=== PATIENT | female | born 1940 | race Caucasian/White ===

== ENCOUNTER 2016-09-07 22:14 | Emergency (ER) | payer MEDICARE, OTHER ==
[2016-09-07 22:33] VITALS: RESP 18
--- NOTE | 2016-09-07 22:51 | ED ---
General Adult HPI - General Chief complaint: Allergic Reaction Stated complaint: abcess Time Seen by Provider: 09/07/16 22:26 Source: patient, RN notes reviewed Mode of arrival: EMS Limitations: no limitations - History of Present Illness Initial comments: Patient is a 75-year-old female presents to the emergency room for evaluation of skin irritation. Patient states her left arm began irritating her about 5 days ago. Patient states she's been itching at the area profusely. Patient states she's noticed very dark spots over her left arm with surrounding redness. Patient states that her custodial advised that she come here to be evaluated. Patient states she's think she is having ALLERGIC reaction. Patient states that she had peanuts about a week ago. Patient states she hasn' t had peanuts in a very long time. Patient denies new medications. Patient denies new detergents, body washes, soaps, shampoos. Patient denies any significant pain. Patient states that she usually does not bruise easily. Denies any recent falls or trauma to her left arm. Patient denies fevers or chills. Patient denies shortness of breath or trouble breathing. Patient does admit she has a history of COPD. - Related Data Home Medications Medication Instructions Recorded Confirmed Aspirin EC [Ecotrin Low Dose] 81 mg PO DAILY 09/07/16 09/07/16 Calcium Carb-Vit D 500Mg-200Un 1 tab PO BID 09/07/16 09/07/16 [Oscal 500+D] Diltiazem Cd [Cardizem Cd] 180 mg PO DAILY 09/07/16 09/07/16 Furosemide [Lasix] 20 mg PO BID 09/07/16 09/07/16 Lisinopril [Zestril] 2.5 mg PO DAILY 09/07/16 09/07/16 Metoprolol Tartrate [Lopressor] 25 mg PO DAILY 09/07/16 09/07/16 Montelukast [Singulair] 10 mg PO HS 09/07/16 09/07/16 PARoxetine HCL [Paxil] 60 mg PO DAILY 09/07/16 09/07/16 Potassium Chloride ER [K-Dur 10] 10 meq PO DAILY 09/07/16 09/07/16 Valsartan 80 mg PO DAILY 09/07/16 09/07/16 cloNIDine HCL [Catapres] 0.1 mg PO BID 09/07/16 09/07/16 Previous Rx's Medication Instructions Recorded Famotidine [Pepcid] 20 mg PO DAILY 4 Days 09/08/16 predniSONE 20 mg PO DAILY #4 tab 09/08/16 Allergies Allergy/AdvReac Type Severity Reaction Status Date / Time codeine Allergy Nausea & Verified 09/07/16 23:05 Vomiting levofloxacin [From Levaquin] Allergy Swelling Verified 09/07/16 23:05 meperidine [From Demerol] Allergy PATIENT Verified 09/07/16 23:05 GETS "HYPER" Review of Systems ROS Statement: Those systems with pertinent positive or pertinent negative responses have been documented in the HPI. ROS Other: All systems not noted in ROS Statement are negative. Past Medical History Past Medical History: COPD, Hypertension Additional Past Medical History / Comment(s): IBS, hyperparathyroidism History of Any Multi-Drug Resistant Organisms: None Reported Past Surgical History: Hysterectomy Additional Past Surgical History / Comment(s): parathyroidectomy Past Psychological History: No Psychological Hx Reported Smoking Status: Former smoker Past Alcohol Use History: Occasional Past Drug Use History: None Reported General Exam - General Exam Comments Initial Comments: Sitting in exam room, no acute distress. Limitations: no limitations General appearance: alert, in no apparent distress Head exam: Present: atraumatic, normocephalic, normal inspection Eye exam: Present: normal appearance ENT exam: Present: normal exam Neck exam: Present: normal inspection Respiratory exam: Present: normal lung sounds bilaterally. Absent: respiratory distress Cardiovascular Exam: Present: regular rate, normal rhythm, normal heart sounds Extremities exam: Present: normal inspection Back exam: Present: normal inspection Neurological exam: Present: alert, oriented X3, CN II-XII intact, normal gait Psychiatric exam: Present: normal affect, normal mood Skin exam: Present: warm, dry, other (Few areas of purpura from excessive itching over left forearm.) Course Vital Signs 09/07/16 22:27 Temperature 97.4 F L Pulse Rate 79 Respiratory 18 Rate Blood Pressure 146/74 O2 Sat by Pulse 98 Oximetry Medical Decision Making - Medical Decision Making Patient is 75-year-old female since emergency room for evaluation of skin pruritus. Patient does have purpura lesions over her left forearm from profusely itching. Case discussed with Dr. Christopher. Dr. Christopher also evaluated patient. Dr. Christopher please the lesions on arm or related to itching/ALLERGIC reaction. Patient was given Solu-Medrol, Pepcid and Benadryl. Patient states the itching has subsided and she feels a lot better. Will discharge patient have her follow-up with her primary care provider in 24-48 hours. Patient states she understands everything that was discussed with her. Return parameters discussed. - Lab Data Result diagrams: 09/07/16 23:32 09/08/16 00:45 Lab Results 09/07/16 09/08/16 Range/Units 23:32 00:45 WBC 9.0 (3.8-10.6) k/uL RBC 3.73 L (3.80-5.40) m/uL Hgb 10.9 L (11.4-16.0) gm/dL Hct 33.5 L (34.0-46.0) % MCV 89.6 (80.0-100.0) fL MCH 29.1 (25.0-35.0) pg MCHC 32.4 (31.0-37.0) g/dL RDW 14.2 (11.5-15.5) % Plt Count 279 (150-450) k/uL Neutrophils % 65 % Lymphocytes % 21 % Monocytes % 6 % Eosinophils % 5 % Basophils % 1 % Neutrophils # 5.8 (1.3-7.7) k/uL Lymphocytes # 1.9 (1.0-4.8) k/uL Monocytes # 0.6 (0-1.0) k/uL Eosinophils # 0.4 (0-0.7) k/uL Basophils # 0.1 (0-0.2) k/uL Sodium 142 (137-145) mmol/L Potassium 3.3 L (3.5-5.1) mmol/L Chloride 101 (98-107) mmol/L Carbon Dioxide 31 H (22-30) mmol/L Anion Gap 10 mmol/L BUN 30 H (7-17) mg/dL Creatinine 1.00 (0.52-1.04) mg/dL Est GFR (MDRD) Af Amer >60 (>60 ml/min/1.73 sqM) Est GFR (MDRD) Non-Af 54 (>60 ml/min/1.73 sqM) Glucose 117 H (74-99) mg/dL Calcium 9.2 (8.4-10.2) mg/dL Total Bilirubin 0.3 (0.2-1.3) mg/dL AST 17 (14-36) U/L ALT 24 (9-52) U/L Alkaline Phosphatase 96 (38-126) U/L Total Protein 7.4 (6.3-8.2) g/dL Albumin 4.0 (3.5-5.0) g/dL Disposition Clinical Impression: Allergic reaction, Pruritus of skin Disposition: HOME SELF-CARE Condition: Good Instructions: General Allergic Reaction (ED) Additional Instructions: Take Benadryl 4-6 hours as needed. Take medications as directed. Please follow up with primary care provider in 24-48 hours for reevaluation. If any new symptom arises or symptoms worsen, return to ER as soon as possible. Prescriptions: Famotidine [Pepcid] 20 mg PO DAILY 4 Days predniSONE 20 mg PO DAILY #4 tab Referrals: Sweta Greenwood MD [Primary Care Provider] - 1-2 days Time of Disposition: 00:45
[2016-09-07] MEDS ORDERED: methylPREDNISolone SOD SUCCI 125 MG/2 ML VIAL IV STA (23:13)
[2016-09-07] MEDS ORDERED: FAMOTIDINE 20 MG TAB PO STA (23:13)
[2016-09-07] MEDS ORDERED: diphenhydrAMINE 50 MG CAP PO STA (23:13)
[2016-09-07 23:44] LABS: Basophils # (A) 0.1 k/uL (0-0.2); Basophils % (A) 1 %; CH 28.5; CHCM 31.9; Eosinophils # (A) 0.4 k/uL (0-0.7); Eosinophils % (A) 5 %; HCT 33.5 % (34.0-46.0); HGB 10.9 gm/dL (11.4-16.0); Luc # (Auto) 0.17; Luc % (Auto) 2; Lymphocytes # (A) 1.9 k/uL (1.0-4.8); Lymphocytes % (A) 21 %; MCH 29.1 pg (25.0-35.0); MCHC 32.4 g/dL (31.0-37.0); MCV 89.6 fL (80.0-100.0); Mean Platelet Volume 7.1; Monocytes # (A) 0.6 k/uL (0-1.0); Monocytes % (A) 6 %; Neutrophils # (A) 5.8 k/uL (1.3-7.7); Neutrophils % (A) 65 %; RBC 3.73 m/uL (3.80-5.40); RDW 14.2 % (11.5-15.5); WBC (Perox) 8.83
[2016-09-08 01:31] LABS: ALT 24 U/L (9-52); AST 17 U/L (14-36); Alkaline Phosphatase 96 U/L (38-126); Anion Gap 10 mmol/L; Blood Urea Nitrogen 30 mg/dL (7-17); Calcium 9.2 mg/dL (8.4-10.2); Carbon Dioxide 31 mmol/L (22-30); Chloride 101 mmol/L (98-107); Glucose 117 mg/dL (74-99); Non-African American GFR(MDRD) 54 (>60 ml/min/1.73 sqM); Potassium 3.3 mmol/L (3.5-5.1); Sodium 142 mmol/L (137-145); Total Bilirubin 0.3 mg/dL (0.2-1.3); Total Protein 7.4 g/dL (6.3-8.2)
[2016-09-08] MEDS ORDERED: POTASSIUM CHLORIDE ER 10 MEQ TAB.ER.PRT PO STA (01:42)
[2016-09-08 02:08] VITALS: BP 139/81; PULSE 87; TEMP 97.9
== END 2016-09-08 03:05 | disposition home or self-care (01) ==
LOC: EC 22:14
DX: T78.40XA Allergy, unspecified, initial encounter (principal); I10 Essential (primary) hypertension; Z87.891 Personal history of nicotine dependence; Z79.82 Long term (current) use of aspirin; Z79.899 Other long term (current) drug therapy; Z88.1 Allergy status to other antibiotic agents; Z88.5 Allergy status to narcotic agent
CPT/HCPCS: 99284; 96374; 36415 ×2; 80053; 85025; J2930

== ENCOUNTER 2018-01-19 23:24 | Inpatient (IN) | payer MEDICARE, OTHER ==
[2018-01-20] MEDS ORDERED: SODIUM CHLORIDE 0.9% 1,000 ML IV STA (00:07)
[2018-01-20 00:26] LABS: Basophils # (A) 0.1 k/uL (0-0.2); Basophils % (A) 1 %; Eosinophils # (A) 0.1 k/uL (0-0.7); Eosinophils % (A) 1 %; HCT 31.8 % (34.0-46.0); HGB 10.2 gm/dL (11.4-16.0); Lymphocytes # (A) 1.1 k/uL (1.0-4.8); Lymphocytes % (A) 11 %; MCH 28.5 pg (25.0-35.0); MCV 89.1 fL (80.0-100.0); Mean Platelet Volume 6.2; Monocytes # (A) 0.6 k/uL (0-1.0); Monocytes % (A) 7 %; Neutrophils # (A) 7.4 k/uL (1.3-7.7); Neutrophils % (A) 79 %; Platelet Count 296 k/uL (150-450); RBC 3.57 m/uL (3.80-5.40); WBC 9.4 k/uL (3.8-10.6)
--- NOTE | 2018-01-20 00:38 | XR ---
EXAMINATION TYPE: XR KUB DATE OF EXAM: 01/20/2018 COMPARISON: 03/02/2013 HISTORY: Abdominal pain TECHNIQUE: Single view FINDINGS: There is no sign of intestinal obstruction or pneumoperitoneum. Fecal pattern is normal. Kiki ng bases are clear. There are surgical clips in the mid abdomen. There are no pathologic calcic dictation over the kidneys. IMPRESSION: Nonacute abdomen. No change.
[2018-01-20 00:39] LABS: Calcium 9.3 mg/dL (8.4-10.2); Magnesium 1.4 mg/dL (1.6-2.3); Potassium 3.3 mmol/L (3.5-5.1); Total Bilirubin 0.5 mg/dL (0.2-1.3); Total Protein 7.3 g/dL (6.3-8.2)
[2018-01-20] MEDS ORDERED: MAGNESIUM SULFATE-D5W PMX 1 GM in DEXTROSE/WATER 1 100ML.BAG IVPB ONE (00:53)
[2018-01-20 00:58] LABS: Appearance,Urine Turbid (Clear); Bacteria,Urine Many /hpf; Bilirubin,Urine Negative (Negative); Blood,Urine Small (Negative); Color,Urine Yellow; Glucose,Urine (UA) 1+ (Negative); Ketones,Urine Negative (Negative); Leukocyte Esterase,Urine Large (Negative); Mucus,Urine Rare /hpf; Nitrite,Urine Negative (Negative); Protein,Urine 2+ (Negative); RBC,Urine 17 /hpf (0-5); Specific Gravity,Urine 1.014 (1.001-1.035); Urobilinogen,Urine <2.0 mg/dL (<2.0); WBC,Urine >182 /hpf (0-5)
[2018-01-20] MEDS: POTASSIUM CHLORIDE 10 MEQ in WATER FOR INJECTION 1 100ML.BAG IVPB SCH ×4 (01:14→05:12)
[2018-01-20] MEDS ORDERED: NALOXONE 0.4 MG/ML 1 ML VIAL IV PRN (03:20)
[2018-01-20] MEDS: POTASSIUM CHLORIDE ER 20 MEQ TAB.ER PO SCH ×2 (03:20→03:55)
--- NOTE | 2018-01-20 03:22 | ED ---
General Adult HPI - General Chief complaint: Abdominal Pain Stated complaint: dehydration Time Seen by Provider: 01/19/18 23:57 Source: patient Mode of arrival: EMS Limitations: no limitations - History of Present Illness Initial comments: 77-year-old female presenting to the emergency department for evaluation of persistent diarrhea and development of generalized weakness and abdominal cramping. Patient reports that she has had intermittent episodes of diarrhea for a long period of time, usually she can manage this at home. She reports that today she has had persistent diarrhea, she states that she cannot stand without having to walk to the bathroom to have a BM. Patient states that she feels like she is becoming dehydrated from having so much diarrhea, she reports mild abdominal cramping, no sharp or severe pain. She denies any recent antibiotic use, suspicious food intake or the national travel. She denies any outside activities which would've resulted in her drinking unfiltered water. She has no history of in the past. Patient denies any fever, chills, nausea or vomiting. She reports the diarrhea is watery, non-bloody, though she does admit that she noticed some bright red blood upon wiping. But believes this is secondary to irritation. - Related Data Home Medications Medication Instructions Recorded Confirmed Aspirin EC [Ecotrin Low Dose] 81 mg PO DAILY 09/07/16 01/20/18 Calcium Carb-Vit D 500Mg-200Un 1 tab PO BID 09/07/16 01/20/18 [Oscal 500+D] Diltiazem Cd [Cardizem Cd] 180 mg PO DAILY 09/07/16 01/20/18 Furosemide [Lasix] 20 mg PO BID 09/07/16 01/20/18 Lisinopril [Zestril] 2.5 mg PO DAILY 09/07/16 01/20/18 Metoprolol Tartrate [Lopressor] 25 mg PO DAILY 09/07/16 01/20/18 Montelukast [Singulair] 10 mg PO HS 09/07/16 01/20/18 PARoxetine HCL [Paxil] 60 mg PO DAILY 09/07/16 01/20/18 Potassium Chloride ER [K-Dur 10] 10 meq PO DAILY 09/07/16 01/20/18 Valsartan 80 mg PO DAILY 09/07/16 01/20/18 cloNIDine HCL [Catapres] 0.1 mg PO BID 09/07/16 01/20/18 Previous Rx's Medication Instructions Recorded Famotidine [Pepcid] 20 mg PO DAILY 4 Days tablet 09/08/16 predniSONE 20 mg PO DAILY #4 tab 09/08/16 Allergies Allergy/AdvReac Type Severity Reaction Status Date / Time codeine Allergy Nausea & Verified 01/19/18 23:32 Vomiting levofloxacin [From Levaquin] Allergy Swelling Verified 01/19/18 23:32 meperidine [From Demerol] Allergy PATIENT Verified 09/07/16 23:05 GETS "HYPER" Review of Systems ROS Statement: Those systems with pertinent positive or pertinent negative responses have been documented in the HPI. ROS Other: All systems not noted in ROS Statement are negative. Past Medical History Past Medical History: COPD, Hypertension Additional Past Medical History / Comment(s): IBS, hyperparathyroidism History of Any Multi-Drug Resistant Organisms: None Reported Past Surgical History: Hysterectomy Additional Past Surgical History / Comment(s): parathyroidectomy Past Psychological History: No Psychological Hx Reported Smoking Status: Former smoker Past Alcohol Use History: Occasional Past Drug Use History: None Reported General Exam - General Exam Comments Initial Comments: GENERAL: Chronically ill appearing HENT: Normocephalic, Atraumatic. Neck is soft and supple. No significant lymphadenopathy is noted. Oropharynx is clear. Moist mucous membranes. Neck has full range of motion without eliciting any pain. EYES: The sclera were anicteric and conjunctiva were pink and moist. Extraocular movements were intact and pupils were equal round and reactive to light. Eyelids were unremarkable. PULMONARY: Wheeze throughout 2L NC supplemental oxygen CARDIOVASCULAR: There is a regular rate and rhythm without any murmurs gallops or rubs. ABDOMEN: Soft and nontender with hyperactive bowel sounds. SKIN: Appears dehydrated Skin is clear with no lesions or rashes and otherwise unremarkable. NEUROLOGIC: Patient is alert and oriented x3. Cranial nerves II through XII are grossly intact. Motor and sensory are also intact. Normal speech, volume and content. Symmetrical smile. MUSCULOSKELETAL: Normal extremities with adequate strength and full range of motion. No lower extremity swelling or edema. No calf tenderness. LYMPHATICS: No significant lymphadenopathy is noted PSYCHIATRIC: Normal psychiatric evaluation. Limitations: no limitations Limitations: no limitations Course Vital Signs 01/19/18 01/20/18 01/20/18 23:26 00:32 02:00 Temperature 98.5 F Pulse Rate 117 H 101 H 94 Respiratory 18 20 16 Rate Blood Pressure 150/66 150/68 149/79 O2 Sat by Pulse 97 97 Oximetry 01/20/18 01/20/18 01/20/18 02:58 03:00 04:10 Temperature Pulse Rate 81 87 89 Respiratory 20 18 18 Rate Blood Pressure 154/71 150/70 136/75 O2 Sat by Pulse 98 97 98 Oximetry EKG Findings - EKG Comments: EKG Findings:: EKG obtained at 2340, rate is 109, rhythm is sinus tachycardia, there is left axis deviation, normal intervals, KS 148, QRS 74, QTC 382. There is some respiratory variation and some artifact noted in the lateral leads however there is no evidence of acute ST elevations or depressions no evidence of acute ischemia or infarction. Medical Decision Making - Medical Decision Making Patient was seen and evaluated, history was obtained from the patient Is is an elderly female with persistent diarrhea and generalized weakness appears dehydrated on initial evaluation Labs and imaging were ordered Patient's abdominal pain is not present but a lactic acid was ordered to evaluate for any potential mesenteric ischemia Labs reveal chronic anemia, hypomagnesemia, hypokalemia, electrolytes were replaced IV fluids were given Lactic acid was only 1.7, at this time I do not feel the patient is experiencing any mesenteric ischemia. Patient is asking for food and drinks. She has not had any bowel movements in the emergency department Considering the patient's advanced age, persistent diarrhea, evidence of dehydration and electrolyte abnormalities I do feel she warrants stay in the hospital for electrolyte repletion and rehydration therapy. Patient was admitted to Dr. Leonard per her PCP preference. - Lab Data Result diagrams: 01/20/18 00:00 01/20/18 00:00 Lab Results 01/20/18 01/20/18 01/20/18 Range/Units 00:00 00:00 00:00 WBC 9.4 (3.8-10.6) k/uL RBC 3.57 L (3.80-5.40) m/uL Hgb 10.2 L (11.4-16.0) gm/dL Hct 31.8 L (34.0-46.0) % MCV 89.1 (80.0-100.0) fL MCH 28.5 (25.0-35.0) pg MCHC 32.0 (31.0-37.0) g/dL RDW 15.0 (11.5-15.5) % Plt Count 296 (150-450) k/uL Neutrophils % 79 % Lymphocytes % 11 % Monocytes % 7 % Eosinophils % 1 % Basophils % 1 % Neutrophils # 7.4 (1.3-7.7) k/uL Lymphocytes # 1.1 (1.0-4.8) k/uL Monocytes # 0.6 (0-1.0) k/uL Eosinophils # 0.1 (0-0.7) k/uL Basophils # 0.1 (0-0.2) k/uL Sodium 143 (137-145) mmol/L Potassium 3.3 L (3.5-5.1) mmol/L Chloride 96 L (98-107) mmol/L Carbon Dioxide 39 H (22-30) mmol/L Anion Gap 8 mmol/L BUN 25 H (7-17) mg/dL Creatinine 0.89 (0.52-1.04) mg/dL Est GFR (CKD-EPI)AfAm 73 (>60 ml/min/1.73 sqM) Est GFR (CKD-EPI)NonAf 63 (>60 ml/min/1.73 sqM) Glucose 221 H (74-99) mg/dL Plasma Lactic Acid [place] (0.7-2.0) mmol/L Calcium 9.3 (8.4-10.2) mg/dL Magnesium 1.4 L (1.6-2.3) mg/dL Total Bilirubin 0.5 (0.2-1.3) mg/dL AST 26 (14-36) U/L ALT 10 (9-52) U/L Alkaline Phosphatase 73 (38-126) U/L Total Protein 7.3 (6.3-8.2) g/dL Albumin 4.0 (3.5-5.0) g/dL Lipase 102 (23-300) U/L Urine Color Urine Appearance (Clear) Urine pH (5.0-8.0) Ur Specific [place] (1.001-1.035) Urine Protein (Negative) Urine Glucose (UA) (Negative) Urine Ketones (Negative) Urine Blood (Negative) Urine Nitrite (Negative) Urine Bilirubin (Negative) Urine Urobilinogen (<2.0) mg/dL Ur Leukocyte Esterase (Negative) Urine RBC (0-5) /hpf Urine WBC (0-5) /hpf Urine Bacteria (None) /hpf Urine Mucus (None) /hpf C. difficile (EIA) Intrp Negative (Negative) 01/20/18 01/20/18 Range/Units 00:00 00:40 WBC (3.8-10.6) k/uL RBC (3.80-5.40) m/uL Hgb (11.4-16.0) gm/dL Hct (34.0-46.0) % MCV (80.0-100.0) fL MCH (25.0-35.0) pg MCHC (31.0-37.0) g/dL RDW (11.5-15.5) % Plt Count (150-450) k/uL Neutrophils % % Lymphocytes % % Monocytes % % Eosinophils % % Basophils % % Neutrophils # (1.3-7.7) k/uL Lymphocytes # (1.0-4.8) k/uL Monocytes # (0-1.0) k/uL Eosinophils # (0-0.7) k/uL Basophils # (0-0.2) k/uL Sodium (137-145) mmol/L Potassium (3.5-5.1) mmol/L Chloride (98-107) mmol/L Carbon Dioxide (22-30) mmol/L Anion Gap mmol/L BUN (7-17) mg/dL Creatinine (0.52-1.04) mg/dL Est GFR (CKD-EPI)AfAm (>60 ml/min/1.73 sqM) Est GFR (CKD-EPI)NonAf (>60 ml/min/1.73 sqM) Glucose (74-99) mg/dL Plasma Lactic Acid [place] 1.7 (0.7-2.0) mmol/L Calcium (8.4-10.2) mg/dL Magnesium (1.6-2.3) mg/dL Total Bilirubin (0.2-1.3) mg/dL AST (14-36) U/L ALT (9-52) U/L Alkaline Phosphatase (38-126) U/L Total Protein (6.3-8.2) g/dL Albumin (3.5-5.0) g/dL Lipase (23-300) U/L Urine Color Yellow Urine Appearance Turbid H (Clear) Urine pH 7.0 (5.0-8.0) Ur Specific [place] 1.014 (1.001-1.035) Urine Protein 2+ H (Negative) Urine Glucose (UA) 1+ H (Negative) Urine Ketones Negative (Negative) Urine Blood Small H (Negative) Urine Nitrite Negative (Negative) Urine Bilirubin Negative (Negative) Urine Urobilinogen <2.0 (<2.0) mg/dL Ur Leukocyte Esterase Large H (Negative) Urine RBC 17 H (0-5) /hpf Urine WBC >182 H (0-5) /hpf Urine Bacteria Many H (None) /hpf Urine Mucus Rare H (None) /hpf C. difficile (EIA) Intrp (Negative) Disposition Clinical Impression: Diarrhea, Hypomagnesemia, Hypokalemia Disposition: ADMITTED IP TO THIS HOSP
[2018-01-20] MEDS ORDERED: LOPERAMIDE 2 MG CAP PO PRN (10:02)
[2018-01-20] MEDS: cefTRIAXone IN SWFI 1,000 MG/10 ML SYRINGE IVP SCH (10:46)
[2018-01-20] MEDS: METOPROLOL TARTRATE 25 MG TAB PO SCH (10:46)
--- NOTE | 2018-01-20 10:56 | P.HPIM ---
History of Present Illness 77-year-old up as an female came in with generalized weakness and diarrhea patient does have chronic diarrhea much worse now with crampy abdominal pain. Patient's abdominal pain is better today but still has multiple episodes of diarrhea. Patient's C. diff is negative. Patient is also coming of dysuria urine is significantly abnormal with for elevated blood cell count Leukos admitted to a stress positive and nitrate positive. Patient does not have any superpubic pain does not have any fever chills, does not have any leukocytosis. Patient is a mildly hypokalemic and hypomagnesemic secondary to diarrhea patient a body mass index is very low and her creatinine is 0.89 which is consistent with acute renal failure patient is on Lasix for peripheral edema which will discuss reviewed. Patient is on TEE inhibitor and the aneurysm the center [facility] TEE inhibitor will be discontinued will continue with angiotensin receptor jose antonio unless her creatinine worsens tomorrow. Patient does have COPD advanced use 2 L of onset at home. Patient follows a Dr. Greenwood as an outpatient. Review of Systems REVIEW OF SYSTEMS: CONSTITUTIONAL: No fever, no malaise, no fatigue. HEENT: No recent visual problems or hearing problems. Denied any sore throat. CARDIOVASCULAR: No chest pain, orthopnea, PND, no palpitations, no syncope. PULMONARY: No shortness of breath, no cough, no hemoptysis. GASTROINTESTINAL: As mentioned in HPI NEUROLOGICAL: No headaches, no weakness, no numbness. HEMATOLOGICAL: Denies any bleeding or petechiae. GENITOURINARY: As mentioned in HPI MUSCULOSKELETAL/RHEUMATOLOGICAL: Denies any joint pain, swelling, or any muscle pain. ENDOCRINE: Denies any polyuria or polydipsia. The rest of the 14-point review of systems is negative. Past Medical History Past Medical History: COPD, Hypertension Additional Past Medical History / Comment(s): Severe COPD, chronic hypoxic respiratory failure, cachexia, idiopathic scoliosis/kyphoscoliosis, hypertension , chronic anemia, insomnia disorder related to known organic factor, lower extremity edema, chronic diarrhea, IBS, previous history of hyperparathyroidism History of Any Multi-Drug Resistant Organisms: None Reported Past Surgical History: Hysterectomy Additional Past Surgical History / Comment(s): parathyroidectomy Past Anesthesia/Blood Transfusion Reactions: Postoperative Nausea & Vomiting ( PONV) Past Psychological History: No Psychological Hx Reported Smoking Status: Former smoker Past Alcohol Use History: Occasional Past Drug Use History: None Reported - Past Family History Father Family Medical History: COPD Mother Family Medical History: Cancer Sister(s) Family Medical History: Cancer Medications and Allergies Home Medications Medication Instructions Recorded Confirmed Type Aspirin EC [Ecotrin Low Dose] 81 mg PO DAILY 09/07/16 01/20/18 History Calcium Carb-Vit D 500Mg-200Un 1 tab PO BID 09/07/16 01/20/18 History [Oscal 500+D] Diltiazem Cd [Cardizem Cd] 180 mg PO DAILY 09/07/16 01/20/18 History Furosemide [Lasix] 20 mg PO BID 09/07/16 01/20/18 History Lisinopril [Zestril] 2.5 mg PO DAILY 09/07/16 01/20/18 History Metoprolol Tartrate [Lopressor] 25 mg PO DAILY 09/07/16 01/20/18 History Montelukast [Singulair] 10 mg PO HS 09/07/16 01/20/18 History PARoxetine HCL [Paxil] 60 mg PO DAILY 09/07/16 01/20/18 History Potassium Chloride ER [K-Dur 10] 10 meq PO DAILY 09/07/16 01/20/18 History cloNIDine HCL [Catapres] 0.1 mg PO BID 09/07/16 01/20/18 History Allergies Allergy/AdvReac Type Severity Reaction Status Date / Time codeine Allergy Nausea & Verified 01/19/18 23:32 Vomiting levofloxacin [From Levaquin] Allergy Swelling Verified 01/19/18 23:32 meperidine [From Demerol] Allergy PATIENT Verified 09/07/16 23:05 GETS "HYPER" Physical Exam Vitals: Vital Signs Temp Pulse Pulse Pulse Resp BP BP 01/20/18 05:50 97.8 F 94 17 176/88 01/20/18 04:28 97.9 F 78 19 176/88 01/20/18 04:10 89 18 136/75 01/20/18 03:00 87 18 150/70 01/20/18 02:58 81 20 154/71 01/20/18 02:00 94 16 149/79 01/20/18 00:32 101 H 20 150/68 01/19/18 23:26 98.5 F 117 H 18 150/66 Pulse Ox 01/20/18 05:50 96 09/16/18 04:28 98 01/20/18 04:10 98 01/20/18 03:00 97 01/20/18 02:58 98 01/20/18 02:00 97 01/20/18 00:32 97 01/19/18 23:26 Intake and Output 01/19/18 01/20/18 01/20/18 22:59 06:59 14:59 Other: Weight 41.73 kg PHYSICAL EXAMINATION: GENERAL: The patient is alert and oriented x3, not in any acute distress. Thin built HEENT: Pupils are round and equally reacting to light. EOMI. No scleral icterus. No conjunctival pallor. Normocephalic, atraumatic. No pharyngeal erythema. No thyromegaly. CARDIOVASCULAR: S1 and S2 present. No murmurs, rubs, or gallops. PULMONARY: Chest is clear to auscultation, no wheezing or crackles. ABDOMEN: Soft, nontender, nondistended, normoactive bowel sounds. No palpable organomegaly. MUSCULOSKELETAL: No joint swelling or deformity. EXTREMITIES: No cyanosis, clubbing, or pedal edema. NEUROLOGICAL: Gross neurological examination did not reveal any focal deficits. SKIN: No rashes. Results CBC & Chem 7: 01/20/18 00:00 01/20/18 00:00 Labs: Abnormal Lab Results - Last 24 Hours (Table) 01/20/18 01/20/18 01/20/18 Range/Units 00:00 00:00 00:40 RBC 3.57 L (3.80-5.40) m/uL Hgb 10.2 L (11.4-16.0) gm/dL Hct 31.8 L (34.0-46.0) % Potassium 3.3 L (3.5-5.1) mmol/L Chloride 96 L (98-107) mmol/L Carbon Dioxide 39 H (22-30) mmol/L BUN 25 H (7-17) mg/dL Glucose 221 H (74-99) mg/dL Magnesium 1.4 L (1.6-2.3) mg/dL Urine Appearance Turbid H (Clear) Urine Protein 2+ H (Negative) Urine Glucose (UA) 1+ H (Negative) Urine Blood Small H (Negative) Ur Leukocyte Esterase Large H (Negative) Urine RBC 17 H (0-5) /hpf Urine WBC >182 H (0-5) /hpf Urine Bacteria Many H (None) /hpf Urine Mucus Rare H (None) /hpf Microbiology - Last 24 Hours (Table) 01/20/18 00:00 Stool Culture - Preliminary Stool Thrombosis Risk Factor Assmnt - Choose All That Apply Any of the Below Risk Factors Present?: Yes Each Factor Represents 1 point: Abnormal pulmonary function (COPD) Other Risk Factors: Yes Each Risk Factor Represents 3 Points: Age 75 years or older Other congenital or acquired thrombophilia - If yes, enter type in comment: No Thrombosis Risk Factor Assessment Total Risk Factor Score: 4 Thrombosis Risk Factor Assessment Level: Moderate Risk Assessment and Plan Plan: -Diarrhea: Secondary to either gastroenteritis up from urinary tract infection itself C. diff was negative symptomatic treatment as mentioned above along with the stool bulking agents like [place] from. -Possible urinary tract infection urine cultures were obtained patient will be continued on Rocephin -COPD without any acute examination patient will be started on inhaled steroids and inhalational treatments -Hypomagnesemia and hypokalemia secondary to diarrhea and diuretic therapy diuretic therapy will be held and patient was started on IV fluids. -Mild protein calorie malnutrition and severe cachexia secondary to COPD -Hypertension
[2018-01-20] MEDS: SODIUM CHLORIDE 0.9% 1,000 ML IV SCH ×2 (10:58→21:32)
[2018-01-20] MEDS: IPRATROPIUM-ALBUTEROL 3 ML NEB INHALATION PRN ×3 (11:11→20:28)
--- NOTE | 2018-01-20 11:40 | P.CNPUL ---
History of Present Illness Consult date: 01/20/18 Reason for consult: dyspnea, COPD History of present illness: 77-year-old female patient with advanced COPD and high hypoxic respiratory failure, was Hospital as because of chronic diarrhea, debility, dehydration and intravascular volume depletion. The patient's COPD is severe at baseline and the patient is demented on a combination of Spiriva, Perforomist and Pulmicort Respules on outpatient basis. She is oxygen dependent. She has a very poor performance and functional status. She was having difficulty with mobility. She also has chronic dizziness, chronic diarrhea and poor appetite and progressive worsening in her functional status. She suffers from chronic insomnia. No nausea. No vomiting. No abdominal pain. The blood profile is essentially within normal limits. The UA is abnormal and the patient has an indication for an underlying urine checked infection. She is afebrile. She is hemodynamically stable and she is on 2 L of oxygen by nasal cannula with a pulse ox of 96% and his EKG showing sinus tachycardia with an extra-axial deviation. The KUB showing no acute abnormalities. Review of Systems Patient reports weight loss (6 lbs) but reports no fever, no night sweats, no significant weight gain, and no exercise intolerance. She reports no frequent nosebleeds, no nose problems, and no sinus problems; nasal drainage. She reports shortness of breath when walking but reports no chest pain, no arm pain on exertion, no shortness of breath when lying down, no palpitations, and no known heart murmur. She reports shortness of breath. She reports frequent diarrhea but reports no abdominal pain, no nausea, no vomiting, no constipation , normal appetite, not vomiting blood, no dyspepsia, and no GERD. She reports increased urinary frequency but reports no incontinence, no difficulty urinating , and no hematuria. She reports back pain and swelling in the extremities but reports no muscle aches, no muscle weakness, and no arthralgias/joint pain; chronic body pain and aching, ankles and feet. She reports no dry eyes, no vision change, and no irritation. She reports no sore throat, no bleeding gums, no snoring, no dry mouth, no mouth ulcers, no oral abnormalities, and no teeth problems. She reports no abnormal mole, no jaundice, no rashes, and no laceration. She reports no loss of consciousness, no weakness, no numbness, no seizures, no dizziness, no migraines, no headaches, and no tremor. She reports no depression, no sleep disturbances, feeling safe in a relationship, no alcohol abuse, no anxiety, no hallucinations, and no suicidal thoughts. She reports no fatigue. She reports no swollen glands, no bruising, and no excessive bleeding. She reports no runny nose, no sinus pressure, no itching, no hives, and no frequent sneezing. Past Medical History Past Medical History: COPD, Hypertension Additional Past Medical History / Comment(s): Severe COPD, chronic hypoxic respiratory failure, cachexia, idiopathic scoliosis/kyphoscoliosis, hypertension , chronic anemia, insomnia disorder related to known organic factor, lower extremity edema, chronic diarrhea, IBS, previous history of hyperparathyroidism History of Any Multi-Drug Resistant Organisms: None Reported Past Surgical History: Hysterectomy Additional Past Surgical History / Comment(s): parathyroidectomy Past Anesthesia/Blood Transfusion Reactions: Postoperative Nausea & Vomiting ( PONV) Past Psychological History: No Psychological Hx Reported Smoking Status: Former smoker Past Alcohol Use History: Occasional Past Drug Use History: None Reported - Past Family History Father Family Medical History: COPD Mother Family Medical History: Cancer Sister(s) Family Medical History: Cancer Medications and Allergies Home Medications Medication Instructions Recorded Confirmed Type Aspirin EC [Ecotrin Low Dose] 81 mg PO DAILY 09/07/16 01/20/18 History Calcium Carb-Vit D 500Mg-200Un 1 tab PO BID 09/07/16 01/20/18 History [Oscal 500+D] Diltiazem Cd [Cardizem Cd] 180 mg PO DAILY 09/07/16 01/20/18 History Furosemide [Lasix] 20 mg PO BID 09/07/16 01/20/18 History Lisinopril [Zestril] 2.5 mg PO DAILY 09/07/16 01/20/18 History Metoprolol Tartrate [Lopressor] 25 mg PO DAILY 09/07/16 01/20/18 History Montelukast [Singulair] 10 mg PO HS 09/07/16 01/20/18 History PARoxetine HCL [Paxil] 60 mg PO DAILY 09/07/16 01/20/18 History Potassium Chloride ER [K-Dur 10] 10 meq PO DAILY 09/07/16 01/20/18 History cloNIDine HCL [Catapres] 0.1 mg PO BID 09/07/16 01/20/18 History Allergies Allergy/AdvReac Type Severity Reaction Status Date / Time codeine Allergy Nausea & Verified 01/19/18 23:32 Vomiting levofloxacin [From Levaquin] Allergy Swelling Verified 01/19/18 23:32 meperidine [From Demerol] Allergy PATIENT Verified 09/07/16 23:05 GETS "HYPER" Physical Exam Vitals: Vital Signs Temp Pulse Pulse Pulse Resp BP BP 01/20/18 05:50 97.8 F 94 17 176/88 01/20/18 04:28 97.9 F 78 19 176/88 01/20/18 04:10 89 18 136/75 01/20/18 03:00 87 18 150/70 01/20/18 02:58 81 20 154/71 01/20/18 02:00 94 16 149/79 01/20/18 00:32 101 H 20 150/68 01/19/18 23:26 98.5 F 117 H 18 150/66 Pulse Ox 01/20/18 05:50 96 01/20/18 04:28 98 01/20/18 04:10 98 01/20/18 03:00 97 01/20/18 02:58 98 01/20/18 02:00 97 01/20/18 00:32 97 01/19/18 23:26 Intake and Output 01/19/18 01/20/18 01/20/18 22:59 06:59 14:59 Other: Weight 41.73 kg General Appearance no diaphoresis, dyspnea, pallor, or respiratory distress; cachectic and appears ill; and speech not interrupted by breaths. HEENT no pursed lip breathing, jugular venous distention, mucous membrane cyanosis, or perioral cyanosis and mallampati classification: class 1. Chest no retractions, rhonchi, hyperinflation, barrel chest, sternocleidomastoid muscle contractions, supraclavicular retractions, intercostal retractions, or decreased air movement and prolonged expiratory wheezing and decreased air movement. Heart no right ventricular heave, distant heart sounds, or s3 gallop. GI bowel sounds: hyperactive (borborygmi) and diminished or absent. Extremities no cyanosis, clubbing, or edema. Neurologic no somnolence, confusion, or decreased mental status.Skin: General Appearance normal and (normal) normal except as noted; area of skin laceration, grade 1 in the right upper extremity just below the elbow with the skin sloughed. Results - Laboratory Findings CBC and BMP: 01/20/18 00:00 01/20/18 00:00 Abnormal lab findings: Abnormal Labs 01/20/18 01/20/18 01/20/18 00:00 00:00 00:40 RBC 3.57 L Hgb 10.2 L Hct 31.8 L Potassium 3.3 L Chloride 96 L Carbon Dioxide 39 H BUN 25 H Glucose 221 H Magnesium 1.4 L Urine Appearance Turbid H Urine Protein 2+ H Urine Glucose (UA) 1+ H Urine Blood Small H Ur Leukocyte Esterase Large H Urine RBC 17 H Urine WBC >182 H Urine Bacteria Many H Urine Mucus Rare H - Diagnostic Findings Chest x-ray: image reviewed Assessment and Plan Plan: 1. Severe chronic obstructive pulmonary disease - advanced-end stage COPD, that is stable for now. the patient is a combination of Perforomist and Pulmicort nebulized treatments twice a day and Spiriva one relation day. Continue same treatment. Continue oxygen 2 L/m nasal cannula. Long -term prognosis poor. Overall performance status is poor. J44.9: Chronic obstructive pulmonary disease, unspecified 2. Chronic hypoxemic respiratory failure - on oxygen at 2 L/m nasal cannula. J96.11: Chronic respiratory failure with hypoxia 3. Chronic diarrhea/Cachexia - 4. Idiopathic scoliosis AND/OR kyphoscoliosis - old healed fractures M41.20: Other idiopathic scoliosis, site unspecified 5. Essential hypertension I10: Essential (primary) hypertension 6. Anemia - Sarah Narvaez will repeat a CBC D64.9: Anemia, unspecified 7. Insomnia disorder related to known organic factor - chronic insomnia, on Restoril G47.00: Insomnia, unspecified 8. Allergy to peanuts - acute reaction for ALLERGY to peanut has recovered and the patient will avoid taken peanuts in the future. Z91.010: Allergy to peanuts 9. Edema of lower extremity - 10 urine tract infection Plan Hydrate this patient with IV fluids. IV Rocephin regarding the urine checked infection. Will provide Questran. Lomotil if needed. We'll continue to follow.
[2018-01-20] MEDS: PARoxetine 20 MG TAB PO SCH (13:11)
[2018-01-20] MEDS: DILTIAZEM CD 180 MG CAP.ER.24H PO SCH (13:11)
[2018-01-20] MEDS: CHOLESTYRAMINE (WITH SUGAR) 4 GM PACKET PO SCH (16:54)
[2018-01-20] MEDS ORDERED: MONTELUKAST 10 MG TAB PO SCH (21:00)
[2018-01-21 05:26] VITALS: BP 159/81; RESP 16; TEMP 98.1
[2018-01-21] MEDS: IPRATROPIUM-ALBUTEROL 3 ML NEB INHALATION PRN ×2 (07:29→11:45)
[2018-01-21] MEDS: DILTIAZEM CD 180 MG CAP.ER.24H PO SCH (08:20)
[2018-01-21] MEDS: METOPROLOL TARTRATE 25 MG TAB PO SCH (08:20)
[2018-01-21] MEDS: PARoxetine 20 MG TAB PO SCH (08:21)
[2018-01-21] MEDS: CHOLESTYRAMINE (WITH SUGAR) 4 GM PACKET PO SCH (08:21)
[2018-01-21] MEDS ORDERED: DILTIAZEM CD 180 MG CAP.ER.24H PO SCH (09:00)
[2018-01-21] MEDS ORDERED: ASPIRIN 81 MG PO SCH (09:00)
[2018-01-21] MEDS ORDERED: PARoxetine 20 MG TAB PO SCH (09:00)
[2018-01-21 09:02] LABS: Basophils # (A) 0.1 k/uL (0-0.2); Basophils % (A) 1 %; Eosinophils # (A) 0.4 k/uL (0-0.7); Eosinophils % (A) 3 %; HCT 32.7 % (34.0-46.0); HGB 10.3 gm/dL (11.4-16.0); Lymphocytes # (A) 2.3 k/uL (1.0-4.8); Lymphocytes % (A) 17 %; MCH 28.1 pg (25.0-35.0); MCHC 31.5 g/dL (31.0-37.0); MCV 89.2 fL (80.0-100.0); Mean Platelet Volume 6.3; Monocytes # (A) 0.8 k/uL (0-1.0); Monocytes % (A) 6 %; Neutrophils # (A) 9.6 k/uL (1.3-7.7); Neutrophils % (A) 72 %; Platelet Count 286 k/uL (150-450); RBC 3.66 m/uL (3.80-5.40); RDW 15.4 % (11.5-15.5); WBC 13.2 k/uL (3.8-10.6)
[2018-01-21] MEDS: cefTRIAXone IN SWFI 1,000 MG/10 ML SYRINGE IVP SCH (09:03)
[2018-01-21] MEDS ORDERED: VANCOMYCIN IV PER PHARMACY 1 EACH MISC MISCELLANE PRN (09:28)
[2018-01-21 09:36] LABS: Albumin 4.2 g/dL (3.5-5.0); Calcium 9.6 mg/dL (8.4-10.2); Magnesium 1.5 mg/dL (1.6-2.3); Potassium 4.2 mmol/L (3.5-5.1); Total Bilirubin 0.4 mg/dL (0.2-1.3); Total Protein 7.6 g/dL (6.3-8.2)
[2018-01-21] MEDS: MAGNESIUM SULFATE-D5W PMX 1 GM in DEXTROSE/WATER 1 100ML.BAG IVPB SCH ×2 (10:17→11:44)
--- NOTE | 2018-01-21 10:43 | P.DS ---
Providers Date of admission: 01/20/18 09:10 Attending physician: Anjelica Leonard Consults: 01/20/18 03:21 Consult Physician Routine Consulting Provider: Sweta Greenwood Consult Reason/Comments: established patient Do you want consulting provider notified?: Yes Primary care physician: Sweta Greenwood [facility] Course: 77-year-old up as an female came in with generalized weakness and diarrhea patient does have chronic diarrhea much worse now with crampy abdominal pain. Patient's abdominal pain is better today but still has multiple episodes of diarrhea. Patient's C. diff is negative. Patient is also coming of dysuria urine is significantly abnormal with for elevated blood cell count Leukos admitted to a stress positive and nitrate positive. Patient does not have any superpubic pain does not have any fever chills, does not have any leukocytosis. Patient is a mildly hypokalemic and hypomagnesemic secondary to diarrhea patient a body mass index is very low and her creatinine is 0.89 which is consistent with acute renal failure patient is on Lasix for peripheral edema which will discuss reviewed. Patient is on TEE inhibitor and the aneurysm the center [facility] TEE inhibitor will be discontinued will continue with angiotensin receptor jose antonio unless her creatinine worsens tomorrow. Patient does have COPD advanced use 2 L of onset at home. Patient follows a Dr. Greenwood as an outpatient. 01/21/2018 Patient's magnesium will be supplemented patient is clinically doing well no diarrhea, I do not have any urine cultures available but patient will be discharged on empiric antibiotics for the UTI. Patient wanted to be discharged will discharge the patient to follow with Dr. mckeon as an outpatient. I change her Lasix to as-needed basis along with as needed the potassium with Lasix for pedal edema. PHYSICAL EXAMINATION: GENERAL: The patient is alert and oriented x3, not in any acute distress. Thin built HEENT: Pupils are round and equally reacting to light. EOMI. No scleral icterus. No conjunctival pallor. Normocephalic, atraumatic. No pharyngeal erythema. No thyromegaly. CARDIOVASCULAR: S1 and S2 present. No murmurs, rubs, or gallops. PULMONARY: Chest is clear to auscultation, no wheezing or crackles. ABDOMEN: Soft, nontender, nondistended, normoactive bowel sounds. No palpable organomegaly. MUSCULOSKELETAL: No joint swelling or deformity. EXTREMITIES: No cyanosis, clubbing, or pedal edema. NEUROLOGICAL: Gross neurological examination did not reveal any focal deficits. SKIN: No rashes. Assessment and Plan Plan: -Diarrhea: Secondary to either gastroenteritis up from urinary tract infection itself C. diff was negative patient will be discharged on Imodium as needed -Possible urinary tract infection urine cultures were obtained patient will be continued on Rocephin -COPD without any acute exacerbation -Hypomagnesemia and hypokalemia secondary to diarrhea and diuretic therapy diuretic therapy, supplemented -Mild protein calorie malnutrition and severe cachexia secondary to COPD -Hypertension Plan - Discharge Summary Discharge Rx Participant: No New Discharge Prescriptions: New Cefuroxime Axetil [Ceftin] 500 mg PO BID 3 Days #6 tab Loperamide [Imodium] 2 mg PO QID PRN #30 cap PRN Reason: Diarrhea Magnesium Oxide [Mag-Ox] 400 mg PO DAILY #30 tablet Continue Diltiazem Cd [Cardizem CD] 180 mg PO DAILY cloNIDine HCL [Catapres] 0.1 mg PO BID PARoxetine HCL [Paxil] 60 mg PO DAILY Montelukast [Singulair] 10 mg PO HS Lisinopril [Zestril] 2.5 mg PO DAILY Calcium Carb-Vit D 500Mg-200Un [Oscal 500+D] 1 tab PO BID Aspirin EC [Ecotrin Low Dose] 81 mg PO DAILY Metoprolol Tartrate [Lopressor] 25 mg PO DAILY Changed Furosemide [Lasix] 20 mg PO DAILY PRN #1 PRN Reason: Edema Potassium Chloride ER [K-Dur 10] 10 meq PO DAILY PRN #1 PRN Reason: Use with lasix Discharge Medication List Aspirin EC [Ecotrin Low Dose] 81 mg PO DAILY 09/07/16 [History] Calcium Carb-Vit D 500Mg-200Un [Oscal 500+D] 1 tab PO BID 09/07/16 [History] Diltiazem Cd [Cardizem CD] 180 mg PO DAILY 09/07/16 [History] Lisinopril [Zestril] 2.5 mg PO DAILY 09/07/16 [History] Metoprolol Tartrate [Lopressor] 25 mg PO DAILY 09/07/16 [History] Montelukast [Singulair] 10 mg PO HS 09/07/16 [History] PARoxetine HCL [Paxil] 60 mg PO DAILY 09/07/16 [History] cloNIDine HCL [Catapres] 0.1 mg PO BID 09/07/16 [History] Cefuroxime Axetil [Ceftin] 500 mg PO BID 3 Days #6 tab 01/21/18 [Rx] Furosemide [Lasix] 20 mg PO DAILY PRN #1 01/21/18 [Rx] Loperamide [Imodium] 2 mg PO QID PRN #30 cap 01/21/18 [Rx] Magnesium Oxide [Mag-Ox] 400 mg PO DAILY #30 tablet 01/21/18 [Rx] Potassium Chloride ER [K-Dur 10] 10 meq PO DAILY PRN #1 01/21/18 [Rx] Follow up Appointment(s)/Referral(s): Sweta Greenwood MD [Primary Care Provider] - 3 Days Discharge Disposition: HOME SELF-CARE
[2018-01-21] MEDS: VANCOMYCIN 1,000 MG in SODIUM CHLORIDE 0.9% 250 ML IVPB ONE ×2 (10:58→11:50)
[2018-01-21 11:28] VITALS: BMI 15.3
[2018-01-21 11:59] VITALS: PULSE 92
--- NOTE | 2018-01-21 12:12 | P.PN ---
Subjective Progress Note Date: 01/21/18 Principal diagnosis: Dyspnea, COPD 77-year-old female patient with advanced COPD and high hypoxic respiratory failure, was Hospital as because of chronic diarrhea, debility, dehydration and intravascular volume depletion. The patient's COPD is severe at baseline and the patient is demented on a combination of Spiriva, Perforomist and Pulmicort Respules on outpatient basis. She is oxygen dependent. She has a very poor performance and functional status. She was having difficulty with mobility. She also has chronic dizziness, chronic diarrhea and poor appetite and progressive worsening in her functional status. She suffers from chronic insomnia. No nausea. No vomiting. No abdominal pain. The blood profile is essentially within normal limits. The UA is abnormal and the patient has an indication for an underlying urine checked infection. She is afebrile. She is hemodynamically stable and she is on 2 L of oxygen by nasal cannula with a pulse ox of 96% and his EKG showing sinus tachycardia with an extra-axial deviation. The KUB showing no acute abnormalities. On 01/21/2018 patient seen in follow-up on medical surgical floor. Denies any specific complaints, denies any worsening dyspnea. Her diarrhea has resolved, and patient has just been passing some mucus, lung sounds are diminished to auscultation, no rhonchi or wheezes. Yesterday we switched to patient to Questran, her C. diff test was negative. Stool culture is pending, patient is on empiric antibiotics in the form of Rocephin for evidence of acute urinary tract infection. No fever, no chills, vital signs are stable. Patient is on 2 L per nasal cannula and her pulse ox is 98%. In terms of breathing patient is at her baseline. Patient is being discharged home today. She will follow up with Dr. Greenwood on 02/01/2018 at 1:30 afternoon. Objective - Vital Signs Vital signs: Vital Signs Temp 98.1 F 01/21/18 05:00 Pulse 92 01/21/18 11:55 Resp 16 01/21/18 05:00 BP 159/81 01/21/18 05:00 Pulse Ox 98 01/21/18 05:00 Intake & Output 01/20/18 01/21/18 01/21/18 18:59 06:59 18:59 Intake Total 540 Balance 540 Weight 41.73 kg 41.73 kg Intake: Intake, IV Titration 300 Amount Sodium Chloride 0.9% 1, 300 000 ml @ 75 mls/hr IV . [id number] COUNTS INCLUDE 234 BEDS AT THE [facility] Rx#:[id number] Oral 240 Other: Voiding Method Toilet Toilet Toilet Diaper Diaper Incontinent Incontinent # Voids 4 1 1 - Exam General Appearance no diaphoresis, dyspnea, pallor, or respiratory distress; cachectic and appears ill; and speech not interrupted by breaths. HEENT no pursed lip breathing, jugular venous distention, mucous membrane cyanosis, or perioral cyanosis and mallampati classification: class 1. Chest no retractions, rhonchi, hyperinflation, barrel chest, sternocleidomastoid muscle contractions, supraclavicular retractions, intercostal retractions, or decreased air movement. Breath sounds, no wheezing, no rhonchi or rales Heart no right ventricular heave, distant heart sounds, or s3 gallop. GI bowel sounds: hyperactive (borborygmi) and diminished or absent. Extremities no cyanosis, clubbing, or edema. Neurologic no somnolence, confusion, or decreased mental status.Skin: General Appearance normal and (normal) normal except as noted; area of skin laceration, grade 1 in the right upper extremity just below the elbow with the skin sloughed. - Labs CBC & Chem 7: 01/21/18 08:12 01/21/18 08:12 Labs: Abnormal Lab Results - Last 24 Hours (Table) 01/21/18 01/21/18 Range/Units 08:12 08:12 WBC 13.2 H (3.8-10.6) k/uL RBC 3.66 L (3.80-5.40) m/uL Hgb 10.3 L (11.4-16.0) gm/dL Hct 32.7 L (34.0-46.0) % Neutrophils # 9.6 H (1.3-7.7) k/uL Carbon Dioxide 32 H (22-30) mmol/L Glucose 130 H (74-99) mg/dL Magnesium 1.5 L (1.6-2.3) mg/dL Microbiology - Last 24 Hours (Table) 01/20/18 00:00 Stool Culture - Preliminary Stool Assessment and Plan Plan: 1. Severe chronic obstructive pulmonary disease - advanced-end stage COPD, that is stable for now. the patient is a combination of Perforomist and Pulmicort nebulized treatments twice a day and Spiriva one relation day. Continue same treatment. Continue oxygen 2 L/m nasal cannula. Long -term prognosis poor. Overall performance status is poor. J44.9: Chronic obstructive pulmonary disease, unspecified 2. Chronic hypoxemic respiratory failure - on oxygen at 2 L/m nasal cannula. J96.11: Chronic respiratory failure with hypoxia 3. Chronic diarrhea/Cachexia - 4. Idiopathic scoliosis AND/OR kyphoscoliosis - old healed fractures M41.20: Other idiopathic scoliosis, site unspecified 5. Essential hypertension I10: Essential (primary) hypertension 6. Anemia - Sarah Narvaez will repeat a CBC D64.9: Anemia, unspecified 7. Insomnia disorder related to known organic factor - chronic insomnia, on Restoril G47.00: Insomnia, unspecified 8. Allergy to peanuts - acute reaction for ALLERGY to peanut has recovered and the patient will avoid taken peanuts in the future. Z91.010: Allergy to peanuts 9. Edema of lower extremity - 10 urine tract infection Plan: Diarrhea has resolved, patient is now just passing some mucus, serum magnesium has been replaced, in terms of breathing, patient is at her baseline, no worsening shortness of breath. Patient is being discharged home today on oral Ceftin, Imodium and her nebulized bronchodilators and inhalers. Follow up with Dr. Greenwood in the office in 2 weeks I performed a history & physical examination of the patient and discussed their management with my nurse practitioner, Rose Marie Davis. I reviewed the nurse practitioner's note and agree with the documented findings and plan of care. Lung sounds are diminished. The findings and the impression was discussed with the patient. I attest to the documentation by the nurse practitioner. Time with Patient: Less than 30
[2018-01-22] MEDS ORDERED: VANCOMYCIN 750 MG in SODIUM CHLORIDE 0.9% 250 ML IVPB SCH (06:00)
== END 2018-01-21 13:25 | disposition home or self-care (01) | DRG 392 ==
LOC: EC 23:24 → 5MS5E 01-20 03:22 → OBSVTOIN 01-20 09:10
PROVIDERS: ADMIT Internal Medicine; ATTEND Internal Medicine
DX: K52.9 Noninfective gastroenteritis and colitis, unspecified (principal); N17.9 Acute kidney failure, unspecified; J96.11 Chronic respiratory failure with hypoxia; R64 Cachexia; N39.0 Urinary tract infection, site not specified; E44.1 Mild protein-calorie malnutrition; Z68.1 Body mass index [BMI] 19.9 or less, adult; E86.0 Dehydration; J44.9 Chronic obstructive pulmonary disease, unspecified; M41.20 Other idiopathic scoliosis, site unspecified; D64.9 Anemia, unspecified; F51.04 Psychophysiologic insomnia; E83.42 Hypomagnesemia; E87.6 Hypokalemia; E89.2 Postprocedural hypoparathyroidism; K58.9 Irritable bowel syndrome, unspecified; R26.9 Unspecified abnormalities of gait and mobility; I10 Essential (primary) hypertension; Z99.81 Dependence on supplemental oxygen; Z79.82 Long term (current) use of aspirin; Z79.899 Other long term (current) drug therapy; Z88.1 Allergy status to other antibiotic agents; Z88.5 Allergy status to narcotic agent; Z90.710 Acquired absence of both cervix and uterus; Z87.891 Personal history of nicotine dependence; Z82.5 Family history of asthma and other chronic lower respiratory diseases; Z80.9 Family history of malignant neoplasm, unspecified
CPT/HCPCS: 36415; 74018; 80053; 81001; 83605; 83690; 83735; 85025; 87045; 87046; 87324; 93005; 94640; 96365; 96366; 96368; 99285

== ENCOUNTER 2018-08-31 08:20 | Emergency (ER) | payer MEDICARE, OTHER ==
[2018-08-31 08:27] VITALS: TEMP 97.3
--- NOTE | 2018-08-31 08:39 | ED ---
General Adult HPI - General Chief complaint: Urogenital Stated complaint: Urinary frequency Time Seen by Provider: 08/31/18 08:22 Source: patient, EMS, RN notes reviewed Mode of arrival: EMS Limitations: no limitations - History of Present Illness Initial comments: Patient is a pleasant 77-year-old female presenting to the emergency department with urinary frequency. Patient states this is "annoying". Patient denies any burning. Patient was placed on antibiotics, Bactrim recently for this and has been on it for 3 days now. Patient states prior to that she was not urinating as much is normal. Patient did have her Lasix dose changed approximately 2-3 months ago. No chest pain. No abdominal pain. No fevers. Patient has mild dyspnea consistent with chronic COPD. Patient states she did not take her inhaler yet. - Related Data Home Medications Medication Instructions Recorded Confirmed Aspirin EC [Ecotrin Low Dose] 81 mg PO DAILY 09/07/16 08/31/18 Lisinopril [Zestril] 2.5 mg PO DAILY 09/07/16 08/31/18 PARoxetine HCL [Paxil] 60 mg PO DAILY 09/07/16 08/31/18 cloNIDine HCL [Catapres] 0.1 mg PO BID 09/07/16 08/31/18 Cholecalciferol (Vitamin D3) 2,000 unit PO DAILY 08/31/18 08/31/18 [Vitamin D3] Diltiazem HCl [Cartia Xt] 180 mg PO DAILY 08/31/18 08/31/18 Diphenox-Atrop 2.5-0.025 mg 1 tab PO Q68H PRN 08/31/18 08/31/18 [Lomotil] Furosemide [Lasix] 40 mg PO DAILY 08/31/18 08/31/18 clonazePAM [KlonoPIN] 0.5 mg PO TID PRN 08/31/18 08/31/18 Previous Rx's Medication Instructions Recorded Loperamide [Imodium] 2 mg PO QID PRN #30 cap 01/21/18 Allergies Allergy/AdvReac Type Severity Reaction Status Date / Time codeine Allergy Nausea & Verified 08/31/18 08:49 Vomiting levofloxacin [From Levaquin] Allergy Swelling Verified 08/31/18 08:49 meperidine [From Demerol] Allergy PATIENT Verified 04/27/19 08:49 GETS "HYPER" Review of Systems ROS Statement: Those systems with pertinent positive or pertinent negative responses have been documented in the HPI. ROS Other: All systems not noted in ROS Statement are negative. Constitutional: Denies: fever, chills Eyes: Denies: eye pain ENT: Denies: ear pain Respiratory: Reports: as per HPI, dyspnea (Mild dyspnea consistent with COPD.). Denies: cough Cardiovascular: Denies: chest pain Endocrine: Denies: fatigue Gastrointestinal: Denies: abdominal pain Genitourinary: Reports: urgency, frequency Musculoskeletal: Denies: back pain Skin: Denies: rash Neurological: Denies: weakness Past Medical History Past Medical History: COPD, Hypertension Additional Past Medical History / Comment(s): Severe COPD, chronic hypoxic respiratory failure, cachexia, idiopathic scoliosis/kyphoscoliosis, hypertension, chronic anemia, insomnia disorder related to known organic factor, lower extremity edema, chronic diarrhea, IBS, previous history of hyperparathyroidism History of Any Multi-Drug Resistant Organisms: None Reported Past Surgical History: Hysterectomy Additional Past Surgical History / Comment(s): parathyroidectomy Past Anesthesia/Blood Transfusion Reactions: Postoperative Nausea & Vomiting (PONV) Past Psychological History: No Psychological Hx Reported Smoking Status: Former smoker Past Alcohol Use History: Occasional Past Drug Use History: None Reported - Past Family History Father Family Medical History: COPD Mother Family Medical History: Cancer Sister(s) Family Medical History: Cancer General Exam Limitations: no limitations General appearance: alert, in no apparent distress Head exam: Present: atraumatic Eye exam: Present: normal appearance, PERRL ENT exam: Present: normal oropharynx Neck exam: Present: normal inspection Respiratory exam: Present: normal lung sounds bilaterally Cardiovascular Exam: Present: regular rate, normal rhythm GI/Abdominal exam: Present: soft. Absent: tenderness Extremities exam: Present: pedal edema (Trace bilateral limited to the feet and ankles.). Absent: calf tenderness Neurological exam: Present: alert Psychiatric exam: Present: normal affect, normal mood Skin exam: Present: normal color Course Vital Signs 08/31/18 08/31/18 08/31/18 08:22 09:53 10:01 Temperature 97.3 F L Pulse Rate 90 88 82 Respiratory 18 Rate Blood Pressure 149/99 O2 Sat by Pulse 100 Oximetry Medical Decision Making - Medical Decision Making Patient was reevaluated and resting comfortably in bed. Symptom-free at this time. No dyspnea. Patient states maybe she just got a little bit nervous. Patient is comfortable discharge home. - Lab Data Result diagrams: 08/31/18 08:35 08/31/18 08:35 Lab Results 08/31/18 08/31/18 08/31/18 Range/Units 08:35 08:35 09:39 WBC 9.7 (3.8-10.6) k/uL RBC 4.12 (3.80-5.40) m/uL Hgb 11.5 (11.4-16.0) gm/dL Hct 35.2 (34.0-46.0) % MCV 85.5 (80.0-100.0) fL MCH 27.8 (25.0-35.0) pg MCHC 32.6 (31.0-37.0) g/dL RDW 18.0 H (11.5-15.5) % Plt Count 393 (150-450) k/uL Neutrophils % 81 % Lymphocytes % 10 % Monocytes % 5 % Eosinophils % 2 % Basophils % 1 % Neutrophils # 7.8 H (1.3-7.7) k/uL Lymphocytes # 1.0 (1.0-4.8) k/uL Monocytes # 0.4 (0-1.0) k/uL Eosinophils # 0.2 (0-0.7) k/uL Basophils # 0.1 (0-0.2) k/uL Anisocytosis Slight Sodium 140 (137-145) mmol/L Potassium 4.8 (3.5-5.1) mmol/L Chloride 98 (98-107) mmol/L Carbon Dioxide 35 H (22-30) mmol/L Anion Gap 7 mmol/L BUN 20 H (7-17) mg/dL Creatinine 0.95 (0.52-1.04) mg/dL Est GFR (CKD-EPI)AfAm 68 (>60 ml/min/1.73 sqM) Est GFR (CKD-EPI)NonAf 59 (>60 ml/min/1.73 sqM) Glucose 113 H (74-99) mg/dL Calcium 10.6 H (8.4-10.2) mg/dL Total Bilirubin 0.5 (0.2-1.3) mg/dL AST 27 (14-36) U/L ALT 25 (9-52) U/L Alkaline Phosphatase 94 (38-126) U/L Total Protein 8.2 (6.3-8.2) g/dL Albumin 4.8 (3.5-5.0) g/dL Urine Color Light Yellow Urine Appearance Clear (Clear) Urine pH 7.5 (5.0-8.0) Ur Specific [place] 1.007 (1.001-1.035) Urine Protein 1+ H (Negative) Urine Glucose (UA) Negative (Negative) Urine Ketones Negative (Negative) Urine Blood Negative (Negative) Urine Nitrite Negative (Negative) Urine Bilirubin Negative (Negative) Urine Urobilinogen <2.0 (<2.0) mg/dL Ur Leukocyte Esterase Negative (Negative) Urine RBC 1 (0-5) /hpf Urine WBC 2 (0-5) /hpf - Radiology Data Radiology results: image reviewed (Chest x-ray shows hyperinflation consistent w ith COPD. Abdominal x-ray reveals no acute process.) Disposition Clinical Impression: Acute exacerbation of chronic obstructive pulmonary disease (COPD), Urinary frequency Disposition: HOME SELF-CARE Condition: Stable Instructions (If sedation given, give patient instructions): Urinary Tract Infection in Women (ED), COPD (Chronic Obstructive Pulmonary Disease) (ED) Additional Instructions: Please follow-up with primary care physician in the beginning of the week. Return for difficult to breathing, fevers, abdominal pain, worsening or changing symptoms or other concerns. Continue antibiotics as previously prescribed. Is patient prescribed a controlled substance at d/c from ED?: No Referrals: Sweta Greenwood MD [Primary Care Provider] - 1-2 days Time of Disposition: 10:29
[2018-08-31 08:48] LABS: Anisocytosis Slight; Basophils # (A) 0.1 k/uL (0-0.2); Basophils % (A) 1 %; Eosinophils # (A) 0.2 k/uL (0-0.7); Eosinophils % (A) 2 %; HCT 35.2 % (34.0-46.0); HGB 11.5 gm/dL (11.4-16.0); Lymphocytes % (A) 10 %; MCH 27.8 pg (25.0-35.0); MCHC 32.6 g/dL (31.0-37.0); MCV 85.5 fL (80.0-100.0); Mean Platelet Volume 6.9; Monocytes # (A) 0.4 k/uL (0-1.0); Monocytes % (A) 5 %; Neutrophils # (A) 7.8 k/uL (1.3-7.7); Neutrophils % (A) 81 %; Platelet Count 393 k/uL (150-450); RBC 4.12 m/uL (3.80-5.40); WBC 9.7 k/uL (3.8-10.6)
[2018-08-31 08:59] LABS: Albumin 4.8 g/dL (3.5-5.0); Calcium 10.6 mg/dL (8.4-10.2); Potassium 4.8 mmol/L (3.5-5.1); Total Bilirubin 0.5 mg/dL (0.2-1.3); Total Protein 8.2 g/dL (6.3-8.2)
--- NOTE | 2018-08-31 09:21 | XR ---
EXAMINATION TYPE: XR chest 2V DATE OF EXAM: 08/31/2018 HISTORY: abdominal pain. REFERENCE: Previous study dated 04/06/2013. FINDINGS: The lungs are markedly overinflated. There are chronic interstitial changes present the hea rt is mildly enlarged. Pleural spaces appear clear. IMPRESSION: COPD.
--- NOTE | 2018-08-31 09:22 | XR ---
EXAMINATION TYPE: XR KUB , ONE VIEW DATE OF EXAM ORDERED: 08/31/2018 HISTORY: abdominal pain. COMPARISON: Previous study dated 01/20/2018. FINDINGS: The lung bases are clear. Within the abdomen, the gallbladder has been removed. The abdominal gas pattern is within normal limi ts. There is no evidence of obstruction or free air. No unusual calcifications are seen. IMPRESSION: NO ACUTE INTRA-ABDOMINAL ABNORMALITY.
[2018-08-31] MEDS ORDERED: IPRATROPIUM-ALBUTEROL 3 ML NEB INHALATION STA (09:34)
[2018-08-31 10:02] LABS: Appearance,Urine Clear (Clear); Bilirubin,Urine Negative (Negative); Blood,Urine Negative (Negative); Color,Urine Light Yellow; Glucose,Urine (UA) Negative (Negative); Ketones,Urine Negative (Negative); Leukocyte Esterase,Urine Negative (Negative); Nitrite,Urine Negative (Negative); PH, Urine 7.5 (5.0-8.0); Protein,Urine 1+ (Negative); RBC,Urine 1 /hpf (0-5); Specific Gravity,Urine 1.007 (1.001-1.035); Urobilinogen,Urine <2.0 mg/dL (<2.0); WBC,Urine 2 /hpf (0-5)
[2018-08-31 11:50] VITALS: BP 120/79; PULSE 104; RESP 22
== END 2018-08-31 13:07 | disposition home or self-care (01) ==
LOC: EC 08:20
DX: J44.1 Chronic obstructive pulmonary disease with (acute) exacerbation (principal); R35.0 Frequency of micturition; I10 Essential (primary) hypertension; Z79.82 Long term (current) use of aspirin; Z79.899 Other long term (current) drug therapy; Z88.5 Allergy status to narcotic agent; Z88.1 Allergy status to other antibiotic agents; Z87.891 Personal history of nicotine dependence; Z90.89 Acquired absence of other organs
CPT/HCPCS: 36415; 71046; 74018; 80053; 81001; 85025; 87086; 94640; 99284

== ENCOUNTER 2018-09-30 17:14 | Inpatient (IN) | payer MEDICARE, OTHER ==
[2018-09-30] MEDS ORDERED: methylPREDNISolone SOD SUCCI 125 MG/2 ML VIAL IV STA (17:40)
[2018-09-30] MEDS ORDERED: IPRATROPIUM-ALBUTEROL 3 ML NEB INHALATION STA ×2 (17:40→19:40)
[2018-09-30 17:53] LABS: Anisocytosis Slight; Basophils # (A) 0.1 k/uL (0-0.2); Basophils % (A) 0 %; Eosinophils # (A) 0.1 k/uL (0-0.7); Eosinophils % (A) 1 %; HCT 32.8 % (34.0-46.0); HGB 10.6 gm/dL (11.4-16.0); Lymphocytes # (A) 1.1 k/uL (1.0-4.8); Lymphocytes % (A) 8 %; MCH 27.7 pg (25.0-35.0); MCHC 32.3 g/dL (31.0-37.0); MCV 85.7 fL (80.0-100.0); Mean Platelet Volume 7.1; Monocytes # (A) 0.7 k/uL (0-1.0); Monocytes % (A) 5 %; Neutrophils # (A) 11.3 k/uL (1.3-7.7); Neutrophils % (A) 85 %; Platelet Count 464 k/uL (150-450); RBC 3.83 m/uL (3.80-5.40); RDW 17.3 % (11.5-15.5); WBC 13.4 k/uL (3.8-10.6)
[2018-09-30 18:02] LABS: INR 0.9 (<1.2); Partial Thromboplastin Time 22.5 sec (22.0-30.0); Prothrombin Time 9.8 sec (9.0-12.0)
[2018-09-30 18:05] LABS: ABG Base Excess 13.4 mmol/L; ABG HCO3 38 mmol/L (21-25); ABG Oxygen Saturation 98.5 % (94-97); ABG PCO2 64 mmHg (35-45); ABG PH 7.39 (7.35-7.45); ABG PO2 102 mmHg (83-108); ABG TCO2 40 mmol/L (19-24)
[2018-09-30 18:09] LABS: Albumin 4.6 g/dL (3.5-5.0); Calcium 10.6 mg/dL (8.4-10.2); Magnesium 2.2 mg/dL (1.6-2.3); Potassium 4.1 mmol/L (3.5-5.1); Total Bilirubin 0.4 mg/dL (0.2-1.3)
--- NOTE | 2018-09-30 18:45 | XR ---
EXAMINATION TYPE: XR chest 2V DATE OF EXAM: 09/30/2018 COMPARISON: Prior chest x-ray 08/31/2018 HISTORY: Difficulty breathing TECHNIQUE: Frontal and lateral views of the chest are obtained. FINDINGS: Marked prominence of the lung lines again noted, there is an underlying kyphosis. There is no focal air space opacity, pleural effusion, or pneumothorax seen. The cardiac silhouette size is stable. The osseous structures are stable, multilevel osteoporotic compression fractures are presen t within the thoracic spine with associated kyphosis, right-sided rib fracture and right clavicle fra cture stable. Aorta is dense. There are cardiac leads. IMPRESSION: No acute cardiopulmonary process.
[2018-09-30] MEDS ORDERED: AZITHROMYCIN 500 MG in SODIUM CHLORIDE 0.9% 250 ML IVPB STA (19:07)
[2018-09-30] MEDS ORDERED: SODIUM CHLORIDE 0.9% 500 ML 500 ML IV ONE (19:07)
--- NOTE | 2018-09-30 19:21 | ED ---
SOB HPI - General Chief Complaint: Shortness of Breath Stated Complaint: [facility] Time Seen by Provider: 09/30/18 17:33 Source: patient, EMS Mode of arrival: EMS Limitations: no limitations - History of Present Illness Initial Comments: 37 or female chronic hypoxia, cachexia, COPD presenting today for chief complaint shortness of breath. Patient states she has been short of breath for the past 10 years. And has struggled with COPD chronically. She states worsening for the past week. Patient states she is normally on home oxygen. Patient was not using oxygen today. Patient states she was concerned of the difficulty breathing and called EMS. Patient states she has leg swelling chronically she denies any changes in the swelling, denies calf or leg pain. Upon chart review this appears chronic. Patient denies any previous coronary artery disease or stent placement. Patient denies any anticoagulation use. Patient denies any chest pain. Patient states she does have pain when she urinates occasionally. Patient smells of urine. Patient denies any back pain nausea vomiting diarrhea. Patient is alert and oriented 3. She was hypoxic initially when EMS was called however. Home oxygen at 2 L. Patient was at 100% on room air when she was evaluated. Remaining review of system negative. - Related Data Home Medications Medication Instructions Recorded Confirmed Aspirin EC [Ecotrin Low Dose] 81 mg PO DAILY 09/07/16 09/30/18 Lisinopril [Zestril] 2.5 mg PO DAILY 09/07/16 09/30/18 PARoxetine HCL [Paxil] 60 mg PO DAILY 09/07/16 09/30/18 cloNIDine HCL [Catapres] 0.1 mg PO BID 09/07/16 09/30/18 Cholecalciferol (Vitamin D3) 2,000 unit PO DAILY 08/31/18 09/30/18 [Vitamin D3] Diltiazem HCl [Cartia Xt] 180 mg PO DAILY 08/31/18 09/30/18 Diphenox-Atrop 2.5-0.025 mg 1 tab PO Q6H PRN 08/31/18 09/30/18 [Lomotil] Furosemide [Lasix] 40 mg PO DAILY 08/31/18 09/30/18 clonazePAM [KlonoPIN] 0.5 mg PO TID PRN 08/31/18 09/30/18 Previous Rx's Medication Instructions Recorded Loperamide [Imodium] 2 mg PO QID PRN #30 cap 01/21/18 Allergies Allergy/AdvReac Type Severity Reaction Status Date / Time codeine Allergy Nausea & Verified 09/30/18 17:46 Vomiting levofloxacin [From Levaquin] Allergy Swelling Verified 09/30/18 17:46 meperidine [From Demerol] Allergy PATIENT Verified 09/30/18 17:46 GETS "HYPER" Review of Systems ROS Statement: Those systems with pertinent positive or pertinent negative responses have been documented in the HPI. ROS Other: All systems not noted in ROS Statement are negative. Past Medical History Past Medical History: COPD, Hypertension Additional Past Medical History / Comment(s): Severe COPD, chronic hypoxic respiratory failure, cachexia, idiopathic scoliosis/kyphoscoliosis, hypertension, chronic anemia, insomnia disorder related to known organic factor, lower extremity edema, chronic diarrhea, IBS, previous history of hy perparathyroidism History of Any Multi-Drug Resistant Organisms: None Reported Past Surgical History: Hysterectomy Additional Past Surgical History / Comment(s): parathyroidectomy Past Anesthesia/Blood Transfusion Reactions: Postoperative Nausea & Vomiting (PONV) Past Psychological History: No Psychological Hx Reported Smoking Status: Former smoker Past Alcohol Use History: Occasional Past Drug Use History: None Reported - Past Family History Father Family Medical History: COPD Mother Family Medical History: Cancer Sister(s) Family Medical History: Cancer General Exam - General Exam Comments Initial Comments: General: The patient is awake and alert, in no distress, is very cachectic, loss of urine Eye: Pupils are equal, round and reactive to light, extra-ocular movements are intact. No nystagmus. There is normal conjunctiva bilaterally. No signs of icterus. Ears, nose, mouth and throat: There are moist mucous membranes and no oral lesions. Neck: The neck is supple, there is no tenderness or JVD. Cardiovascular: There is a regular rate and rhythm. No murmur, rub or gallop is appreciated. Respiratory: Respirations are non-labored, breath sounds are equal. The extra wheeze however lung sounds are diffusely diminished with poor air movement. No stridor, rales, or rhonchi. Gastrointestinal: Soft, non-distended, non-tender abdomen without masses or organomegaly noted. There is no rebound or guarding present. No CVA tenderness. Bowel sounds are unremarkable. Musculoskeletal: Normal ROM, no tenderness. Strength 5/5. Sensation intact. Radial and DP pulses equal bilaterally 2+. Neurological: A&O x 3. CN II-XII intact, There are no obvious motor or sensory deficits. Coordination appears grossly intact. Speech is normal. Skin: Skin is warm and dry and no rashes or lesions are noted. Psychiatric: Cooperative, appropriate mood & affect, normal judgment. Limitations: no limitations Course Vital Signs 09/30/18 09/30/18 09/30/18 17:16 17:40 18:09 Temperature 98.1 F Pulse Rate 88 85 Respiratory 20 20 20 Rate Blood Pressure 131/76 129/79 O2 Sat by Pulse 99 100 Oximetry 09/30/18 09/30/18 09/30/18 18:24 18:31 19:56 Temperature Pulse Rate 84 84 88 Respiratory 18 Rate Blood Pressure 136/71 O2 Sat by Pulse 96 Oximetry 09/30/18 20:43 Temperature 97.9 F Pulse Rate 99 Respiratory 22 Rate Blood Pressure 146/78 O2 Sat by Pulse 97 Oximetry Medical Decision Making - Medical Decision Making 77yo female who is chronic COPD as well as chronic hypoxia on home oxygen presents today for chief complaint shortness of breath. Patient states this feels similar to her previous COPD exacerbations. Patient has history of chronic lower extremity swelling denies any changes. D-dimer within normal limits. Patient denies cancer. Pt follows Dr. Greenwood outpatient. Patient smells of urine. Urinalysis does not reveal signs of infection. Patient become angry when we discuss her eating habits. Patient's laboratory studies reveal chronic elevation of CO2. Patient arterial blood gas reveal a primary respiratory acidosis, chronic. Patient has mild leukocytosis. Patient has mildly decreased chloride. Normal sodium. Troponin negative. EKG revealed no findings consistent with acute coronary syndrome. Patient denies any chest pain. Comfortable and appears consistent with previous values. She was started on azithromycin, given Solu-Medrol as well as DuoNeb treatment emergency department. Minimal improvement patient's air movement. This time admit patient for COPD exacerbation to medicine with Dr. Greenwood in on consult. Patient is agreeable to admission. Patient is transferred to floor in stable condition appearing well. Patient was discussed at length with attending provider Dr. Eugene who had spoke with the admitting provider Dr. Badillo - Lab Data Result diagrams: 09/30/18 17:25 09/30/18 17:25 Lab Results 09/30/18 09/30/18 09/30/18 Range/Units 17:25 17:25 17:25 WBC 13.4 H (3.8-10.6) k/uL RBC 3.83 (3.80-5.40) m/uL Hgb 10.6 L (11.4-16.0) gm/dL Hct 32.8 L (34.0-46.0) % MCV 85.7 (80.0-100.0) fL MCH 27.7 (25.0-35.0) pg MCHC 32.3 (31.0-37.0) g/dL RDW 17.3 H (11.5-15.5) % Plt Count 464 H (150-450) k/uL Neutrophils % 85 % Lymphocytes % 8 % Monocytes % 5 % Eosinophils % 1 % Basophils % 0 % Neutrophils # 11.3 H (1.3-7.7) k/uL Lymphocytes # 1.1 (1.0-4.8) k/uL Monocytes # 0.7 (0-1.0) k/uL Eosinophils # 0.1 (0-0.7) k/uL Basophils # 0.1 (0-0.2) k/uL Anisocytosis Slight PT (9.0-12.0) sec INR (<1.2) APTT (22.0-30.0) sec D-Dimer (<0.60) mg/L FEU Sample Site ABG pH (7.35-7.45) ABG pCO2 (35-45) mmHg ABG pO2 (83-108) mmHg ABG HCO3 (21-25) mmol/L ABG Total CO2 (19-24) mmol/L ABG O2 Saturation (94-97) % ABG Base Excess mmol/L Selvin Test FiO2 % Sodium 142 (137-145) mmol/L Potassium 4.1 (3.5-5.1) mmol/L Chloride 96 L (98-107) mmol/L Carbon Dioxide 39 H (22-30) mmol/L Anion Gap 7 mmol/L BUN 38 H (7-17) mg/dL Creatinine 1.23 H (0.52-1.04) mg/dL Est GFR (CKD-EPI)AfAm 49 (>60 ml/min/1.73 sqM) Est GFR (CKD-EPI)NonAf 43 (>60 ml/min/1.73 sqM) Glucose 131 H (74-99) mg/dL Calcium 10.6 H (8.4-10.2) mg/dL Magnesium 2.2 (1.6-2.3) mg/dL Total Bilirubin 0.4 (0.2-1.3) mg/dL AST 27 (14-36) U/L ALT 14 (9-52) U/L Alkaline Phosphatase 106 (38-126) U/L Troponin I (0.000-0.034) ng/mL NT-Pro-B Natriuret Pep 329 pg/mL Total Protein 8.0 (6.3-8.2) g/dL Albumin 4.6 (3.5-5.0) g/dL Urine Color Urine Appearance (Clear) Urine pH (5.0-8.0) Ur Specific [place] (1.001-1.035) Urine Protein (Negative) Urine Glucose (UA) (Negative) Urine Ketones (Negative) Urine Blood (Negative) Urine Nitrite (Negative) Urine Bilirubin (Negative) Urine Urobilinogen (<2.0) mg/dL Ur Leukocyte Esterase (Negative) Urine RBC (0-5) /hpf Urine WBC (0-5) /hpf Hyaline Casts (0-2) /lpf Urine Mucus (None) /hpf 09/30/18 09/30/18 09/30/18 Range/Units 17:25 17:25 17:25 WBC (3.8-10.6) k/uL RBC (3.80-5.40) m/uL Hgb (11.4-16.0) gm/dL Hct (34.0-46.0) % MCV (80.0-100.0) fL MCH (25.0-35.0) pg MCHC (31.0-37.0) g/dL RDW (11.5-15.5) % Plt Count (150-450) k/uL Neutrophils % % Lymphocytes % % Monocytes % % Eosinophils % % Basophils % % Neutrophils # (1.3-7.7) k/uL Lymphocytes # (1.0-4.8) k/uL Monocytes # (0-1.0) k/uL Eosinophils # (0-0.7) k/uL Basophils # (0-0.2) k/uL Anisocytosis PT 9.8 (9.0-12.0) sec INR 0.9 (<1.2) APTT 22.5 (22.0-30.0) sec D-Dimer 0.45 (<0.60) mg/L FEU Sample Site ABG pH (7.35-7.45) ABG pCO2 (35-45) mmHg ABG pO2 (83-108) mmHg ABG HCO3 (21-25) mmol/L ABG Total CO2 (19-24) mmol/L ABG O2 Saturation (94-97) % ABG Base Excess mmol/L Selvin Test FiO2 % Sodium (137-145) mmol/L Potassium (3.5-5.1) mmol/L Chloride (98-107) mmol/L Carbon Dioxide (22-30) mmol/L Anion Gap mmol/L BUN (7-17) mg/dL Creatinine (0.52-1.04) mg/dL Est GFR (CKD-EPI)AfAm (>60 ml/min/1.73 sqM) Est GFR (CKD-EPI)NonAf (>60 ml/min/1.73 sqM) Glucose (74-99) mg/dL Calcium (8.4-10.2) mg/dL Magnesium (1.6-2.3) mg/dL Total Bilirubin (0.2-1.3) mg/dL AST (14-36) U/L ALT (9-52) U/L Alkaline Phosphatase (38-126) U/L Troponin I <0.012 (0.000-0.034) ng/mL NT-Pro-B Natriuret Pep pg/mL Total Protein (6.3-8.2) g/dL Albumin (3.5-5.0) g/dL Urine Color Urine Appearance (Clear) Urine pH (5.0-8.0) Ur Specific [place] (1.001-1.035) Urine Protein (Negative) Urine Glucose (UA) (Negative) Urine Ketones (Negative) Urine Blood (Negative) Urine Nitrite (Negative) Urine Bilirubin (Negative) Urine Urobilinogen (<2.0) mg/dL Ur Leukocyte Esterase (Negative) Urine RBC (0-5) /hpf Urine WBC (0-5) /hpf Hyaline Casts (0-2) /lpf Urine Mucus (None) /hpf 09/30/18 09/30/18 Range/Units 18:02 19:55 WBC (3.8-10.6) k/uL RBC (3.80-5.40) m/uL Hgb (11.4-16.0) gm/dL Hct (34.0-46.0) % MCV (80.0-100.0) fL MCH (25.0-35.0) pg MCHC (31.0-37.0) g/dL RDW (11.5-15.5) % Plt Count (150-450) k/uL Neutrophils % % Lymphocytes % % Monocytes % % Eosinophils % % Basophils % % Neutrophils # (1.3-7.7) k/uL Lymphocytes # (1.0-4.8) k/uL Monocytes # (0-1.0) k/uL Eosinophils # (0-0.7) k/uL Basophils # (0-0.2) k/uL Anisocytosis PT (9.0-12.0) sec INR (<1.2) APTT (22.0-30.0) sec D-Dimer (<0.60) mg/L FEU Sample Site rba ABG pH 7.39 (7.35-7.45) ABG pCO2 64 H (35-45) mmHg ABG pO2 102 (83-108) mmHg ABG HCO3 38 H (21-25) mmol/L ABG Total CO2 40 H (19-24) mmol/L ABG O2 Saturation 98.5 H (94-97) % ABG Base Excess 13.4 mmol/L Selvin Test Yes FiO2 28 % Sodium (137-145) mmol/L Potassium (3.5-5.1) mmol/L Chloride (98-107) mmol/L Carbon Dioxide (22-30) mmol/L Anion Gap mmol/L BUN (7-17) mg/dL Creatinine (0.52-1.04) mg/dL Est GFR (CKD-EPI)AfAm (>60 ml/min/1.73 sqM) Est GFR (CKD-EPI)NonAf (>60 ml/min/1.73 sqM) Glucose (74-99) mg/dL Calcium (8.4-10.2) mg/dL Magnesium (1.6-2.3) mg/dL Total Bilirubin (0.2-1.3) mg/dL AST (14-36) U/L ALT (9-52) U/L Alkaline Phosphatase (38-126) U/L Troponin I (0.000-0.034) ng/mL NT-Pro-B Natriuret Pep pg/mL Total Protein (6.3-8.2) g/dL Albumin (3.5-5.0) g/dL Urine Color Yellow Urine Appearance Clear (Clear) Urine pH 5.5 (5.0-8.0) Ur Specific [place] 1.014 (1.001-1.035) Urine Protein 1+ H (Negative) Urine Glucose (UA) Negative (Negative) Urine Ketones Negative (Negative) Urine Blood Negative (Negative) Urine Nitrite Negative (Negative) Urine Bilirubin Negative (Negative) Urine Urobilinogen <2.0 (<2.0) mg/dL Ur Leukocyte Esterase Negative (Negative) Urine RBC 1 (0-5) /hpf Urine WBC 2 (0-5) /hpf Hyaline Casts 12 H (0-2) /lpf Urine Mucus Rare H (None) /hpf - EKG Data EKG Comments: Ventricular rate 85 beats per, LA interval 156 ms, to administration 78 ms, QT/QTC 396 last 471 ms. Normal sinus. [place] noted. No ST elevation or depression. Nonspecific T-wave. She was interpreted by myself as well as my attending provider Dr. Eugene. Disposition Clinical Impression: Hypoxia, Shortness of breath, Cachectic, COPD exacerbation Disposition: ADMITTED IP TO THIS HOSP Condition: Stable Is patient prescribed a controlled substance at d/c from ED?: No Referrals: Sweta Greenwood MD [Primary Care Provider] - 1-2 days Time of Disposition: 20:16 Decision to Admit Reason: Admit from EC Decision Date: 09/30/18 Decision Time: 20:16
[2018-09-30] MEDS ORDERED: ALBUTEROL NEBULIZED 2.5 MG/3 ML INHALATION STA (19:40)
[2018-09-30] MEDS ORDERED: cefTRIAXone IN SWFI 1,000 MG/10 ML SYRINGE IVP STA (19:42)
[2018-09-30 20:11] LABS: Appearance,Urine Clear (Clear); Bilirubin,Urine Negative (Negative); Blood,Urine Negative (Negative); Color,Urine Yellow; Glucose,Urine (UA) Negative (Negative); Hyaline Casts,Urine 12 /lpf (0-2); Ketones,Urine Negative (Negative); Leukocyte Esterase,Urine Negative (Negative); Mucus,Urine Rare /hpf; Nitrite,Urine Negative (Negative); PH, Urine 5.5 (5.0-8.0); Protein,Urine 1+ (Negative); RBC,Urine 1 /hpf (0-5); Specific Gravity,Urine 1.014 (1.001-1.035); Urobilinogen,Urine <2.0 mg/dL (<2.0); WBC,Urine 2 /hpf (0-5)
[2018-09-30 22:43] VITALS: BMI 14.6
[2018-10-01] MEDS: IPRATROPIUM-ALBUTEROL 3 ML NEB INHALATION PRN ×4 (08:40→18:57)
[2018-10-01] MEDS ORDERED: cloNIDine HCL 0.1 MG TAB PO SCH (09:00)
[2018-10-01] MEDS: CHOLECALCIFEROL 1,000 UNIT TAB PO SCH (09:10)
[2018-10-01] MEDS: ASPIRIN 81 MG PO SCH (09:10)
[2018-10-01] MEDS: DILTIAZEM CD 180 MG CAP.ER.24H PO SCH (09:11)
[2018-10-01] MEDS: PARoxetine 20 MG TAB PO SCH (09:11)
[2018-10-01] MEDS: clonazePAM 0.5 MG TAB PO PRN (14:14)
--- NOTE | 2018-10-01 15:19 | P.HPIM ---
History of Present Illness 77-year-old with history of COPD his as 2 L of oxygen at home came in with complains of shortness of breath doesn't have any pneumonia patient is severely hypoxic at home supposed is and is not using oxygen is comparing of cough unable to bring up anything. Patient denied any fever chills chest x-ray did not show any pneumonic process. does have chronic maintenance insufficiency and some swelling in the legs because of that Review of Systems REVIEW OF SYSTEMS: CONSTITUTIONAL: No fever, no malaise, no fatigue. HEENT: No recent visual problems or hearing problems. Denied any sore throat. CARDIOVASCULAR: No chest pain, orthopnea, PND, no palpitations, no syncope. PULMONARY: no hemoptysis. GASTROINTESTINAL: No diarrhea, no nausea, no vomiting, no abdominal pain. NEUROLOGICAL: No headaches, no weakness, no numbness. HEMATOLOGICAL: Denies any bleeding or petechiae. GENITOURINARY: Denies any burning micturition, frequency, or urgency. MUSCULOSKELETAL/RHEUMATOLOGICAL: Denies any joint pain, swelling, or any muscle pain. ENDOCRINE: Denies any polyuria or polydipsia. The rest of the 14-point review of systems is negative. Past Medical History Past Medical History: COPD, Hypertension Additional Past Medical History / Comment(s): Severe COPD, chronic hypoxic respiratory failure, cachexia, idiopathic scoliosis/kyphoscoliosis, hypertension, chronic anemia, insomnia disorder related to known organic factor, lower extremity edema, chronic diarrhea, IBS, previous history of hyperparathyroidism History of Any Multi-Drug Resistant Organisms: None Reported Past Surgical History: Hysterectomy Additional Past Surgical History / Comment(s): parathyroidectomy Past Anesthesia/Blood Transfusion Reactions: Postoperative Nausea & Vomiting (PONV) Past Psychological History: No Psychological Hx Reported Smoking Status: Former smoker Past Alcohol Use History: Occasional Past Drug Use History: None Reported - Past Family History Father Family Medical History: COPD Mother Family Medical History: Cancer Sister(s) Family Medical History: Cancer Medications and Allergies Home Medications Medication Instructions Recorded Confirmed Type Aspirin EC [Ecotrin Low Dose] 81 mg PO DAILY 09/07/16 09/30/18 History Lisinopril [Zestril] 2.5 mg PO DAILY 09/07/16 09/30/18 History PARoxetine HCL [Paxil] 60 mg PO DAILY 09/07/16 09/30/18 History cloNIDine HCL [Catapres] 0.1 mg PO BID 09/07/16 09/30/18 History Loperamide [Imodium] 2 mg PO QID PRN #30 cap 01/21/18 09/30/18 Rx Cholecalciferol (Vitamin D3) 2,000 unit PO DAILY 08/31/18 09/30/18 History [Vitamin D3] Diltiazem HCl [Cartia Xt] 180 mg PO DAILY 08/31/18 09/30/18 History Diphenox-Atrop 2.5-0.025 mg 1 tab PO Q6H PRN 08/31/18 09/30/18 History [Lomotil] Furosemide [Lasix] 40 mg PO DAILY 08/31/18 09/30/18 History clonazePAM [KlonoPIN] 0.5 mg PO TID PRN 08/31/18 09/30/18 History Allergies Allergy/AdvReac Type Severity Reaction Status Date / Time codeine Allergy Nausea & Verified 09/30/18 17:46 Vomiting levofloxacin [From Levaquin] Allergy Swelling Verified 09/30/18 17:46 meperidine [From Demerol] Allergy PATIENT Verified 09/30/18 17:46 GETS "HYPER" Physical Exam Vitals: Vital Signs Temp Pulse Pulse Resp BP BP Pulse Ox 10/01/18 12:36 80 10/01/18 12:24 84 10/01/18 11:53 92 L 10/01/18 11:45 98.7 F 100 20 131/72 84 L 10/01/18 08:52 84 10/01/18 08:40 80 10/01/18 04:10 98.2 F 91 16 162/92 96 09/30/18 21:17 96.4 F L 97 18 113/64 98 09/30/18 20:43 97.9 F 99 22 146/78 97 09/30/18 19:56 88 18 136/71 96 09/30/18 18:31 84 09/30/18 18:24 84 09/30/18 18:09 85 20 129/79 100 09/30/18 17:40 20 09/30/18 17:16 98.1 F 88 20 131/76 99 Intake and Output 10/01/18 10/01/18 10/01/18 06:59 14:59 22:59 Other: # Voids 1 Weight 38.555 kg PHYSICAL EXAMINATION: GENERAL: The patient is alert and oriented x3, not in any acute distress. Thin built cachectic HEENT: Pupils are round and equally reacting to light. EOMI. No scleral icterus. No conjunctival pallor. Normocephalic, atraumatic. No pharyngeal erythema. No thyromegaly. CARDIOVASCULAR: S1 and S2 present. No murmurs, rubs, or gallops. PULMONARY: No much any movement of the lungs no wheezing was appreciated no crackles were appreciated patient is definitely in mild respiratory distress. ABDOMEN: Soft, nontender, nondistended, normoactive bowel sounds. No palpable organomegaly. MUSCULOSKELETAL: No joint swelling or deformity. EXTREMITIES: No cyanosis, clubbing, or pedal edema. NEUROLOGICAL: Gross neurological examination did not reveal any focal deficits. SKIN: No rashes. Results CBC & Chem 7: 09/30/18 17:25 09/30/18 17:25 Labs: Abnormal Lab Results - Last 24 Hours (Table) 09/30/18 09/30/18 09/30/18 Range/Units 17:25 17:25 18:02 WBC 13.4 H (3.8-10.6) k/uL Hgb 10.6 L (11.4-16.0) gm/dL Hct 32.8 L (34.0-46.0) % RDW 17.3 H (11.5-15.5) % Plt Count 464 H (150-450) k/uL Neutrophils # 11.3 H (1.3-7.7) k/uL ABG pCO2 64 H (35-45) mmHg ABG HCO3 38 H (21-25) mmol/L ABG Total CO2 40 H (19-24) mmol/L ABG O2 Saturation 98.5 H (94-97) % Chloride 96 L (98-107) mmol/L Carbon Dioxide 39 H (22-30) mmol/L BUN 38 H (7-17) mg/dL Creatinine 1.23 H (0.52-1.04) mg/dL Glucose 131 H (74-99) mg/dL Calcium 10.6 H (8.4-10.2) mg/dL Urine Protein (Negative) Hyaline Casts (0-2) /lpf Urine Mucus (None) /hpf 05/27/19 Range/Units 19:55 WBC (3.8-10.6) k/uL Hgb (11.4-16.0) gm/dL Hct (34.0-46.0) % RDW (11.5-15.5) % Plt Count (150-450) k/uL Neutrophils # (1.3-7.7) k/uL ABG pCO2 (35-45) mmHg ABG HCO3 (21-25) mmol/L ABG Total CO2 (19-24) mmol/L ABG O2 Saturation (94-97) % Chloride (98-107) mmol/L Carbon Dioxide (22-30) mmol/L BUN (7-17) mg/dL Creatinine (0.52-1.04) mg/dL Glucose (74-99) mg/dL Calcium (8.4-10.2) mg/dL Urine Protein 1+ H (Negative) Hyaline Casts 12 H (0-2) /lpf Urine Mucus Rare H (None) /hpf Thrombosis Risk Factor Assmnt - Choose All That Apply Any of the Below Risk Factors Present?: Yes Each Factor Represents 1 point: Abnormal pulmonary function (COPD) Other Risk Factors: Yes Each Risk Factor Represents 3 Points: Age 75 years or older Other congenital or acquired thrombophilia - If yes, enter type in comment: No Thrombosis Risk Factor Assessment Total Risk Factor Score: 4 Thrombosis Risk Factor Assessment Level: Moderate Risk Assessment and Plan Plan: -Acute on chronic hypercapnic respiratory failure secondary to COPD exacerbation patient will continued on systemic steroids inhalational treatments. -Acute renal failure pale azotemia patient was started on gentle hydration. Repeat basic metabolic profile tomorrow -Protein calorie malnutrition mild to moderate secondary to COPD -Hypertension -Leukocytosis reactive secondary to COPD. -Depression Patient related followed by GI and DVT prophylaxis.
--- NOTE | 2018-10-01 17:05 | P.CNPUL ---
History of Present Illness Consult date: 10/01/18 Requesting physician: Devon Badillo Reason for consult: dyspnea Chief complaint: COPD exacerbation History of present illness: This is a 77-year-old white female patient with past medical history of advanced COPD with chronic hypoxemic respiratory failure, cachexia etiopathic scoliosis/kyphoscoliosis, hypertension, chronic anemia, IBS with diarrhea, former smoker, who presented to the hospital on 09/30/2018 by an ambulance, for complaints of worsening shortness of breath. Most of the history was obtained from the chart, the patient is an extremely poor historian, she is confused. She knows she lives in the assisted living, she lives by herself, and she states she is able to prepare some simple meals for herself. Patient is extremely cachectic, and looks generally debilitated, but she states she is able to ambulate. Apparently patient called the EMS on her all in for difficulty danielle athing. The patient was hypoxemic when the EMS was called. In the emergency department patient's pulse ox was 100% on 2 L. Patient was extremely unkept, she smelled of urine, cachectic, emaciated. She states she has somebody help prepare meals and bring meals for her. However there is a question about her current living situation being appropriate for her and whether the patient is able to take care of herself in that setting. When asked what brings her to the hospital, patient states that she had depression after having her second son, and her son is now an adult. Most of her answers do not make sense, and there is a questionable underlying dementia, and possibly some acute confusion. She thinks she has been seen by Dr. Morales and Dr. Greenwood in the pulmonary clinic, however the office records do not yield any results. Chest x- ray was completed and showed no acute cardiopulmonary process. Lab work showed a white blood cell count of 13.4, hemoglobin of 10.6, d-dimer was within normal limits at 0.45, INR 0.9, serum sodium was 142, potassium is 4.1, chloride is 96, CO2 is 39, BUN is 38, creatinine is 1.23, which is elevated from previously normal creatinine in August 2018, plasma lactic acid was 1.5, troponin was negative 1, proBNP was within normal limits at 329, urinalysis showed 1+ protein, negative leuks, negative WBC and negative RBCs, no signs of infection. Patient has been afebrile. There is no family around, and is difficult to obtain any history from the patient, but we are consulted in regards to acute exacerbation of COPD. Review of Systems All systems: negative Constitutional: Denies chills, Denies fever Eyes: denies blurred vision, denies pain Ears, nose, mouth and throat: Denies headache, Denies sore throat Cardiovascular: Denies chest pain, Denies shortness of breath Respiratory: Reports dyspnea, Reports home oxygen, Denies cough Gastrointestinal: Denies abdominal pain, Denies diarrhea, Denies nausea, Denies vomiting Genitourinary: Denies dysuria, Denies hematuria Musculoskeletal: Denies myalgias Integumentary: Denies pruritus, Denies rash Neurological: Denies numbness, Denies weakness Psychiatric: Denies anxiety, Denies depression Endocrine: Denies fatigue, Denies weight change Past Medical History Past Medical History: COPD, Hypertension Additional Past Medical History / Comment(s): Severe COPD, chronic hypoxic re spiratory failure, cachexia, idiopathic scoliosis/kyphoscoliosis, hypertension, chronic anemia, insomnia disorder related to known organic factor, lower extremity edema, chronic diarrhea, IBS, previous history of hyperparathyroidism History of Any Multi-Drug Resistant Organisms: None Reported Past Surgical History: Hysterectomy Additional Past Surgical History / Comment(s): parathyroidectomy Past Anesthesia/Blood Transfusion Reactions: Postoperative Nausea & Vomiting (PONV) Past Psychological History: No Psychological Hx Reported Smoking Status: Former smoker Past Alcohol Use History: Occasional Past Drug Use History: None Reported - Past Family History Father Family Medical History: COPD Mother Family Medical History: Cancer Sister(s) Family Medical History: Cancer Medications and Allergies Home Medications Medication Instructions Recorded Confirmed Type Aspirin EC [Ecotrin Low Dose] 81 mg PO DAILY 09/07/16 09/30/18 History Lisinopril [Zestril] 2.5 mg PO DAILY 09/07/16 09/30/18 History PARoxetine HCL [Paxil] 60 mg PO DAILY 09/07/16 09/30/18 History cloNIDine HCL [Catapres] 0.1 mg PO BID 09/07/16 09/30/18 History Loperamide [Imodium] 2 mg PO QID PRN #30 cap 01/21/18 09/30/18 Rx Cholecalciferol (Vitamin D3) 2,000 unit PO DAILY 08/31/18 09/30/18 History [Vitamin D3] Diltiazem HCl [Cartia Xt] 180 mg PO DAILY 08/31/18 09/30/18 History Diphenox-Atrop 2.5-0.025 mg 1 tab PO Q6H PRN 08/31/18 09/30/18 History [Lomotil] Furosemide [Lasix] 40 mg PO DAILY 08/31/18 09/30/18 History clonazePAM [KlonoPIN] 0.5 mg PO TID PRN 08/31/18 09/30/18 History Allergies Allergy/AdvReac Type Severity Reaction Status Date / Time codeine Allergy Nausea & Verified 09/30/18 17:46 Vomiting levofloxacin [From Levaquin] Allergy Swelling Verified 09/30/18 17:46 meperidine [From Demerol] Allergy PATIENT Verified 09/30/18 17:46 GETS "HYPER" Physical Exam Vitals: Vital Signs Temp Pulse Pulse Resp BP BP Pulse Ox 10/01/18 15:24 86 10/01/18 15:15 80 10/01/18 12:36 80 10/01/18 12:24 84 10/01/18 11:53 92 L 10/01/18 11:45 98.7 F 100 20 131/72 84 L 10/01/18 08:52 84 10/01/18 08:40 80 10/01/18 04:10 98.2 F 91 16 162/92 96 09/30/18 21:17 96.4 F L 97 18 113/64 98 09/30/18 20:43 97.9 F 99 22 146/78 97 09/30/18 19:56 88 18 136/71 96 09/30/18 18:31 84 09/30/18 18:24 84 09/30/18 18:09 85 20 129/79 100 09/30/18 17:40 20 09/30/18 17:16 98.1 F 88 20 131/76 99 Intake and Output 10/01/18 10/01/18 10/01/18 06:59 14:59 22:59 Other: # Voids 1 Weight 38.555 kg GENERAL EXAM: Alert, pleasant, 77-year-old white female, confused, on 4 L of oxygen comfortable in no apparent distress. HEAD: Normocephalic/atraumatic. EYES: Normal reaction of pupils, equal size. Conjunctiva pink, sclera white. NOSE: Clear with pink turbinates. THROAT: No erythema or exudates. NECK: No masses, no JVD, no thyroid enlargement, no adenopathy. CHEST: No chest wall deformity. Symmetrical expansion. LUNGS: Equal air entry with diminished breath sounds bilaterally, no rhonchi, no wheezes CVS: Regular rate and rhythm, normal S1 and S2, no gallops, no murmurs, no rubs ABDOMEN: Soft, nontender. No hepatosplenomegaly, normal bowel sounds, no guarding or rigidity. EXTREMITIES: No clubbing, no edema, no cyanosis, 2+ pulses and upper and lower extremities. MUSCULOSKELETAL: Muscle strength and tone normal. SPINE: Patient has changes of kyphoscoliosis SKIN: No rashes CENTRAL NERVOUS SYSTEM: Alert and oriented -1. No focal deficits, tone is normal in all 4 extremities. PSYCHIATRIC: Alert and oriented -1. Appropriate affect. Intact judgment and insight. Results - Laboratory Findings CBC and BMP: 09/30/18 17:25 09/30/18 17:25 ABG ABG pH 7.39 (7.35-7.45) 09/30/18 18:02 ABG pCO2 64 mmHg (35-45) H 09/30/18 18:02 ABG pO2 102 mmHg (83-108) 09/30/18 18:02 ABG O2 Saturation 98.5 % (94-97) H 09/30/18 18:02 PT/INR, D-dimer PT 9.8 sec (9.0-12.0) 09/30/18 17:25 INR 0.9 (<1.2) 09/30/18 17:25 D-Dimer 0.45 mg/L FEU (<0.60) 09/30/18 17:25 Abnormal lab findings: Abnormal Labs 09/30/18 09/30/18 09/30/18 17:25 17:25 18:02 WBC 13.4 H Hgb 10.6 L Hct 32.8 L RDW 17.3 H Plt Count 464 H Neutrophils # 11.3 H ABG pCO2 64 H ABG HCO3 38 H ABG Total CO2 40 H ABG O2 Saturation 98.5 H Chloride 96 L Carbon Dioxide 39 H BUN 38 H Creatinine 1.23 H Glucose 131 H Calcium 10.6 H Urine Protein Hyaline Casts Urine Mucus 09/30/18 19:55 WBC Hgb Hct RDW Plt Count Neutrophils # ABG pCO2 ABG HCO3 ABG Total CO2 ABG O2 Saturation Chloride Carbon Dioxide BUN Creatinine Glucose Calcium Urine Protein 1+ H Hyaline Casts 12 H Urine Mucus Rare H - Diagnostic Findings Chest x-ray: report reviewed, image reviewed Additional studies: EKG reviewed Assessment and Plan Plan: Assessment: #1. Dyspnea, likely related to mild exacerbation of COPD #2. Advanced COPD with chronic hypoxemic and hypercapnic respiratory failure #3. Acute kidney injury, possibly related to dehydration and diuretic therapy #4. Altered mentation, suspect underlying dementia with possibly acute confusion #5. Cachexia, general medical debility #6. Kyphoscoliosis #7. IBS with diarrhea #8. Hypertension #9. Former smoker #10. Anxiety #11. Chronic insomnia #12. Concern for difficulty caring for herself, including difficulty with ob taining and preparing nutrition, and hygiene Plan: Continue with the current medical treatment, current antibiotics, IV steroids, IV hydration, nebulized bronchodilators. Breathing is improving, patient looks stable chest x-ray without any acute pulmonary process. Will consult social work faculty member in regards to assessment of the living situation and patient's ability to care for herself. I performed a history & physical examination of the patient and discussed their management with my nurse practitioner, Rose Marie Davis. I reviewed the nurse practitioner's note and agree with the documented findings and plan of care. Lung sounds are positive for diminished breath sounds. The findings and the impression was discussed with the patient. I attest to the documentation by the nurse practitioner. Time with Patient: Greater than 30
[2018-10-01] MEDS: methylPREDNISolone SOD SUCCI 40 MG/ML 1 ML VIAL IV SCH (17:20)
[2018-10-01] MEDS: SODIUM CHLORIDE 0.9% 1,000 ML IV SCH (17:21)
[2018-10-01] MEDS: FAMOTIDINE 20 MG TAB PO SCH (20:46)
[2018-10-02] MEDS: methylPREDNISolone SOD SUCCI 40 MG/ML 1 ML VIAL IV SCH ×3 (00:22→16:30)
[2018-10-02] MEDS: SODIUM CHLORIDE 0.9% 1,000 ML IV SCH ×2 (06:07→20:01)
[2018-10-02] MEDS: FAMOTIDINE 20 MG TAB PO SCH (10:54)
[2018-10-02] MEDS: ASPIRIN 81 MG PO SCH (10:54)
[2018-10-02] MEDS: CHOLECALCIFEROL 1,000 UNIT TAB PO SCH (10:54)
[2018-10-02] MEDS: DILTIAZEM CD 180 MG CAP.ER.24H PO SCH (10:54)
[2018-10-02] MEDS: PARoxetine 20 MG TAB PO SCH (10:55)
--- NOTE | 2018-10-02 15:11 | P.PN ---
Subjective 77-year-old admitted the for COPD exacerbation. Continue assisting steroids. Constitutional: Denied any fatigue denied any fever. Cardio vascular: denied any chest pain, palpitations Gastrointestinal denied any nausea vomiting Pulmonary:shortness of breath improved Neurologic denied any new focal deficits All inpatient medications were reviewed and appropriate changes in these medications as dictated in the interval history and assessment and plan. Objective - Vital Signs Vital signs: Vital Signs Temp 97.9 F 10/02/18 11:30 Pulse 75 10/02/18 11:30 Resp 22 10/02/18 11:30 BP 118/58 10/02/18 11:30 Pulse Ox 99 10/02/18 11:30 Intake & Output 10/01/18 10/02/18 10/02/18 18:59 06:59 18:59 Intake Total 1340 1000 Balance 1340 1000 Weight 38.555 kg Intake: Intake, IV Titration 650 600 Amount Sodium Chloride 0.9% 1, 650 600 000 ml @ 75 mls/hr IV . [id number] Rx#:[id number] Oral 690 400 Other: Voiding Method Toilet Toilet # Voids 2 1 2 - Exam PHYSICAL EXAMINATION: GENERAL: The patient is alert and oriented x3, not in any acute distress. Thin built cachectic HEENT: Pupils are round and equally reacting to light. EOMI. No scleral icterus. No conjunctival pallor. Normocephalic, atraumatic. No pharyngeal erythema. No thyromegaly. CARDIOVASCULAR: S1 and S2 present. No murmurs, rubs, or gallops. PULMONARY: No much any movement of the lungs no wheezing was appreciated no crackles were appreciated patient is definitely in mild respiratory distress. ABDOMEN: Soft, nontender, nondistended, normoactive bowel sounds. No palpable organomegaly. MUSCULOSKELETAL: No joint swelling or deformity. EXTREMITIES: No cyanosis, clubbing, or pedal edema. NEUROLOGICAL: Gross neurological examination did not reveal any focal deficits. SKIN: No rashes. - Labs CBC & Chem 7: 09/30/18 17:25 09/30/18 17:25 Labs: Microbiology - Last 24 Hours (Table) 09/30/18 20:21 Blood Culture - Preliminary Blood No Growth after 24 hours Assessment and Plan Plan: -Acute on chronic hypercapnic respiratory failure secondary to COPD exacerbation patient will continued on systemic steroids inhalational treatments. -Acute renal failure pale azotemia patient was started on gentle hydration. Repeat basic metabolic profile tomorrow -Protein calorie malnutrition mild to moderate secondary to COPD -Hypertension -Leukocytosis reactive secondary to COPD. -Depression Patient is on GI and DVT prophylaxis.
[2018-10-02 15:50] LABS: Calcium 9.8 mg/dL (8.4-10.2); Potassium 3.8 mmol/L (3.5-5.1)
[2018-10-02] MEDS: clonazePAM 0.5 MG TAB PO PRN ×2 (16:30→21:39)
--- NOTE | 2018-10-02 16:56 | P.PN ---
Subjective Progress Note Date: 10/02/18 Principal diagnosis: Exacerbation of COPD This is a 77-year-old white female patient with past medical history of advanced COPD with chronic hypoxemic respiratory failure, cachexia etiopathic scoliosis/kyphoscoliosis, hypertension, chronic anemia, IBS with diarrhea, former smoker, who presented to the hospital on 09/30/2018 by an ambulance, for complaints of worsening shortness of breath. Most of the history was obtained from the chart, the patient is an extremely poor historian, she is confused. She knows she lives in the assisted living, she lives by herself, and she states she is able to prepare some simple meals for herself. Patient is extremely cachectic, and looks generally debilitated, but she states she is able to ambulate. Apparently patient called the EMS on her all in for difficulty breathing. The patient was hypoxemic when the EMS was called. In the emergency department patient's pulse ox was 100% on 2 L. Patient was extremely unkept, she smelled of urine, cachectic, emaciated. She states she has somebody help prepare meals and bring meals for her. However there is a question about her current living situation being appropriate for her and whether the patient is able to take care of herself in that setting. When asked what brings her to the hospital, patient states that she had depression after having her second son, and her son is now an adult. Most of her answers do not make sense, and there is a questionable underlying dementia, and possibly some acute confusion. She thinks she has been seen by Dr. Morales and Dr. Greenwood in the pulmonary clinic, however the office records do not yield any results. Chest x- ray was completed and showed no acute cardiopulmonary process. Lab work showed a white blood cell count of 13.4, hemoglobin of 10.6, d-dimer was within normal limits at 0.45, INR 0.9, serum sodium was 142, potassium is 4.1, chloride is 96, CO2 is 39, BUN is 38, creatinine is 1.23, which is elevated from previously normal creatinine in August 2018, plasma lactic acid was 1.5, troponin was negative 1, proBNP was within normal limits at 329, urinalysis showed 1+ protein, negative leuks, negative WBC and negative RBCs, no signs of infection. Patient has been afebrile. There is no family around, and is difficult to obtain any history from the patient, but we are consulted in regards to acute exacerbation of COPD. On 10/02/2018 patient seen in follow-up in medical surgical floor. She is awake and alert, in no acute distress, she is on 2 g of oxygen with a pulse ox of 99%, she is afebrile, hemodynamically stable, no acute events overnight, she states her breathing is easier, no complaints of chest pain, no cough or congestion, lung sounds are diminished, no rhonchi or wheezing noted. She continues on IV hydration, and her renal profile on today's labs is improving, with BUN down to 29 and creatinine is 1.02. No fever or chills, blood culture showed no growth. Objective - Vital Signs Vital signs: Vital Signs Temp 97.9 F 10/02/18 11:30 Pulse 75 10/02/18 11:30 Resp 22 10/02/18 11:30 BP 118/58 10/02/18 11:30 Pulse Ox 99 10/02/18 11:30 Intake & Output 10/01/18 10/02/18 10/02/18 18:59 06:59 18:59 Intake Total 1340 1000 Balance 1340 1000 Weight 38.555 kg Intake: Intake, IV Titration 650 600 Amount Sodium Chloride 0.9% 1, 650 600 000 ml @ 75 mls/hr IV . [id number] [facility] Rx#:[id number] Oral 690 400 Other: Voiding Method Toilet Toilet # Voids 2 1 2 - Exam GENERAL EXAM: Alert, pleasant, 77-year-old white female, confused, on 2 L of oxygen comfortable in no apparent distress. HEAD: Normocephalic/atraumatic. EYES: Normal reaction of pupils, equal size. Conjunctiva pink, sclera white. NOSE: Clear with pink turbinates. THROAT: No erythema or exudates. NECK: No masses, no JVD, no thyroid enlargement, no adenopathy. CHEST: No chest wall deformity. Symmetrical expansion. LUNGS: Equal air entry with diminished breath sounds bilaterally, no rhonchi, no wheezes CVS: Regular rate and rhythm, normal S1 and S2, no gallops, no murmurs, no rubs ABDOMEN: Soft, nontender. No hepatosplenomegaly, normal bowel sounds, no guarding or rigidity. EXTREMITIES: No clubbing, no edema, no cyanosis, 2+ pulses and upper and lower extremities. MUSCULOSKELETAL: Muscle strength and tone normal. SPINE: Patient has changes of kyphoscoliosis SKIN: No rashes CENTRAL NERVOUS SYSTEM: Alert and oriented -1. No focal deficits, tone is normal in all 4 extremities. PSYCHIATRIC: Alert and oriented -1. Appropriate affect. Intact judgment and insight. - Labs CBC & Chem 7: 09/30/18 17:25 10/02/18 15:21 Labs: Abnormal Lab Results - Last 24 Hours (Table) 10/02/18 Range/Units 15:21 Carbon Dioxide 31 H (22-30) mmol/L BUN 29 H (7-17) mg/dL Glucose 135 H (74-99) mg/dL Microbiology - Last 24 Hours (Table) 09/30/18 20:21 Blood Culture - Preliminary Blood No Growth after 24 hours Assessment and Plan Plan: Assessment: #1. Dyspnea, likely related to mild exacerbation of COPD #2. Advanced COPD with chronic hypoxemic and hypercapnic respiratory failure #3. Acute kidney injury, possibly related to dehydration and diuretic therapy #4. Altered mentation, suspect underlying dementia with possibly acute confusion #5. Cachexia, general medical debility #6. Kyphoscoliosis #7. IBS with diarrhea #8. Hypertension #9. Former smoker #10. Anxiety #11. Chronic insomnia #12. Concern for difficulty caring for herself, including difficulty with obtaining and preparing nutrition, and hygiene Plan: Continue with current medical treatment, IV steroids, gentle hydration, breathing treatments, no fever or chills, patient is breathing easier, no rhonchi, no wheezing, no cough or congestion. No acute events overnight, renal profile is improving. From pulmonary perspective patient can consider for discharge home in the next 24 hours. I performed a history & physical examination of the patient and discussed their management with my nurse practitioner, Rose Marie Davis. I reviewed the nurse practitioner's note and agree with the documented findings and plan of care. Lung sounds are positive for diminished breath sounds. The findings and the impression was discussed with the patient. I attest to the documentation by the nurse practitioner. Time with Patient: Less than 30
[2018-10-02] MEDS ORDERED: HALOPERIDOL 5 MG TAB PO PRN (17:13)
[2018-10-02] MEDS ORDERED: HALOPERIDOL LACTATE 5 MG/ML 1 ML VIAL IM PRN (17:32)
[2018-10-03 09:26] LABS: Calcium 9.2 mg/dL (8.4-10.2); Potassium 3.7 mmol/L (3.5-5.1)
[2018-10-03] MEDS: CHOLECALCIFEROL 1,000 UNIT TAB PO SCH (09:26)
[2018-10-03] MEDS: ASPIRIN 81 MG PO SCH (09:26)
[2018-10-03] MEDS: DILTIAZEM CD 180 MG CAP.ER.24H PO SCH (09:26)
[2018-10-03] MEDS: FAMOTIDINE 20 MG TAB PO SCH (09:27)
[2018-10-03] MEDS: PARoxetine 20 MG TAB PO SCH (09:27)
[2018-10-03] MEDS: predniSONE 20 MG TAB PO SCH (09:27)
--- NOTE | 2018-10-03 11:19 | P.PN ---
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 Most of the history was obtained from the chart, the patient is an extremely poor historian, she is confused. She knows she lives in the assisted living, she lives by herself, and she states she is able to prepare some simple meals for herself. Patient is extremely cachectic, and looks generally debilitated, but she states she is able to ambul ate. Apparently patient called the EMS on her all in for difficulty breathing. The patient was hypoxemic when the EMS was called. In the emergency department patient's pulse ox was 100% on 2 L. Patient was extremely unkept, she smelled of urine, cachectic, emaciated. She states she has somebody help prepare meals and bring meals for her. However there is a question about her current living s ituation being appropriate for her and whether the patient is able to take care of herself in that setting. When asked what brings her to the hospital, patient states that she had depression after having her second son, and her son is now an adult. Most of her answers do not make sense, and there is a questionable underlying dementia, and possibly some acute confusion. She thinks she has been seen by Dr. Morales and Dr. Greenwood in the pulmonary clinic, however the office records do not yield any results. Chest x-ray was completed and showed no acute cardiopulmonary process. Lab work showed a white blood cell count of 13.4, hemoglobin of 10.6, d-dimer was within normal limits at 0.45, INR 0.9, serum sodium was 142, potassium is 4.1, chloride is 96, CO2 is 39, BUN is 38, creatinine is 1.23, which is elevated from previously normal creatinine in August 2018, plasma lactic acid was 1.5, troponin was negative 1, proBNP was within normal limits at 329, urinalysis showed 1+ protein, negative leuks, negative WBC and negative RBCs, no signs of infection. Patient has been afeb rile. There is no family around, and is difficult to obtain any history from the patient, but we are consulted in regards to acute exacerbation of COPD. On 10/02/2018 patient seen in follow-up in medical surgical floor. She is awake and alert, in no acute distress, she is on 2 g of oxygen with a pulse ox of 99%, she is afebrile, hemodynamically stable, no acute events overnight, she states her breathing is easier, no complaints of chest pain, no cough or congestion, lung sounds are diminished, no rhonchi or wheezing noted. She continues on IV hydration, and her renal profile on today's labs is improving, with BUN down to 29 and creatinine is 1.02. No fever or chills, blood culture showed no growth. The patient is seen today 10/03/2018 in follow-up on the regular medical floor. She is currently awake and alert in no acute distress. Sitting up at the bedside. She states she is breathing easier today as compared to yesterday. Maintaining O2 saturations in the 90s on 3 L/m per nasal cannula. She's afebrile. Hemodynamically stable. Blood culture reveals no growth. Sodium 1 41. Potassium 3.7. Bicarb 35. Creatinine 0.88. She's been maintained on DuoNeb inhalations, oral prednisone. Objective - Vital Signs Vital signs: Vital Signs Temp 97.3 F L 10/03/18 05:00 Pulse 65 10/03/18 05:00 Resp 20 10/03/18 05:00 BP 125/79 10/03/18 05:00 Pulse Ox 98 10/03/18 07:28 Intake & Output 10/02/18 10/03/18 10/03/18 18:59 06:59 18:59 Intake Total 1000 710 Balance 1000 710 Intake: Intake, IV Titration 600 Amount Sodium Chloride 0.9% 1, 600 000 ml @ 75 mls/hr IV . [id number] [facility] Rx#:[id number] Oral 400 710 Other: Voiding Method Toilet Toilet # Voids 2 1 - Exam GENERAL EXAM: Alert, active, comfortable in no apparent distress. On 3 L nasal cannula. HEAD: Normocephalic. EYES: Normal reaction of pupils, equal size. NOSE: Clear with pink turbinates. THROAT: No erythema or exudates. NECK: No masses, no JVD. CHEST: No chest wall deformity. LUNGS: Equal air entry with end expiratory wheeze, diminished. CVS: S1 and S2 normal with no audible murmur, regular rhythm. ABDOMEN: No hepatosplenomegaly, normal bowel sounds, no guarding or rigidity. SPINE: No scoliosis or deformity SKIN: No rashes CENTRAL NERVOUS SYSTEM: No focal deficits, tone is normal in all 4 extremities. EXTREMITIES: There is no peripheral edema. No clubbing, no cyanosis. Peripheral pulses are intact. - Labs CBC & Chem 7: 09/30/18 17:25 10/03/18 08:57 Labs: Abnormal Lab Results - Last 24 Hours (Table) 10/02/18 10/03/18 Range/Units 15:21 08:57 Carbon Dioxide 31 H 35 H (22-30) mmol/L BUN 29 H 34 H (7-17) mg/dL Glucose 135 H 111 H (74-99) mg/dL Microbiology - Last 24 Hours (Table) 09/30/18 20:21 Blood Culture - Preliminary Blood No Growth after 48 hours Assessment and Plan Assessment: Assessment: #1. Dyspnea, likely related to mild exacerbation of COPD #2. Advanced COPD with chronic hypoxemic and hypercapnic respiratory failure #3. Acute kidney injury, possibly related to dehydration and diuretic therapy #4. Altered mentation, suspect underlying dementia with possibly acute confusion #5. Cachexia, general medical debility #6. Kyphoscoliosis #7. IBS with diarrhea #8. Hypertension #9. Former smoker #10. Anxiety #11. Chronic insomnia #12. Concern for difficulty caring for herself, including difficulty with obtaining and preparing nutrition, and hygiene Plan: The patient was seen and evaluated by Dr. Willson. She is cleared for discharge from the pulmonary standpoint. The patient does live alone and there is concerns regarding her abilities to take care of herself. Discharge planning is in place. Possible ECF. I, the cosigning physician, performed a history & physical examination of the patient. Lungs sounds with faint end expiratory wheeze, diminished. Maintaining good O2 saturations in the 90s on 3 L/m per nasal cannula. I discussed the assessment and plan of care with my nurse practitioner, Akilah Arevalo. I attest to the above note as dictated by her.
[2018-10-03] MEDS: IPRATROPIUM-ALBUTEROL 3 ML NEB INHALATION PRN ×3 (11:52→21:17)
--- NOTE | 2018-10-03 14:08 | P.DS ---
Providers Date of admission: 09/30/18 19:53 Attending physician: Devon Badillo Consults: 09/30/18 20:10 Consult Physician Routine Consulting Provider: Sweta Greenwood Consult Reason/Comments: hypoxia, SOB Do you want consulting provider notified?: Yes, Notify in am Primary care physician: Sweta Greenwood [facility] Course: 77-year-old admitted the for COPD exacerbation. Uses 3 L of oxygen at home patient is saturating at 98% on 3 is presently at her baseline patient had an episode of agitation systemic symptoms with the systemic steroids which resolved at this time. Patient will be discharged to subacute rehabilitation today. PHYSICAL EXAMINATION: GENERAL: The patient is alert and oriented x3, not in any acute distress. Thin built cachectic HEENT: Pupils are round and equally reacting to light. EOMI. No scleral icterus. No conjunctival pallor. Normocephalic, atraumatic. No pharyngeal erythema. No thyromegaly. CARDIOVASCULAR: S1 and S2 present. No murmurs, rubs, or gallops. PULMONARY: No much any movement of the lungs no wheezing was appreciated no crackles were appreciated patient is definitely in mild respiratory distress. ABDOMEN: Soft, nontender, nondistended, normoactive bowel sounds. No palpable organomegaly. MUSCULOSKELETAL: No joint swelling or deformity. EXTREMITIES: No cyanosis, clubbing, or pedal edema. NEUROLOGICAL: Gross neurological examination did not reveal any focal deficits. SKIN: No rashes. Assessment and Plan Plan: -Acute on chronic hypercapnic respiratory failure secondary to COPD exacerbation -Acute renal failure prerenal azotemia from Lasix. We'll cutting down the dose of Lasix can be discussed uterine normal Are not needed and or if she goes into renal failure again patient improved with IV fluids -Protein calorie malnutrition mild to moderate secondary to COPD -Hypertension -Leukocytosis reactive secondary to COPD. -Depression Patient Condition at Discharge: Stable Plan - Discharge Summary Discharge Rx Participant: No New Discharge Prescriptions: New predniSONE 10 mg PO DAILY #30 tab Continue clonazePAM [KlonoPIN] 0.5 mg PO TID PRN #20 tab PRN Reason: Anxiety Changed Furosemide [Lasix] 20 mg PO DAILY #0 Discontinued cloNIDine HCL [Catapres] 0.1 mg PO BID No Action PARoxetine HCL [Paxil] 60 mg PO DAILY Lisinopril [Zestril] 2.5 mg PO DAILY Aspirin EC [Ecotrin Low Dose] 81 mg PO DAILY Loperamide [Imodium] 2 mg PO QID PRN #30 cap PRN Reason: Diarrhea Cholecalciferol (Vitamin D3) [Vitamin D3] 2,000 unit PO DAILY Diphenox-Atrop 2.5-0.025 mg [Lomotil] 1 tab PO Q6H PRN PRN Reason: Diarrhea Diltiazem HCl [Cartia Xt] 180 mg PO DAILY Discharge Medication List Aspirin EC [Ecotrin Low Dose] 81 mg PO DAILY 09/07/16 [History] Lisinopril [Zestril] 2.5 mg PO DAILY 09/07/16 [History] PARoxetine HCL [Paxil] 60 mg PO DAILY 09/07/16 [History] Loperamide [Imodium] 2 mg PO QID PRN #30 cap 01/21/18 [Rx] Cholecalciferol (Vitamin D3) [Vitamin D3] 2,000 unit PO DAILY 08/31/18 [History] Diltiazem HCl [Cartia Xt] 180 mg PO DAILY 08/31/18 [History] Diphenox-Atrop 2.5-0.025 mg [Lomotil] 1 tab PO Q6H PRN 08/31/18 [History] Furosemide [Lasix] 20 mg PO DAILY #0 10/03/18 [Rx] clonazePAM [KlonoPIN] 0.5 mg PO TID PRN #20 tab 10/03/18 [Rx] predniSONE 10 mg PO DAILY #30 tab 10/03/18 [Rx] Follow up Appointment(s)/Referral(s): Sweta Greenwood MD [Primary Care Provider] - 1-2 days
[2018-10-03] MEDS: clonazePAM 0.5 MG TAB PO PRN (17:18)
[2018-10-04 05:33] VITALS: RESP 16
[2018-10-04] MEDS: CHOLECALCIFEROL 1,000 UNIT TAB PO SCH (08:23)
[2018-10-04] MEDS: FAMOTIDINE 20 MG TAB PO SCH (08:24)
[2018-10-04] MEDS: PARoxetine 20 MG TAB PO SCH (08:24)
[2018-10-04] MEDS: DILTIAZEM CD 180 MG CAP.ER.24H PO SCH (08:24)
[2018-10-04] MEDS: predniSONE 20 MG TAB PO SCH (08:24)
[2018-10-04] MEDS: ASPIRIN 81 MG PO SCH (08:24)
[2018-10-04] MEDS: IPRATROPIUM-ALBUTEROL 3 ML NEB INHALATION PRN ×3 (08:34→15:58)
--- NOTE | 2018-10-04 12:25 | P.PN ---
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 Most of the history was obtained from the chart, the patient is an extremely poor historian, she is confused. She knows she lives in the assisted living, she lives by herself, and she states she is able to prepare some simple meals for herself. Patient is extremely cachectic, and looks generally debilitated, but she states she is able to ambul ate. Apparently patient called the EMS on her all in for difficulty breathing. The patient was hypoxemic when the EMS was called. In the emergency department patient's pulse ox was 100% on 2 L. Patient was extremely unkept, she smelled of urine, cachectic, emaciated. She states she has somebody help prepare meals and bring meals for her. However there is a question about her current living s ituation being appropriate for her and whether the patient is able to take care of herself in that setting. When asked what brings her to the hospital, patient states that she had depression after having her second son, and her son is now an adult. Most of her answers do not make sense, and there is a questionable underlying dementia, and possibly some acute confusion. She thinks she has been seen by Dr. Morales and Dr. Greenwood in the pulmonary clinic, however the office records do not yield any results. Chest x-ray was completed and showed no acute cardiopulmonary process. Lab work showed a white blood cell count of 13.4, hemoglobin of 10.6, d-dimer was within normal limits at 0.45, INR 0.9, serum sodium was 142, potassium is 4.1, chloride is 96, CO2 is 39, BUN is 38, creatinine is 1.23, which is elevated from previously normal creatinine in August 2018, plasma lactic acid was 1.5, troponin was negative 1, proBNP was within normal limits at 329, urinalysis showed 1+ protein, negative leuks, negative WBC and negative RBCs, no signs of infection. Patient has been afeb rile. There is no family around, and is difficult to obtain any history from the patient, but we are consulted in regards to acute exacerbation of COPD. On 10/02/2018 patient seen in follow-up in medical surgical floor. She is awake and alert, in no acute distress, she is on 2 g of oxygen with a pulse ox of 99%, she is afebrile, hemodynamically stable, no acute events overnight, she states her breathing is easier, no complaints of chest pain, no cough or congestion, lung sounds are diminished, no rhonchi or wheezing noted. She continues on IV hydration, and her renal profile on today's labs is improving, with BUN down to 29 and creatinine is 1.02. No fever or chills, blood culture showed no growth. The patient is seen today 10/03/2018 in follow-up on the regular medical floor. She is currently awake and alert in no acute distress. Sitting up at the bedside. She states she is breathing easier today as compared to yesterday. Maintaining O2 saturations in the 90s on 3 L/m per nasal cannula. She's afebrile. Hemodynamically stable. Blood culture reveals no growth. Sodium 1 41. Potassium 3.7. Bicarb 35. Creatinine 0.88. She's been maintained on DuoNeb inhalations, oral prednisone. The patient is seen today 10/04/2018 in follow-up on the regular medical floor. She is currently resting quite comfortably in bed. Awake and alert in no acute distress. Breathing easier today. Maintain O2 saturations in the high 90s on 3 L/m per nasal cannula. Afebrile. Hemodynamically stable. Blood culture reveals no growth. Sodium 141. Potassium 3.7. Creatinine 0.88. Objective - Vital Signs Vital signs: Vital Signs Temp 98.0 F 10/04/18 05:00 Pulse 78 10/04/18 12:16 Resp 16 10/04/18 05:00 BP 134/78 10/04/18 05:00 Pulse Ox 98 10/04/18 08:38 Intake & Output 10/03/18 10/04/18 10/04/18 18:59 06:59 18:59 Intake Total 400 200 Balance 400 200 Intake: Oral 400 200 Other: Voiding Method Toilet Toilet Diaper Diaper # Voids 1 1 - Exam GENERAL EXAM: Alert, active, comfortable in no apparent distress. On 3 L nasal cannula. HEAD: Normocephalic. EYES: Normal reaction of pupils, equal size. NOSE: Clear with pink turbinates. THROAT: No erythema or exudates. NECK: No masses, no JVD. CHEST: No chest wall deformity. LUNGS: Equal air entry with end expiratory wheeze, diminished. CVS: S1 and S2 normal with no audible murmur, regular rhythm. ABDOMEN: No hepatosplenomegaly, normal bowel sounds, no guarding or rigidity. SPINE: No scoliosis or deformity SKIN: No rashes CENTRAL NERVOUS SYSTEM: No focal deficits, tone is normal in all 4 extremities. EXTREMITIES: There is no peripheral edema. No clubbing, no cyanosis. Peripheral pulses are intact. - Labs CBC & Chem 7: 09/30/18 17:25 10/03/18 08:57 Labs: Microbiology - Last 24 Hours (Table) 09/30/18 20:21 Blood Culture - Preliminary Blood No Growth after 72 hours Assessment and Plan Assessment: Assessment: #1. Dyspnea, likely related to mild exacerbation of COPD #2. Advanced COPD with chronic hypoxemic and hypercapnic respiratory failure #3. Acute kidney injury, possibly related to dehydration and diuretic therapy #4. Altered mentation, suspect underlying dementia with possibly acute confusion #5. Cachexia, general medical debility #6. Kyphoscoliosis #7. IBS with diarrhea #8. Hypertension #9. Former smoker #10. Anxiety #11. Chronic insomnia #12. Concern for difficulty caring for herself, including difficulty with obtaining and preparing nutrition, and hygiene Plan: The patient was seen and evaluated by Dr. Willson. She is cleared for discharge from the pulmonary standpoint. The plan is for transfer to an ECF. She'll remain on DuoNeb inhalations. Complete prednisone taper. I, the cosigning physician, performed a history & physical examination of the patient. Lungs sounds with faint end expiratory wheeze, diminished. Maintaining good O2 saturations in the 90s on 3 L/m per nasal cannula. I discussed the assessment and plan of care with my nurse practitioner, Akilah Arevalo. I attest to the above note as dictated by her.
[2018-10-04 12:29] VITALS: BP 150/83; TEMP 97.9
--- NOTE | 2018-10-04 13:35 | P.DS ---
Providers Date of admission: 09/30/18 19:53 Attending physician: Devon Badillo Consults: 09/30/18 20:10 Consult Physician Routine Consulting Provider: Sweta Greenwood Consult Reason/Comments: hypoxia, SOB Do you want consulting provider notified?: Yes, Notify in am Primary care physician: Sweta Greenwood [facility] Course: Reason for to discharge summary from yesterday. Patient ended up staying in the hospital because of receiving Haldol and day before. No significant change in physical exam. Patient was seen and examined on the day of discharge that is today. PHYSICAL EXAMINATION: GENERAL: The patient is alert and oriented x3, not in any acute distress. Thin built cachectic HEENT: Pupils are round and equally reacting to light. EOMI. No scleral icterus. No conjunctival pallor. Normocephalic, atraumatic. No pharyngeal erythema. No thyromegaly. CARDIOVASCULAR: S1 and S2 present. No murmurs, rubs, or gallops. PULMONARY: No much any movement of the lungs no wheezing was appreciated no crackles were appreciated patient is definitely in mild respiratory distress. ABDOMEN: Soft, nontender, nondistended, normoactive bowel sounds. No palpable organomegaly. MUSCULOSKELETAL: No joint swelling or deformity. EXTREMITIES: No cyanosis, clubbing, or pedal edema. NEUROLOGICAL: Gross neurological examination did not reveal any focal deficits. SKIN: No rashes. Patient Condition at Discharge: Stable Plan - Discharge Summary Discharge Rx Participant: No New Discharge Prescriptions: New predniSONE 10 mg PO DAILY #30 tab Continue PARoxetine HCL [Paxil] 60 mg PO DAILY Lisinopril [Zestril] 2.5 mg PO DAILY Aspirin EC [Ecotrin Low Dose] 81 mg PO DAILY Loperamide [Imodium] 2 mg PO QID PRN #30 cap PRN Reason: Diarrhea Cholecalciferol (Vitamin D3) [Vitamin D3] 2,000 unit PO DAILY Diphenox-Atrop 2.5-0.025 mg [Lomotil] 1 tab PO Q6H PRN PRN Reason: Diarrhea Diltiazem HCl [Cartia Xt] 180 mg PO DAILY clonazePAM [KlonoPIN] 0.5 mg PO TID PRN #20 tab PRN Reason: Anxiety Changed Furosemide [Lasix] 20 mg PO DAILY #0 Discontinued cloNIDine HCL [Catapres] 0.1 mg PO BID Discharge Medication List Aspirin EC [Ecotrin Low Dose] 81 mg PO DAILY 09/07/16 [History] Lisinopril [Zestril] 2.5 mg PO DAILY 09/07/16 [History] PARoxetine HCL [Paxil] 60 mg PO DAILY 09/07/16 [History] Loperamide [Imodium] 2 mg PO QID PRN #30 cap 01/21/18 [Rx] Cholecalciferol (Vitamin D3) [Vitamin D3] 2,000 unit PO DAILY 08/31/18 [History] Diltiazem HCl [Cartia Xt] 180 mg PO DAILY 08/31/18 [History] Diphenox-Atrop 2.5-0.025 mg [Lomotil] 1 tab PO Q6H PRN 08/31/18 [History] Furosemide [Lasix] 20 mg PO DAILY #0 10/03/18 [Rx] clonazePAM [KlonoPIN] 0.5 mg PO TID PRN #20 tab 10/03/18 [Rx] predniSONE 10 mg PO DAILY #30 tab 10/03/18 [Rx] Follow up Appointment(s)/Referral(s): Sweta Greenwood MD [Primary Care Provider] - 3 Days Discharge Disposition: TRANSFER TO SNF/ECF
[2018-10-04 16:06] VITALS: PULSE 96
== END 2018-10-04 18:10 | DRG 190 ==
LOC: EC 17:14 → 3NMEDONC 19:53
PROVIDERS: ADMIT Hospitalist; ATTEND Hospitalist
DX: J44.1 Chronic obstructive pulmonary disease with (acute) exacerbation (principal); J96.21 Acute and chronic respiratory failure with hypoxia; J96.22 Acute and chronic respiratory failure with hypercapnia; E44.1 Mild protein-calorie malnutrition; E87.2 Acidosis; N17.9 Acute kidney failure, unspecified; R64 Cachexia; E86.0 Dehydration; M41.20 Other idiopathic scoliosis, site unspecified; F03.90 Unspecified dementia, unspecified severity, without behavioral disturbance, psychotic disturbance, mood disturbance, and anxiety; D72.829 Elevated white blood cell count, unspecified; F32.9 Major depressive disorder, single episode, unspecified; F41.9 Anxiety disorder, unspecified; F51.04 Psychophysiologic insomnia; I10 Essential (primary) hypertension; K58.0 Irritable bowel syndrome with diarrhea; R41.0 Disorientation, unspecified; R45.1 Restlessness and agitation; T38.0X5A Adverse effect of glucocorticoids and synthetic analogues, initial encounter; T50.1X5A Adverse effect of loop [high-ceiling] diuretics, initial encounter; Z79.82 Long term (current) use of aspirin; Z79.899 Other long term (current) drug therapy; Z99.81 Dependence on supplemental oxygen; Z90.710 Acquired absence of both cervix and uterus; Z87.891 Personal history of nicotine dependence; Z88.1 Allergy status to other antibiotic agents; Z88.5 Allergy status to narcotic agent; Z82.5 Family history of asthma and other chronic lower respiratory diseases; Z80.9 Family history of malignant neoplasm, unspecified
CPT/HCPCS: 36415; 36600; 51701; 71046; 80048; 80053; 81001; 82805; 83605; 83735; 83880; 84484; 85025; 85379; 85610; 85730; 87040; 93005; 94640; 94760; 96365; 96375; 99285

== ENCOUNTER 2018-11-19 11:44 | Emergency (ER) | payer MEDICARE, OTHER ==
[2018-11-19 12:04] VITALS: TEMP 98.3
[2018-11-19 14:10] LABS: Albumin 4.3 g/dL (3.5-5.0); Appearance,Urine Clear (Clear); Bacteria,Urine Rare /hpf; Bilirubin,Urine Negative (Negative); Blood,Urine Negative (Negative); Calcium 9.9 mg/dL (8.4-10.2); Color,Urine Light Yellow; Glucose,Urine (UA) Negative (Negative); Ketones,Urine Negative (Negative); Leukocyte Esterase,Urine Trace (Negative); Nitrite,Urine Negative (Negative); Potassium 3.7 mmol/L (3.5-5.1); Protein,Urine Trace (Negative); RBC,Urine 1 /hpf (0-5); Specific Gravity,Urine 1.009 (1.001-1.035); Squamous Epithelial Cell,Urine <1 /hpf (0-4); Total Bilirubin 0.4 mg/dL (0.2-1.3); Urobilinogen,Urine <2.0 mg/dL (<2.0); WBC,Urine 3 /hpf (0-5)
[2018-11-19 14:11] LABS: Anisocytosis Slight; Basophils % (A) 0 %; Eosinophils % (A) 0 %; HCT 29.6 % (34.0-46.0); HGB 9.5 gm/dL (11.4-16.0); Hypochromasia Slight; INR 0.9 (<1.2); Lymphocytes # (A) 0.6 k/uL (1.0-4.8); Lymphocytes % (A) 5 %; MCH 27.6 pg (25.0-35.0); MCHC 32.1 g/dL (31.0-37.0); Mean Platelet Volume 7.1; Monocytes # (A) 0.4 k/uL (0-1.0); Monocytes % (A) 4 %; Neutrophils # (A) 10.8 k/uL (1.3-7.7); Neutrophils % (A) 91 %; Partial Thromboplastin Time 22.1 sec (22.0-30.0); Platelet Count 468 k/uL (150-450); Prothrombin Time 10.2 sec (9.0-12.0); RBC 3.45 m/uL (3.80-5.40); RDW 16.6 % (11.5-15.5); WBC 11.9 k/uL (3.8-10.6)
[2018-11-19 14:16] LABS: MCV 85.9 fL (80.0-100.0)
[2018-11-19 14:23] LABS: Amphetamine Screen,Urine Not Detected (NotDetected); Benzodiazepines Screen,Urine Not Detected (NotDetected); Cocaine Screen,Urine Not Detected (NotDetected); Opiate Screen,Urine Not Detected (NotDetected); Phencyclidine Screen,Urine Not Detected (NotDetected); Tricyclic Antidepressant,Urine Not Detected (NotDetected); Urn Cannabinoid Scrn Not Detected (NotDetected)
[2018-11-19 14:24] LABS: Barbiturate Screen,Urine Not Detected (NotDetected); Methadone Screen, Urine Not Detected (NotDetected); Oxycodone Screen, Urine Not Detected (NotDetected)
--- NOTE | 2018-11-19 14:37 | XR ---
EXAMINATION TYPE: XR chest 2V DATE OF EXAM: 11/19/2018 COMPARISON: Prior chest x-ray 09/30/2018 HISTORY: Altered mental status TECHNIQUE: Frontal and lateral views of the chest are obtained. FINDINGS: No significant interval change. The aorta is dense and tortuous, ectatic. Kyphosis is again noted due to wedge compression deformities in the upper thoracic spine. There is no focal air space opacity, pleural effusion, or pneumothorax seen. The cardiac silhouette size is stable, enlarged pos sibly due to technique, rotation. The osseous structures are remarkable for right-sided rib fractur es as on prior, bones are osteopenic which limits the evaluation. IMPRESSION: Stable findings. No acute abnormality evident.
--- NOTE | 2018-11-19 15:02 | ED ---
General Adult HPI - General Source: patient, RN notes reviewed Mode of arrival: ambulatory Limitations: altered mental status <John Gates - Last Filed: 11/19/18 20:56> <Zhang Salgado - Last Filed: 11/19/18 23:49> - General Chief complaint: Urogenital Stated complaint: UTI Time Seen by Provider: 11/19/18 12:07 - History of Present Illness Initial comments: 77-year-old female presents to the emergency department for a chief complaint of dysuria times one day. She initially denies any complaints but according to EMS she is here for urinary discomfort. Patient does admit to burning with urination and urinary frequency. Denies abdominal pain. Patient came in by EMS with limited history. Apparently daughter called EMS. States she called EMS "because they're fun to watch." Patient has a history of severe COPD with chronic respiratory failure, cachexia, hypertension, chronic anemia, insomnia. History is very limited as no family is in the vicinity and daughter is not answering her phone. Patient has no other complaints at this time including shortness of breath, chest pain, abdominal pain, nausea or vomiting, headache, or visual changes. (John Gates) - Related Data Home Medications Medication Instructions Recorded Confirmed Aspirin EC [Ecotrin Low Dose] 81 mg PO DAILY 09/07/16 11/19/18 Lisinopril [Zestril] 2.5 mg PO DAILY 09/07/16 11/19/18 Cholecalciferol (Vitamin D3) 2,000 unit PO DAILY 08/31/18 11/19/18 [Vitamin D3] Diltiazem HCl [Cartia Xt] 180 mg PO DAILY 08/31/18 11/19/18 Budesonide [Pulmicort] 0.5 mg INHALATION RT-BID 11/19/18 11/19/18 Formoterol Fumarate [Perforomist] 20 mcg INHALATION RT-BID 11/19/18 11/19/18 Ipratropium-Albuterol Nebulize 3 ml INHALATION RT-QID PRN 11/19/18 11/19/18 [Duoneb 0.5 mg-3 mg/3 ml Soln] Ipratropium/Albuterol Sulfate 1 puff INHALATION RT-QID PRN 11/19/18 11/19/18 [Combivent Respimat Inhaler] PARoxetine [Paxil] 60 mg PO DAILY 11/19/18 11/19/18 predniSONE 10 mg PO DAILY 11/19/18 11/19/18 Previous Rx's Medication Instructions Recorded clonazePAM [KlonoPIN] 0.5 mg PO TID PRN #20 tab 10/03/18 Allergies Allergy/AdvReac Type Severity Reaction Status Date / Time codeine Allergy Nausea & Verified 11/19/18 15:57 Vomiting levofloxacin [From Levaquin] Allergy Swelling Verified 11/19/18 15:57 meperidine [From Demerol] Allergy PATIENT Verified 11/19/18 15:57 GETS "HYPER" Review of Systems ROS Other: All systems not noted in ROS Statement are negative. <John Gates - Last Filed: 11/19/18 20:56> ROS Other: All systems not noted in ROS Statement are negative. <Zhang Salgado - Last Filed: 11/19/18 23:49> ROS Statement: Those systems with pertinent positive or pertinent negative responses have been documented in the HPI. Past Medical History Past Medical History: COPD, Hypertension Additional Past Medical History / Comment(s): Severe COPD, chronic hypoxic respiratory failure, cachexia, idiopathic scoliosis/kyphoscoliosis, hypertension, chronic anemia, insomnia disorder related to known organic factor, lower extremity edema, chronic diarrhea, IBS, previous history of hyperparathyroidism History of Any Multi-Drug Resistant Organisms: None Reported Past Surgical History: Hysterectomy Additional Past Surgical History / Comment(s): parathyroidectomy Past Anesthesia/Blood Transfusion Reactions: Postoperative Nausea & Vomiting (PONV) Past Psychological History: No Psychological Hx Reported Smoking Status: Former smoker Past Alcohol Use History: Occasional Past Drug Use History: None Reported - Past Family History Father Family Medical History: COPD Mother Family Medical History: Cancer Sister(s) Family Medical History: Cancer <John Gates - Last Filed: 11/19/18 20:56> General Exam Limitations: altered mental status General appearance: alert, in no apparent distress Head exam: Present: atraumatic, normocephalic, normal inspection Eye exam: Present: normal appearance, PERRL, EOMI. Absent: scleral icterus, conjunctival injection, periorbital swelling ENT exam: Present: normal exam, mucous membranes moist Neck exam: Present: normal inspection, full ROM. Absent: tenderness, meningismus, lymphadenopathy Respiratory exam: Present: normal lung sounds bilaterally. Absent: respiratory distress, wheezes, rales, rhonchi, stridor Cardiovascular Exam: Present: regular rate, normal rhythm, normal heart sounds. Absent: systolic murmur, diastolic murmur, rubs, gallop, clicks GI/Abdominal exam: Present: soft, normal bowel sounds. Absent: distended, tend erness, guarding, rebound, rigid Neurological exam: Present: alert, oriented X3, CN II-XII intact, normal gait Psychiatric exam: Present: normal affect, normal mood <John Gates - Last Filed: 11/19/18 20:56> Course <John Gates - Last Filed: 11/19/18 20:56> Vital Signs 11/19/18 11/19/18 11/19/18 12:00 13:04 14:00 Temperature 98.3 F Pulse Rate 91 84 73 Respiratory 22 18 18 Rate Blood Pressure 133/70 133/20 130/75 O2 Sat by Pulse 96 98 99 Oximetry 11/19/18 11/19/18 11/19/18 15:00 16:00 17:20 Temperature 98.3 F Pulse Rate 88 89 78 Respiratory 18 20 28 H Rate Blood Pressure 124/75 139/82 133/65 O2 Sat by Pulse 98 97 98 Oximetry - Reevaluation(s) Reevaluation #1: 11/19/18 16:51 Discussed case with daughter. States that patient has a history of dementia. States she is seemingly more confused than normal. Denies any other complaints for the patient. (John Gates) EKG Findings - EKG Comments: EKG Findings:: Sinus rhythm, ventricular rate 85, QRS 76, QTC 361, EKG reads atrial flutter however this is artifact. <John Gates - Last Filed: 11/19/18 20:56> Medical Decision Making - Lab Data Result diagrams: 11/19/18 13:30 11/19/18 13:30 <John Gates - Last Filed: 11/19/18 20:56> - Lab Data Result diagrams: 11/19/18 13:30 11/19/18 13:30 <Zhang Salgado - Last Filed: 11/19/18 23:49> - Medical Decision Making 77-year-old female presents to the emergency department for a chief complaint of dysuria times day. Patient presents by EMS of limited history, only complaining of dysuria. States she called EMS "because they're fun to watch." Patient has severe COPD but denies any cough or shortness of breath. On evaluation patient is resting comfortably, initially denying any complaints. Does eventually admits to dysuria when asked. Her stable. Exam is unremarkable. Lungs are clear to auscultation bilaterally, no evidence of acute exacerbation of COPD. She is on O2 at home so was put on 2 L here. CBC is unremarkable. Hemoglobin is 9.5 which is chronic. CMP does show a carbon dioxide level of 35 which is also chronic secondary to chronic respiratory failure. Also evidence of dehydration given BUN to creatinine ratio, patient given a liter of fluids. Urine does not show any evidence of infection, will be cultured. He did attempt to reach out to the daughter and eventually did receive a call back. States that she has a history of dementia but is somewhat more confused than normal. Therefore CT brain was ordered which showed no acute intercranial hemorrhage or midline shift. Possible bilat mastoiditis, although this is not clinically apparent whatsoever, no mastoid tenderness. No ear pain, tympanic membranes appear normal. X-ray shows stable findings without acute abnormality. Chronic right-sided rib fracture. Discussed case with Dr. Leonard for admission who saw and evaluated patient in the emergency department. At this time after reviewing all results and evaluating patient he does not feel that patient requires admission as he has admitted her in the past and states she is at her baseline. He verified a safe discharge plan. I personally discussed with daughter and she is comfortable with this discharge. Discussed following up with primary care in 1-[address] Leonard recommends discontinuing Lasix. Discussed returning here to the emergency Department if she has any worsening symptoms. (John Gates) I saw and evaluated the patient with the physician's study assistant. We discussed this case with Dr. Lenoard who presented to the ED for medicine consultation. Dr. Leonard states that he is familiar with this patient and at this time he does not see any reason for admission. At this time, Family and patient are agreeable and comfortable with this plan. We will defer decision to Dr. Leonard and family as all parties are agreeable and satisfied with a safe discharge plan. (Zhang Salgado) - Lab Data Lab Results 11/19/18 11/19/18 11/19/18 Range/Units 13:30 13:30 13:30 WBC 11.9 H (3.8-10.6) k/uL RBC 3.45 L (3.80-5.40) m/uL Hgb 9.5 L (11.4-16.0) gm/dL Hct 29.6 L (34.0-46.0) % MCV 85.9 D (80.0-100.0) fL MCH 27.6 (25.0-35.0) pg MCHC 32.1 (31.0-37.0) g/dL RDW 16.6 H (11.5-15.5) % Plt Count 468 H (150-450) k/uL Neutrophils % 91 % Lymphocytes % 5 % Monocytes % 4 % Eosinophils % 0 % Basophils % 0 % Neutrophils # 10.8 H (1.3-7.7) k/uL Lymphocytes # 0.6 L (1.0-4.8) k/uL Monocytes # 0.4 (0-1.0) k/uL Eosinophils # 0.0 (0-0.7) k/uL Basophils # 0.0 (0-0.2) k/uL Hypochromasia Slight Anisocytosis Slight PT (9.0-12.0) sec INR (<1.2) APTT (22.0-30.0) sec Sodium 139 (137-145) mmol/L Potassium 3.7 (3.5-5.1) mmol/L Chloride 94 L (98-107) mmol/L Carbon Dioxide 35 H (22-30) mmol/L Anion Gap 10 mmol/L BUN 41 H (7-17) mg/dL Creatinine 1.16 H (0.52-1.04) mg/dL Est GFR (CKD-EPI)AfAm 53 (>60 ml/min/1.73 sqM) Est GFR (CKD-EPI)NonAf 46 (>60 ml/min/1.73 sqM) Glucose 103 H (74-99) mg/dL Calcium 9.9 (8.4-10.2) mg/dL Total Bilirubin 0.4 (0.2-1.3) mg/dL AST 26 (14-36) U/L ALT 24 (9-52) U/L Alkaline Phosphatase 82 (38-126) U/L Troponin I (0.000-0.034) ng/mL Total Protein 7.0 (6.3-8.2) g/dL Albumin 4.3 (3.5-5.0) g/dL Urine Color Light Yellow Urine Appearance Clear (Clear) Urine pH 7.0 (5.0-8.0) Ur Specific [place] 1.009 (1.001-1.035) Urine Protein Trace H (Negative) Urine Glucose (UA) Negative (Negative) Urine Ketones Negative (Negative) Urine Blood Negative (Negative) Urine Nitrite Negative (Negative) Urine Bilirubin Negative (Negative) Urine Urobilinogen <2.0 (<2.0) mg/dL Ur Leukocyte Esterase Trace H (Negative) Urine RBC 1 (0-5) /hpf Urine WBC 3 (0-5) /hpf Ur Squamous Epith Cells <1 (0-4) /hpf Urine Bacteria Rare H (None) /hpf Urine Opiates Screen Not Detected (NotDetected) Ur Oxycodone Screen Not Detected (NotDetected) Urine Methadone Screen Not Detected (NotDetected) Ur Propoxyphene Screen Not Detected (NotDetected) Ur Barbiturates Screen Not Detected (NotDetected) U Tricyclic Antidepress Not Detected (NotDetected) Ur Phencyclidine Scrn Not Detected (NotDetected) Ur Amphetamines Screen Not Detected (NotDetected) U Methamphetamines Scrn Not Detected (NotDetected) U Benzodiazepines Scrn Not Detected (NotDetected) Urine Cocaine Screen Not Detected (NotDetected) U Marijuana (THC) Screen Not Detected (NotDetected) 11/19/18 11/19/18 Range/Units 13:30 13:30 WBC (3.8-10.6) k/uL RBC (3.80-5.40) m/uL Hgb (11.4-16.0) gm/dL Hct (34.0-46.0) % MCV (80.0-100.0) fL MCH (25.0-35.0) pg MCHC (31.0-37.0) g/dL RDW (11.5-15.5) % Plt Count (150-450) k/uL Neutrophils % % Lymphocytes % % Monocytes % % Eosinophils % % Basophils % % Neutrophils # (1.3-7.7) k/uL Lymphocytes # (1.0-4.8) k/uL Monocytes # (0-1.0) k/uL Eosinophils # (0-0.7) k/uL Basophils # (0-0.2) k/uL Hypochromasia Anisocytosis PT 10.2 (9.0-12.0) sec INR 0.9 (<1.2) APTT 22.1 (22.0-30.0) sec Sodium (137-145) mmol/L Potassium (3.5-5.1) mmol/L Chloride (98-107) mmol/L Carbon Dioxide (22-30) mmol/L Anion Gap mmol/L BUN (7-17) mg/dL Creatinine (0.52-1.04) mg/dL Est GFR (CKD-EPI)AfAm (>60 ml/min/1.73 sqM) Est GFR (CKD-EPI)NonAf (>60 ml/min/1.73 sqM) Glucose (74-99) mg/dL Calcium (8.4-10.2) mg/dL Total Bilirubin (0.2-1.3) mg/dL AST (14-36) U/L ALT (9-52) U/L Alkaline Phosphatase (38-126) U/L Troponin I <0.012 (0.000-0.034) ng/mL Total Protein (6.3-8.2) g/dL Albumin (3.5-5.0) g/dL Urine Color Urine Appearance (Clear) Urine pH (5.0-8.0) Ur Specific [place] (1.001-1.035) Urine Protein (Negative) Urine Glucose (UA) (Negative) Urine Ketones (Negative) Urine Blood (Negative) Urine Nitrite (Negative) Urine Bilirubin (Negative) Urine Urobilinogen (<2.0) mg/dL Ur Leukocyte Esterase (Negative) Urine RBC (0-5) /hpf Urine WBC (0-5) /hpf Ur Squamous Epith Cells (0-4) /hpf Urine Bacteria (None) /hpf Urine Opiates Screen (NotDetected) Ur Oxycodone Screen (NotDetected) Urine Methadone Screen (NotDetected) Ur Propoxyphene Screen (NotDetected) Ur Barbiturates Screen (NotDetected) U Tricyclic Antidepress (NotDetected) Ur Phencyclidine Scrn (NotDetected) Ur Amphetamines Screen (NotDetected) U Methamphetamines Scrn (NotDetected) U Benzodiazepines Scrn (NotDetected) Urine Cocaine Screen (NotDetected) U Marijuana (THC) Screen (NotDetected) Disposition Is patient prescribed a controlled substance at d/c from ED?: No Time of Disposition: 16:50 <John Gates - Last Filed: 11/19/18 20:56> <Zhang Salgado - Last Filed: 11/19/18 23:49> Clinical Impression: Dementia, Dehydration Disposition: HOME SELF-CARE Condition: Good Instructions (If sedation given, give patient instructions): Dementia (ED) Additional Instructions: Please follow up with primary care in 1-2 days. Please return to the ED if patient has any worsening symptoms. Referrals: Sweta Greenwood MD [Primary Care Provider] - 1-2 days
--- NOTE | 2018-11-19 16:26 | CT ---
EXAMINATION TYPE: CT brain wo con DATE OF EXAM: 11/19/2018 HISTORY: Patient appears confused. CT DLP: 1188.4 mGycm. Automated Exposure Control for Dose Reduction was Utilized. TECHNIQUE: CT scan of the head is performed without contrast. COMPARISON: None. FINDINGS: There is no acute intracranial hemorrhage or midline shift identified. There is diffuse v entricular and sulcal prominence consistent with diffuse age-related cerebral atrophy. There is low- attenuation in the periventricular white matter consistent with chronic small vessel ischemic change. The globes are intact and the visualized sinuses are clear. Increased fluid signal bilateral mast oid air cells, right greater than left.. IMPRESSION: No acute intracranial hemorrhage or midline shift. There is mild to moderate diffuse ag e-related cerebral atrophy and moderate to advanced chronic small vessel ischemic change noted. Poss ible bilateral mastoiditis, correlate clinically
[2018-11-19] MEDS ORDERED: SODIUM CHLORIDE 0.9% 500 ML 500 ML IV STA (16:40)
--- NOTE | 2018-11-19 16:58 | P.CONS ---
History of Present Illness - Reason for Consult Possible hospitalization - History of Present Illness 37-year-old pleasant female known to me from my her past medical history of COPD on oxygen follows with Dr. Greenwood as an outpatient was brought in with concerns of dysuria. Although initially patient declined any dysuria she did agree that patient has some urinary discomfort all the year was done which is within normal limits daughter believes she may be confused I evaluated the patient patient mental status is at her baseline patient is alert oriented 3 doesn't have significant confusion. Patient chest x-ray is normal no evidence of infection no evidence of COPD exacerbation. Patient doesn't have any fevers. Nothing much else can be offered as an inpatient even as an observation because of which I do not believe patient needs to be admitted in the hospital patient uses 2 L of oxygen at home saturating well patient doesn't have any infection no obvious confusion and exam. Review of Systems REVIEW OF SYSTEMS: CONSTITUTIONAL: No fever, no malaise, no fatigue. HEENT: No recent visual problems or hearing problems. Denied any sore throat. CARDIOVASCULAR: No chest pain, orthopnea, PND, no palpitations, no syncope. PULMONARY: No shortness of breath, no cough, no hemoptysis. GASTROINTESTINAL: No diarrhea, no nausea, no vomiting, no abdominal pain. NEUROLOGICAL: No headaches, no weakness, no numbness. HEMATOLOGICAL: Denies any bleeding or petechiae. GENITOURINARY: As mentioned in HPI MUSCULOSKELETAL/RHEUMATOLOGICAL: Denies any joint pain, swelling, or any muscle pain. ENDOCRINE: Denies any polyuria or polydipsia. The rest of the 14-point review of systems is negative. Past Medical History Past Medical History: COPD, Hypertension Additional Past Medical History / Comment(s): Severe COPD, chronic hypoxic respiratory failure, cachexia, idiopathic scoliosis/kyphoscoliosis, hypertension, chronic anemia, insomnia disorder related to known organic factor, lower extremity edema, chronic diarrhea, IBS, previous history of hyperparathyroidism History of Any Multi-Drug Resistant Organisms: None Reported Past Surgical History: Hysterectomy Additional Past Surgical History / Comment(s): parathyroidectomy Past Anesthesia/Blood Transfusion Reactions: Postoperative Nausea & Vomiting (PONV) Past Psychological History: No Psychological Hx Reported Smoking Status: Former smoker Past Alcohol Use History: Occasional Past Drug Use History: None Reported - Past Family History Father Family Medical History: COPD Mother Family Medical History: Cancer Sister(s) Family Medical History: Cancer Medications and Allergies Home Medications Medication Instructions Recorded Confirmed Type Aspirin EC [Ecotrin Low Dose] 81 mg PO DAILY 09/07/16 11/19/18 History Lisinopril [Zestril] 2.5 mg PO DAILY 09/07/16 11/19/18 History Cholecalciferol (Vitamin D3) 2,000 unit PO DAILY 08/31/18 11/19/18 History [Vitamin D3] Diltiazem HCl [Cartia Xt] 180 mg PO DAILY 08/31/18 11/19/18 History clonazePAM [KlonoPIN] 0.5 mg PO TID PRN #20 tab 10/03/18 11/19/18 Rx Budesonide [Pulmicort] 0.5 mg INHALATION RT-BID 11/19/18 11/19/18 History Formoterol Fumarate [Perforomist] 20 mcg INHALATION RT-BID 11/19/18 11/19/18 Hi story Furosemide [Lasix] 20 mg PO DAILY 11/19/18 11/19/18 History Ipratropium-Albuterol Nebulize 3 ml INHALATION RT-QID PRN 11/19/18 11/19/18 History [Duoneb 0.5 mg-3 mg/3 ml Soln] Ipratropium/Albuterol Sulfate 1 puff INHALATION RT-QID PRN 11/19/18 11/19/18 History [Combivent Respimat Inhaler] PARoxetine [Paxil] 60 mg PO DAILY 11/19/18 11/19/18 History predniSONE 10 mg PO DAILY 11/19/18 11/19/18 History Allergies Allergy/AdvReac Type Severity Reaction Status Date / Time codeine Allergy Nausea & Verified 11/19/18 15:57 Vomiting levofloxacin [From Levaquin] Allergy Swelling Verified 11/19/18 15:57 meperidine [From Demerol] Allergy PATIENT Verified 11/19/18 15:57 GETS "HYPER" Physical Exam Vitals: Vital Signs Temp Pulse Resp BP Pulse Ox 11/19/18 16:00 89 20 139/82 97 11/19/18 15:00 88 18 124/75 98 11/19/18 14:00 73 18 130/75 99 11/19/18 13:04 84 18 133/20 98 11/19/18 12:00 98.3 F 91 22 133/70 96 Intake and Output 11/19/18 11/19/18 11/19/18 06:59 14:59 22:59 Other: Voiding Method Toilet Weight 29.484 kg PHYSICAL EXAMINATION: GENERAL: The patient is alert and oriented x3, not in any acute distress. Thin built female with scoliosis. HEENT: Pupils are round and equally reacting to light. EOMI. No scleral icterus. No conjunctival pallor. Normocephalic, atraumatic. No pharyngeal erythema. No thyromegaly. CARDIOVASCULAR: S1 and S2 present. No murmurs, rubs, or gallops. PULMONARY: Chest is clear to auscultation, no wheezing or crackles. ABDOMEN: Soft, nontender, nondistended, normoactive bowel sounds. No palpable organomegaly. MUSCULOSKELETAL: No joint swelling or deformity. EXTREMITIES: No cyanosis, clubbing, or pedal edema. NEUROLOGICAL: Gross neurological examination did not reveal any focal deficits. SKIN: No rashes. Results CBC & Chem 7: 11/19/18 13:30 11/19/18 13:30 Labs: Abnormal Lab Results - Last 24 Hours (Table) 11/19/18 11/19/18 11/19/18 Range/Units 13:30 13:30 13:30 WBC 11.9 H (3.8-10.6) k/uL RBC 3.45 L (3.80-5.40) m/uL Hgb 9.5 L (11.4-16.0) gm/dL Hct 29.6 L (34.0-46.0) % RDW 16.6 H (11.5-15.5) % Plt Count 468 H (150-450) k/uL Neutrophils # 10.8 H (1.3-7.7) k/uL Lymphocytes # 0.6 L (1.0-4.8) k/uL Chloride 94 L (98-107) mmol/L Carbon Dioxide 35 H (22-30) mmol/L BUN 41 H (7-17) mg/dL Creatinine 1.16 H (0.52-1.04) mg/dL Glucose 103 H (74-99) mg/dL Urine Protein Trace H (Negative) Ur Leukocyte Esterase Trace H (Negative) Urine Bacteria Rare H (None) /hpf Assessment and Plan Plan: -Mild acute renal failure I'll discontinue Lasix and patient will be increased to drink water at home will not need hospitalization basic metabolic profile can be tested when she sees her primary doctor in less than a week. -Rule out urinary tract infection -COPD without any acute exacerbation -Possibly of confusion that was ruled out on exam patient mental status is that his be at her baseline -Hypertension -Anxiety disorder and depression Discussed with the ER physician and nurse practitioner there is no much benefit in hospitalization. Patient can be discharged from ER to follow with primary care physician as an outpatient
[2018-11-19 17:41] VITALS: BP 133/65; PULSE 78; RESP 28
== END 2018-11-19 17:35 | disposition home or self-care (01) ==
LOC: EC 11:44
DX: E86.0 Dehydration (principal); J44.9 Chronic obstructive pulmonary disease, unspecified; F03.90 Unspecified dementia, unspecified severity, without behavioral disturbance, psychotic disturbance, mood disturbance, and anxiety; R30.0 Dysuria; R35.0 Frequency of micturition; I10 Essential (primary) hypertension; D53.9 Nutritional anemia, unspecified; J96.11 Chronic respiratory failure with hypoxia; Z87.81 Personal history of (healed) traumatic fracture; Z87.891 Personal history of nicotine dependence; Z88.1 Allergy status to other antibiotic agents; Z88.5 Allergy status to narcotic agent; Z79.51 Long term (current) use of inhaled steroids; Z79.52 Long term (current) use of systemic steroids; Z79.82 Long term (current) use of aspirin; Z79.899 Other long term (current) drug therapy; Z99.81 Dependence on supplemental oxygen; Z82.5 Family history of asthma and other chronic lower respiratory diseases
CPT/HCPCS: 36415; 70450; 71046; 80053; 80306; 81001; 84484; 85025; 85610; 85730; 87086; 93005; 99284

== ENCOUNTER 2018-11-20 11:38 | Inpatient (IN) | payer MEDICARE, OTHER ==
[2018-11-20] MEDS ORDERED: SODIUM CHLORIDE 0.9% 1,000 ML IV ONE ×2 (11:48)
--- NOTE | 2018-11-20 11:55 | ED ---
Altered Mental Status HPI - General Chief Complaint: Altered Mental Status Stated Complaint: altered mental status Time Seen by Provider: 11/20/18 11:43 Source: EMS, RN notes reviewed, old records reviewed Mode of arrival: EMS Limitations: altered mental status - History of Present Illness Initial Comments: This is a 77 showed female the ER for evaluation. Patient resents today for evaluation of altered mental status cough. Patient, decreased level responsiveness. Patient is unable to give history history obtained from EMS and prior charting MD Complaint: altered mental status -: days(s) Severity: moderate Consistency of Symptoms: waxing and waning, getting worse Context: history of similar presentation Associated Symptoms: denies other symptoms Treatments Prior to Arrival: IV fluid, oxygen - Related Data Home Medications Medication Instructions Recorded Confirmed Aspirin EC [Ecotrin Low Dose] 81 mg PO DAILY 09/07/16 11/20/18 Lisinopril [Zestril] 2.5 mg PO DAILY 09/07/16 11/20/18 Cholecalciferol (Vitamin D3) 2,000 unit PO DAILY 08/31/18 11/20/18 [Vitamin D3] Diltiazem HCl [Cartia Xt] 180 mg PO DAILY 08/31/18 11/20/18 Budesonide [Pulmicort] 0.5 mg INHALATION RT-BID 11/19/18 11/20/18 Formoterol Fumarate [Perforomist] 20 mcg INHALATION RT-BID 11/19/18 11/20/18 Ipratropium-Albuterol Nebulize 3 ml INHALATION RT-QID PRN 11/19/18 11/20/18 [Duoneb 0.5 mg-3 mg/3 ml Soln] Ipratropium/Albuterol Sulfate 1 puff INHALATION RT-QID PRN 11/19/18 11/20/18 [Combivent Respimat Inhaler] PARoxetine [Paxil] 60 mg PO DAILY 11/19/18 11/20/18 predniSONE 10 mg PO DAILY 11/19/18 11/20/18 Allergies Allergy/AdvReac Type Severity Reaction Status Date / Time levofloxacin [From Levaquin] Allergy Swelling Verified 11/20/18 11:46 codeine AdvReac Nausea & Verified 11/20/18 11:46 Vomiting meperidine [From Demerol] AdvReac "HYPER" Verified 11/20/18 11:46 Review of Systems ROS Statement: Those systems with pertinent positive or pertinent negative responses have been documented in the HPI. ROS Other: All systems not noted in ROS Statement are negative. Past Medical History Past Medical History: COPD, Hypertension Additional Past Medical History / Comment(s): Severe COPD, chronic hypoxic respiratory failure, cachexia, idiopathic scoliosis/kyphoscoliosis, hypertension, chronic anemia, insomnia disorder related to known organic factor, lower extremity edema, chronic diarrhea, IBS, previous history of hyperparathyroidism History of Any Multi-Drug Resistant Organisms: None Reported Past Surgical History: Hysterectomy Additional Past Surgical History / Comment(s): parathyroidectomy Past Anesthesia/Blood Transfusion Reactions: Postoperative Nausea & Vomiting (PONV) Past Psychological History: No Psychological Hx Reported Smoking Status: Former smoker Past Alcohol Use History: Occasional Past Drug Use History: None Reported - Past Family History Father Family Medical History: COPD Mother Family Medical History: Cancer Sister(s) Family Medical History: Cancer General Exam Limitations: altered mental status General appearance: alert, in no apparent distress Head exam: Present: atraumatic, normocephalic, normal inspection Eye exam: Present: normal appearance, PERRL, EOMI. Absent: scleral icterus, conjunctival injection, periorbital swelling ENT exam: Present: normal exam, mucous membranes moist Neck exam: Present: normal inspection. Absent: tenderness, meningismus, lymphadenopathy Respiratory exam: Present: normal lung sounds bilaterally. Absent: respiratory distress, wheezes, rales, rhonchi, stridor Cardiovascular Exam: Present: regular rate, normal rhythm, normal heart sounds. Absent: systolic murmur, diastolic murmur, rubs, gallop, clicks GI/Abdominal exam: Present: soft, normal bowel sounds. Absent: distended, tenderness, guarding, rebound, rigid Extremities exam: Present: normal inspection, full ROM, normal capillary refill. Absent: tenderness, pedal edema, joint swelling, calf tenderness Back exam: Present: normal inspection Neurological exam: Present: alert, oriented X3, CN II-XII intact Psychiatric exam: Present: normal affect, normal mood Skin exam: Present: warm, dry, intact, normal color. Absent: rash Course Vital Signs 11/20/18 11:41 Temperature 96.9 F L Pulse Rate 83 Respiratory 20 Rate Blood Pressure 148/70 O2 Sat by Pulse 100 Oximetry - Reevaluation(s) Reevaluation #1: 11/20/18 14:55 Neck record is reviewed including ER visit from yesterday Reevaluation #2: 11/20/18 14:55 Patient seen and evaluated here by Dr. Leonard, will accept admission Medical Decision Making - Medical Decision Making 77 female the ER for evaluation. Patient resents today for evaluation regards to altered mental status. Possible remote history of urinary tract infection but likely just diagnosis of increasing dementia also lost weight loss and need for further care. - Lab Data Result diagrams: 11/20/18 12:10 11/20/18 12:10 Lab Results 11/20/18 11/20/18 11/20/18 Range/Units 12:10 12:10 12:10 WBC 12.0 H (3.8-10.6) k/uL RBC 3.64 L (3.80-5.40) m/uL Hgb 10.1 L (11.4-16.0) gm/dL Hct 31.8 L (34.0-46.0) % MCV 87.3 (80.0-100.0) fL MCH 27.9 (25.0-35.0) pg MCHC 31.9 (31.0-37.0) g/dL RDW 16.5 H (11.5-15.5) % Plt Count 499 H (150-450) k/uL Neutrophils % 77 % Lymphocytes % 12 % Monocytes % 8 % Eosinophils % 1 % Basophils % 0 % Neutrophils # 9.2 H (1.3-7.7) k/uL Lymphocytes # 1.5 (1.0-4.8) k/uL Monocytes # 1.0 (0-1.0) k/uL Eosinophils # 0.1 (0-0.7) k/uL Basophils # 0.0 (0-0.2) k/uL Hypochromasia Slight Anisocytosis Slight PT (9.0-12.0) sec INR (<1.2) APTT (22.0-30.0) sec Sodium 141 (137-145) mmol/L Potassium 3.9 (3.5-5.1) mmol/L Chloride 95 L (98-107) mmol/L Carbon Dioxide 39 H (22-30) mmol/L Anion Gap 7 mmol/L BUN 33 H (7-17) mg/dL Creatinine 0.87 (0.52-1.04) mg/dL Est GFR (CKD-EPI)AfAm 75 (>60 ml/min/1.73 sqM) Est GFR (CKD-EPI)NonAf 65 (>60 ml/min/1.73 sqM) Glucose 104 H (74-99) mg/dL Calcium 10.0 (8.4-10.2) mg/dL Phosphorus 3.2 (2.5-4.5) mg/dL Magnesium 2.4 H (1.6-2.3) mg/dL Total Bilirubin 0.4 (0.2-1.3) mg/dL AST 33 (14-36) U/L ALT 22 (9-52) U/L Alkaline Phosphatase 81 (38-126) U/L Ammonia <9 (<30) umol/L Creatine Kinase 43 (30-135) U/L Troponin I (0.000-0.034) ng/mL Total Protein 7.6 (6.3-8.2) g/dL Albumin 4.7 (3.5-5.0) g/dL 11/20/18 11/20/18 Range/Units 12:10 12:10 WBC (3.8-10.6) k/uL RBC (3.80-5.40) m/uL Hgb (11.4-16.0) gm/dL Hct (34.0-46.0) % MCV (80.0-100.0) fL MCH (25.0-35.0) pg MCHC (31.0-37.0) g/dL RDW (11.5-15.5) % Plt Count (150-450) k/uL Neutrophils % % Lymphocytes % % Monocytes % % Eosinophils % % Basophils % % Neutrophils # (1.3-7.7) k/uL Lymphocytes # (1.0-4.8) k/uL Monocytes # (0-1.0) k/uL Eosinophils # (0-0.7) k/uL Basophils # (0-0.2) k/uL Hypochromasia Anisocytosis PT 10.2 (9.0-12.0) sec INR 0.9 (<1.2) APTT 22.5 (22.0-30.0) sec Sodium (137-145) mmol/L Potassium (3.5-5.1) mmol/L Chloride (98-107) mmol/L Carbon Dioxide (22-30) mmol/L Anion Gap mmol/L BUN (7-17) mg/dL Creatinine (0.52-1.04) mg/dL Est GFR (CKD-EPI)AfAm (>60 ml/min/1.73 sqM) Est GFR (CKD-EPI)NonAf (>60 ml/min/1.73 sqM) Glucose (74-99) mg/dL Calcium (8.4-10.2) mg/dL Phosphorus (2.5-4.5) mg/dL Magnesium (1.6-2.3) mg/dL Total Bilirubin (0.2-1.3) mg/dL AST (14-36) U/L ALT (9-52) U/L Alkaline Phosphatase (38-126) U/L Ammonia (<30) umol/L Creatine Kinase (30-135) U/L Troponin I <0.012 (0.000-0.034) ng/mL Total Protein (6.3-8.2) g/dL Albumin (3.5-5.0) g/dL - EKG Data -: EKG Interpreted by Me (EKG shows sinus rhythm rate of 91, IA 136, QRS 70, QTc 467) Disposition Clinical Impression: Dementia, Dehydration, Altered mental status, UTI (urinary tract infection) Disposition: ADMITTED IP TO THIS HOSP Condition: Good Is patient prescribed a controlled substance at d/c from ED?: No
[2018-11-20 12:32] LABS: Anisocytosis Slight; Basophils % (A) 0 %; Eosinophils # (A) 0.1 k/uL (0-0.7); Eosinophils % (A) 1 %; HCT 31.8 % (34.0-46.0); HGB 10.1 gm/dL (11.4-16.0); Hypochromasia Slight; Lymphocytes # (A) 1.5 k/uL (1.0-4.8); Lymphocytes % (A) 12 %; MCH 27.9 pg (25.0-35.0); MCHC 31.9 g/dL (31.0-37.0); MCV 87.3 fL (80.0-100.0); Mean Platelet Volume 7.3; Monocytes % (A) 8 %; Neutrophils # (A) 9.2 k/uL (1.3-7.7); Neutrophils % (A) 77 %; Platelet Count 499 k/uL (150-450); RBC 3.64 m/uL (3.80-5.40); RDW 16.5 % (11.5-15.5)
[2018-11-20 12:48] LABS: Albumin 4.7 g/dL (3.5-5.0); Magnesium 2.4 mg/dL (1.6-2.3); Phosphorus 3.2 mg/dL (2.5-4.5); Potassium 3.9 mmol/L (3.5-5.1); Total Bilirubin 0.4 mg/dL (0.2-1.3); Total Protein 7.6 g/dL (6.3-8.2)
[2018-11-20 12:49] LABS: INR 0.9 (<1.2); Partial Thromboplastin Time 22.5 sec (22.0-30.0); Prothrombin Time 10.2 sec (9.0-12.0)
--- NOTE | 2018-11-20 15:27 | P.HPIM ---
History of Present Illness Patient is a 7-year-old patient known to me from her previous hospital physician came to the hospital yesterday with the complaints of possible confusion yesterday when I evaluated patient was not confused and there was a concern abo ut urinary tract infection year was within normal limits and patient was subsequently discharged without any hospitalization comes back again with increased confusion and decreased responsiveness. Patient does take Klonopin for anxiety. Patient does appear to have dementia although I do not have any Mini-Mental or mini cognition examination tested available at this time. Patient is alert oriented 3 but the location she gets confused during my interview. Patient will be admitted and will hold off on chronic pain patient is not on any other medication that has confusion although there is no evidence of urinary tract infection antibiotics will be discontinued will also obtain EEG to see if there is any encephalopathy patient had a CAT scan of the head which did not show any acute stroke but had chronic microvascular ischemic changes with significant cerebral atrophy. Since her last hospitalization to subacute rehabilitation patient lost 10 pounds of weight is significant muscle loss and atrophy patient is more dependent now and will require 24 7 supervision. Patient presently lives at assisted living. Patient's overall functionality appears to have been going down lately. Patient does have severe COPD oxygen dependent 2 L extremely thin built malnourished with scoliosis. Was bit dehydrated as today because of which has stopped her Lasix yesterday ration does not are not COPD exacerbation or recurrence of infection at this time chest x- ray did not show any pneumonic process. Patient had history of chronic alcoholism may have dementia from that Review of Systems REVIEW OF SYSTEMS: CONSTITUTIONAL: No fever, no malaise, no fatigue. HEENT: No recent visual problems or hearing problems. Denied any sore throat. CARDIOVASCULAR: No chest pain, orthopnea, PND, no palpitations, no syncope. PULMONARY: No shortness of breath, no cough, no hemoptysis. GASTROINTESTINAL: No diarrhea, no nausea, no vomiting, no abdominal pain. NEUROLOGICAL: As mentioned in HPI HEMATOLOGICAL: Denies any bleeding or petechiae. GENITOURINARY: Denies any burning micturition, frequency, or urgency. MUSCULOSKELETAL/RHEUMATOLOGICAL: As mentioned in HPI ENDOCRINE: Denies any polyuria or polydipsia. The rest of the 14-point review of systems is negative. Past Medical History Past Medical History: Asthma, COPD, Hypertension, Respiratory Disorder, Thyroid Disorder Additional Past Medical History / Comment(s): Severe COPD, chronic hypoxic respiratory failure, home oxygen at 2L/NC ATC, tachycardia r/t COPD, cachexia, idiopathic scoliosis/kyphoscoliosis, osteoporosis, vertebral fractures, chronic anemia, insomnia, lower extremity edema, chronic diarrhea, IBS, previous history of hyperparathyroidism with surgery, UTI. History of Any Multi-Drug Resistant Organisms: None Reported Past Surgical History: Appendectomy, Cholecystectomy, Hysterectomy, Orthopedic Surgery Additional Past Surgical History / Comment(s): parathyroidectomy, colonoscopy with benign polypectomy, possible R shoulder surgery r/t fracture, R shoulder birthmark removal, 2013 cardiac cath-normal Past Anesthesia/Blood Transfusion Reactions: Postoperative Nausea & Vomiting (PONV) Additional Past Anesthesia/Blood Transfusion Reaction / Comment(s): Pt believes she received blood years ago. Past Psychological History: Anxiety, Depression Additional Psychological History / Comment(s): Pt resides at [facility]. She staff that manage her medications and a person who comes once a week to do cleaning and assist with showering. She has home oxygen/nebulizer. Aric Sorensen is her temporary legal gaurdian. Smoking Status: Former smoker Past Alcohol Use History: Occasional Additional Past Alcohol Use History / Comment(s): Pt started smoking as a teen and quit in 2013. Pt drank 2 or more glasses of wine a day but has not had any alcohol in 2 months. Past Drug Use History: None Reported - Past Family History Father Family Medical History: COPD Mother Family Medical History: Cancer Additional Family Medical History / Comment(s): Mother had leukemia. Sister(s) Family Medical History: Cancer Additional Family Medical History / Comment(s): Sister had breast cancer with mets to her brain. Medications and Allergies Home Medications Medication Instructions Recorded Confirmed Type Aspirin EC [Ecotrin Low Dose] 81 mg PO DAILY 09/07/16 11/20/18 History Lisinopril [Zestril] 2.5 mg PO DAILY 09/07/16 11/20/18 History Cholecalciferol (Vitamin D3) 2,000 unit PO DAILY 08/31/18 11/20/18 History [Vitamin D3] Diltiazem HCl [Cartia Xt] 180 mg PO DAILY 08/31/18 11/20/18 History Budesonide [Pulmicort] 0.5 mg INHALATION RT-BID 11/19/18 11/20/18 History Formoterol Fumarate [Perforomist] 20 mcg INHALATION RT-BID 11/19/18 11/20/18 History Ipratropium-Albuterol Nebulize 3 ml INHALATION RT-QID PRN 11/19/18 11/20/18 History [Duoneb 0.5 mg-3 mg/3 ml Soln] Ipratropium/Albuterol Sulfate 1 puff INHALATION RT-QID PRN 11/19/18 11/20/18 History [Combivent Respimat Inhaler] PARoxetine [Paxil] 60 mg PO DAILY 11/19/18 11/20/18 History predniSONE 10 mg PO DAILY 11/19/18 11/20/18 History Allergies Allergy/AdvReac Type Severity Reaction Status Date / Time levofloxacin [From Levaquin] Allergy Swelling Verified 11/20/18 11:46 codeine AdvReac Nausea & Verified 11/20/18 11:46 Vomiting meperidine [From Demerol] AdvReac "HYPER" Verified 11/20/18 11:46 Physical Exam Vitals: Vital Signs Temp Pulse Resp BP Pulse Ox 11/20/18 14:54 98.4 F 96 16 143/94 99 11/20/18 11:41 96.9 F L 83 20 148/70 100 Intake and Output 11/20/18 11/20/18 11/20/18 06:59 14:59 22:59 Other: Weight 45.359 kg PHYSICAL EXAMINATION: GENERAL: The patient is alert and oriented x3, not in any acute distress. Thin built cachectic HEENT: Pupils are round and equally reacting to light. EOMI. No scleral icterus. No conjunctival pallor. Normocephalic, atraumatic. No pharyngeal erythema. No thyromegaly. CARDIOVASCULAR: S1 and S2 present. No murmurs, rubs, or gallops. PULMONARY: Chest is clear to auscultation, no wheezing or crackles. ABDOMEN: Soft, nontender, nondistended, normoactive bowel sounds. No palpable organomegaly. MUSCULOSKELETAL: No joint swelling or deformity. EXTREMITIES: No cyanosis, clubbing, or pedal edema. NEUROLOGICAL: Gross neurological examination did not reveal any focal deficits. Patient has significant diffuse muscle atrophy scoliosis SKIN: No rashes. Results CBC & Chem 7: 11/20/18 12:10 11/20/18 12:10 Labs: Abnormal Lab Results - Last 24 Hours (Table) 11/20/18 11/20/18 Range/Units 12:10 12:10 WBC 12.0 H (3.8-10.6) k/uL RBC 3.64 L (3.80-5.40) m/uL Hgb 10.1 L (11.4-16.0) gm/dL Hct 31.8 L (34.0-46.0) % RDW 16.5 H (11.5-15.5) % Plt Count 499 H (150-450) k/uL Neutrophils # 9.2 H (1.3-7.7) k/uL Chloride 95 L (98-107) mmol/L Carbon Dioxide 39 H (22-30) mmol/L BUN 33 H (7-17) mg/dL Glucose 104 H (74-99) mg/dL Magnesium 2.4 H (1.6-2.3) mg/dL Assessment and Plan Plan: Episodes of confusion, altered mental status and decreased responsiveness: May be related to her advancing dementia along with the benzodiazepines which will be discontinued neurology will reconsult it I'll obtain EEG CAT scan did not show any acute stroke does have chronic microvascular ischemic changes with cerebral atrophy as mentioned above -Ruled out urinary tract infection COPD -COPD without any acute exacerbation patient will be resumed on her inhaled steroids and inhalational treatments -Hypertension -Anxiety disorder -Depression: SSRIs will be continued but Klonopin will be discontinued at this time. -Moderate malnutrition and severe cachexia: PT and OT evaluation case management was consulted. DVT prophylaxis as subcutaneous heparin
[2018-11-20 17:19] LABS: Glucose,Whole Blood 118 mg/dL (75-99)
[2018-11-20] MEDS: HEPARIN SODIUM,PORCINE 5,000 UNIT/ML 1 ML VIAL SQ SCH (20:12)
[2018-11-20] MEDS: FAMOTIDINE 20 MG TAB PO SCH (20:12)
[2018-11-20] MEDS: BUDESONIDE 0.5 MG/2 ML NEBU INHALATION SCH (20:31)
[2018-11-20] MEDS: IPRATROPIUM-ALBUTEROL 3 ML NEB INHALATION PRN (20:31)
[2018-11-20] MEDS: FORMOTEROL FUMARATE 20 MCG/2 ML NEBU INHALATION SCH (20:32)
[2018-11-20 20:54] LABS: Glucose,Whole Blood 131 mg/dL (75-99)
[2018-11-21 06:51] LABS: Glucose,Whole Blood 84 mg/dL (75-99)
[2018-11-21 07:53] LABS: Calcium 9.5 mg/dL (8.4-10.2); Potassium 3.3 mmol/L (3.5-5.1)
[2018-11-21 07:58] LABS: Anisocytosis Slight; HCT 31.7 % (34.0-46.0); HGB 10.2 gm/dL (11.4-16.0); Hypochromasia Slight; MCH 28.2 pg (25.0-35.0); MCHC 32.1 g/dL (31.0-37.0); MCV 87.8 fL (80.0-100.0); Mean Platelet Volume 7.3; Platelet Count 439 k/uL (150-450); RBC 3.61 m/uL (3.80-5.40); RDW 16.1 % (11.5-15.5); WBC 11.6 k/uL (3.8-10.6)
[2018-11-21] MEDS ORDERED: Potassium Replacement Protocol 1 EACH MISC MISCELLANE PRN (08:33)
[2018-11-21] MEDS: DILTIAZEM CD 180 MG CAP.ER.24H PO SCH (08:46)
[2018-11-21] MEDS: predniSONE 10 MG TAB PO SCH (08:46)
[2018-11-21] MEDS: ASPIRIN 81 MG PO SCH (08:46)
[2018-11-21] MEDS: PARoxetine 20 MG TAB PO SCH (08:46)
[2018-11-21] MEDS: POTASSIUM CHLORIDE ER 20 MEQ TAB.ER PO SCH ×2 (08:46→11:32)
[2018-11-21] MEDS: FAMOTIDINE 20 MG TAB PO SCH (08:46)
[2018-11-21] MEDS: CHOLECALCIFEROL 1,000 UNIT TAB PO SCH (08:46)
[2018-11-21] MEDS: FORMOTEROL FUMARATE 20 MCG/2 ML NEBU INHALATION SCH ×2 (09:17→19:15)
[2018-11-21] MEDS: BUDESONIDE 0.5 MG/2 ML NEBU INHALATION SCH ×2 (09:17→19:03)
[2018-11-21 11:23] LABS: Glucose,Whole Blood 132 mg/dL (75-99)
[2018-11-21] MEDS ORDERED: POTASSIUM CHLORIDE ER 20 MEQ TAB.ER PO STA (11:27)
[2018-11-21] MEDS: HEPARIN SODIUM,PORCINE 5,000 UNIT/ML 1 ML VIAL SQ SCH (11:32)
[2018-11-21 11:33] VITALS: BMI 18.3
--- NOTE | 2018-11-21 14:52 | EEG ---
ELECTROENCEPHALOGRAM REPORT PROCEDURE DATE: 11/21/2018. ELECTROENCEPHALOGRAM (EEG): TECHNIQUE: A routine 18 channel EEG was performed with video using the 10/20 international system. HISTORY: Increased confusion, decreased responsiveness. OTHER MEDICAL HISTORY: Includes asthma, COPD, hypertension, thyroid disorder, possible dementia. CURRENT MEDICATIONS: Paxil, heparin, Cardizem, and others. STUDY DURATION: 21 minutes. FINDINGS: BACKGROUND: The background activity consisted of 6-7 hertz rhythmic waveforms, symmetrically in both posterior quadrants. ACTIVATION: HYPERVENTILATION: Not performed. PHOTIC STIMULATION: No driving seen. SLEEP: Drowsy. ABNORMALITIES: Diffuse, 67 hertz slow wave activity was seen over the more anterior regions. IMPRESSION: Abnormal EEG. The diffuse theta range slowing mentioned above is not epileptiform in nature. In combination with the slow background, these findings indicate moderate diffuse cerebral dysfunction as may be seen in a toxometabolic encephalopathy. No seizures were recorded. No epileptiform activity was present. MMODL / IJN: [id number] /
[2018-11-21 16:43] LABS: Glucose,Whole Blood 99 mg/dL (75-99)
--- NOTE | 2018-11-21 17:04 | P.PN ---
Subjective Progress Note Date: 11/21/18 Principal diagnosis: This is a 77-year-old female who was admitted for altered mental status. Patient is pleasantly confused and carries on conversations that are erratic and nonspecific. Patient is oxygen dependent on 2 L of oxygen and becomes winded when speaking at length. Patient appears to be in no acute distress and is sitting up in the bed watching TV talking to the TV. Patient has a food tray in front of her and has not eaten but did drink some of her ensure. Patient underwent an EEG today which shows negative for any seizure activity with moderate diffuse cerebral dysfunction as may be seen in a toxo-metabolic encephalopathy. Patient's son Aric was just obtain guardianship temporarily for her was made aware of the results. Her son and daughter in law Chani have discussed having her placed in a possible long-term care treatment but at this time they are agreeable to visiting nurses coming to the home as well as [facility] [place] providing care continuously if she is unable to make sound decisions for herself. Patient has little to no appetite and is very thin in appearance. Guarded prognosis Objective - Vital Signs Vital signs: Vital Signs Temp 97.9 F 11/21/18 11:24 Pulse 83 11/21/18 15:35 Resp 20 11/21/18 15:35 BP 133/81 11/21/18 11:24 Pulse Ox 100 11/21/18 11:24 Intake & Output 11/20/18 11/21/18 11/21/18 18:59 06:59 18:59 Intake Total 400 1630 Balance 400 1630 Weight 45.359 kg 45.359 kg Intake: Intake, IV Titration 400 50 Amount cefTRIAXone 1 gm In 400 50 Sodium Chloride 0.9% 50 ml @ 100 mls/hr IVPB Q24HR [facility] Rx#:[id number] Oral 1580 Other: Voiding Method Incontinent Diaper Diaper Incontinent Incontinent # Voids 2 3 - Exam Gen: This is a 77-year-old female who is sitting up in bed in no acute distress. Patient is talking to the TV upon entry into the room. HEENT: Head is atraumatic, normocephalic. Pupils equal, round. Sclerae is anicteric. NECK: Supple. No JVD. No lymphadenopathy. No thyromegaly. LUNGS: Lung sounds diminished bilaterally at the bases. No wheezes or rhonchi noted. No intercostal retractions. HEART: Regular rate and rhythm. No murmur. ABDOMEN: Soft. Bowel sounds are present. No masses. Very thin appearance. No tenderness. EXTREMITIES: No pedal edema. No calf tenderness. NEUROLOGICAL: Patient is awake, alert and oriented x2. Cranial nerves 2 through 12 are grossly intact. - Labs CBC & Chem 7: 11/21/18 07:03 11/21/18 07:03 Labs: Abnormal Lab Results - Last 24 Hours (Table) 11/20/18 11/20/18 11/21/18 Range/Units 17:10 20:53 07:03 WBC 11.6 H (3.8-10.6) k/uL RBC 3.61 L (3.80-5.40) m/uL Hgb 10.2 L (11.4-16.0) gm/dL Hct 31.7 L (34.0-46.0) % RDW 16.1 H (11.5-15.5) % Potassium (3.5-5.1) mmol/L Carbon Dioxide (22-30) mmol/L BUN (7-17) mg/dL POC Glucose (mg/dL) 118 H 131 H (75-99) mg/dL 11/21/18 11/21/18 Range/Units 07:03 11:21 WBC (3.8-10.6) k/uL RBC (3.80-5.40) m/uL Hgb (11.4-16.0) gm/dL Hct (34.0-46.0) % RDW (11.5-15.5) % Potassium 3.3 L (3.5-5.1) mmol/L Carbon Dioxide 35 H (22-30) mmol/L BUN 23 H (7-17) mg/dL POC Glucose (mg/dL) 132 H (75-99) mg/dL Microbiology - Last 24 Hours (Table) 11/20/18 12:10 Blood Culture - Preliminary Blood No Growth after 24 hours Assessment and Plan Assessment: Altered mental status and decreased responsiveness, episodes of confusion: Most likely related to her advancing dementia along with the benzodiazepines that are taken daily. Benzos are held at this time. We'll continue to monitor Urinary tract infection: Ruled out, discontinuing antibiotics COPD without any acute exacerbation. Patient is on inhaled steroids and inhalation treatments Hypertension anxiety disorder Depression: SSRIs are continued. Klonopin is being held at this time. Moderate malnutrition with severe cachexia: Case management was consulted along with PT and OT for evaluation. DVT prophylaxis with subq heparin Recommendations and Discussion: Recommend continue current medications and symptomatic treatment. We'll continue with inhalation treatments and steroids. Closely monitor guarded prognosis. Further recommendations to follow. Will discharge in the next 24 hours. Working with case management on visiting nurses.
[2018-11-21] MEDS: IPRATROPIUM-ALBUTEROL 3 ML NEB INHALATION PRN (19:03)
--- NOTE | 2018-11-21 21:53 | P.CNNES ---
History of Present Illness Consult date: 11/21/18 Reason for Consult: AMS Chief complaint: AMS History of Present Illness: REFERRING PHYSICIAN: Dr. White HISTORY OF PRESENT ILLNESS: Thank you for allowing me to evaluate Ms. Patrick Nguyen is a 77 year-old woman with PMHx of Asthma, COPD on home oxygen, HTN, hypothyroidism, cachexia, osteoporosis, chronic anemia, insomnia, chronic diarrhea, anxiety, depression, who was brought by family for increased confusion, consulting neurology for AMS. Of note, patient has been to [facility] multiple times for similar symptoms. Previously, patient had been given the diagnosis of UTI, given antibiotics, and family now assumes patient has UTI that causes worsening confusion. Patient was brought to ED 2 days ago, discharged home as patient with no signs and symptoms of UTI, but patient was brought back for increased confusion and decreased responsiveness. There is no family at bedside during this evaluation. On my evaluation, patient awake and alert, answering all questions but with incorrect answers. Patient following all commands appropriately. Denies any headache, nausea, vomiting, changes in vision, numbness, tingling, weakness, abdominal pain. Denies any burning sensation, increased frequency/urgency during micturition. PAST MEDICAL HISTORY: Asthma, COPD on home oxygen, HTN, hypothyroidism, cachexia, osteoporosis, chronic anemia, insomnia, chronic diarrhea, anxiety, depression PAST SURGICAL HISTORY: Appedenctomy, Cholecystectomy, Hysterectomy, Parathyroidecomy, R shoulder repair, Cardiac cath in 2012 HOME MEDICATIONS: Lisinopril, ASA 81, Vitamin D3, Diltiazem, Prednisone 10mg qday, Paroxetine, Duoneb PRN, Budenoside BID, Formoterol Fumarate inhalation ALLERGIES: Levofloxacin, Codeine, Meperidine SOCIAL HISTORY: Former smoker, social drinker, no report of drug abuse FAMILY HISTORY: Father with COPD, mother with leukemia, Sister with breast cancer REVIEW OF SYSTEMS: As above PHYSICAL EXAMINATION: VITAL SIGNS: T 97.9 HR 83 RR 20 BP 133/81 O2 sat 98% on NC GEN.: NAD, pleasant and cooperative, cachectic, goes off on tangents at times HEENT: NCAT, sclera without icterus NECK: Supple SKIN AND EXTREMITIES: Warm to touch, no edema Neuro: MENTAL STATUS: Patient alert and oriented to self. Says "my basement" and "1967" for place and time, but able to name the current president. Speech fluent, able to name and repeat, following all commands readily. No right and left disorientation or neglect. Able to spell "WORLD" forwards but not backwards. Unable to do serial 7's. CRANIAL NERVES II THROUGH XII: II: Pupils are equal and reactive to light symmetrically. No afferent pupillary defect. Visual oconnor are intact. III, IV, : No ptosis. Extraocular movements full. No nystagmus. V: Facial sensation intact to light touch but decreased to temperature in V1. Decreased sensation to light touch and temperature in V2 and V3.. VII. No clear facial asymmetry. VIII: Hearing intact to finger rub bilaterally. IX, X: Symmetric pal ate elevation. XII: Shoulder shrug intact. XII: Tongue midline without fasciculation or atrophy. MOTOR: Decreased bulk. Normal tone. No pronator drift or tremor. Strength is 5/5 throughout all 4 extremities. SENSORY: Intact to light touch, temperature in all 4 extremities REFLEXES: 2+ throughout. Toes are downgoing. COORDINATION: Finger to nose intact. No dysmetria. DIAGNOSTIC TESTING: Laboratory: WBC 11.6 Hgb 10.2 Plt 439 Na 141 K 3.3 CO2 35 Cl 99 Cr 0.96 BUN 23 Imaging: EEG 11/21/18: Abnormal EEG. Diffuse theta range not epileptiform in nature. Moderate diffuse cerebral dysfunction. No seizures recorded. No epileptiform activity was present. Possible toxometabolic encephalopathy ASSESSMENT and PLAN: Ms. Nguyen is a 77 year-old woman with PMHx of Asthma, COPD on home oxygen, HTN, hypothyroidism, cachexia, osteoporosis, chronic anemia, insomnia, chronic diarrhea, anxiety, depression, who was brought by family for increased confusion, consulting neurology for AMS. It appears that patient has had symptoms of dementia for some time. No signs of acute change in mental status. Patient answering questions (although not accurately) and following all commands. Patient should be considered for dementia work-up in outpatient Neurology setting. Patient also with hx of COPD, and labs showing high CO2. RECOMMENDATIONS: 1. Agree with limiting use of benzodiazepines, anticholinergics and antipsychotics in this patient with most likely diagnosis of dementia. 2. Will check ammonia level although patient with no other signs or lab indications of hyperammonemia other than mental status change. 3. Will check Vitamin B12, Vitamin D, TSH, RPR, folate, 4. Management of high CO2 per primary team Past Medical History Past Medical History: Asthma, COPD, Hypertension, Respiratory Disorder, Thyroid Disorder Additional Past Medical History / Comment(s): Severe COPD, chronic hypoxic respiratory failure, home oxygen at 2L/NC ATC, tachycardia r/t COPD, cachexia, idiopathic scoliosis/kyphoscoliosis, osteoporosis, vertebral fractures, chronic anemia, insomnia, lower extremity edema, chronic diarrhea, IBS, previous history of hyperparathyroidism with surgery, UTI. History of Any Multi-Drug Resistant Organisms: None Reported Past Surgical History: Appendectomy, Cholecystectomy, Hysterectomy, Orthopedic Surgery Additional Past Surgical History / Comment(s): parathyroidectomy, colonoscopy with benign polypectomy, possible R shoulder surgery r/t fracture, R shoulder birthmark removal, 2012 cardiac cath-normal Past Anesthesia/Blood Transfusion Reactions: Postoperative Nausea & Vomiting (PONV) Additional Past Anesthesia/Blood Transfusion Reaction / Comment(s): Pt believes she received blood years ago. Past Psychological History: Anxiety, Depression Additional Psychological History / Comment(s): Pt resides at [facility]. She staff that manage her medications and a person who comes once a week to do cleaning and assist with showering. She has home oxygen/nebulizer. Aric Sorensen is her temporary legal gaurdian. Smoking Status: Former smoker Past Alcohol Use History: Occasional Additional Past Alcohol Use History / Comment(s): Pt started smoking as a teen and quit in 2013. Pt drank 2 or more glasses of wine a day but has not had any alcohol in 2 months. Past Drug Use History: None Reported - Past Family History Father Family Medical History: COPD Mother Family Medical History: Cancer Additional Family Medical History / Comment(s): Mother had leukemia. Sister(s) Family Medical History: Cancer Additional Family Medical History / Comment(s): Sister had breast cancer with mets to her brain. Medications and Allergies Home Medications Medication Instructions Recorded Confirmed Type Aspirin EC [Ecotrin Low Dose] 81 mg PO DAILY 09/07/16 11/20/18 History Lisinopril [Zestril] 2.5 mg PO DAILY 09/07/16 11/20/18 History Cholecalciferol (Vitamin D3) 2,000 unit PO DAILY 08/31/18 11/20/18 History [Vitamin D3] Diltiazem HCl [Cartia Xt] 180 mg PO DAILY 08/31/18 11/20/18 History Budesonide [Pulmicort] 0.5 mg INHALATION RT-BID 11/19/18 11/20/18 History Formoterol Fumarate [Perforomist] 20 mcg INHALATION RT-BID 11/19/18 11/20/18 History Ipratropium-Albuterol Nebulize 3 ml INHALATION RT-QID PRN 11/19/18 11/20/18 History [Duoneb 0.5 mg-3 mg/3 ml Soln] Ipratropium/Albuterol Sulfate 1 puff INHALATION RT-QID PRN 11/19/18 11/20/18 History [Combivent Respimat Inhaler] PARoxetine [Paxil] 60 mg PO DAILY 11/19/18 11/20/18 History predniSONE 10 mg PO DAILY 11/19/18 11/20/18 History Allergies Allergy/AdvReac Type Severity Reaction Status Date / Time levofloxacin [From Levaquin] Allergy Swelling Verified 11/20/18 11:46 codeine AdvReac Nausea & Verified 11/20/18 11:46 Vomiting meperidine [From Demerol] AdvReac "HYPER" Verified 11/20/18 11:46 Physical Examination - Vital Signs Vital Signs: Vital Signs Temp Pulse Pulse Pulse Resp BP Pulse Ox 11/21/18 19:24 95 11/21/18 19:14 95 11/21/18 19:05 94 11/21/18 15:35 83 20 11/21/18 11:24 97.9 F 83 20 133/81 100 11/21/18 00:12 93 18 Intake and Output 11/21/18 11/21/18 11/21/18 06:59 14:59 22:59 Intake Total 1630 Balance 1630 Intake: Intake, IV Titration 50 Amount cefTRIAXone 1 gm In 50 Sodium Chloride 0.9% 50 ml @ 100 mls/hr IVPB Q24HR [facility] Rx#:[id number] Oral 1580 Other: Voiding Method Diaper Diaper Diaper Incontinent Incontinent Incontinent # Voids 2 3 Weight 45.359 kg Results - Laboratory Findings CBC and BMP: 11/21/18 07:03 11/21/18 07:03 Abnormal Lab Findings: Abnormal Labs 11/20/18 11/20/18 11/20/18 12:10 12:10 17:10 WBC 12.0 H RBC 3.64 L Hgb 10.1 L Hct 31.8 L RDW 16.5 H Plt Count 499 H Neutrophils # 9.2 H Potassium Chloride 95 L Carbon Dioxide 39 H BUN 33 H Glucose 104 H POC Glucose (mg/dL) 118 H Magnesium 2.4 H 11/20/18 11/21/18 11/21/18 20:53 07:03 07:03 WBC 11.6 H RBC 3.61 L Hgb 10.2 L Hct 31.7 L RDW 16.1 H Plt Count Neutrophils # Potassium 3.3 L Chloride Carbon Dioxide 35 H BUN 23 H Glucose POC Glucose (mg/dL) 131 H Magnesium 11/21/18 11:21 WBC RBC Hgb Hct RDW Plt Count Neutrophils # Potassium Chloride Carbon Dioxide BUN Glucose POC Glucose (mg/dL) 132 H Magnesium
[2018-11-22] MEDS: HEPARIN SODIUM,PORCINE 5,000 UNIT/ML 1 ML VIAL SQ SCH ×2 (00:06→09:09)
[2018-11-22 00:29] LABS: Glucose,Whole Blood 122 mg/dL (75-99)
[2018-11-22 05:02] VITALS: BP 139/75; RESP 18; TEMP 98.2
[2018-11-22 07:08] LABS: Glucose,Whole Blood 108 mg/dL (75-99)
[2018-11-22] MEDS: BUDESONIDE 0.5 MG/2 ML NEBU INHALATION SCH (08:16)
[2018-11-22] MEDS: IPRATROPIUM-ALBUTEROL 3 ML NEB INHALATION PRN (08:16)
[2018-11-22] MEDS: FORMOTEROL FUMARATE 20 MCG/2 ML NEBU INHALATION SCH (08:16)
[2018-11-22] MEDS ORDERED: FAMOTIDINE 20 MG TAB PO SCH (09:00)
[2018-11-22] MEDS: predniSONE 10 MG TAB PO SCH (09:09)
[2018-11-22] MEDS: CHOLECALCIFEROL 1,000 UNIT TAB PO SCH (09:09)
[2018-11-22] MEDS: ASPIRIN 81 MG PO SCH (09:09)
[2018-11-22] MEDS: PARoxetine 20 MG TAB PO SCH (09:10)
[2018-11-22] MEDS: DILTIAZEM CD 180 MG CAP.ER.24H PO SCH (09:10)
[2018-11-22 09:31] LABS: Albumin 4.2 g/dL (3.5-5.0); Calcium 10.4 mg/dL (8.4-10.2); Potassium 4.9 mmol/L (3.5-5.1); Total Bilirubin 0.3 mg/dL (0.2-1.3); Total Protein 6.9 g/dL (6.3-8.2)
[2018-11-22 10:26] LABS: Anisocytosis Slight; Basophils % (A) 0 %; Eosinophils # (A) 0.1 k/uL (0-0.7); Eosinophils % (A) 1 %; HCT 33.3 % (34.0-46.0); HGB 10.2 gm/dL (11.4-16.0); Hypochromasia Moderate; Lymphocytes # (A) 1.9 k/uL (1.0-4.8); Lymphocytes % (A) 12 %; MCH 27.1 pg (25.0-35.0); MCHC 30.5 g/dL (31.0-37.0); MCV 88.7 fL (80.0-100.0); Monocytes # (A) 1.2 k/uL (0-1.0); Monocytes % (A) 7 %; Neutrophils # (A) 13.4 k/uL (1.3-7.7); Neutrophils % (A) 79 %; Platelet Count 481 k/uL (150-450); RBC 3.75 m/uL (3.80-5.40); RDW 16.1 % (11.5-15.5); WBC 16.9 k/uL (3.8-10.6)
[2018-11-22 11:03] VITALS: PULSE 98
--- NOTE | 2018-11-22 12:39 | P.DS ---
Providers Date of admission: 11/21/18 09:45 Expected date of discharge: 11/22/18 Attending physician: Devon Badillo Consults: 11/20/18 15:19 Consult Physician Routine Consulting Provider: Keren Whitley Reason/Comments: AMS, possible dementia Do you want consulting provider notified?: Yes Primary care physician: [facility] Course: Final diagnosis Altered mental status and decreased responsiveness Dementia: Advancing Urinary tract infection COPD without any acute exacerbation Hypertension Anxiety disorder Depression Moderate malnutrition with severe cachexia Discharge disposition Patient is being discharged in a stable condition with guarded prognosis to home and visiting nurses along with [facility] [place] will be following the patient. History of present illness This is a 77-year-old female that was admitted for altered mental status with a history of dementia. Patient is denying any chest pain or palpitations at this time and is afebrile. Patient is oxygen dependent on 2 L at home and will continue with that. Patient is denying any new or increasing shortness of breath at this time. Family is discussing increasing her monitored care but will do so with [facility]. Son has temporary guardianship and will be making decisions for her. On exam vital signs are stable. Blood pressure is 139/75, pulse is 98, respirations are 18 and non-labored, 98.2F temp, oxygen saturation is 93% on 2L. Cardio S1 and S2 are normal. Respiratory shows diminished breath sounds. Abdomen is thin, soft, and non-tender. Nervous system shows no new focal deficits. Please refer to medication reconciliation sheet for list of medications Patient Condition at Discharge: Fair Plan - Discharge Summary Discharge Rx Participant: No New Discharge Prescriptions: Continue Lisinopril [Zestril] 2.5 mg PO DAILY Aspirin EC [Ecotrin Low Dose] 81 mg PO DAILY Cholecalciferol (Vitamin D3) [Vitamin D3] 2,000 unit PO DAILY Diltiazem HCl [Cartia Xt] 180 mg PO DAILY Formoterol Fumarate [Perforomist] 20 mcg INHALATION RT-BID predniSONE 10 mg PO DAILY PARoxetine [Paxil] 60 mg PO DAILY Ipratropium-Albuterol Nebulize [Duoneb 0.5 mg-3 mg/3 ml Soln] 3 ml INHALATION RT-QID PRN PRN Reason: COPD Ipratropium/Albuterol Sulfate [Combivent Respimat Inhaler] 1 puff INHALATION RT-QID PRN PRN Reason: Shortness Of Breath Budesonide [Pulmicort] 0.5 mg INHALATION RT-BID Discharge Medication List Aspirin EC [Ecotrin Low Dose] 81 mg PO DAILY 09/07/16 [History] Lisinopril [Zestril] 2.5 mg PO DAILY 09/07/16 [History] Cholecalciferol (Vitamin D3) [Vitamin D3] 2,000 unit PO DAILY 08/31/18 [History] Diltiazem HCl [Cartia Xt] 180 mg PO DAILY 08/31/18 [History] Budesonide [Pulmicort] 0.5 mg INHALATION RT-BID 11/19/18 [History] Formoterol Fumarate [Perforomist] 20 mcg INHALATION RT-BID 11/19/18 [History] Ipratropium-Albuterol Nebulize [Duoneb 0.5 mg-3 mg/3 ml Soln] 3 ml INHALATION RT-QID PRN 11/19/18 [History] Ipratropium/Albuterol Sulfate [Combivent Respimat Inhaler] 1 puff INHALATION RT- QID PRN 11/19/18 [History] PARoxetine [Paxil] 60 mg PO DAILY 11/19/18 [History] predniSONE 10 mg PO DAILY 11/19/18 [History] Follow up Appointment(s)/Referral(s): Sweta Greenwood MD [Primary Care Provider] - 01/01/19 10:45 am [facility] Visiting Nurse, [NON-STAFF] - 1-2 Days Patient Instructions/Handouts: Dementia (GEN) Activity/Diet/Wound Care/Special Instructions: Activity as tolerated continue current diet/ ensure drinks 3 times daily follow up with pcp this week Visiting nurses to follow up with. Discharge Disposition: HOME WITH HOME HEALTH SERVICES
[2018-11-22 16:46] LABS: Vitamin D 25 Hydroxy 25.1 ng/mL (30.0-100.0)
[2018-11-22 16:49] LABS: Folate, Serum 18.5 ng/mL
--- NOTE | 2018-11-22 22:25 | P.PN ---
Progress Note - Text Progress Note Date: 11/22/18 SUBJECTIVE/INTERVAL EVENTS: No acute overnight events. No change in patient's mental status. Today, patient not allowing me to even ask her any questions. Saying "go sit outside and do computer statements," and getting frustrated whenever asked about naming the president. PHYSICAL EXAMINATION: VITAL SIGNS: T 98.2 HR 98 RR 18 BP 139/75 Os Sat 93% on NC GEN.: NAD, pleasant and cooperative, cachectic, goes off on tangents at times HEENT: NCAT, sclera without icterus NECK: Supple SKIN AND EXTREMITIES: Warm to touch, no edema Neuro: MENTAL STATUS: Patient alert and oriented to self. Says "my basement" and "1967" for place and time, but able to name the current president. Speech fluent, able to name and repeat, following all commands readily. No right and left disorientation or neglect. Able to spell "WORLD" forwards but not backwards. Unable to do serial 7's. CRANIAL NERVES II THROUGH XII: II: Pupils are equal and reactive to light symmetrically. No afferent pupillary defect. Visual oconnor are intact. III, IV, : No ptosis. Extraocular movements full. No nystagmus. V: Facial sensation intact to light touch but decreased to temperature in V1. Decreased sensation to light touch and temperature in V2 and V3.. VII. No clear facial asymmetry. VIII: Hearing intact to finger rub bilaterally. IX, X: Symmetric palate elevation. XII: Shoulder shrug intact. XII: Tongue midline without fasciculation or atrophy. MOTOR: Decreased bulk. Normal tone. No pronator drift or tremor. Strength is 5/5 throughout all 4 extremities. SENSORY: Intact to light touch, temperature in all 4 extremities REFLEXES: 2+ throughout. Toes are downgoing. COORDINATION: Finger to nose intact. No dysmetria. DIAGNOSTIC TESTING: Laboratory: WBC 16.9 Hgb 10.2 Plt 481 Na 141 K 4.9 CO2 36 Cl 101 Cr 0.87 BUN 22 RPR neg TSH 2.010 Vitamin B12 331 Vitamin D 25.1 (low) Folate 18.5 Ammonia <9 Imaging: EEG 11/21/18: Abnormal EEG. Diffuse theta range not epileptiform in nature. Moderate diffuse cerebral dysfunction. No seizures recorded. No epileptiform activity was present. Possible toxometabolic encephalopathy ASSESSMENT and PLAN: Ms. Nguyen is a 77 year-old woman with PMHx of Asthma, COPD on home oxygen, HTN, hypothyroidism, cachexia, osteoporosis, chronic anemia, insomnia, chronic diarrhea, anxiety, depression, who was brought by family for increased confusion, consulting neurology for AMS. It appears that patient has had symptoms of dementia for some time. No signs of acute change in mental status. Patient answering questions (although not accurately) and following all commands. Patient should be considered for dementia work-up in outpatient Neurology setting. Patient also with hx of COPD, and labs showing high CO2. RECOMMENDATIONS: 1. Agree with limiting use of benzodiazepines, anticholinergics and antipsychotics in this patient with most likely diagnosis of dementia. 2. Ammonia, Vitamin B12, Vitamin D, TSH, RPR, folate unremarkable 3. Management of high CO2 per primary team 4. Neurology will sign off at this time
== END 2018-11-22 11:45 | disposition home health service (06) | DRG 884 ==
LOC: EC 11:38 → 3NMEDONC 14:00 → OBSVTOIN 11-21 09:45
PROVIDERS: ADMIT Hospitalist; ATTEND Hospitalist
DX: F03.90 Unspecified dementia, unspecified severity, without behavioral disturbance, psychotic disturbance, mood disturbance, and anxiety (principal); E44.0 Moderate protein-calorie malnutrition; Z68.1 Body mass index [BMI] 19.9 or less, adult; J96.11 Chronic respiratory failure with hypoxia; R64 Cachexia; E03.9 Hypothyroidism, unspecified; E86.0 Dehydration; F32.9 Major depressive disorder, single episode, unspecified; F41.9 Anxiety disorder, unspecified; I10 Essential (primary) hypertension; J44.9 Chronic obstructive pulmonary disease, unspecified; K58.9 Irritable bowel syndrome, unspecified; M41.20 Other idiopathic scoliosis, site unspecified; M81.0 Age-related osteoporosis without current pathological fracture; Z79.82 Long term (current) use of aspirin; Z79.899 Other long term (current) drug therapy; Z80.3 Family history of malignant neoplasm of breast; Z80.6 Family history of leukemia; Z82.5 Family history of asthma and other chronic lower respiratory diseases; Z87.891 Personal history of nicotine dependence; Z90.710 Acquired absence of both cervix and uterus; Z99.81 Dependence on supplemental oxygen; Z88.1 Allergy status to other antibiotic agents; Z88.5 Allergy status to narcotic agent
CPT/HCPCS: 36415; 80048; 80053; 82140; 82306; 82550; 82607; 82746; 83735; 84100; 84207; 84443; 84484; 85025; 85027; 85610; 85730; 86780; 87040; 93005; 94640; 94760; 95816; 96361; 96365; 99285

== ENCOUNTER 2018-12-20 22:26 | Emergency (ER) | payer MEDICARE, OTHER ==
[2018-12-20 22:35] VITALS: RESP 18
--- NOTE | 2018-12-20 22:55 | ED ---
ENT HPI - General Chief complaint: ENT Stated complaint: Nose bleed Time Seen by Provider: 12/20/18 22:37 Source: patient, EMS Mode of arrival: EMS Limitations: no limitations - History of Present Illness Initial comments: Patient is a pleasant 78-year-old female with COPD oxygen dependent who wears nasal cannula at all times. Patient presents the ER via EMS for evaluation of a nosebleed that began around 8:30 PM, lasted approximately 10 minutes and resolved spontaneously. Nosebleed resolved prior to EMS arrival, patient had no lightheadedness chest pain palpitations or worsening shortness of breath. Upon arrival the emergency department patient reports that she feels absolutely fine and feels silly for coming doesn't feel she needs further workup. MD complaint: epistaxis Onset/Timin -: minutes(s) Location: nose Severity: mild Improves with: pressure Context-Epistaxis: aspirin use - Related Data Home Medications Medication Instructions Recorded Confirmed Aspirin EC [Ecotrin Low Dose] 81 mg PO DAILY 09/07/16 12/20/18 Lisinopril [Zestril] 2.5 mg PO DAILY 09/07/16 12/20/18 Cholecalciferol (Vitamin D3) 2,000 unit PO DAILY 08/31/18 12/20/18 [Vitamin D3] Diltiazem HCl [Cartia Xt] 180 mg PO DAILY 08/31/18 12/20/18 Budesonide [Pulmicort] 0.5 mg INHALATION RT-BID 11/19/18 12/20/18 Formoterol Fumarate [Perforomist] 20 mcg INHALATION RT-BID 11/19/18 12/20/18 Ipratropium-Albuterol Nebulize 3 ml INHALATION RT-QID PRN 11/19/18 12/20/18 [Duoneb 0.5 mg-3 mg/3 ml Soln] Ipratropium/Albuterol Sulfate 1 puff INHALATION RT-QID PRN 11/19/18 12/20/18 [Combivent Respimat Inhaler] PARoxetine [Paxil] 60 mg PO DAILY 11/19/18 12/20/18 predniSONE 10 mg PO DAILY 11/19/18 12/20/18 Allergies Allergy/AdvReac Type Severity Reaction Status Date / Time levofloxacin [From Levaquin] Allergy Swelling Verified 12/20/18 22:49 codeine AdvReac Nausea & Verified 12/20/18 22:49 Vomiting meperidine [From Demerol] AdvReac "HYPER" Verified 12/20/18 22:49 Review of Systems ROS Statement: Those systems with pertinent positive or pertinent negative responses have been documented in the HPI. ROS Other: All systems not noted in ROS Statement are negative. Past Medical History Past Medical History: Asthma, COPD, Hypertension, Respiratory Disorder, Thyroid Disorder Additional Past Medical History / Comment(s): Severe COPD, chronic hypoxic respiratory failure, home oxygen at 2L/NC ATC, tachycardia r/t COPD, cachexia, idiopathic scoliosis/kyphoscoliosis, osteoporosis, vertebral fractures, chronic anemia, insomnia, lower extremity edema, chronic diarrhea, IBS, previous history of hyperparathyroidism with surgery, UTI. History of Any Multi-Drug Resistant Organisms: None Reported Past Surgical History: Appendectomy, Cholecystectomy, Hysterectomy, Orthopedic Surgery Additional Past Surgical History / Comment(s): parathyroidectomy, colonoscopy with benign polypectomy, possible R shoulder surgery r/t fracture, R shoulder birthmark removal, 2012 cardiac cath-normal Past Anesthesia/Blood Transfusion Reactions: Postoperative Nausea & Vomiting (PONV) Additional Past Anesthesia/Blood Transfusion Reaction / Comment(s): Pt believes she received blood years ago. Past Psychological History: Anxiety, Depression Smoking Status: Former smoker Past Alcohol Use History: Occasional Past Drug Use History: None Reported - Past Family History Father Family Medical History: COPD Mother Family Medical History: Cancer Additional Family Medical History / Comment(s): Mother had leukemia. Sister(s) Family Medical History: Cancer Additional Family Medical History / Comment(s): Sister had breast cancer with mets to her brain. General Exam - General Exam Comments Initial Comments: Physical Exam GENERAL: Patient is well-developed and well-nourished. Patient is nontoxic and well- hydrated and is in no distress. Oxygen-dependent wearing nasal cannula HENT: Normocephalic, Atraumatic. Dried blood in the right naris EYES: PERRL, EOMI PULMONARY: Unlabored respirations. No audible rales rhonchi or wheezing was noted. CARDIOVASCULAR: There is a regular rate and rhythm without any murmurs gallops or rubs. ABDOMEN: Soft and nontender with normal bowel sounds. SKIN: Skin is clear with no lesions or rashes and otherwise unremarkable. : Deferred NEUROLOGIC: Patient is alert and oriented x3. Moving all extremities spontaneously MUSCULOSKELETAL: Normal extremities with adequate strength and full range of motion. No lower extremity swelling or edema. No calf tenderness. PSYCHIATRIC: Normal psychiatric evaluation. Limitations: no limitations Course Vital Signs 12/20/18 12/21/18 22:27 01:15 Temperature 98.9 F 98.2 F Pulse Rate 108 H 88 Respiratory 18 18 Rate Blood Pressure 123/69 148/98 O2 Sat by Pulse 98 98 Oximetry Medical Decision Making - Medical Decision Making The patient was seen and evaluated history is obtained from EMS and the patient This is an oxygen-dependent 78-year-old female who had an approximately 10 minute nosebleed with complete resolution of bleeding prior to EMS arrival however patient states she wanted be looked at, upon arrival emergency department patient is very well-appearing with no active bleeding she has dried blood in her right nares. Due to patient being oxygen dependent I suspect that the bleeding is due to irritation of the anterior naris, the use of humidified oxygen and moisturizer was discussed. Proper care for her nosebleed was discussed including applying a nasal clamp for 10-15 minutes. Advised patient that if she needs to apply nasal She can move her nasal cannula to her mouth and breathe through her mouth for supplemental oxygen. All questions pertaining to care were answered return parameters were discussed and the patient was dis charged home in stable condition. Disposition Clinical Impression: Mild epistaxis Disposition: HOME SELF-CARE Condition: Stable Instructions (If sedation given, give patient instructions): Nosebleed (ED) Additional Instructions: you need to apply ointment to your nostrils, you need to use humidified oxygen If you get another nosebleed, you need to apply the clamp to your nose and leave it for 10-15 minutes, if you continued to bleed after 15minutes of direct pressure on the nose, return to the ER for evaluation Is patient prescribed a controlled substance at d/c from ED?: No Referrals: Sweta Greenwood MD [Primary Care Provider] - 1-2 days
[2018-12-21 01:17] VITALS: BP 148/98; PULSE 88; TEMP 98.2
== END 2018-12-21 01:17 | disposition home or self-care (01) ==
LOC: EC 22:26
DX: R04.0 Epistaxis (principal); J44.9 Chronic obstructive pulmonary disease, unspecified; I10 Essential (primary) hypertension; J96.11 Chronic respiratory failure with hypoxia; F32.9 Major depressive disorder, single episode, unspecified; F41.9 Anxiety disorder, unspecified; Z87.891 Personal history of nicotine dependence; Z88.1 Allergy status to other antibiotic agents; Z88.5 Allergy status to narcotic agent; Z79.51 Long term (current) use of inhaled steroids; Z79.52 Long term (current) use of systemic steroids; Z79.82 Long term (current) use of aspirin; Z79.899 Other long term (current) drug therapy; Z99.81 Dependence on supplemental oxygen; Z87.39 Personal history of other diseases of the musculoskeletal system and connective tissue
CPT/HCPCS: 99283

== ENCOUNTER 2019-02-11 15:24 | Inpatient (IN) | payer MEDICARE, OTHER ==
--- NOTE | 2019-02-11 16:11 | ED ---
Altered Mental Status HPI - General Chief Complaint: Altered Mental Status Stated Complaint: change in mental status Time Seen by Provider: 02/11/19 15:42 Source: EMS, RN notes reviewed, old records reviewed Mode of arrival: EMS Limitations: altered mental status - History of Present Illness Initial Comments: This is a 78-year-old female the ER today patient presents today for evaluation of altered mental status. Unknown history patient is unable to give history prostatic patient is complaining of some dysuria and some difficulty with bowel movements. Abdominal pain. His pain everywhere. No recent change in medications no fevers per report. History of A. fib EMS as well as patient's transfer paperwork MD Complaint: altered mental status, confusion, decreased responsiveness, weakness -: unknown Severity: moderate Consistency of Symptoms: getting worse Context: history of similar presentation Associated Symptoms: loss of appetite, weakness - Related Data Home Medications Medication Instructions Recorded Confirmed Aspirin EC [Ecotrin Low Dose] 81 mg PO DAILY 09/07/16 02/11/19 Lisinopril [Zestril] 2.5 mg PO DAILY 09/07/16 02/11/19 Cholecalciferol (Vitamin D3) 2,000 unit PO DAILY 08/31/18 02/11/19 [Vitamin D3] Diltiazem HCl [Cartia Xt] 180 mg PO DAILY 08/31/18 02/11/19 Budesonide [Pulmicort] 0.5 mg INHALATION RT-BID 11/19/18 02/11/19 Formoterol Fumarate [Perforomist] 20 mcg INHALATION RT-BID 11/19/18 02/11/19 Ipratropium-Albuterol Nebulize 3 ml INHALATION RT-QID PRN 11/19/18 02/11/19 [Duoneb 0.5 mg-3 mg/3 ml Soln] Ipratropium/Albuterol Sulfate 1 puff INHALATION RT-QID PRN 11/19/18 02/11/19 [Combivent Respimat Inhaler] PARoxetine [Paxil] 60 mg PO DAILY 11/19/18 02/11/19 predniSONE 10 mg PO DAILY 11/19/18 02/11/19 Allergies Allergy/AdvReac Type Severity Reaction Status Date / Time levofloxacin [From Levaquin] Allergy Swelling Verified 02/11/19 16:13 codeine AdvReac Nausea & Verified 02/11/19 16:13 Vomiting meperidine [From Demerol] AdvReac "HYPER" Verified 02/11/19 16:13 Review of Systems ROS Statement: Those systems with pertinent positive or pertinent negative responses have been documented in the HPI. ROS Other: All systems not noted in ROS Statement are negative. Past Medical History Past Medical History: Asthma, COPD, Hypertension, Respiratory Disorder, Thyroid Disorder Additional Past Medical History / Comment(s): Severe COPD, chronic hypoxic respiratory failure, home oxygen at 2L/NC ATC, tachycardia r/t COPD, cachexia, idiopathic scoliosis/kyphoscoliosis, osteoporosis, vertebral fractures, chronic anemia, insomnia, lower extremity edema, chronic diarrhea, IBS, previous history of hyperparathyroidism with surgery, UTI. History of Any Multi-Drug Resistant Organisms: None Reported Past Surgical History: Appendectomy, Cholecystectomy, Hysterectomy, Orthopedic Surgery Additional Past Surgical History / Comment(s): parathyroidectomy, colonoscopy with benign polypectomy, possible R shoulder surgery r/t fracture, R shoulder birthmark removal, 2012 cardiac cath-normal Past Anesthesia/Blood Transfusion Reactions: Postoperative Nausea & Vomiting (PONV) Additional Past Anesthesia/Blood Transfusion Reaction / Comment(s): Pt believes she received blood years ago. Past Psychological History: Anxiety, Depression Smoking Status: Former smoker Past Alcohol Use History: Occasional Past Drug Use History: None Reported - Past Family History Father Family Medical History: COPD Mother Family Medical History: Cancer Additional Family Medical History / Comment(s): Mother had leukemia. Sister(s) Family Medical History: Cancer Additional Family Medical History / Comment(s): Sister had breast cancer with mets to her brain. General Exam Limitations: altered mental status General appearance: alert, in no apparent distress Head exam: Present: atraumatic, normocephalic, normal inspection Eye exam: Present: normal appearance, PERRL, EOMI. Absent: scleral icterus, conjunctival injection, periorbital swelling ENT exam: Present: normal exam, mucous membranes dry Neck exam: Present: normal inspection. Absent: tenderness, meningismus, lymphadenopathy Respiratory exam: Present: normal lung sounds bilaterally. Absent: respiratory distress, wheezes, rales, rhonchi, stridor Cardiovascular Exam: Present: regular rate, normal rhythm, normal heart sounds. Absent: systolic murmur, diastolic murmur, rubs, gallop, clicks GI/Abdominal exam: Present: soft, normal bowel sounds. Absent: distended, tenderness, guarding, rebound, rigid Extremities exam: Present: normal inspection, full ROM, normal capillary refill. Absent: tenderness, pedal edema, joint swelling, calf tenderness Back exam: Present: normal inspection Neurological exam: Present: alert, oriented X3, CN II-XII intact Psychiatric exam: Present: normal affect, normal mood Skin exam: Present: warm, dry, intact, normal color. Absent: rash Course Vital Signs 02/11/19 02/11/19 02/11/19 15:35 17:16 19:34 Temperature 98.8 F Pulse Rate 100 88 76 Respiratory 20 18 18 Rate Blood Pressure 107/73 109/68 115/67 O2 Sat by Pulse 99 100 100 Oximetry - Reevaluation(s) Reevaluation #1: 02/11/19 16:11 Medical record is reviewed Reevaluation #2: 02/11/19 19:40 symptoms are not improved Medical Decision Making - Medical Decision Making 78 female to the ED co AMS, unresponsive, not improving here in the ED patient not feeling any better with hydration. Patient will be admitted for continued IV hydration. - Lab Data Result diagrams: 02/11/19 15:42 02/11/19 15:42 Lab Results 02/11/19 02/11/19 02/11/19 Range/Units 15:42 15:42 15:42 WBC 17.0 H (3.8-10.6) k/uL RBC 4.37 (3.80-5.40) m/uL Hgb 13.5 (11.4-16.0) gm/dL Hct 40.3 (34.0-46.0) % MCV 92.0 (80.0-100.0) fL MCH 30.9 (25.0-35.0) pg MCHC 33.6 (31.0-37.0) g/dL RDW 15.4 (11.5-15.5) % Plt Count 462 H (150-450) k/uL Neutrophils % 91 % Lymphocytes % 5 % Monocytes % 3 % Eosinophils % 0 % Basophils % 0 % Neutrophils # 15.5 H (1.3-7.7) k/uL Lymphocytes # 0.8 L (1.0-4.8) k/uL Monocytes # 0.6 (0-1.0) k/uL Eosinophils # 0.0 (0-0.7) k/uL Basophils # 0.0 (0-0.2) k/uL PT (9.0-12.0) sec INR (<1.2) APTT (22.0-30.0) sec Sodium 134 L (137-145) mmol/L Potassium 4.3 (3.5-5.1) mmol/L Chloride 89 L (98-107) mmol/L Carbon Dioxide 33 H (22-30) mmol/L Anion Gap 12 mmol/L BUN 87 H (7-17) mg/dL Creatinine 1.85 H (0.52-1.04) mg/dL Est GFR (CKD-EPI)AfAm 30 (>60 ml/min/1.73 sqM) Est GFR (CKD-EPI)NonAf 26 (>60 ml/min/1.73 sqM) Glucose 187 H (74-99) mg/dL Calcium 9.9 (8.4-10.2) mg/dL Phosphorus 5.4 H (2.5-4.5) mg/dL Magnesium 2.5 H (1.6-2.3) mg/dL Total Bilirubin 0.3 (0.2-1.3) mg/dL AST 27 (14-36) U/L ALT 19 (9-52) U/L Alkaline Phosphatase 57 (38-126) U/L Ammonia 23 (<30) umol/L Creatine Kinase 22 L (30-135) U/L Troponin I (0.000-0.034) ng/mL Total Protein 7.3 (6.3-8.2) g/dL Albumin 4.4 (3.5-5.0) g/dL Urine Color Urine Appearance (Clear) Urine pH (5.0-8.0) Ur Specific [place] (1.001-1.035) Urine Protein (Negative) Urine Glucose (UA) (Negative) Urine Ketones (Negative) Urine Blood (Negative) Urine Nitrite (Negative) Urine Bilirubin (Negative) Urine Urobilinogen (<2.0) mg/dL Ur Leukocyte Esterase (Negative) Urine Opiates Screen (NotDetected) Ur Oxycodone Screen (NotDetected) Urine Methadone Screen (NotDetected) Ur Propoxyphene Screen (NotDetected) Ur Barbiturates Screen (NotDetected) U Tricyclic Antidepress (NotDetected) Ur Phencyclidine Scrn (NotDetected) Ur Amphetamines Screen (NotDetected) U Methamphetamines Scrn (NotDetected) U Benzodiazepines Scrn (NotDetected) Urine Cocaine Screen (NotDetected) U Marijuana (THC) Screen (NotDetected) 02/11/19 02/11/19 02/11/19 Range/Units 15:42 15:42 17:08 WBC (3.8-10.6) k/uL RBC (3.80-5.40) m/uL Hgb (11.4-16.0) gm/dL Hct (34.0-46.0) % MCV (80.0-100.0) fL MCH (25.0-35.0) pg MCHC (31.0-37.0) g/dL RDW (11.5-15.5) % Plt Count (150-450) k/uL Neutrophils % % Lymphocytes % % Monocytes % % Eosinophils % % Basophils % % Neutrophils # (1.3-7.7) k/uL Lymphocytes # (1.0-4.8) k/uL Monocytes # (0-1.0) k/uL Eosinophils # (0-0.7) k/uL Basophils # (0-0.2) k/uL PT 9.5 (9.0-12.0) sec INR 0.9 (<1.2) APTT 21.6 L (22.0-30.0) sec Sodium (137-145) mmol/L Potassium (3.5-5.1) mmol/L Chloride (98-107) mmol/L Carbon Dioxide (22-30) mmol/L Anion Gap mmol/L BUN (7-17) mg/dL Creatinine (0.52-1.04) mg/dL Est GFR (CKD-EPI)AfAm (>60 ml/min/1.73 sqM) Est GFR (CKD-EPI)NonAf (>60 ml/min/1.73 sqM) Glucose (74-99) mg/dL Calcium (8.4-10.2) mg/dL Phosphorus (2.5-4.5) mg/dL Magnesium (1.6-2.3) mg/dL Total Bilirubin (0.2-1.3) mg/dL AST (14-36) U/L ALT (9-52) U/L Alkaline Phosphatase (38-126) U/L Ammonia (<30) umol/L Creatine Kinase (30-135) U/L Troponin I 0.013 (0.000-0.034) ng/mL Total Protein (6.3-8.2) g/dL Albumin (3.5-5.0) g/dL Urine Color Light Yellow Urine Appearance Clear (Clear) Urine pH 5.0 (5.0-8.0) Ur Specific [place] 1.011 (1.001-1.035) Urine Protein Trace H (Negative) Urine Glucose (UA) Negative (Negative) Urine Ketones Negative (Negative) Urine Blood Negative (Negative) Urine Nitrite Negative (Negative) Urine Bilirubin Negative (Negative) Urine Urobilinogen <2.0 (<2.0) mg/dL Ur Leukocyte Esterase Negative (Negative) Urine Opiates Screen Not Detected (NotDetected) Ur Oxycodone Screen Not Detected (NotDetected) Urine Methadone Screen Not Detected (NotDetected) Ur Propoxyphene Screen Not Detected (NotDetected) Ur Barbiturates Screen Not Detected (NotDetected) U Tricyclic Antidepress Not Detected (NotDetected) Ur Phencyclidine Scrn Not Detected (NotDetected) Ur Amphetamines Screen Not Detected (NotDetected) U Methamphetamines Scrn Not Detected (NotDetected) U Benzodiazepines Scrn Not Detected (NotDetected) Urine Cocaine Screen Not Detected (NotDetected) U Marijuana (THC) Screen Not Detected (NotDetected) - Radiology Data Radiology results: report reviewed (CT brain negative for acute disease x-ray abdominal series and chest negative for acute disease), image reviewed Disposition Clinical Impression: Uremia, Altered mental status, Acute exacerbation of chronic obstructive pulmonary disease (COPD), Hypoxia, Cachectic, Weakness, Dehydration Disposition: ADMITTED IP TO THIS [facility] Condition: Fair Is patient prescribed a controlled substance at d/c from ED?: No Referrals: Sweta Greenwood MD [Primary Care Provider] - 1-2 days
[2019-02-11] MEDS ORDERED: SODIUM CHLORIDE 0.9% 1,000 ML IV ONE ×2 (16:12→19:42)
[2019-02-11 16:29] LABS: Basophils % (A) 0 %; Eosinophils % (A) 0 %; HCT 40.3 % (34.0-46.0); HGB 13.5 gm/dL (11.4-16.0); Lymphocytes # (A) 0.8 k/uL (1.0-4.8); Lymphocytes % (A) 5 %; MCH 30.9 pg (25.0-35.0); MCHC 33.6 g/dL (31.0-37.0); Mean Platelet Volume 6.5; Monocytes # (A) 0.6 k/uL (0-1.0); Monocytes % (A) 3 %; Neutrophils # (A) 15.5 k/uL (1.3-7.7); Neutrophils % (A) 91 %; Platelet Count 462 k/uL (150-450); RBC 4.37 m/uL (3.80-5.40); RDW 15.4 % (11.5-15.5)
[2019-02-11 16:38] LABS: Albumin 4.4 g/dL (3.5-5.0); Calcium 9.9 mg/dL (8.4-10.2); Magnesium 2.5 mg/dL (1.6-2.3); Phosphorus 5.4 mg/dL (2.5-4.5); Potassium 4.3 mmol/L (3.5-5.1); Total Bilirubin 0.3 mg/dL (0.2-1.3); Total Protein 7.3 g/dL (6.3-8.2)
[2019-02-11 16:44] LABS: INR 0.9 (<1.2); Prothrombin Time 9.5 sec (9.0-12.0)
[2019-02-11 16:49] LABS: Partial Thromboplastin Time 21.6 sec (22.0-30.0)
--- NOTE | 2019-02-11 16:49 | CT ---
EXAMINATION TYPE: CT brain freda wo con DATE OF EXAM: 02/11/2019 COMPARISON: 11/19/[address] scan HISTORY: Fall headache. Neck pain. CT DLP: 1214.4 mGycm Automated exposure control for dose reduction was used. TECHNIQUE: CT scan of the head and cervical spine are performed without contrast. FINDINGS: There is patchy hypodensity in the periventricular white matter. There is no mass effect nor midline shift. There is no sign of intracranial hemorrhage. The calvarium is intact. Cervical vertebra have normal alignment. There is slight narrowing of the disc spaces. Posterior osage ents are intact. Skull base is intact. There is mucosal thickening in the mastoid sinuses. There is m ild mucosal thickening and mucus retention cyst right side of the sphenoid sinus. IMPRESSION: Cerebral atrophy and chronic small vessel ischemia. No change. Chronic mastoiditis. Negative CT scan cervical spine.
[2019-02-11 17:19] LABS: Appearance,Urine Clear (Clear); Bilirubin,Urine Negative (Negative); Blood,Urine Negative (Negative); Color,Urine Light Yellow; Glucose,Urine (UA) Negative (Negative); Ketones,Urine Negative (Negative); Leukocyte Esterase,Urine Negative (Negative); Nitrite,Urine Negative (Negative); Protein,Urine Trace (Negative); Specific Gravity,Urine 1.011 (1.001-1.035); Urobilinogen,Urine <2.0 mg/dL (<2.0)
[2019-02-11 17:28] LABS: Amphetamine Screen,Urine Not Detected (NotDetected); Barbiturate Screen,Urine Not Detected (NotDetected); Benzodiazepines Screen,Urine Not Detected (NotDetected); Cocaine Screen,Urine Not Detected (NotDetected); Methadone Screen, Urine Not Detected (NotDetected); Opiate Screen,Urine Not Detected (NotDetected); Oxycodone Screen, Urine Not Detected (NotDetected); Phencyclidine Screen,Urine Not Detected (NotDetected); Tricyclic Antidepressant,Urine Not Detected (NotDetected); Urn Cannabinoid Scrn Not Detected (NotDetected)
--- NOTE | 2019-02-11 18:11 | XR ---
EXAMINATION TYPE: XR abdomen acute w cxr DATE OF EXAM: 02/11/2019 COMPARISON: 01/20/2018 HISTORY: Altered mental status TECHNIQUE: Chest x-ray with supine and upright abdomen FINDINGS: There is no heart failure nor confluent pneumonic infiltrate. Costophrenic angles are clear. Thoracic aorta is atheromatous. There are chest leads. There is no sign of intestinal obstruction or pneumope ritoneum. Fecal pattern is normal. There is some osteopenia. There are no pathologic calcifications o jayce the kidneys. IMPRESSION: COPD and pulmonary fibrosis. No acute lung disease. Aneurysmal thoracic aorta. Nonacute abdomen. Chest x-ray probably not changed compared to old exam.
[2019-02-11] MEDS ORDERED: SODIUM CHLORIDE 0.9% 1,000 ML IV STA (19:42)
[2019-02-12] MEDS ORDERED: IPRATROPIUM-ALBUTEROL 3 ML NEB INHALATION PRN (09:22)
[2019-02-12 09:59] VITALS: BMI 16.9
[2019-02-12] MEDS: ENOXAPARIN 30 MG/0.3 ML SYRINGE SQ SCH (10:31)
[2019-02-12] MEDS: LISINOPRIL 2.5 MG TAB PO SCH (11:20)
[2019-02-12] MEDS: DILTIAZEM CD 180 MG CAP.ER.24H PO SCH (11:20)
--- NOTE | 2019-02-12 12:10 | CONS ---
CONSULTATION PULMONARY/CRITICAL CARE CONSULTATION: REASON FOR CONSULTATION: COPD and altered mental status. This is a 78-year-old female who presented to the emergency room via EMS for evaluation of mental status changes. The patient is a very poor historian, even to me today. She apparently was very confused and for that reason, was sent to the emergency room to be evaluated. In addition, she apparently complained of some difficulty with bowel movements, i.e. constipation as well as the difficulty or pain on urination. She also apparently at one point was complaining of abdominal pain. For that reason, she was admitted to the hospital. I was asked to see her because she sees my partner Dr. Greenwood for her underlying COPD. Currently, she states that her COPD is stable. She did not come to the hospital for her COPD. Again, though, she is a very poor historian. She denies any coughing or wheezing. Denies any phlegm production. She is chronically short of breath with any activity. HOME MEDICATIONS: Include aspirin, Zestril, vitamin D3, diltiazem, Pulmicort, Perforomist, DuoNeb, Paxil, and prednisone 10 mg a day. ALLERGIES: Include LEVAQUIN, CODEINE and MEPERIDINE or DEMEROL. PAST MEDICAL HISTORY: Medical problem list includes COPD, hypertension, chronic hypoxemic respiratory failure, home O2 at 2 L/minute , kyphoscoliosis, osteoporosis, multiple vertebral fractures, chronic anemia, insomnia, lower extremity edema, chronic diarrhea, irritable bowel syndrome and a prior history of hyperparathyroidism. She also has a prior history of urinary tract infection. SURGICAL HISTORY: Includes appendectomy, cholecystectomy, hysterectomy, parathyroidectomy, colonoscopy with polypectomy, right shoulder surgery, and normal cardiac cath. SOCIAL HISTORY: Positive for heavy tobacco use. She states she does not smoke currently. She drinks alcohol socially. Denies any illicit drug use. FAMILY HISTORY: Positive for a father with COPD and a mother with leukemia. She also apparently has a sister with breast cancer with METS to the brain. REVIEW OF SYSTEMS: Is somewhat unreliable. CONSTITUTIONAL: Weakness. NEUROLOGIC: Negative. HEENT: Negative. CARDIOVASCULAR: Negative. PULMONARY: Negative. GI: Abdominal pain, constipation. : Dysuria. RHEUMATOLOGIC: Negative. IMMUNOLOGIC: Negative. ENDOCRINOLOGIC: Negative. DERMATOLOGIC: Negative. Current vital signs are reviewed. Temperature is 98.4, heart rate is 95, respiratory rate 16, blood pressure 120/69 mean 86, 2 L saturation 97%. Appears in no acute distress. HEENT: Examination is grossly unremarkable. Mucous membranes are moist. Patient is wearing supplemental oxygen at 2 L. NECK: Supple. Full range of motion. No adenopathy or thyromegaly. Neck veins are flat. CARDIOVASCULAR: Examination reveals regular rhythm and rate. Heart rate 90. S1, S2 normal. No S3, S4, or murmur. LUNGS: Reveal diminished breath sounds throughout. There are a few scattered rhonchi. No wheezes or crackles. Breath sounds are equal bilaterally but diminished. ABDOMEN: Soft. She is nontender on palpation. Abdomen is not distended. Bowel sounds are noted. EXTREMITIES: Intact. No cyanosis, clubbing, or edema. SKIN: Without rash. NEUROLOGIC: Examination is difficult to assess on this patient but appears to be relatively normal. She is verbal. She seems reasonably appropriate. She does move all 4 extremities. LABS: Reviewed. White count 13, hemoglobin 13.5, hematocrit 40.3, platelet count 462,000. PT, INR was 9.5 and 0.9 respectively. Sodium 134, potassium 4.3, chloride 89, CO2 is 33, anion gap is 12. BUN and creatinine were 87 and 1.85, glucose 187, magnesium 2.5. Urine is negative. Drug screen was negative. A head CT and cervical spine CT showed some cerebral atrophy and small-vessel ischemic disease, but nothing acute. An acute abdominal series showed no acute lung disease, COPD, and a nonacute abdomen. Medications are reviewed. She is currently on appropriate medications. I do not believe she needs the Pulmicort and the formoterol. ASSESSMENT: 1. Mental status changes. 2. History of chronic obstructive pulmonary disease, currently inactive. 3. Acute kidney injury. 4. History of hypertension. 5. History of vitamin D deficiency. 6. History of chronic hypoxemic respiratory failure. 7. Kyphoscoliosis. 8. Anorexia/cachexia syndrome. 9. History of osteoporosis. 10.History of vertebral fractures. 11.History of insomnia. 12.History of irritable bowel syndrome. 13.History of hyperparathyroidism, status post parathyroidectomy. PLAN: Please see my orders. The patient is back to her usual pulmonary medications including DuoNeb, Pulmicort and Perforomist. Will continue to follow. Prognosis is guarded. Primary service working on the mental status changes. Her lung disease is currently not active. No additional recommendations are made. MMODL / IJN: [id number] /
[2019-02-12] MEDS: PANTOPRAZOLE 40 MG TABLET PO SCH (14:13)
[2019-02-12] MEDS: HYDROCORTISONE SUCCINATE 100 MG/2 ML VIAL IV SCH ×2 (14:13→20:35)
--- NOTE | 2019-02-12 16:09 | HP ---
HISTORY AND PHYSICAL DATE OF SERVICE: 02/12/2019 CHIEF COMPLAINT: Change in mental status. HISTORY OF PRESENT ILLNESS: This 78-year-old woman with a past medical history of multiple medical problems, including history of asthma, history of CHF, COPD, dementia, hypertension, history of severe COPD, chronic hypoxic respiratory failure, cachexia, idiopathic scoliosis, cholecystectomy, history of anxiety, depression, being followed by Dr. Greenwood in the outpatient setting, is living in an [facility] home, [facility]. The patient was apparently found to be confused and the patient was complaining of weakness and some shortness of breath. The patient was taken to [facility] and admitted for further evaluation and treatment. The patient was recently admitted with confusion and dementia and other associated medical issues also. There is no history of any fever, rigor or chills. The patient is unable to give a detailed coherent history. Most of the history is taken from my discussion with staff and review of the chart at this time. The patient also has significant weakness, and currently the patient weighs only 39 kg with a BMI of 17. PAST MEDICAL HISTORY: 1. Asthma. 2. CHF. 3. COPD. 4. Dementia. 5. Hypertension. 6. History of hypothyroidism. HOME MEDICATIONS: 1. Prednisone 10 mg p.o. daily. 2. Paxil 60 mg p.o. daily. 3. Zestril 2.5 mg daily. 4. Combivent 1 puff q.i.d. p.r.n. 5. DuoNeb q.i.d. p.r.n. 6. Perforomist 20 mcg b.i.d. 7. Cartia XT 180 mg p.o. daily. 8. Vitamin D3 2000 daily. 9. Pulmicort 0.5 b.i.d. 10.Ecotrin 81 mg p.o. daily. ALLERGIES: 1. LEVAQUIN. 2. CODEINE. 3. DEMEROL. FAMILY HISTORY: History of COPD, leukemia. SOCIAL HISTORY: History of alcohol. Previous history of smoking. REVIEW OF SYSTEMS: ENT: No diminished hearing. No diminished vision. CARDIOVASCULAR SYSTEM: No angina, palpitations. RESPIRATORY SYSTEM: As mentioned earlier. GI: No nausea, vomiting. : No dysuria or retention. NERVOUS SYSTEM: As mentioned earlier. ALLERGY/IMMUNOLOGY: No asthma, hayfever. MUSCULOSKELETAL: As mentioned earlier. HEMATOLOGY/ONCOLOGY: No history of anemia. ENDOCRINE: No history of diabetes, hypothyroidism. CONSTITUTIONAL: As mentioned earlier. DERMATOLOGY: Negative. RHEUMATOLOGY: Negative. PSYCHIATRY: As mentioned earlier. PHYSICAL EXAMINATION: Patient alert and oriented x3. The pulse is 101, blood pressure 120/69, respirations 16, temperature 98.4, pulse ox 91% on 2 L. HEENT: Conjunctivae normal. Oral mucosa moist. NECK: No jugular venous distention. No carotid bruit. No lymph node enlargement. CARDIOVASCULAR SYSTEM: S1, S2 muffled. RESPIRATORY SYSTEM: Breath sounds diminished at the bases. A few scattered rhonchi and crackles. ABDOMEN: Soft, scaphoid, non-tender. LEGS: No edema. No swelling. NERVOUS SYSTEM: Diffusely weak and emaciated. SKIN: No ulcer, rash, bleeding. JOINTS: No active deforming arthropathy. LABS: Labs at this time show WBC 17, hemoglobin 13.5, sodium 134, potassium 4.3, creatinine 1.85. Glucose 187. ASSESSMENT: 1. Change in mental status with acute on chronic encephalopathy; possibly metabolic encephalopathy. 2. Dementia. 3. Severe protein-calorie malnutrition with dehydration. 4. Renal failure, acute, with prerenal acute tubular necrosis from dehydration and diminished oral intake. 5. Hyponatremia. 6. History of chronic obstructive pulmonary disease. 7. History of asthma. 8. History of congestive heart failure. 9. History of hypertension. 10.History of hypothyroidism. 11.History of chronic hypoxic respiratory failure, on home oxygen at 2 L nasal cannula. 12.History of cachexia. 13.Idiopathic scoliosis. 14.Osteoporosis. 15.Multiple fractures. 16.History of degenerative joint disease. 17.Chronic diarrhea, irritable bowel syndrome. 18.History of hyperparathyroidism surgery. 19.History of cholecystectomy. 20.History of anxiety, depression. RECOMMENDATIONS AND DISCUSSION: In this 78-year-old woman who presented with multiple medical issues, at this time I recommend to continue the current management, continue with symptomatic treatment. Otherwise at this time optimize the bronchodilator treatment. I would also recommend supplementing vitamins and PT/OT evaluation, possible ECF rehab. I would recommend stress-dose steroids, also, and continue to monitor. At STAT serum cortisol also may be sought. Prognosis guarded because of multiple complex medical issues. Further recommendations to follow. A copy of this dictation is being forwarded to Dr. Greenwood, who is the primary physician. MMODL / IJN: [id number] /
[2019-02-12] MEDS: BUDESONIDE 0.5 MG/2 ML NEBU INHALATION SCH (19:43)
[2019-02-12] MEDS: IPRATROPIUM-ALBUTEROL 3 ML NEB INHALATION PRN (19:43)
[2019-02-12] MEDS ORDERED: FORMOTEROL FUMARATE 20 MCG/2 ML NEBU INHALATION SCH (20:00)
[2019-02-13 04:38] LABS: Glucose,Whole Blood 111 mg/dL (75-99)
[2019-02-13 05:07] LABS: Basophils % (A) 0 %; Eosinophils # (A) 0.1 k/uL (0-0.7); Eosinophils % (A) 0 %; HCT 36.9 % (34.0-46.0); Lymphocytes # (A) 0.9 k/uL (1.0-4.8); Lymphocytes % (A) 3 %; MCH 30.5 pg (25.0-35.0); MCHC 32.7 g/dL (31.0-37.0); MCV 93.5 fL (80.0-100.0); Mean Platelet Volume 6.6; Monocytes # (A) 1.2 k/uL (0-1.0); Monocytes % (A) 5 %; Neutrophils # (A) 23.9 k/uL (1.3-7.7); Neutrophils % (A) 91 %; Platelet Count 447 k/uL (150-450); RBC 3.95 m/uL (3.80-5.40); RDW 15.1 % (11.5-15.5); WBC 26.3 k/uL (3.8-10.6)
[2019-02-13] MEDS: HYDROCORTISONE SUCCINATE 100 MG/2 ML VIAL IV SCH ×3 (05:28→21:28)
[2019-02-13] MEDS: BUDESONIDE 0.5 MG/2 ML NEBU INHALATION SCH ×2 (07:39→19:20)
[2019-02-13] MEDS: IPRATROPIUM-ALBUTEROL 3 ML NEB INHALATION PRN ×2 (07:39→19:20)
[2019-02-13] MEDS: CHOLECALCIFEROL 1,000 UNIT TAB PO SCH (08:56)
[2019-02-13] MEDS: LISINOPRIL 2.5 MG TAB PO SCH (08:57)
[2019-02-13] MEDS: MULTIVITAMINS, THERA 1 EACH TAB PO SCH (08:57)
[2019-02-13] MEDS: FOLIC ACID 1 MG TAB PO SCH (08:57)
[2019-02-13] MEDS: ENOXAPARIN 30 MG/0.3 ML SYRINGE SQ SCH (08:57)
[2019-02-13] MEDS: PANTOPRAZOLE 40 MG TABLET PO SCH (08:57)
[2019-02-13] MEDS: DILTIAZEM CD 180 MG CAP.ER.24H PO SCH (08:57)
[2019-02-13] MEDS: PARoxetine 20 MG TAB PO SCH (08:57)
[2019-02-13] MEDS: THIAMINE 100 MG TAB PO SCH (08:57)
[2019-02-13] MEDS ORDERED: ASPIRIN 81 MG PO SCH (09:00)
--- NOTE | 2019-02-13 10:48 | P.PN ---
Subjective Progress Note Date: 02/13/19 Principal diagnosis: Altered mental status The patient is seen today 02/13/2019 in follow-up on the regular medical floor. She is currently sitting up in bed. Awake and alert in no acute distress. They did call an A team on her earlier this morning for a bloody bowel movement. She remained stable. Blood pressure 140/79. Hemoglobin 12.0 down from 13.5. White count 26.3. She denies any worsening shortness of breath, cough or congestion. She is maintaining good O2 saturations in the mid to upper 90s on 2 L/m per nasal cannula. She's afebrile. She remains on DuoNeb inhalations, Pulmicort inhalations, Solu-Cortef. Objective - Vital Signs Vital signs: Vital Signs Temp 98.4 F 02/13/19 05:00 Pulse 105 H 02/13/19 07:52 Resp 16 02/13/19 05:00 BP 140/79 02/13/19 05:00 Pulse Ox 97 02/13/19 07:39 Intake & Output 02/12/19 02/13/19 02/13/19 18:59 06:59 18:59 Intake Total 1050 765 Balance 1050 765 Weight 39.463 kg Intake: Intake, IV Titration 600 175 Amount Sodium Chloride 0.9% 1, 600 175 000 ml @ 100 mls/hr IV . Q10H ONE Rx#:[id number] Oral 450 590 Other: Voiding Method Diaper Diaper Diaper # Voids 2 3 # Bowel Movements 1 3 - Exam GENERAL EXAM: Alert, frail, cachectic 78-year-old female patient, on 2 L, comfortable in no apparent distress. HEAD: Normocephalic. EYES: Normal reaction of pupils, equal size. NOSE: Clear with pink turbinates. THROAT: No erythema or exudates. NECK: No masses, no JVD. CHEST: Chest wall deformity. LUNGS: Equal air entry with faint end expiratory wheeze, diminished. CVS: S1 and S2 normal with no audible murmur, regular rhythm. ABDOMEN: No hepatosplenomegaly, normal bowel sounds, no guarding or rigidity. SPINE: Kyphoscoliosis SKIN: No rashes CENTRAL NERVOUS SYSTEM: No focal deficits, tone is normal in all 4 extremities. EXTREMITIES: There is no peripheral edema. No clubbing, no cyanosis. Peripheral pulses are intact. - Labs CBC & Chem 7: 02/13/19 04:51 02/11/19 15:42 Labs: Abnormal Lab Results - Last 24 Hours (Table) 02/13/19 02/13/19 Range/Units 04:35 04:51 WBC 26.3 H (3.8-10.6) k/uL Neutrophils # 23.9 H (1.3-7.7) k/uL Lymphocytes # 0.9 L (1.0-4.8) k/uL Monocytes # 1.2 H (0-1.0) k/uL POC Glucose (mg/dL) 111 H (75-99) mg/dL Assessment and Plan Assessment: Impression: #1 Altered mental status of unclear etiology. #2 Acute GI bleed. #3 Chronic obstructive pulmonary disease, currently inactive and stable. #4 Acute kidney injury. #5 History of hypertension. #6 Vitamin D deficiency. #7 Chronic hypoxemic respiratory failure secondary to COPD. #8 Kyphoscoliosis. #9 Anorexia/cachexia syndrome. #10 Osteoporosis. #11 History of vertebral fractures. #12 Irritable bowel syndrome. #13 History of hyperparathyroidism, status post parathyroidectomy. #14 Acute GI bleed. Plan: The patient was seen and evaluated by Dr. Ortez. She is currently stable from the pulmonary standpoint. GI consult pending. We will continue to follow make further recommendations based on her clinical status. I, the cosigning physician, performed a history & physical examination of the patient. Lungs sounds with faint end expiratory wheeze, diminished. Maintaining good O2 saturations in the 90s on 2 L/m per nasal cannula. I discussed the assessment and plan of care with my nurse practitioner, Akilah Areavlo. I attest to the above note as dictated by her.
[2019-02-13 10:55] LABS: HCT 35.2 % (34.0-46.0); HGB 11.8 gm/dL (11.4-16.0); MCH 31.6 pg (25.0-35.0); MCHC 33.5 g/dL (31.0-37.0); MCV 94.3 fL (80.0-100.0); Mean Platelet Volume 6.4; Platelet Count 392 k/uL (150-450); RBC 3.73 m/uL (3.80-5.40); RDW 15.1 % (11.5-15.5); WBC 27.4 k/uL (3.8-10.6)
[2019-02-13] MEDS ORDERED: ACETAMINOPHEN TAB 325 MG TAB PO PRN (12:53)
[2019-02-13] MEDS: SODIUM CHLORIDE 0.9% 1,000 ML IV SCH (13:02)
[2019-02-13] MEDS: IOPAMIDOL CONTRAST (ORAL USE) VIAL PO PRN ×2 (14:15→15:33)
[2019-02-13 16:09] LABS: HCT 37.6 % (34.0-46.0); MCH 30.7 pg (25.0-35.0); MCV 96.1 fL (80.0-100.0); Mean Platelet Volume 7.1; Platelet Count 404 k/uL (150-450); RBC 3.91 m/uL (3.80-5.40); RDW 15.4 % (11.5-15.5); WBC 28.8 k/uL (3.8-10.6)
--- NOTE | 2019-02-13 16:42 | CT ---
EXAMINATION TYPE: CT abdomen pelvis wo con DATE OF EXAM: 02/13/2019 COMPARISON: None HISTORY: abdominal pain CT DLP: 251.60 mGycm Automated exposure control for dose reduction was used. TECHNIQUE: Helical acquisition of images was performed from the lung bases through the pelvis. FINDINGS: There is emphysema seen at the lung bases. There is some pulmonary scarring and atelectasis at the po sterior lung bases. Heart size is normal. There is no pleural effusion. Liver shows no focal defect. There are clips from cholecystectomy. Stomach appears normal. Spleen is intact. There is no sign of pancreatic mass. There is oral contrast throughout the small bowel. There is no sign of a mechanical bowel obstruction . Bladder distends smoothly. There are numerous diverticula in the sigmoid colon. There is no sign of diverticulitis. There is no inguinal hernia. There is no ascites or free air. Exam is limited due to motion. Kidneys have normal size. There is no hydronephrosis. There is 2 cm cortical cyst lateral left kidney . Ureters are not dilated. Abdominal aorta is atheromatous. There is no retroperitoneal adenopathy. T here appears to be wall thickening of the ascending colon. There is 10% depression superior endplate of L3 vertebra with apparent chip fracture of the posterior superior endplate of L3 vertebral body. There is 25% compression deformity of T11 vertebra. The bony pelvis is intact. IMPRESSION: POSSIBLE WALL THICKENING OF THE ASCENDING COLON THAT COULD RELATE TO COLITIS. THERE IS SIGMOID DIVERT ICULOSIS WITHOUT DIVERTICULITIS. NO EVIDENCE OF A BOWEL OBSTRUCTION. FIBROSIS AND PULMONARY EMPHYSEMA.
--- NOTE | 2019-02-13 17:05 | PN ---
PROGRESS NOTE DATE OF SERVICE: 02/13/2019. This 78-year-old woman who was admitted with change in mental status as well as acute on chronic encephalopathy also had dementia. The patient is also complaining abdominal pain. Last night the patient had a significant amount of maroon-colored stools, indicating GI bleed. The hemoglobin was performed which showed 13.5, 12 and 11.8. White count is elevated to 27.4. The patient is being closely monitored at this time. Creatinine is 1.85. Past medical history reviewed. REVIEW OF SYSTEMS: CARDIOVASCULAR SYSTEM: No angina, palpitations. RESPIRATORY SYSTEM: As mentioned earlier. GI: As mentioned earlier. : No dysuria or retention. NERVOUS SYSTEM: No numbness, weakness. CURRENT MEDICATIONS: Reviewed. They include: 1. Aspirin. 2. Lovenox. 3. DuoNeb q.i.d. and p.r.n. 4. Pulmicort. 5. Vitamin D3. 6. Cardizem CD. 7. Folic acid. 8. Solu-Cortef. 9. Zestril. 10.Multivitamins. 11.Protonix. 12.Paxil. 13.Vitamin B1. PHYSICAL EXAMINATION: Patient is alert, oriented x3. Pulse 105, blood pressure 115/71, respiration 22, temperature 98.6, pulse ox 99% on 2 L. HEENT: Conjunctivae normal. NECK: No jugular venous distention. No carotid bruit. No lymph node enlargement. CARDIOVASCULAR SYSTEM: S1, S2 muffled. RESPIRATORY SYSTEM: Breath sounds diminished at the bases. Bilateral scattered rhonchi and crackles. Breathing effort increased. ABDOMEN: Soft. Mild diffuse tenderness present. LEGS: No edema. No swelling. NERVOUS SYSTEM: Higher functions as mentioned earlier. Moves all 4 limbs. Diffuse weakness and wasting also present. BMI is only 17. LABS: WBC 27.4, hemoglobin 11.8. Other labs are noted. Drug screen is negative. ASSESSMENT: 1. Change in mental status with acute on chronic encephalopathy, possibly metabolic encephalopathy. 2. Acute gastrointestinal bleed. Hemoglobin is being closely monitored. No anemia currently. 3. Dementia. 4. Severe protein-calorie malnutrition and dehydration, present on admission. 5. Acute renal failure with prerenal acute tubular necrosis from dehydration and diminished oral intake, present on admission. 6. Hyponatremia. 7. History of chronic obstructive pulmonary disease. 8. History of asthma, chronic intermittent. 9. History of congestive heart failure. 10.History of hypertension. 11.History of hypothyroidism. 12.History of chronic hypoxic respiratory failure, on home oxygen at 2 L nasal cannula. 13.History of cachexia. 14.Idiopathic scoliosis. 15.Osteoporosis. 16.Multiple vertebral fractures. 17.History of degenerative joint disease. 18.Chronic diarrhea, irritable bowel syndrome. 19.History of hyperparathyroidism surgery. 20.History of cholecystectomy. 21.History of anxiety, depression. 22.NO CODE, NO CPR, NO VENT. RECOMMENDATIONS AND DISCUSSION: In this 78-year-old woman who presented with multiple complex medical issues, at this time we will monitor the patient closely, continue the current management, continue with symptomatic treatment. Otherwise, at this time I recommend monitoring hemoglobin serially. White count is also elevated. I would also recommend a CT scan of the abdomen and pelvis. Gastroenterology consultation. Cautious IV fluids. Closely follow with Pulmonary. Guarded prognosis because of multiple complex medical conditions. Further recommendations to follow. Discussed with the patient. Patient is currently NO CODE. MMODL / IJN: [id number] /
--- NOTE | 2019-02-13 22:26 | P.CONS ---
History of Present Illness - Reason for Consult Consult date: 02/13/19 Blood per rectum Requesting physician: Devon Badillo - Chief Complaint Altered mental status - History of Present Illness 78-year-old female with a medical history significant for anxiety and depression, COPD, hypertension, dementia, congestive heart failure who was sent in for further evaluation due to complaints of shortness of breath and weakness and altered mental status. Currently the patient is being treated for exacerbation of her COPD. She was seen on the medical for with the patient had 2 episodes of painless bright red blood per rectum. At that time the patient was sent for computed tomography scan of the abdomen with findings of diverticulosis without any evidence of diverticulitis, and wall thickening of the ascending colon which could be related to colitis. The patient denies any associated nausea or vomiting but does report some cramping abdominal pain. Of note history is limited from the patient given her underlying mentation and has been taken in discussion with the nursing staff, the medical team, and in review of the EMR. Laboratory evaluation on presentation significant for a hemoglobin of 11.8, WBC 27.4 on steroid therapy, platelet count 3 92,000, INR 0.9, total bilirubin 2.5, alkaline phosphatase 57, AST 27 and ALT 19. Review of Systems ROS unobtainable: due to mental status (Patient with underlying dementia and presentation for altered mental status) Past Medical History Past Medical History: Asthma, Heart Failure, COPD, Dementia, Hypertension, Respiratory Disorder, Thyroid Disorder Additional Past Medical History / Comment(s): Severe COPD, chronic hypoxic respiratory failure, home oxygen at 2L/NC ATC, tachycardia r/t COPD, cachexia, idiopathic scoliosis/kyphoscoliosis, osteoporosis, vertebral fractures, L shoulder rotator cuff problem, chronic anemia, insomnia, lower extremity edema, chronic diarrhea, IBS, previous history of hyperparathyroidism with surgery, urinary incontinence, stool incontinence, UTI. History of Any Multi-Drug Resistant Organisms: None Reported Past Surgical History: Appendectomy, Cholecystectomy, Heart Catheterization, Hysterectomy, Orthopedic Surgery Additional Past Surgical History / Comment(s): parathyroidectomy, colonoscopy with benign polypectomy, R shoulder birthmark removal, 2013 cardiac cath-normal Past Anesthesia/Blood Transfusion Reactions: Postoperative Nausea & Vomiting (PONV) Additional Past Anesthesia/Blood Transfusion Reaction / Comm: Pt believes she received blood years ago. Smoking Status: Former smoker - Past Family History Father Family Medical History: COPD Mother Family Medical History: Cancer Additional Family Medical History / Comment(s): Mother had leukemia. Sister(s) Family Medical History: Cancer Additional Family Medical History / Comment(s): Sister had breast cancer with mets to her brain. Medications and Allergies Home Medications Medication Instructions Recorded Confirmed Type Aspirin EC [Ecotrin Low Dose] 81 mg PO DAILY 09/07/16 02/11/19 History Lisinopril [Zestril] 2.5 mg PO DAILY 09/07/16 02/11/19 History Cholecalciferol (Vitamin D3) 2,000 unit PO DAILY 08/31/18 02/11/19 History [Vitamin D3] Diltiazem HCl [Cartia Xt] 180 mg PO DAILY 08/31/18 02/11/19 History Budesonide [Pulmicort] 0.5 mg INHALATION RT-BID 11/19/18 02/11/19 History Formoterol Fumarate [Perforomist] 20 mcg INHALATION RT-BID 11/19/18 02/11/19 History Ipratropium-Albuterol Nebulize 3 ml INHALATION RT-QID PRN 11/19/18 02/11/19 History [Duoneb 0.5 mg-3 mg/3 ml Soln] Ipratropium/Albuterol Sulfate 1 puff INHALATION RT-QID PRN 11/19/18 02/11/19 History [Combivent Respimat Inhaler] PARoxetine [Paxil] 60 mg PO DAILY 11/19/18 02/11/19 History predniSONE 10 mg PO DAILY 11/19/18 02/11/19 History Allergies Allergy/AdvReac Type Severity Reaction Status Date / Time levofloxacin [From Levaquin] Allergy Swelling Verified 02/11/19 16:13 codeine AdvReac Nausea & Verified 02/11/19 16:13 Vomiting meperidine [From Demerol] AdvReac "HYPER" Verified 02/11/19 16:13 Physical Exam Vitals: Vital Signs Temp Pulse Pulse Resp BP Pulse Ox 02/13/19 11:45 98.6 F 105 H 22 115/71 99 02/13/19 07:52 105 H 02/13/19 07:39 105 H 97 02/13/19 05:00 98.4 F 98 16 140/79 96 02/13/19 04:38 98.4 F 98 20 140/79 96 02/12/19 22:41 97.5 F L 105 H 20 162/67 97 02/12/19 20:30 97.7 F 110 H 20 126/68 96 02/12/19 19:56 100 02/12/19 19:44 104 H 97 Intake and Output 02/12/19 02/13/19 02/13/19 22:59 06:59 14:59 Intake Total 175 590 450 Balance 175 590 450 Intake: Intake, IV Titration 175 Amount Sodium Chloride 0.9% 1, 175 000 ml @ 100 mls/hr IV . Q10H ONE Rx#:[id number] Oral 590 450 Other: Voiding Method Diaper Diaper # Voids 2 3 2 # Bowel Movements 3 1 On physical examination, patient appears comfortable in no apparent distress. HEAD: Normocephalic, atraumatic. EYES: No scleral icterus. No conjunctival injection. MOUTH: No lesions, tongue midline. NECK: Trachea midline, no gross abnormalities. CHEST: Decreased air entry in all lung oconnor. HEART: S1-S2 appreciated, no murmurs appreciated. ABDOMEN: Soft, thin, mildly tender to palpation. Bowel sounds are positive. No organomegaly. No guarding or rigidity. EXTREMITIES: No pedal edema. SKIN: No rashes, no jaundice. NEUROLOGIC: Alert and oriented to person. Results CBC & Chem 7: 02/13/19 15:52 02/11/19 15:42 Labs: Abnormal Lab Results - Last 24 Hours (Table) 02/13/19 02/13/19 02/13/19 Range/Units 04:35 04:51 10:31 WBC 26.3 H 27.4 H (3.8-10.6) k/uL RBC 3.73 L (3.80-5.40) m/uL Neutrophils # 23.9 H (1.3-7.7) k/uL Lymphocytes # 0.9 L (1.0-4.8) k/uL Monocytes # 1.2 H (0-1.0) k/uL POC Glucose (mg/dL) 111 H (75-99) mg/dL CT scan - abdomen: report reviewed (Computed tomography scan abdomen with findings of diverticulosis without diverticulitis, and thickening of the as cending colon which could be related to colitis.) Assessment and Plan (1) Blood per rectum Narrative/Plan: 78-year-old female with multiple medical comorbidities admitted for altered mental status and currently receiving treatment for exacerbation of COPD who had 2 episodes of bright red blood per rectum, during her hospitalization. Hemoglobin normal this morning 11.8. She does report some cramping abdominal pain with the episode. Denies any prior episodes and past endoscopic history is unclear. Computed tomography scan of the abdomen performed in evaluation did show diverticulosis without diverticulitis as well as some thickening of the ascending colon which could relate to colitis. Unclear etiology, may be diverticular in nature, however cannot exclude colitis with possibility of ischemia, other possibilities include AVM, infectious colitis, or other etiology. Current Visit: Yes Status: Acute Code(s): K62.5 - HEMORRHAGE OF ANUS AND RECTUM SNOMED Code(s): 51968667 (2) Diverticulosis Current Visit: Yes Status: Acute Code(s): K57.90 - DVRTCLOS OF INTEST, PART UNSP, W/O PERF OR ABSCESS W/O BLEED SNOMED Code(s): 458257079 (3) Elevated bilirubin Narrative/Plan: Isolated hyperbilirubinemia of unknown significance. We will order ultrasound of the abdomen and viral hepatitis panel for further evaluation. Current Visit: Yes Status: Acute Code(s): R17 - UNSPECIFIED JAUNDICE SNOMED Code(s): 53919501 Plan: Supportive care Nothing by mouth Continue to monitor hemoglobin and transfuse as needed Will start empiric antibiotic therapy with ceftriaxone and Flagyl as ischemia cannot be excluded and in the setting of findings of ascending colitis on computed tomography scan No plans for endoscopic evaluation at this time Continue to monitor stool output Viral hepatitis panel ordered Ultrasound abdomen ordered Hepatic function panel with fractionation of bilirubin ordered Thank you for allowing us to participate in the care of the patient we will continue to follow
[2019-02-13 22:29] LABS: HCT 33.7 % (34.0-46.0); HGB 11.1 gm/dL (11.4-16.0); MCHC 33.1 g/dL (31.0-37.0); MCV 93.9 fL (80.0-100.0); Mean Platelet Volume 6.5; Platelet Count 382 k/uL (150-450); RBC 3.59 m/uL (3.80-5.40); RDW 15.1 % (11.5-15.5); WBC 29.1 k/uL (3.8-10.6)
[2019-02-13 23:18] LABS: Anisocytosis (M) Present; Band Neutrophils % 2 %; Hypochromasia (M) Present; Lymphocytes # (M) 1.75 k/uL (1.0-4.8); Monocytes # (M) 0.87 k/uL (0-1.0); Neutrophils % (M) 89 %; Nucleated Red Blood Cells 0 /100 WBC (0-0); Total Cells Counted 100
[2019-02-14] MEDS: metroNIDAZOLE-NS PMX 500 MG in SALINE 1 100ML.BAG IVPB SCH ×4 (00:20→23:43)
[2019-02-14 04:05] LABS: HCT 33.1 % (34.0-46.0); HGB 10.3 gm/dL (11.4-16.0); MCH 29.1 pg (25.0-35.0); MCV 93.7 fL (80.0-100.0); Mean Platelet Volume 7.4; Platelet Count 364 k/uL (150-450); RBC 3.54 m/uL (3.80-5.40); RDW 15.5 % (11.5-15.5); WBC 28.8 k/uL (3.8-10.6)
[2019-02-14 04:15] LABS: Albumin 3.2 g/dL (3.5-5.0); Bilirubin, Delta 0.2 mg/dL (0.0-0.2); Calcium 9.5 mg/dL (8.4-10.2); Potassium 3.8 mmol/L (3.5-5.1); Total Bilirubin 0.2 mg/dL (0.2-1.3); Total Protein 5.5 g/dL (6.3-8.2)
[2019-02-14] MEDS: HYDROCORTISONE SUCCINATE 100 MG/2 ML VIAL IV SCH ×3 (05:10→21:36)
[2019-02-14] MEDS: BUDESONIDE 0.5 MG/2 ML NEBU INHALATION SCH ×2 (07:44→20:04)
--- NOTE | 2019-02-14 08:26 | US ---
EXAMINATION TYPE: US abdomen complete DATE OF EXAM: 02/14/2019 COMPARISON: NONE CLINICAL HISTORY: elevated bilirubin. elevated labs EXAM MEASUREMENTS: Liver Length: 17.2 cm Gallbladder Wall: surgically absent CBD: 1.0 cm Spleen: not seen Right Kidney: 8.2 x 3.7 x 3.4 cm Left Kidney: not seen cm Very thin patient with altered mental status that could not cooperate with positioning Pancreas: Pancreatic head and tail are not seen Liver: wnl Gallbladder: Surgically absent Evidence for sonographic Sanchez's sign: no CBD: upper limits for post cholecystectomy Spleen: not seen due to patient positioning and bowel gas Right Kidney: multiple cysts, largest = 2.2cm inferior pole cyst . Poor cortical medullary different iation of the right kidney. No hydronephrosis. Cortical renal thinning is seen. Left Kidney: not seen due to patient positioning and bowel gas Upper IVC: wnl Abd Aorta: wnl The liver is homogenous. The intrahepatic portion of the IVC and proximal abdominal aorta are within normal limits. Common bile duct is upper limits of normal size. Gallbladder surgically absent. The v isualized portions of the pancreas are homogenous. Pancreatic head is in tail are not seen. Right kid peter demonstrates no evidence of hydronephrosis. IMPRESSION: 1. Common bile duct is upper limits of normal for postcholecystectomy status measuring up to 1.0 cm. Pancreatic head is not well-defined on ultrasound. MRCP is recommended for evaluation for obstructing distal mass or stricture. If the patient can't have contrast MRCP with and without contrast would be recommended. 2. Sonographic sequela medical renal disease with diminished cortical medullary differentiation and m ild cortical renal thinning. Benign-appearing right renal cysts are incidentally noted. 3. Nonvisualization of the spleen in left kidney secondary to overlying bowel gas.
[2019-02-14] MEDS: PARoxetine 20 MG TAB PO SCH (10:18)
[2019-02-14] MEDS: CHOLECALCIFEROL 1,000 UNIT TAB PO SCH (10:18)
[2019-02-14] MEDS: DILTIAZEM CD 180 MG CAP.ER.24H PO SCH (10:18)
[2019-02-14] MEDS: LISINOPRIL 2.5 MG TAB PO SCH (10:18)
[2019-02-14] MEDS: PANTOPRAZOLE 40 MG TABLET PO SCH (10:19)
[2019-02-14] MEDS: SODIUM CHLORIDE 0.9% 1,000 ML IV SCH (10:26)
--- NOTE | 2019-02-14 11:17 | P.PN ---
Subjective Progress Note Date: 02/14/19 Principal diagnosis: Hematochezia, diverticulosis, elevated bilirubin 78-year-old female admitted with altered mental status treatment for exacerbation of COPD O2 dependent IV steroids, bright red blood per rectum with crampy abdominal pain CT reported diverticulosis thickening of ascending colon possible colitis. Hgb 10.3 earlier this morning. Nursing reports 2 burgundy BMs since midnight. Presently NPO repeat CBC pending. Patient reports mild mid to lower abdominal discomfort more lower right than left. Afebrile. Objective - Vital Signs Vital signs: Vital Signs Temp 98.6 F 02/14/19 04:53 Pulse 98 02/14/19 04:53 Resp 16 02/14/19 04:53 BP 109/70 02/14/19 04:53 Pulse Ox 97 02/14/19 04:53 Intake & Output 02/13/19 02/14/19 02/14/19 18:59 06:59 18:59 Intake Total 450 1040 Balance 450 1040 Intake: Intake, IV Titration 450 Amount Sodium Chloride 0.9% 1, 300 000 ml @ 50 mls/hr IV . Q20H [facility] Rx#:[id number] cefTRIAXone 1 gm In 50 Sodium Chloride 0.9% 50 ml @ 100 mls/hr IVPB Q24H [facility] Rx#:[id number] metroNIDAZOLE-NS PMX 500 100 mg In Saline 1 100ml.bag @ 100 mls/hr IVPB Q8HR [facility] Rx#:[id number] Oral 450 590 Other: Voiding Method Diaper Diaper # Voids 2 3 # Bowel Movements 1 - Exam General appearance: The patient is alert, oriented, in no acute distress. HET: Head is normocephalic and atraumatic. Pupils are equal and reactive. Oropharynx is clear without lesions. Neck: Supple without lymphadenopathy. Trachea midline. Heart: S1 S2. Regular rate and rhythm. Lungs: Diminished in bases bilaterally. Abdomen: Soft, nontender, nondistended with bowel sounds. No peritoneal signs. No palpable organomegaly or masses. Extremities: Normal skin color and turgor. No cyanosis, rash, ulceration, c lubbing, or edema. Radial and pedal pulses are 2/4 bilaterally. Neurological: No focal deficits. Strength and sensation are grossly intact. - Labs CBC & Chem 7: 02/14/19 03:40 02/14/19 03:40 Labs: Abnormal Lab Results - Last 24 Hours (Table) 02/13/19 02/13/19 02/13/19 Range/Units 10:31 15:52 22:00 WBC 27.4 H 28.8 H 29.1 H (3.8-10.6) k/uL RBC 3.73 L 3.59 L (3.80-5.40) m/uL Hgb 11.1 L (11.4-16.0) gm/dL Hct 33.7 L (34.0-46.0) % Neutrophils # (Manual) 26.40 H (1.3-7.7) k/uL Carbon Dioxide (22-30) mmol/L BUN (7-17) mg/dL Glucose (74-99) mg/dL Total Protein (6.3-8.2) g/dL Albumin (3.5-5.0) g/dL 02/14/19 02/14/19 Range/Units 03:40 03:40 WBC 28.8 H (3.8-10.6) k/uL RBC 3.54 L (3.80-5.40) m/uL Hgb 10.3 L (11.4-16.0) gm/dL Hct 33.1 L (34.0-46.0) % Neutrophils # (Manual) (1.3-7.7) k/uL Carbon Dioxide 32 H (22-30) mmol/L BUN 32 H (7-17) mg/dL Glucose 140 H (74-99) mg/dL Total Protein 5.5 L (6.3-8.2) g/dL Albumin 3.2 L (3.5-5.0) g/dL Assessment and Plan (1) Abdominal pain Narrative/Plan: Acute lower abdominal pain altered mental status exacerbation of COPD O2 dependent leukocytosis IV steroids, bright red blood per rectum with CT imaging reporting colonic diverticulosis without diverticulitis thickening of ascending colon possible self limiting infectious colitis possible ischemic possible diverticular other possibilities including bleeding AVM cannot be excluded. Patient actively passing burgundy colored BMs; 2 since midnight with decreased hemoglobin. Current Visit: Yes Status: Acute Code(s): R10.9 - UNSPECIFIED ABDOMINAL PAIN SNOMED Code(s): 86506366 (2) Blood per rectum Current Visit: Yes Status: Acute Code(s): K62.5 - HEMORRHAGE OF ANUS AND RECTUM SNOMED Code(s): 42231900 (3) Diverticulosis Current Visit: Yes Status: Acute Code(s): K57.90 - DVRTCLOS OF INTEST, PART UNSP, W/O PERF OR ABSCESS W/O BLEED SNOMED Code(s): 819377738 (4) Acute blood loss anemia Current Visit: Yes Status: Acute Code(s): D62 - ACUTE POSTHEMORRHAGIC ANEMIA SNOMED Code(s): 056479084 Plan: 1. CBC monitoring. Continue with IV antibiotics ceftriaxone and Flagyl. Protonix 40 mg daily. NPO except ice chips. We'll follow with you. Assessment and plan a care discussed with Dr. Dalal
[2019-02-14 12:31] LABS: Hepatitis A Antibody IgM Non-Reactive (Non-Reactive); Hepatitis B Core IgM Non-Reactive (Non-Reactive); Hepatitis B Surface Antigen Non-Reactive (Non-Reactive); Hepatitis C IgG Antibody Non-Reactive (Non-Reactive)
[2019-02-14 12:51] LABS: HCT 32.5 % (34.0-46.0); HGB 10.9 gm/dL (11.4-16.0); MCH 31.1 pg (25.0-35.0); MCHC 33.5 g/dL (31.0-37.0); MCV 92.9 fL (80.0-100.0); Platelet Count 360 k/uL (150-450); RDW 15.3 % (11.5-15.5); WBC 28.9 k/uL (3.8-10.6)
[2019-02-14] MEDS: THIAMINE 100 MG TAB PO SCH (13:12)
[2019-02-14] MEDS: MULTIVITAMINS, THERA 1 EACH TAB PO SCH (13:12)
[2019-02-14] MEDS: FOLIC ACID 1 MG TAB PO SCH (13:12)
--- NOTE | 2019-02-14 14:18 | P.PN ---
Subjective Progress Note Date: 02/14/19 Principal diagnosis: Altered mental status The patient is seen today 02/13/2019 in follow-up on the regular medical floor. She is currently sitting up in bed. Awake and alert in no acute distress. They did call an A team on her earlier this morning for a bloody bowel movement. She remained stable. Blood pressure 140/79. Hemoglobin 12.0 down from 13.5. White count 26.3. She denies any worsening shortness of breath, cough or congestion. She is maintaining good O2 saturations in the mid to upper 90s on 2 L/m per nasal cannula. She's afebrile. She remains on DuoNeb inhalations, Pulmicort inhalations, Solu-Cortef. The patient is seen today 02/14/2019 in follow-up on the regular medical floor. She is currently resting comfortably in bed. Awake and alert in no acute distress. She is maintaining good O2 saturations in the upper 90s on room air. She's afebrile. Hemodynamically stable. White count 28.9. Hemoglobin 10.9. Sodium 142. Potassium 3.8. Hepatitis screen negative. She is still having some yasmin stools. The patient abdominal ultrasound revealed possible obstructing distal mass or stricture of the common bile duct. MRCP as recommended. GI services are on the case. Objective - Vital Signs Vital signs: Vital Signs Temp 97.8 F 02/14/19 12:28 Pulse 97 02/14/19 13:15 Resp 20 02/14/19 13:15 BP 160/95 02/14/19 13:15 Pulse Ox 97 02/14/19 13:15 Intake & Output 02/13/19 02/14/19 02/14/19 18:59 06:59 18:59 Intake Total 450 1040 Balance 450 1040 Weight 39.463 kg Intake: Intake, IV Titration 450 Amount Sodium Chloride 0.9% 1, 300 000 ml @ 50 mls/hr IV . Q20H [facility] Rx#:[id number] cefTRIAXone 1 gm In 50 Sodium Chloride 0.9% 50 ml @ 100 mls/hr IVPB Q24H [facility] Rx#:[id number] metroNIDAZOLE-NS PMX 500 100 mg In Saline 1 100ml.bag @ 100 mls/hr IVPB Q8HR [facility] Rx#:[id number] Oral 450 590 Other: Voiding Method Diaper Diaper Diaper # Voids 2 3 # Bowel Movements 1 - Exam GENERAL EXAM: Alert, frail, cachectic 78-year-old female patient, on room air, comfortable in no apparent distress. HEAD: Normocephalic. EYES: Normal reaction of pupils, equal size. NOSE: Clear with pink turbinates. THROAT: No erythema or exudates. NECK: No masses, no JVD. CHEST: Chest wall deformity. LUNGS: Equal air entry with faint end expiratory wheeze, diminished. CVS: S1 and S2 normal with no audible murmur, regular rhythm. ABDOMEN: No hepatosplenomegaly, normal bowel sounds, no guarding or rigidity. SPINE: Kyphoscoliosis SKIN: No rashes CENTRAL NERVOUS SYSTEM: No focal deficits, tone is normal in all 4 extremities. EXTREMITIES: There is no peripheral edema. No clubbing, no cyanosis. Peripheral pulses are intact. - Labs CBC & Chem 7: 02/14/19 12:23 02/14/19 03:40 Labs: Abnormal Lab Results - Last 24 Hours (Table) 02/13/19 02/13/19 02/14/19 Range/Units 15:52 22:00 03:40 WBC 28.8 H 29.1 H 28.8 H (3.8-10.6) k/uL RBC 3.59 L 3.54 L (3.80-5.40) m/uL Hgb 11.1 L 10.3 L (11.4-16.0) gm/dL Hct 33.7 L 33.1 L (34.0-46.0) % Neutrophils # (Manual) 26.40 H (1.3-7.7) k/uL Carbon Dioxide (22-30) mmol/L BUN (7-17) mg/dL Glucose (74-99) mg/dL Total Protein (6.3-8.2) g/dL Albumin (3.5-5.0) g/dL 02/14/19 02/14/19 Range/Units 03:40 12:23 WBC 28.9 H (3.8-10.6) k/uL RBC 3.50 L (3.80-5.40) m/uL Hgb 10.9 L (11.4-16.0) gm/dL Hct 32.5 L (34.0-46.0) % Neutrophils # (Manual) (1.3-7.7) k/uL Carbon Dioxide 32 H (22-30) mmol/L BUN 32 H (7-17) mg/dL Glucose 140 H (74-99) mg/dL Total Protein 5.5 L (6.3-8.2) g/dL Albumin 3.2 L (3.5-5.0) g/dL Assessment and Plan Assessment: Impression: #1 Altered mental status of unclear etiology. #2 Acute GI bleed. Current hemoglobin 10.9. Remains on IV Protonix. Nothing by mouth. #3 Chronic obstructive pulmonary disease, currently inactive and stable. #4 Acute kidney injury. #5 History of hypertension. #6 Vitamin D deficiency. #7 Chronic hypoxemic respiratory failure secondary to COPD. #8 Kyphoscoliosis. #9 Anorexia/cachexia syndrome. #10 Osteoporosis. #11 History of vertebral fractures. #12 Irritable bowel syndrome. #13 History of hyperparathyroidism, status post parathyroidectomy. #14 Acute GI bleed. Plan: The patient was seen and evaluated by Dr. Ortez. She is currently stable from the pulmonary standpoint. We'll see the patient on an as-needed basis. I, the cosigning physician, performed a history & physical examination of the patient. Lungs sounds with faint end expiratory wheeze, diminished. Maintaining good O2 saturations in the 90s on room air. I discussed the assessment and plan of care with my nurse practitioner, Akilah Arevalo. I attest to the above note as dictated by her.
[2019-02-14 14:36] LABS: Basophils % (A) 0 %; Eosinophils % (A) 0 %; HCT 35.4 % (34.0-46.0); HGB 11.5 gm/dL (11.4-16.0); Lymphocytes # (A) 1.1 k/uL (1.0-4.8); Lymphocytes % (A) 3 %; MCHC 32.5 g/dL (31.0-37.0); MCV 95.4 fL (80.0-100.0); Mean Platelet Volume 6.7; Monocytes % (A) 3 %; Neutrophils # (A) 28.4 k/uL (1.3-7.7); Neutrophils % (A) 92 %; Platelet Count 391 k/uL (150-450); RBC 3.71 m/uL (3.80-5.40); RDW 15.2 % (11.5-15.5); WBC 30.8 k/uL (3.8-10.6)
[2019-02-14] MEDS: IPRATROPIUM-ALBUTEROL 3 ML NEB INHALATION PRN (20:05)
[2019-02-14 20:16] LABS: Basophils # (A) 0.1 k/uL (0-0.2); Basophils % (A) 0 %; Eosinophils # (A) 0.1 k/uL (0-0.7); Eosinophils % (A) 0 %; HCT 35.6 % (34.0-46.0); HGB 11.6 gm/dL (11.4-16.0); Lymphocytes % (A) 3 %; MCH 31.2 pg (25.0-35.0); MCHC 32.5 g/dL (31.0-37.0); MCV 95.9 fL (80.0-100.0); Mean Platelet Volume 7.6; Monocytes # (A) 0.7 k/uL (0-1.0); Monocytes % (A) 3 %; Neutrophils % (A) 93 %; Platelet Count 354 k/uL (150-450); RBC 3.71 m/uL (3.80-5.40); RDW 15.6 % (11.5-15.5); WBC 27.9 k/uL (3.8-10.6)
[2019-02-15] MEDS: HYDROCORTISONE SUCCINATE 100 MG/2 ML VIAL IV SCH ×3 (05:32→21:10)
[2019-02-15] MEDS: SODIUM CHLORIDE 0.9% 1,000 ML IV SCH (05:32)
[2019-02-15 07:12] LABS: Basophils % (A) 0 %; Eosinophils % (A) 0 %; HCT 34.2 % (34.0-46.0); Lymphocytes % (A) 4 %; MCH 30.2 pg (25.0-35.0); MCHC 32.1 g/dL (31.0-37.0); MCV 94.2 fL (80.0-100.0); Mean Platelet Volume 6.7; Monocytes # (A) 0.6 k/uL (0-1.0); Monocytes % (A) 2 %; Neutrophils # (A) 22.1 k/uL (1.3-7.7); Neutrophils % (A) 93 %; Platelet Count 382 k/uL (150-450); RBC 3.63 m/uL (3.80-5.40); RDW 15.1 % (11.5-15.5); WBC 23.8 k/uL (3.8-10.6)
[2019-02-15 07:27] LABS: Calcium 9.1 mg/dL (8.4-10.2); Potassium 3.1 mmol/L (3.5-5.1)
[2019-02-15] MEDS: LISINOPRIL 2.5 MG TAB PO SCH (08:53)
[2019-02-15] MEDS: CHOLECALCIFEROL 1,000 UNIT TAB PO SCH (08:53)
[2019-02-15] MEDS: FOLIC ACID 1 MG TAB PO SCH (08:54)
[2019-02-15] MEDS: MULTIVITAMINS, THERA 1 EACH TAB PO SCH (08:54)
[2019-02-15] MEDS: PANTOPRAZOLE 40 MG TABLET PO SCH (08:54)
[2019-02-15] MEDS: THIAMINE 100 MG TAB PO SCH (08:54)
[2019-02-15] MEDS: metroNIDAZOLE-NS PMX 500 MG in SALINE 1 100ML.BAG IVPB SCH ×3 (08:56→23:51)
[2019-02-15] MEDS: DILTIAZEM CD 180 MG CAP.ER.24H PO SCH (08:56)
[2019-02-15] MEDS: PARoxetine 20 MG TAB PO SCH (08:57)
[2019-02-15] MEDS: IPRATROPIUM-ALBUTEROL 3 ML NEB INHALATION PRN ×3 (09:02→21:29)
[2019-02-15] MEDS: BUDESONIDE 0.5 MG/2 ML NEBU INHALATION SCH ×2 (09:02→21:29)
--- NOTE | 2019-02-15 11:27 | PN ---
PROGRESS NOTE DATE OF SERVICE: 02/15/2019 The patient is a 78 -year-old pleasant white female admitted to the hospital with exacerbation of COPD when she presented with shortness of breath. She has advanced COPD on home O2. While in the hospital, she developed several episodes of bright red blood per rectum and hence Gastroenterology was consulted 2 days ago. She did have a CT of the abdomen and pelvis done that showed thickening of the ascending colon and evidence of diverticulosis. She continues to have bleeding. She underwent 3 episodes of bright red blood per rectum yesterday and one this morning. She reports no abdominal pain. Reports no nausea, vomiting. Her initial hemoglobin was 10.3 and this morning it is 11 g/dL. She recalls having a colonoscopy about 20 years ago and had a polyp. PHYSICAL EXAMINATION: She appears comfortable. No apparent distress. VITAL SIGNS: Stable. Blood pressure is 132/72, pulse rate 114, temperature 98.4. HEENT examination unremarkable. Conjunctivae pink. Sclerae anicteric. Oral cavity no lesions. NECK: No JVD or lymph node enlargement. CHEST: Decreased breath sounds bilaterally. HEART: Regular rate and rhythm. ABDOMEN was soft, nontender, nondistended. Bowel sounds are positive. EXTREMITIES: No pedal edema. SKIN no rashes. NEUROLOGIC: Alert and oriented x3. No focal deficits. LABS: From today WBC 23.8, hemoglobin 11, platelets are normal. BUN is 23, creatinine is 0.94. IMPRESSION: 1. Acute lower gastrointestinal bleed possibly diverticular in etiology. The patient had 3 episodes of bright red blood per rectum yesterday and 2 of them today. Hemoglobin surprisingly continues to remain stable. Last colonoscopy was more than 20 years ago. Recent CAT scan of the abdomen showed diverticulosis and questionable thickening of the right colon suspicious for colitis. 2. Advanced chronic obstructive pulmonary disease on home O2. 3. Leukocytosis. RECOMMENDATION: 1. Continue with broad-spectrum antibiotics. 2. Start on clear liquid diet. 3. Monitor CBC on a daily basis. 4. Continue IV Protonix. 5. No plans for any endoscopic intervention because of the cardiopulmonary status. 6. At this time we will continue the conservative approach and we will follow the patient closely during the hospital stay. Thank you for this consultation. MMODL / IJN: [id number] /
[2019-02-15] MEDS ORDERED: Potassium Replacement Protocol 1 EACH MISC MISCELLANE PRN (15:43)
[2019-02-15] MEDS: POTASSIUM CHLORIDE ER 20 MEQ TAB.ER PO SCH ×4 (16:34→22:11)
--- NOTE | 2019-02-15 17:07 | P.PN ---
Subjective Progress Note Date: 02/14/19 Principal diagnosis: Acute COPD exacerbation Bright red blood per rectum Dilated common bile duct Patient is a 78-year-old female with a known history of COPD on home oxygen, hypertension, and other multiple medical problems was admitted to hospital due to acute on chronic metabolic encephalopathy and altered mental status. Patient had maroon colored stools while in the hospital due to GI bleed. Patient was also having significantly elevated WBC count 2 0.4. Hemoglobin was 13.5, 12 and 11.8. 02/14/2019 Patient is currently lying in the bed and saturating well on oxygen via nasal cannula. Awake alert and oriented. Patient has been afebrile. Patient again had blood per rectum. CT of the abdomen pelvis showed possible wall thickening of the ascending colon that could relate to colitis. There is sigmoid diverticulosis without diverticulitis. No evidence of bowel obstruction. Fibrosis and pulmonary emphysema noted. Currently patient is on broad-spectrum antibiotics in the form of ceftriaxone and Flagyl. Ultrasound of the abdomen showed possible obstructing distal mass or stricture of the common bile duct. MRCP was recommended. Currently leukocytosis 27.8 improved from 13 yesterday. Patient has been afebrile otherwise. Pulmonary and GI is following. Current medications reviewed. Objective - Vital Signs Vital signs: Vital Signs Temp 97.8 F 02/14/19 12:28 Pulse 97 02/14/19 13:15 Resp 20 02/14/19 13:15 BP 160/95 02/14/19 13:15 Pulse Ox 97 02/14/19 13:15 Intake & Output 02/14/19 02/14/19 02/15/19 06:59 18:59 06:59 Intake Total 1040 Balance 1040 Weight 39.463 kg Intake: Intake, IV Titration 450 Amount Sodium Chloride 0.9% 1, 300 000 ml @ 50 mls/hr IV . Q20H [facility] Rx#:[id number] cefTRIAXone 1 gm In 50 Sodium Chloride 0.9% 50 ml @ 100 mls/hr IVPB Q24H [facility] Rx#:[id number] metroNIDAZOLE-NS PMX 500 100 mg In Saline 1 100ml.bag @ 100 mls/hr IVPB Q8HR [facility] Rx#:[id number] Oral 590 Other: Voiding Method Diaper Diaper # Voids 3 2 # Bowel Movements 2 - Exam PHYSICAL EXAMINATION: Patient is lying in the bed comfortably, no acute distress, awake alert and oriented. Patient is cachectic.. HEENT: Normocephalic. Neck is supple. Pupils reactive. Nostrils clear. Oral cavity is moist. Ears reveal no drainage. Neck reveals no JVD, carotid bruits, or thyromegaly. CHEST EXAMINATION: Trachea is central. Symmetrical expansion. Bilateral diffuse rhonchi and crackles and bibasilar diminished air entry. CARDIAC: Normal S1, S2 with no gallops. No murmurs ABDOMEN: Soft. Bowel sounds normal. No organomegaly. No abdominal bruits. Extremities: reveal no edema. No clubbing or cyanosis Neurologically awake, alert, oriented x3 with well-coordinated movements. No focal deficits noted Skin: No rash or skin lesions. Psychiatric: Coperative. Nonsuicidal Musculoskeletal: No joint swelling or deformity. Normal range of motion. Patient does have diffuse muscle wasting and weakness. - Labs CBC & Chem 7: 02/15/19 06:46 02/15/19 06:46 Labs: Abnormal Lab Results - Last 24 Hours (Table) 02/13/19 02/14/19 02/14/19 Range/Units 22:00 03:40 03:40 WBC 29.1 H 28.8 H (3.8-10.6) k/uL RBC 3.59 L 3.54 L (3.80-5.40) m/uL Hgb 11.1 L 10.3 L (11.4-16.0) gm/dL Hct 33.7 L 33.1 L (34.0-46.0) % Neutrophils # (1.3-7.7) k/uL Neutrophils # (Manual) 26.40 H (1.3-7.7) k/uL Carbon Dioxide 32 H (22-30) mmol/L BUN 32 H (7-17) mg/dL Glucose 140 H (74-99) mg/dL Total Protein 5.5 L (6.3-8.2) g/dL Albumin 3.2 L (3.5-5.0) g/dL 02/14/19 02/14/19 Range/Units 12:23 13:55 WBC 28.9 H 30.8 H (3.8-10.6) k/uL RBC 3.50 L 3.71 L (3.80-5.40) m/uL Hgb 10.9 L (11.4-16.0) gm/dL Hct 32.5 L (34.0-46.0) % Neutrophils # 28.4 H (1.3-7.7) k/uL Neutrophils # (Manual) (1.3-7.7) k/uL Carbon Dioxide (22-30) mmol/L BUN (7-17) mg/dL Glucose (74-99) mg/dL Total Protein (6.3-8.2) g/dL Albumin (3.5-5.0) g/dL Assessment and Plan Assessment: Altered mental status possible acute on chronic metabolic encephalopathy Blood per rectum secondary to lower GI bleed. With mild acute blood loss anemia Acute ascending colitis possible infectious versus ischemic colitis. Significant leukocytosis COPD with chronic hypoxic respiratory failure Diverticulosis. Acute kidney injury Hypertension Kyphoscoliosis Adrienne Moderate to severe protein calorie malnutrition. Osteoporosis History of vertebral fractures Irritable bowel syndrome History of hyperparathyroidism status post parathyroidectomy DVT prophylaxis with SCDs Plan: Patient be continued on broad-spectrum antibiotics in the form of ceftriaxone and Flagyl. Monitor H&H and daily CBC. Gastroenterology is following. Continue with oxygen therapy and breathing treatments. Pulmonary has seen the patient. Further recommendations regarding colonoscopy as per GI. Prognosis is guarded. Time with Patient: Greater than 30
[2019-02-16] MEDS: SODIUM CHLORIDE 0.9% 1,000 ML IV SCH (01:38)
[2019-02-16] MEDS: HYDROCORTISONE SUCCINATE 100 MG/2 ML VIAL IV SCH ×3 (05:17→21:47)
[2019-02-16 08:11] LABS: Basophils # (A) 0.1 k/uL (0-0.2); Basophils % (A) 0 %; Eosinophils % (A) 0 %; HCT 34.6 % (34.0-46.0); HGB 11.1 gm/dL (11.4-16.0); Lymphocytes # (A) 0.6 k/uL (1.0-4.8); Lymphocytes % (A) 3 %; MCH 30.9 pg (25.0-35.0); MCHC 32.2 g/dL (31.0-37.0); Mean Platelet Volume 7.8; Monocytes # (A) 0.7 k/uL (0-1.0); Monocytes % (A) 3 %; Neutrophils # (A) 22.2 k/uL (1.3-7.7); Neutrophils % (A) 93 %; Platelet Count 393 k/uL (150-450); RDW 15.6 % (11.5-15.5); WBC 23.8 k/uL (3.8-10.6)
[2019-02-16 08:17] LABS: Calcium 9.5 mg/dL (8.4-10.2); Potassium 3.7 mmol/L (3.5-5.1)
[2019-02-16] MEDS: BUDESONIDE 0.5 MG/2 ML NEBU INHALATION SCH ×2 (08:37→20:20)
[2019-02-16] MEDS: IPRATROPIUM-ALBUTEROL 3 ML NEB INHALATION PRN ×3 (08:37→20:20)
[2019-02-16] MEDS: MULTIVITAMINS, THERA 1 EACH TAB PO SCH (09:01)
[2019-02-16] MEDS: metroNIDAZOLE-NS PMX 500 MG in SALINE 1 100ML.BAG IVPB SCH ×3 (09:01→23:53)
[2019-02-16] MEDS: LISINOPRIL 2.5 MG TAB PO SCH (09:01)
[2019-02-16] MEDS: THIAMINE 100 MG TAB PO SCH (09:01)
[2019-02-16] MEDS: FOLIC ACID 1 MG TAB PO SCH (09:02)
[2019-02-16] MEDS: PARoxetine 20 MG TAB PO SCH (09:02)
[2019-02-16] MEDS: PANTOPRAZOLE 40 MG TABLET PO SCH (09:02)
[2019-02-16] MEDS: CHOLECALCIFEROL 1,000 UNIT TAB PO SCH (09:02)
[2019-02-16] MEDS: DILTIAZEM CD 180 MG CAP.ER.24H PO SCH (09:02)
[2019-02-16] MEDS: ALPRAZolam 0.5 MG TAB PO STA ×2 (15:12→15:27)
[2019-02-16] MEDS ORDERED: LORazepam 2 MG/ML INJ IV STA (15:21)
[2019-02-16] MEDS ORDERED: LORazepam 2 MG/ML INJ ONE (15:25)
--- NOTE | 2019-02-16 15:44 | PN ---
PROGRESS NOTE DATE OF SERVICE: 02/16/2019 The patient is a 78-year-old pleasant white female admitted to the hospital with exacerbation of COPD and during this hospital stay had developed rectal bleeding. She had about 7 episodes of bright red blood per rectum for the last 3 days, which is gradually improving. Yesterday she had 2 episodes and today she did not have any. She denies any abdominal pain. She reports no nausea, vomiting. CT of the abdomen and pelvis done on February 13 did show evidence of mild thickening of the ascending colon and sigmoid diverticulosis. Her hemoglobin remains stable at 11 g/dL. PHYSICAL EXAMINATION: She appears comfortable. No apparent distress. Vital signs are stable. Blood pressure is 135/81, pulse rate 107, temperature 97.7. HEENT examination unremarkable. Conjunctivae pink. Sclerae anicteric. Oral cavity no lesions. Neck no JVD or lymph node enlargement. Chest was clear to auscultation except for significantly decreased breath sounds bilaterally. ABDOMEN: Soft. There was very minimal tenderness in the right lower quadrant area. EXTREMITIES no pedal edema. SKIN no rashes. NEUROLOGIC: Alert and oriented x3. No focal deficits. LABS: From today hemoglobin is 11, WBC 23.8, platelets 393. Basic metabolic panel is within normal limits. IMPRESSION: 1. Acute lower gastrointestinal bleed possibly diverticular in nature. Hemoglobin remains stable at 11.6 g/dL. She had some bloody bowel movements yesterday, but none so far today. She remains hemodynamically stable. 2. Exacerbation of chronic obstructive pulmonary disease. 3. Leukocytosis for which she is on broad-spectrum antibiotics. 4. Advanced chronic obstructive pulmonary disease on home O2. RECOMMENDATIONS: 1. Continue to monitor hemoglobin on a daily basis. 2. No plans for any endoscopic intervention at the present time. 3. I will advance her to a full liquid diet today. Thank you for this consultation. MMODL / IJN: [id number] /
[2019-02-16] MEDS ORDERED: metroNIDAZOLE 500 MG TAB PO SCH (16:00)
--- NOTE | 2019-02-16 22:49 | P.PN ---
Subjective Progress Note Date: 02/15/19 Principal diagnosis: Acute COPD exacerbation Bright red blood per rectum Dilated common bile duct Patient is a 78-year-old female with a known history of COPD on home oxygen, hypertension, and other multiple medical problems was admitted to hospital due to acute on chronic metabolic encephalopathy and altered mental status. Patient had maroon colored stools while in the hospital due to GI bleed. Patient was also having significantly elevated WBC count 2 0.4. Hemoglobin was 13.5, 12 and 11.8. 02/14/2019 Patient is currently lying in the bed and saturating well on oxygen via nasal cannula. Awake alert and oriented. Patient has been afebrile. Patient again had blood per rectum. CT of the abdomen pelvis showed possible wall thickening of the ascending colon that could relate to colitis. There is sigmoid diverticulosis without diverticulitis. No evidence of bowel obstruction. Fibrosis and pulmonary emphysema noted. Currently patient is on broad-spectrum antibiotics in the form of ceftriaxone and Flagyl. Ultrasound of the abdomen showed possible obstructing distal mass or stricture of the common bile duct. MRCP was recommended. Currently leukocytosis 27.8 improved from 13 yesterday. Patient has been afebrile otherwise. Pulmonary and GI is following. 2018 Patient is awake and oriented. No further episodes of GI bleed. Hemoglobin 11.0. Gastroenterology is following and is not candidate for procedure due to cardiopulmonary status. Patient does have underlying severe COPD and is on home oxygen. Breathing status has been stable so far. Pulmonary is following. Denied any complaints of chest pain. No nausea vomiting or abdominal pain. No fever no chills. Still having significant leukocytosis at 23 patient is on antibiotics in the form of ceftriaxone and Flagyl. Current medications reviewed. Objective - Vital Signs Vital signs: Vital Signs Temp 98.3 F 02/15/19 12:24 Pulse 80 02/15/19 12:24 Resp 16 02/15/19 12:24 BP 135/82 02/15/19 12:24 Pulse Ox 99 02/15/19 12:24 Intake & Output 02/14/19 02/15/19 02/15/19 18:59 06:59 18:59 Intake Total 750 Balance 750 Weight 39.463 kg Intake: Intake, IV Titration 750 Amount Sodium Chloride 0.9% 1, 600 000 ml @ 50 mls/hr IV . Q20H [facility] Rx#:[id number] cefTRIAXone 1 gm In 50 Sodium Chloride 0.9% 50 ml @ 100 mls/hr IVPB Q24H [facility] Rx#:[id number] metroNIDAZOLE-NS PMX 500 100 mg In Saline 1 100ml.bag @ 100 mls/hr IVPB Q8HR [facility] Rx#:[id number] Other: Voiding Method Diaper Diaper Incontinent # Voids 2 1 4 # Bowel Movements 2 2 - Exam PHYSICAL EXAMINATION: Patient is lying in the bed comfortably, no acute distress, awake alert and oriented. Patient is cachectic.. HEENT: Normocephalic. Neck is supple. Pupils reactive. Nostrils clear. Oral cavity is moist. Ears reveal no drainage. Neck reveals no JVD, carotid bruits, or thyromegaly. CHEST EXAMINATION: Trachea is central. Symmetrical expansion. Bilateral diffuse rhonchi and crackles and bibasilar diminished air entry. CARDIAC: Normal S1, S2 with no gallops. No murmurs ABDOMEN: Soft. Bowel sounds normal. No organomegaly. No abdominal bruits. Extremities: reveal no edema. No clubbing or cyanosis Neurologically awake, alert, oriented x3 with well-coordinated movements. No focal deficits noted Skin: No rash or skin lesions. Psychiatric: Coperative. Nonsuicidal Musculoskeletal: No joint swelling or deformity. Normal range of motion. Patient does have diffuse muscle wasting and weakness. - Labs CBC & Chem 7: 02/16/19 07:10 02/16/19 07:10 Labs: Abnormal Lab Results - Last 24 Hours (Table) 02/14/19 02/15/19 02/15/19 Range/Units 19:58 06:46 06:46 WBC 27.9 H 23.8 H (3.8-10.6) k/uL RBC 3.71 L 3.63 L (3.80-5.40) m/uL Hgb 11.0 L (11.4-16.0) gm/dL RDW 15.6 H (11.5-15.5) % Neutrophils # 26.0 H 22.1 H (1.3-7.7) k/uL Potassium 3.1 L (3.5-5.1) mmol/L BUN 23 H (7-17) mg/dL Glucose 134 H (74-99) mg/dL Assessment and Plan Assessment: Altered mental status possible acute on chronic metabolic encephalopathy Blood per rectum secondary to lower GI bleed. With mild acute blood loss anemia. Likely diverticular bleed. Acute ascending colitis possible infectious versus ischemic colitis. Significant leukocytosis COPD with chronic hypoxic respiratory failure Diverticulosis. Acute kidney injury Hypertension Kyphoscoliosis Adrienne Moderate to severe protein calorie malnutrition. Osteoporosis History of vertebral fractures Irritable bowel syndrome History of hyperparathyroidism status post parathyroidectomy DVT prophylaxis with SCDs Plan: Patient be continued on broad-spectrum antibiotics in the form of ceftriaxone and Flagyl. Monitor H&H and daily CBC. Gastroenterology is following. Continue with oxygen therapy and breathing treatments. Pulmonary has seen the patient. Further recommendations regarding colonoscopy as per GI. Prognosis is guarded. Time with Patient: Greater than 30
--- NOTE | 2019-02-16 23:01 | P.PN ---
Subjective Progress Note Date: 02/16/19 Principal diagnosis: Acute COPD exacerbation Bright red blood per rectum Dilated common bile duct Patient is a 78-year-old female with a known history of COPD on home oxygen, hypertension, and other multiple medical problems was admitted to hospital due to acute on chronic metabolic encephalopathy and altered mental status. Patient had maroon colored stools while in the hospital due to GI bleed. Patient was also having significantly elevated WBC count 2 0.4. Hemoglobin was 13.5, 12 and 11.8. 02/14/2019 Patient is currently lying in the bed and saturating well on oxygen via nasal cannula. Awake alert and oriented. Patient has been afebrile. Patient again had blood per rectum. CT of the abdomen pelvis showed possible wall thickening of the ascending colon that could relate to colitis. There is sigmoid diverticulosis without diverticulitis. No evidence of bowel obstruction. Fibrosis and pulmonary emphysema noted. Currently patient is on broad-spectrum antibiotics in the form of ceftriaxone and Flagyl. Ultrasound of the abdomen showed possible obstructing distal mass or stricture of the common bile duct. MRCP was recommended. Currently leukocytosis 27.8 improved from 13 yesterday. Patient has been afebrile otherwise. Pulmonary and GI is following. 02 15 2019 Patient is awake and oriented. No further episodes of GI bleed. Hemoglobin 11.0. Gastroenterology is following and is not candidate for procedure due to cardiopulmonary status. Patient does have underlying severe COPD and is on home oxygen. Breathing status has been stable so far. Pulmonary is following. Denied any complaints of chest pain. No nausea vomiting or abdominal pain. No fever no chills. Still having significant leukocytosis at 23 patient is on antibiotics in the form of ceftriaxone and Flagyl. 02/16/2019 Patient denied any complaints of abdominal pain. No nausea vomiting. No further episodes of GI bleed. Hemoglobin is 7.1. Otherwise WBC count is still at 23.8. Continued on broad-spectrum antibiotics. Currently saturating well on nasal cannula oxygen. Breathing status at baseline. Patient did have have a panic Disorder and Was Given a Dose of IV Ativan. Denied Any Complaints of Chest Pain or Shortness of Breath. No Fever No Chills. Current medications reviewed. Active Medications Acetaminophen (Tylenol Tab) 650 mg PO Q6HR PRN PRN Reason: Fever and/ or Pain Albuterol/Ipratropium (Duoneb 0.5 Mg-3 Mg/3 Ml Soln) 3 ml INHALATION RT-QID PRN PRN Reason: Shortness Of Breath Or Wheezing Last Admin: 02/16/19 20:20 Dose: 3 ml Documented by: Budesonide (Pulmicort) 0.5 mg INHALATION RT-BID [facility] Last Admin: 02/16/19 20:20 Dose: 0.5 mg Documented by: Cholecalciferol (Vitamin D3 (25 Mcg = 1000 Iu)) 2,000 unit PO DAILY [facility] Last Admin: 02/16/19 09:02 Dose: 2,000 unit Documented by: Diltiazem HCl (Cardizem Cd) 180 mg PO DAILY [facility] Last Admin: 02/16/19 09:02 Dose: 180 mg Documented by: Folic Acid (Folic Acid) 1 mg PO DAILY@1200 [facility] Last Admin: 02/16/19 09:02 Dose: 1 mg Documented by: Hydrocortisone Sodium Succinate (Solu-Cortef) 100 mg IV Q8H [facility] Last Admin: 02/16/19 21:47 Dose: 100 mg Documented by: Sodium Chloride (Saline 0.9%) 1,000 mls @ 50 mls/hr IV .Q20H [facility] Last Admin: 02/16/19 01:38 Dose: 50 mls/hr Documented by: Metronidazole 500 mg/ IV (Solution) 100 mls @ 100 mls/hr IVPB Q8HR [facility] Last Admin: 02/16/19 15:09 Dose: Not Given Documented by: Ceftriaxone Sodium 1 gm/ (Sodium Chloride) 50 mls @ 100 mls/hr IVPB Q24H [facility] Last Admin: 02/16/19 21:47 Dose: 100 mls/hr Documented by: Lisinopril (Zestril) 2.5 mg PO DAILY [facility] Last Admin: 02/16/19 09:01 Dose: 2.5 mg Documented by: Miscellaneous Information (Potassium Per Protocol) 1 each MISCELLANE DAILY PRN; Protocol PRN Reason: Per Protocol Multivitamins (Theragran) 1 each PO DAILY@1200 [facility] Last Admin: 02/16/19 09:01 Dose: 1 each Documented by: Pantoprazole Sodium (Protonix) 40 mg PO AC-BRKFST [facility] Last Admin: 02/16/19 09:02 Dose: 40 mg Documented by: Paroxetine HCl (Paxil) 60 mg PO DAILY [facility] Last Admin: 02/16/19 09:02 Dose: 60 mg Documented by: Thiamine HCl (Vitamin B-1) 100 mg PO DAILY@1200 [facility] Last Admin: 02/16/19 09:01 Dose: 100 mg Documented by: Objective - Vital Signs Vital signs: Vital Signs Temp 98.1 F 02/16/19 21:00 Pulse 109 H 02/16/19 21:00 Resp 16 02/16/19 21:00 BP 145/85 02/16/19 21:00 Pulse Ox 97 02/16/19 21:00 Intake & Output 02/16/19 02/16/19 02/17/19 06:59 18:59 06:59 Intake Total 2180 2160 Balance 2180 2160 Intake: Intake, IV Titration 750 Amount Sodium Chloride 0.9% 1, 600 000 ml @ 50 mls/hr IV . Q20H [facility] Rx#:[id number] cefTRIAXone 1 gm In 50 Sodium Chloride 0.9% 50 ml @ 100 mls/hr IVPB Q24H [facility] Rx#:[id number] metroNIDAZOLE-NS PMX 500 100 mg In Saline 1 100ml.bag @ 100 mls/hr IVPB Q8HR [facility] Rx#:[id number] Oral 1430 2160 Other: Voiding Method Diaper Diaper Incontinent Incontinent # Voids 1 2 # Bowel Movements 2 - Exam PHYSICAL EXAMINATION: Patient is lying in the bed comfortably, no acute distress, awake alert and oriented. Patient is cachectic.. HEENT: Normocephalic. Neck is supple. Pupils reactive. Nostrils clear. Oral cavity is moist. Ears reveal no drainage. Neck reveals no JVD, carotid bruits, or thyromegaly. CHEST EXAMINATION: Trachea is central. Symmetrical expansion. Bilateral diffuse rhonchi and crackles and bibasilar diminished air entry. CARDIAC: Normal S1, S2 with no gallops. No murmurs ABDOMEN: Soft. Bowel sounds normal. No organomegaly. No abdominal bruits. Extremities: reveal no edema. No clubbing or cyanosis Neurologically awake, alert, oriented x3 with well-coordinated movements. No focal deficits noted Skin: No rash or skin lesions. Psychiatric: Coperative. Nonsuicidal Musculoskeletal: No joint swelling or deformity. Normal range of motion. Patient does have diffuse muscle wasting and weakness. - Labs CBC & Chem 7: 02/16/19 07:10 02/16/19 07:10 Labs: Abnormal Lab Results - Last 24 Hours (Table) 02/16/19 02/16/19 Range/Units 07:10 07:10 WBC 23.8 H (3.8-10.6) k/uL RBC 3.60 L (3.80-5.40) m/uL Hgb 11.1 L (11.4-16.0) gm/dL RDW 15.6 H (11.5-15.5) % Neutrophils # 22.2 H (1.3-7.7) k/uL Lymphocytes # 0.6 L (1.0-4.8) k/uL Chloride 108 H (98-107) mmol/L BUN 20 H (7-17) mg/dL Glucose 138 H (74-99) mg/dL Assessment and Plan Assessment: Altered mental status possible acute on chronic metabolic encephalopathy Blood per rectum secondary to lower GI bleed. With mild acute blood loss anemia. Likely diverticular bleed. Acute ascending colitis possible infectious versus ischemic colitis. Significant leukocytosis COPD with chronic hypoxic respiratory failure Diverticulosis. Acute kidney injury Hypertension Kyphoscoliosis Adrienne Moderate to severe protein calorie malnutrition. Osteoporosis History of vertebral fractures Irritable bowel syndrome History of hyperparathyroidism status post parathyroidectomy DVT prophylaxis with SCDs Plan: Patient be continued on broad-spectrum antibiotics in the form of ceftriaxone and Flagyl. Monitor H&H and daily CBC. Gastroenterology is following. Continue with oxygen therapy and breathing treatments. Pulmonary has seen the patient. Further recommendations regarding colonoscopy as per GI. Prognosis is guarded. Time with Patient: Greater than 30
[2019-02-17] MEDS: HYDROCORTISONE SUCCINATE 100 MG/2 ML VIAL IV SCH ×3 (06:16→19:56)
[2019-02-17] MEDS: IPRATROPIUM-ALBUTEROL 3 ML NEB INHALATION PRN ×4 (07:25→20:03)
[2019-02-17] MEDS: BUDESONIDE 0.5 MG/2 ML NEBU INHALATION SCH ×2 (07:25→20:03)
[2019-02-17] MEDS: metroNIDAZOLE-NS PMX 500 MG in SALINE 1 100ML.BAG IVPB SCH ×3 (07:51→23:34)
[2019-02-17] MEDS: PANTOPRAZOLE 40 MG TABLET PO SCH (08:03)
[2019-02-17] MEDS: SODIUM CHLORIDE 0.9% 1,000 ML IV SCH ×2 (08:04→19:57)
[2019-02-17] MEDS: PARoxetine 20 MG TAB PO SCH (08:05)
[2019-02-17] MEDS: LISINOPRIL 2.5 MG TAB PO SCH (08:05)
[2019-02-17] MEDS: CHOLECALCIFEROL 1,000 UNIT TAB PO SCH (08:05)
[2019-02-17] MEDS: DILTIAZEM CD 180 MG CAP.ER.24H PO SCH (08:05)
[2019-02-17 08:17] LABS: Basophils # (A) 0.2 k/uL (0-0.2); Basophils % (A) 1 %; Eosinophils # (A) 0.1 k/uL (0-0.7); Eosinophils % (A) 0 %; HCT 37.2 % (34.0-46.0); HGB 12.4 gm/dL (11.4-16.0); Lymphocytes # (A) 1.7 k/uL (1.0-4.8); Lymphocytes % (A) 6 %; MCH 31.1 pg (25.0-35.0); MCHC 33.4 g/dL (31.0-37.0); MCV 93.3 fL (80.0-100.0); Mean Platelet Volume 6.6; Monocytes # (A) 0.9 k/uL (0-1.0); Monocytes % (A) 3 %; Neutrophils % (A) 89 %; Platelet Count 502 k/uL (150-450); RBC 3.98 m/uL (3.80-5.40); RDW 15.2 % (11.5-15.5); WBC 28.1 k/uL (3.8-10.6)
[2019-02-17 08:23] LABS: Calcium 9.3 mg/dL (8.4-10.2); Potassium 2.8 mmol/L (3.5-5.1)
[2019-02-17] MEDS: POTASSIUM CHLORIDE ER 20 MEQ TAB.ER PO SCH ×3 (08:58→12:40)
[2019-02-17] MEDS: MULTIVITAMINS, THERA 1 EACH TAB PO SCH (12:40)
[2019-02-17] MEDS: THIAMINE 100 MG TAB PO SCH (12:40)
[2019-02-17] MEDS: FOLIC ACID 1 MG TAB PO SCH (12:40)
[2019-02-17] MEDS ORDERED: POTASSIUM CHLORIDE ER 20 MEQ TAB.ER PO STA (13:51)
--- NOTE | 2019-02-17 14:43 | PN ---
PROGRESS NOTE DATE OF SERVICE: 02/17/2019 Patient is a 78-year-old pleasant white female admitted to hospital with exacerbation of COPD and while in the hospital, developed acute lower GI bleed. CAT scan showed thickening of the right colon as well as sigmoid diverticulosis. For the last 3 days, she had 3-4 episodes of bright red blood per rectum, but the bleeding has subsided. This morning had a brown stool with no bleeding. She denies any abdominal pain, reports no nausea vomiting. PHYSICAL EXAMINATION: Appears comfortable, in no apparent distress. VITAL SIGNS: Stable. Blood pressure is 127/79, pulse rate 113, temperature 98. HEENT: Examination unremarkable, conjunctivae are pink, sclerae nonicteric, oral cavity no lesions. NECK: No JVD or lymph node enlargement. CHEST: Decreased breath sounds bilaterally. HEART: Regular rate and rhythm. ABDOMEN: Slightly distended, but it was nontender. Bowel sounds are positive. EXTREMITIES: No pedal edema. SKIN: No rashes. NEUROLOGIC: Alert and oriented x3. No focal deficits. LABS: WBC is 28.1, hemoglobin is 12.4, platelets are normal. Neutrophils 25,000, potassium is 2.8, baseline metabolic panel otherwise is within normal limits. Hemoglobin 12.4. IMPRESSION: 1. Acute lower gastrointestinal bleed possibly diverticular in etiology. CAT scan did show some thickening of the right colon. Patient on empiric antibiotics with Zosyn and Flagyl. 2. Persistent leukocytosis. Doubt related to colitis. 3. Exacerbation of chronic obstructive pulmonary disease. 4. Mild dementia. RECOMMENDATION: 1. Continue with antibiotics. 2. No plans on any endoscopy intervention at the present time. 3. Advance diet as tolerated. 4. CBC on a daily basis and will follow with you closely. Thank you for this consultation. MMODL / IJN: [id number] /
--- NOTE | 2019-02-17 15:05 | P.PN ---
Subjective Progress Note Date: 02/17/19 Principal diagnosis: Acute COPD exacerbation Bright red blood per rectum Dilated common bile duct Patient is a 78-year-old female with a known history of COPD on home oxygen, hypertension, and other multiple medical problems was admitted to hospital due to acute on chronic metabolic encephalopathy and altered mental status. Patient had maroon colored stools while in the hospital due to GI bleed. Patient was also having significantly elevated WBC count 2 0.4. Hemoglobin was 13.5, 12 and 11.8. 02/14/2019 Patient is currently lying in the bed and saturating well on oxygen via nasal cannula. Awake alert and oriented. Patient has been afebrile. Patient again had blood per rectum. CT of the abdomen pelvis showed possible wall thickening of the ascending colon that could relate to colitis. There is sigmoid diverticulosis without diverticulitis. No evidence of bowel obstruction. Fibrosis and pulmonary emphysema noted. Currently patient is on broad-spectrum antibiotics in the form of ceftriaxone and Flagyl. Ultrasound of the abdomen showed possible obstructing distal mass or stricture of the common bile duct. MRCP was recommended. Currently leukocytosis 27.8 improved from 13 yesterday. Patient has been afebrile otherwise. Pulmonary and GI is following. 02 15 2019 Patient is awake and oriented. No further episodes of GI bleed. Hemoglobin 11.0. Gastroenterology is following and is not candidate for procedure due to cardiopulmonary status. Patient does have underlying severe COPD and is on home oxygen. Breathing status has been stable so far. Pulmonary is following. Denied any complaints of chest pain. No nausea vomiting or abdominal pain. No fever no chills. Still having significant leukocytosis at 23 patient is on antibiotics in the form of ceftriaxone and Flagyl. 02/16/2019 Patient denied any complaints of abdominal pain. No nausea vomiting. No further episodes of GI bleed. Hemoglobin is 7.1. Otherwise WBC count is still at 23.8. Continued on broad-spectrum antibiotics. Currently saturating well on nasal cannula oxygen. Breathing status at baseline. Patient did have have a panic Disorder and Was Given a Dose of IV Ativan. Denied Any Complaints of Chest Pain or Shortness of Breath. No Fever No Chills. Current medications reviewed. 02/17/2019 Patient is sitting up in bed in no acute distress. No acute overnight issues. Patient and nursing staff stated she had a bowel movement this morning with no blood noted to soft, formed, and brown. Patient denies any nausea and vomiting has been tolerating diet. Patient denies any chest pain, shortness of breath, or palpitations at this time. Patient is currently still on IV antibiotics and will continue at this time. GI is following. Pulmonary is following as needed the patient will follow-up with Dr. Greenwood in the outpatient setting upon discharge. Guarded prognosis. Objective - Vital Signs Vital signs: Vital Signs Temp 98 F 02/17/19 11:49 Pulse 108 H 02/17/19 11:59 Resp 19 02/17/19 11:49 BP 127/79 02/17/19 11:49 Pulse Ox 99 02/17/19 11:49 Intake & Output 02/16/19 02/17/19 02/17/19 18:59 06:59 18:59 Intake Total 2160 550 120 Balance 2160 550 120 Weight 39.463 kg Intake: Intake, IV Titration 550 Amount Sodium Chloride 0.9% 1, 550 000 ml @ 50 mls/hr IV . Q20H [facility] Rx#:[id number] Oral 2160 120 Other: Voiding Method Diaper Diaper Diaper Incontinent Incontinent Incontinent # Voids 2 2 - Exam PHYSICAL EXAMINATION: Patient is sitting up in the bed comfortably, no acute distress, awake alert and oriented. Patient is cachectic. Vital signs are stable. HEENT: Normocephalic. Neck is supple. Pupils reactive. Nostrils clear. Oral cavity is moist. Ears reveal no drainage. Neck reveals no JVD, carotid bruits, or thyromegaly. CHEST EXAMINATION: Trachea is central. Symmetrical expansion. Bilateral diffuse rhonchi and crackles and bibasilar diminished air entry. CARDIAC: Normal S1, S2 with no gallops. No murmurs ABDOMEN: Soft. Bowel sounds normal. No organomegaly. No abdominal bruits. Extremities: reveal no edema. No clubbing or cyanosis Neurologically awake, alert, oriented x3 with well-coordinated movements. No focal deficits noted Skin: No rash or skin lesions. Psychiatric: Coperative. Nonsuicidal Musculoskeletal: No joint swelling or deformity. Normal range of motion. Patient does have diffuse muscle wasting and weakness. - Labs CBC & Chem 7: 02/17/19 08:00 02/17/19 08:00 Labs: Abnormal Lab Results - Last 24 Hours (Table) 02/17/19 02/17/19 Range/Units 08:00 08:00 WBC 28.1 H (3.8-10.6) k/uL Plt Count 502 H (150-450) k/uL Neutrophils # 25.0 H (1.3-7.7) k/uL Potassium 2.8 L (3.5-5.1) mmol/L Carbon Dioxide 32 H (22-30) mmol/L Glucose 132 H (74-99) mg/dL Assessment and Plan Assessment: Altered mental status possible acute on chronic metabolic encephalopathy Blood per rectum secondary to lower GI bleed. With mild acute blood loss anemia. Likely diverticular bleed. Acute ascending colitis possible infectious versus ischemic colitis. Significant leukocytosis COPD with chronic hypoxic respiratory failure Diverticulosis. Acute kidney injury Hypertension Kyphoscoliosis Cachexia Moderate to severe protein calorie malnutrition. Osteoporosis History of vertebral fractures Irritable bowel syndrome History of hyperparathyroidism status post parathyroidectomy DVT prophylaxis with SCDs Recommendations and discussion: Recommend continue current medications, management, and symptomatic treatment. Will continue with IV antibiotics at this time. Will continue to monitor vital signs and labs closely. Current hemoglobin is 12.4. WBCs are 28.1. Potassium today was 2.8 and is currently being replaced per protocol. An additional 40 mEq of potassium was ordered as well. Will repeat a.m. labs. Case management and social welfare administrator following as the plan is for discharge to [facility] possibly in the morning. GI is following and recommending no surgical interventions at this time. Guarded prognosis. Further recommendations to follow. Possible discharge in 24-48 hours.
[2019-02-17] MEDS ORDERED: LORazepam 0.5 MG TAB PO ONE (15:48)
--- NOTE | 2019-02-17 18:33 | P.PN ---
Subjective Progress Note Date: 02/17/19 Principal diagnosis: Altered mental status of unclear etiology, acute GI bleed On 02/17/2019 patient seen in follow-up on medical surgical floor. She is awake and alert, in no acute distress, resting comfortably in bed, denies any distress, breathing is stable, afebrile, she is on 2 L of oxygen with a pulse ox of 99%, no further bleeding, GI service is following, no plans for any endoscopic studies at this time, patient is tolerating diet, increased hemoglobin is 12.4. Apparently patient has been intermittently confused, thinking that [place] the cruise [place] and having some delusions of the cruise ship passengers trying to get rid of her, paranoid, patient's son was concerned that patient may be getting too much anxiety medication. At the time of our evaluation patient seems in no distress, does not seem to be delirious. We'll spoke to the patient's son, Klonopin is on hold. Patient has gotten a few doses of when necessary Ativan and Xanax which have all been discontinued. Head CT has shown cerebral atrophy and chronic small vessel ischemia, Objective - Vital Signs Vital signs: Vital Signs Temp 98 F 02/17/19 11:49 Pulse 100 02/17/19 16:26 Resp 19 02/17/19 11:49 BP 127/79 02/17/19 11:49 Pulse Ox 99 02/17/19 11:49 Intake & Output 02/16/19 02/17/19 02/17/19 18:59 06:59 18:59 Intake Total 2160 550 720 Output Total 4 Balance 2160 550 716 Weight 39.463 kg Intake: Intake, IV Titration 550 600 Amount Sodium Chloride 0.9% 1, 550 400 000 ml @ 50 mls/hr IV . Q20H [facility] Rx#:[id number] metroNIDAZOLE-NS PMX 500 200 mg In Saline 1 100ml.bag @ 100 mls/hr IVPB Q8HR [facility] Rx#:[id number] Oral 2160 120 Output: Stool 4 Other: Voiding Method Diaper Diaper Bedpan Incontinent Incontinent Diaper Incontinent # Voids 2 2 5 - Exam GENERAL EXAM: Alert, doesn't, 78-year-old white female, on 2 L of oxygen and the pulse ox of 99% comfortable in no apparent distress. HEAD: Normocephalic/atraumatic. EYES: Normal reaction of pupils, equal size. Conjunctiva pink, sclera white. NOSE: Clear with pink turbinates. THROAT: No erythema or exudates. NECK: No masses, no JVD, no thyroid enlargement, no adenopathy. CHEST: No chest wall deformity. Symmetrical expansion. LUNGS: Equal air entry with no crackles, wheeze, rhonchi or dullness. CVS: Regular rate and rhythm, normal S1 and S2, no gallops, no murmurs, no rubs ABDOMEN: Soft, nontender. No hepatosplenomegaly, normal bowel sounds, no guarding or rigidity. EXTREMITIES: No clubbing, no edema, no cyanosis, 2+ pulses and upper and lower extremities. MUSCULOSKELETAL: Muscle strength and tone normal. SPINE: No scoliosis or deformity SKIN: No rashes CENTRAL NERVOUS SYSTEM: Alert and oriented -3. No focal deficits, tone is normal in all 4 extremities. PSYCHIATRIC: Alert and oriented -3. Appropriate affect. Intact judgment and insight. - Labs CBC & Chem 7: 02/17/19 08:00 02/17/19 08:00 Labs: Abnormal Lab Results - Last 24 Hours (Table) 02/17/19 02/17/19 Range/Units 08:00 08:00 WBC 28.1 H (3.8-10.6) k/uL Plt Count 502 H (150-450) k/uL Neutrophils # 25.0 H (1.3-7.7) k/uL Potassium 2.8 L (3.5-5.1) mmol/L Carbon Dioxide 32 H (22-30) mmol/L Glucose 132 H (74-99) mg/dL Assessment and Plan Plan: Assessment: #1 Altered mental status of unclear etiology. #2 Acute GI bleed. Current hemoglobin 10.9. Remains on IV Protonix. #3 Chronic obstructive pulmonary disease, currently inactive and stable. #4 Acute kidney injury. #5 History of hypertension. #6 Vitamin D deficiency. #7 Chronic hypoxemic respiratory failure secondary to COPD. #8 Kyphoscoliosis. #9 Anorexia/cachexia syndrome. #10 Osteoporosis. #11 History of vertebral fractures. #12 Irritable bowel syndrome. #13 History of hyperparathyroidism, status post parathyroidectomy. Plan: Breathing seems to be stable, no acute complaints, patient is still experiencing some intermittent periods of confusion, and delirium. Klonopin has been discontinued per son's request, all benzodiazepines have been discontinued. Vital signs are stable, no fever or chills, further episodes of bleeding, no plans for endoscopic studies at this time, will to the son and updated edema in patient status. Denies any shortness of breath, denies any chest pain, no palpitations, no nausea or vomiting, tolerating oral diet, patient is going to subacute rehab after discharge. Continue with current antibiotics, no fever or chills, still discharge to subacute rehab in the next 24 hours I performed a history & physical examination of the patient and discussed their management with my nurse practitioner, Rose Marie Davis. I reviewed the nurse pr actitioner's note and agree with the documented findings and plan of care. Lung sounds are positive for diminished breath sounds. The findings and the impression was discussed with the patient. I attest to the documentation by the nurse practitioner. Time with Patient: Less than 30
[2019-02-18] MEDS: HYDROCORTISONE SUCCINATE 100 MG/2 ML VIAL IV SCH ×2 (05:55→12:57)
[2019-02-18] MEDS: SODIUM CHLORIDE 0.9% 1,000 ML IV SCH ×2 (07:50→16:52)
[2019-02-18 07:51] LABS: Basophils # (A) 0.1 k/uL (0-0.2); Basophils % (A) 0 %; Eosinophils % (A) 0 %; HCT 36.3 % (34.0-46.0); HGB 11.8 gm/dL (11.4-16.0); Lymphocytes # (A) 1.5 k/uL (1.0-4.8); Lymphocytes % (A) 5 %; MCH 30.2 pg (25.0-35.0); MCHC 32.4 g/dL (31.0-37.0); MCV 93.2 fL (80.0-100.0); Mean Platelet Volume 6.5; Monocytes # (A) 1.1 k/uL (0-1.0); Monocytes % (A) 4 %; Neutrophils # (A) 24.8 k/uL (1.3-7.7); Neutrophils % (A) 90 %; Platelet Count 471 k/uL (150-450); RDW 15.3 % (11.5-15.5); WBC 27.7 k/uL (3.8-10.6)
[2019-02-18] MEDS: CHOLECALCIFEROL 1,000 UNIT TAB PO SCH (07:51)
[2019-02-18] MEDS: PANTOPRAZOLE 40 MG TABLET PO SCH (07:51)
[2019-02-18] MEDS: metroNIDAZOLE-NS PMX 500 MG in SALINE 1 100ML.BAG IVPB SCH ×2 (07:51→16:52)
[2019-02-18] MEDS: DILTIAZEM CD 180 MG CAP.ER.24H PO SCH (07:51)
[2019-02-18] MEDS: PARoxetine 20 MG TAB PO SCH (07:52)
[2019-02-18] MEDS: LISINOPRIL 2.5 MG TAB PO SCH (07:52)
[2019-02-18 08:07] LABS: Calcium 8.9 mg/dL (8.4-10.2); Potassium 2.9 mmol/L (3.5-5.1)
[2019-02-18] MEDS: IPRATROPIUM-ALBUTEROL 3 ML NEB INHALATION PRN ×3 (08:29→15:56)
[2019-02-18] MEDS: BUDESONIDE 0.5 MG/2 ML NEBU INHALATION SCH (08:29)
[2019-02-18] MEDS: POTASSIUM CHLORIDE ER 20 MEQ TAB.ER PO SCH ×3 (09:07→11:22)
[2019-02-18] MEDS: POTASSIUM CHLORIDE 20 MEQ in WATER FOR INJECTION 1 100ML.BAG IVPB SCH ×2 (09:45→12:26)
[2019-02-18] MEDS: THIAMINE 100 MG TAB PO SCH (11:23)
[2019-02-18] MEDS: MULTIVITAMINS, THERA 1 EACH TAB PO SCH (11:23)
[2019-02-18] MEDS: FOLIC ACID 1 MG TAB PO SCH (11:23)
[2019-02-18 12:30] VITALS: BP 131/96; RESP 18; TEMP 98.2
[2019-02-18 16:08] VITALS: PULSE 120
--- NOTE | 2019-02-18 16:25 | P.DS ---
Providers Date of admission: 02/13/19 09:19 Expected date of discharge: 02/18/19 Attending physician: Devon Badillo Consults: 02/11/19 19:42 Consult Physician Routine Consulting Provider: Sweta Greenwood Consult Reason/Comments: copd Do you want consulting provider notified?: Yes 02/13/19 06:58 Consult Physician Urgent Consulting Provider: Dane Cameron Consult Reason/Comments: GI Bleed Do you want consulting provider notified?: Yes Primary care physician: Sweta Greenwood Hospital Course: Final diagnosis Altered mental status, possibly acute on chronic metabolic encephalopathy Blood per rectum secondary to lower GI bleed with mild acute blood loss anemia, likely diverticular bleed Acute ascending colitis possible infectious versus ischemic colitis Significant leukocytosis COPD with chronic hypoxic respiratory failure Diverticulosis Acute kidney injury Hypertension Kyphoscoliosis Cachexia Moderate to severe protein calorie malnutrition Osteoporosis History of vertebral fractures Interval bowel syndrome History of hyperparathyroidism status post parathyroidectomy DVT prophylaxis Discharge disposition Patient is being discharged in a stable condition with guarded prognosis to [facility] for continued PT/OT therapy and will continue with short course of oral antibiotics upon discharge. Patient will follow-up with primary care provider upon discharge from rehab facility. Total time taken is 35 minutes. History of present illness This is a 78-year-old female with a known history of COPD and is O2 dependent at 2 L via nasal cannula and was recently admitted to the hospital for acute on chronic metabolic encephalopathy and altered mental status. Patient was found to have maroon-colored stools and had an acute GI bleed with an elevated white blood count and was being closely monitored. Hemoglobin is currently stable at 11.8 and no new episodes of blood in the rectum or stool for the last 2 days. GI was following and recommending outpatient follow-up as needed. Patient follows along with Dr. Greenwood in the outpatient setting and will follow-up with him upon discharge. Patient will be going to subacute rehab for continued PT/OT therapy. Son was concerned of patient's Klonopin and APPLIED MATHEMATICIAN agent use the most medications have been discontinued. Patient's mentation has improved. Patient denies any chest pain or palpitations at this time. Patient's shortness of breath continues with exertion. Patient is currently on oxygen at 2 L via nasal cannula and this is her baseline. Patient will need repeat labs in 2-3 days. Discussed with the patient about encouraging oral intake and patient is to continue with ensure 3 times daily between meals. During hospitalization patient had hypokalemia and was replaced and is currently 4.5. Currently patient's condition is stable with much improvement and is ready for discharge to [facility]. Guarded prognosis. On exam vital signs are stable. Temp is 98.2F, pulse is 116, respirations are 18, blood pressure is 131/96, oxygen saturation is 98% on 2 L via nasal cannula. Cardio S1 and S2 are present. Respiratory system shows diminished breath sounds at the bases with a few scattered rhonchi noted. Abdomen is soft, thin, and nontender. Nervous system shows no focal deficits with moderate diffuse weakness. Please refer to medication reconciliation sheet for a list of medications. Patient Condition at Discharge: Fair Plan - Discharge Summary Discharge Rx Participant: No New Discharge Prescriptions: New metroNIDAZOLE [Flagyl] 500 mg PO TID 5 Days #15 tab Folic Acid 1 mg PO DAILY@1200 tab Multivitamins, Thera [Multivitamin (formulary)] 1 each PO DAILY@1200 tab Pantoprazole [Protonix] 40 mg PO AC-BRKFST 30 Days #30 tablet. Acetaminophen Tab [Tylenol] 650 mg PO Q6HR PRN tab PRN Reason: Fever And/ Or Pain Thiamine [Vitamin B-1] 100 mg PO DAILY@1200 tab Continue Lisinopril [Zestril] 2.5 mg PO DAILY Aspirin EC [Ecotrin Low Dose] 81 mg PO DAILY Cholecalciferol (Vitamin D3) [Vitamin D3] 2,000 unit PO DAILY Diltiazem HCl [Cartia Xt] 180 mg PO DAILY Formoterol Fumarate [Perforomist] 20 mcg INHALATION RT-BID predniSONE 10 mg PO DAILY PARoxetine [Paxil] 60 mg PO DAILY Ipratropium-Albuterol Nebulize [Duoneb 0.5 mg-3 mg/3 ml Soln] 3 ml INHALATION RT-QID PRN PRN Reason: COPD Ipratropium/Albuterol Sulfate [Combivent Respimat Inhaler] 1 puff INHALATION RT-QID PRN PRN Reason: Shortness Of Breath Budesonide [Pulmicort] 0.5 mg INHALATION RT-BID Discharge Medication List Aspirin EC [Ecotrin Low Dose] 81 mg PO DAILY 09/07/16 [History] Lisinopril [Zestril] 2.5 mg PO DAILY 09/07/16 [History] Cholecalciferol (Vitamin D3) [Vitamin D3] 2,000 unit PO DAILY 08/31/18 [History] Diltiazem HCl [Cartia Xt] 180 mg PO DAILY 08/31/18 [History] Budesonide [Pulmicort] 0.5 mg INHALATION RT-BID 11/19/18 [History] Formoterol Fumarate [Perforomist] 20 mcg INHALATION RT-BID 11/19/18 [History] Ipratropium-Albuterol Nebulize [Duoneb 0.5 mg-3 mg/3 ml Soln] 3 ml INHALATION RT -QID PRN 11/19/18 [History] Ipratropium/Albuterol Sulfate [Combivent Respimat Inhaler] 1 puff INHALATION RT- QID PRN 11/19/18 [History] PARoxetine [Paxil] 60 mg PO DAILY 11/19/18 [History] predniSONE 10 mg PO DAILY 11/19/18 [History] Acetaminophen Tab [Tylenol] 650 mg PO Q6HR PRN tab 02/18/19 [Rx] Folic Acid 1 mg PO DAILY@1200 tab 02/18/19 [Rx] Multivitamins, Thera [Multivitamin (formulary)] 1 each PO DAILY@1200 tab 02/18/19 [Rx] Pantoprazole [Protonix] 40 mg PO AC-BRKFST 30 Days #30 tablet. 02/18/19 [Rx] Thiamine [Vitamin B-1] 100 mg PO DAILY@1200 tab 02/18/19 [Rx] metroNIDAZOLE [Flagyl] 500 mg PO TID 5 Days #15 tab 02/18/19 [Rx] Follow up Appointment(s)/Referral(s): Sweta Greenwood MD [Primary Care Provider] - 1-2 days Ambulatory/Diagnostic Orders: Basic Metabolic Panel [LAB.AMB] Time Frame: 3 Days, Location: None Selected Complete Blood Count w/diff [LAB.AMB] Time Frame: 3 Days, Location: None Selected Activity/Diet/Wound Care/Special Instructions: She will be going to [facility] Activity as tolerated Continue current diet Follow-up with primary care provider upon discharge Continue antibiotics until complete Continue working with PT/OT Repeat labs in 2-3 days Discharge Disposition: TRANSFER TO SNF/ECF
--- NOTE | 2019-02-18 17:14 | PN ---
PROGRESS NOTE DATE OF SERVICE: February 18, 2019 Patient is a 78-year-old pleasant white female with history of advanced COPD on home O2 on IV steroids for exacerbation of COPD. Developed rectal bleeding while in the hospital. For the last 3 or 4 days, she has been having small amount of bright red blood per rectum. Today she states that the stool was dark, but no further active bleeding. She still complains of right lower quadrant abdominal pain. No fever, chills, or night sweats. PHYSICAL EXAMINATION: Blood pressure is 131/96, pulse rate 120, temperature 98.2. HEENT examination unremarkable. Conjunctivae pink. Sclerae anicteric. Oral cavity no lesions. NECK: No JVD or lymph node enlargement. CHEST: Clear to auscultation. HEART: Regular rate and rhythm. ABDOMEN: Soft. Mild tenderness in the right upper lower quadrant area. The rest of the abdomen is benign. EXTREMITIES: No pedal edema. SKIN no rashes. NEUROLOGIC: Alert and oriented x3. No focal deficits. LABS: From today WBC 27.7, hemoglobin 11.8, platelets are normal. Basic metabolic panel is within normal limits. IMPRESSION: 1. Exacerbation of chronic obstructive pulmonary disease/on home O2 on IV steroids. 2. Acute lower gastrointestinal bleed possibly diverticular in nature. CT of the abdomen showed some right-sided colitis. Patient on broad-spectrum antibiotics, gradually improving. No active bleeding presently. Hemoglobin stable at 11.8 g/dL. RECOMMENDATIONS: 1. Continue current medications. 2. Advance diet as tolerated. 3. No plans on any endoscopy intervention at the present time. 4. Follow CBC closely. Thank you for this consultation. MMODL / IJN: [id number] /
[2019-02-18] MEDS ORDERED: metroNIDAZOLE 500 MG TAB PO SCH (22:00)
== END 2019-02-18 17:55 | DRG 70 ==
LOC: EC 15:24 → 3NMEDONC 19:40 → OBSVTOIN 02-13 09:19
PROVIDERS: ADMIT Hospitalist; ATTEND Hospitalist
DX: G93.41 Metabolic encephalopathy (principal); N17.0 Acute kidney failure with tubular necrosis; E43 Unspecified severe protein-calorie malnutrition; K57.31 Diverticulosis of large intestine without perforation or abscess with bleeding; J96.11 Chronic respiratory failure with hypoxia; Z68.1 Body mass index [BMI] 19.9 or less, adult; E87.1 Hypo-osmolality and hyponatremia; D62 Acute posthemorrhagic anemia; J44.1 Chronic obstructive pulmonary disease with (acute) exacerbation; E86.0 Dehydration; K83.8 Other specified diseases of biliary tract; K52.9 Noninfective gastroenteritis and colitis, unspecified; J44.9 Chronic obstructive pulmonary disease, unspecified; I10 Essential (primary) hypertension; E03.9 Hypothyroidism, unspecified; E55.9 Vitamin D deficiency, unspecified; G47.00 Insomnia, unspecified; M41.20 Other idiopathic scoliosis, site unspecified; M81.0 Age-related osteoporosis without current pathological fracture; F41.9 Anxiety disorder, unspecified; F03.90 Unspecified dementia, unspecified severity, without behavioral disturbance, psychotic disturbance, mood disturbance, and anxiety; Z99.81 Dependence on supplemental oxygen; Z90.49 Acquired absence of other specified parts of digestive tract; Z90.710 Acquired absence of both cervix and uterus; Z79.82 Long term (current) use of aspirin; Z79.899 Other long term (current) drug therapy; Z79.51 Long term (current) use of inhaled steroids; Z87.440 Personal history of urinary (tract) infections; E87.6 Hypokalemia
CPT/HCPCS: 36415; 51701; 70450; 72125; 74022; 74176; 76700; 80048; 80053; 80074; 80076; 80306; 81003; 82140; 82533; 82550; 83735; 84100; 84132; 84484; 85025; 85027; 85610; 85730; 93005; 94640; 94760; 96360; 96361; 99285

== ENCOUNTER 2019-02-20 11:06 | Inpatient (IN) | payer MEDICARE, OTHER ==
[2019-02-20] MEDS ORDERED: SODIUM CHLORIDE 0.9% 1,000 ML IV STA (11:24)
--- NOTE | 2019-02-20 11:34 | ED ---
GI Bleed HPI - General Chief complaint: GI Bleed Stated complaint: Poss GI Bleed Time Seen by Provider: 02/20/19 11:14 Source: patient, EMS, RN notes reviewed Mode of arrival: EMS Limitations: no limitations - History of Present Illness Initial comments: This is a 78-year-old female history of COPD who was admitted recently for COPD exacerbation who this morning was found have bright red and dark red blood in her brief when she was being change in a residential. She also complains of lower abdominal pain. She has no prior history of GI bleeding. No other new symptoms to report she states she's breathing about normal at this time. MD complaint: gross hematochezia - Related Data Home Medications Medication Instructions Recorded Confirmed Aspirin EC [Ecotrin Low Dose] 81 mg PO DAILY 09/07/16 02/20/19 Lisinopril [Zestril] 2.5 mg PO DAILY 09/07/16 02/20/19 Cholecalciferol (Vitamin D3) 2,000 unit PO DAILY 08/31/18 02/20/19 [Vitamin D3] Diltiazem HCl [Cartia Xt] 180 mg PO DAILY 08/31/18 02/20/19 Budesonide [Pulmicort] 0.5 mg INHALATION RT-BID 11/19/18 02/20/19 Formoterol Fumarate [Perforomist] 20 mcg INHALATION RT-BID 11/19/18 02/20/19 Ipratropium-Albuterol Nebulize 3 ml INHALATION RT-QID PRN 11/19/18 02/20/19 [Duoneb 0.5 mg-3 mg/3 ml Soln] Ipratropium/Albuterol Sulfate 1 puff INHALATION RT-QID PRN 11/19/18 02/20/19 [Combivent Respimat Inhaler] PARoxetine [Paxil] 60 mg PO HS 11/19/18 02/20/19 predniSONE 10 mg PO DAILY 11/19/18 02/20/19 Multivitamins, Thera [Multivitamin 1 tab PO DAILY@1200 02/20/19 02/20/19 (formulary)] Omeprazole 20 mg PO DAILY 02/20/19 02/20/19 Pantoprazole [Protonix] 40 mg PO DAILY@0600 02/20/19 02/20/19 metroNIDAZOLE [Flagyl] 500 mg PO TID 02/20/19 02/20/19 Previous Rx's Medication Instructions Recorded Acetaminophen Tab [Tylenol] 650 mg PO Q6HR PRN tab 02/18/19 Folic Acid 1 mg PO DAILY@1200 tab 02/18/19 Thiamine [Vitamin B-1] 100 mg PO DAILY@1200 tab 02/18/19 Allergies Allergy/AdvReac Type Severity Reaction Status Date / Time levofloxacin [From Levaquin] Allergy Swelling Verified 02/20/19 11:11 codeine AdvReac Nausea & Verified 02/20/19 11:11 Vomiting meperidine [From Demerol] AdvReac "HYPER" Verified 02/20/19 11:11 Review of Systems ROS Statement: Those systems with pertinent positive or pertinent negative responses have been documented in the HPI. ROS Other: All systems not noted in ROS Statement are negative. Past Medical History Past Medical History: Asthma, Heart Failure, COPD, Dementia, Hypertension, Respiratory Disorder, Thyroid Disorder Additional Past Medical History / Comment(s): Severe COPD, chronic hypoxic respiratory failure, home oxygen at 2L/NC ATC, tachycardia r/t COPD, cachexia, idiopathic scoliosis/kyphoscoliosis, osteoporosis, vertebral fractures, L shoulder rotator cuff problem, chronic anemia, insomnia, lower extremity edema, chronic diarrhea, IBS, previous history of hyperparathyroidism with surgery, urinary incontinence, stool incontinence, UTI. History of Any Multi-Drug Resistant Organisms: None Reported Past Surgical History: Appendectomy, Cholecystectomy, Heart Catheterization, Hysterectomy, Orthopedic Surgery Additional Past Surgical History / Comment(s): parathyroidectomy, colonoscopy with benign polypectomy, R shoulder birthmark removal, 2012 cardiac cath-normal Past Anesthesia/Blood Transfusion Reactions: Postoperative Nausea & Vomiting (PONV) Additional Past Anesthesia/Blood Transfusion Reaction / Comment(s): Pt believes she received blood years ago. Past Psychological History: Anxiety, Depression Smoking Status: Former smoker Past Alcohol Use History: None Reported Past Drug Use History: None Reported - Past Family History Father Family Medical History: COPD Mother Family Medical History: Cancer Additional Family Medical History / Comment(s): Mother had leukemia. Sister(s) Family Medical History: Cancer Additional Family Medical History / Comment(s): Sister had breast cancer with mets to her brain. General Exam - General Exam Comments Initial Comments: This a well-developed asthenic appearing female who is awake alert oriented 3 Limitations: no limitations General appearance: alert, anxious Head exam: Present: atraumatic, normocephalic, normal inspection Eye exam: Present: normal appearance, PERRL, EOMI. Absent: scleral icterus, conjunctival injection, periorbital swelling ENT exam: Present: normal exam, mucous membranes moist Neck exam: Present: normal inspection. Absent: tenderness, meningismus, lymphadenopathy Respiratory exam: Present: decreased breath sounds. Absent: respiratory distress, wheezes, rales, rhonchi, stridor Cardiovascular Exam: Present: normal rhythm, tachycardia. Absent: systolic murmur, diastolic murmur, rubs, gallop, clicks GI/Abdominal exam: Present: tenderness, other (Mild lower quadrant tenderness palpation worse on the right than left). Absent: distended, guarding, rebound, rigid, bruit, pulsatile mass Rectal exam: Present: normal rectal tone, heme (+) stool. Absent: hemorrhoids, mass, tenderness Extremities exam: Present: normal inspection, full ROM, normal capillary refill. Absent: tenderness, pedal edema, joint swelling, calf tenderness Back exam: Present: normal inspection Neurological exam: Present: alert, oriented X3, CN II-XII intact Psychiatric exam: Present: normal affect, normal mood Skin exam: Present: warm, dry, intact, normal color. Absent: rash Course Vital Signs 02/20/19 11:10 Temperature 98.5 F Pulse Rate 118 H Respiratory 20 Rate Blood Pressure 159/100 O2 Sat by Pulse 100 Oximetry - Reevaluation(s) Reevaluation #1: 02/20/19 12:27 The patient will be admitted for GI bleeding hemoglobin is within normal limits CAT scan scheduled I did discuss case Dr. Vidal. GI will be consulted Medical Decision Making - Lab Data Result diagrams: 02/20/19 11:41 Lab Results 02/20/19 02/20/19 Range/Units 11:41 11:41 WBC 22.8 H (3.8-10.6) k/uL RBC 4.05 (3.80-5.40) m/uL Hgb 12.0 (11.4-16.0) gm/dL Hct 38.4 (34.0-46.0) % MCV 94.9 (80.0-100.0) fL MCH 29.5 (25.0-35.0) pg MCHC 31.1 (31.0-37.0) g/dL RDW 15.9 H (11.5-15.5) % Plt Count 472 H (150-450) k/uL Neutrophils % 88 % Lymphocytes % 7 % Monocytes % 4 % Eosinophils % 0 % Basophils % 1 % Neutrophils # 20.0 H (1.3-7.7) k/uL Lymphocytes # 1.5 (1.0-4.8) k/uL Monocytes # 0.9 (0-1.0) k/uL Eosinophils # 0.0 (0-0.7) k/uL Basophils # 0.3 H (0-0.2) k/uL Stool Occult Blood Positive H (Negative) Disposition Clinical Impression: Hematochezia, Gastrointestinal bleeding, Abdominal pain in female, History of COPD Disposition: ADMITTED IP TO THIS HOSP Condition: Fair Referrals: Abraham Dunn DO [Primary Care Provider] - 1-2 days
[2019-02-20 12:12] LABS: INR 0.9 (<1.2); Prothrombin Time 9.9 sec (9.0-12.0)
[2019-02-20 12:17] LABS: Basophils # (A) 0.3 k/uL (0-0.2); Basophils % (A) 1 %; Eosinophils % (A) 0 %; HCT 38.4 % (34.0-46.0); Lymphocytes # (A) 1.5 k/uL (1.0-4.8); Lymphocytes % (A) 7 %; MCH 29.5 pg (25.0-35.0); MCHC 31.1 g/dL (31.0-37.0); MCV 94.9 fL (80.0-100.0); Mean Platelet Volume 7.2; Monocytes # (A) 0.9 k/uL (0-1.0); Monocytes % (A) 4 %; Neutrophils % (A) 88 %; Platelet Count 472 k/uL (150-450); RBC 4.05 m/uL (3.80-5.40); RDW 15.9 % (11.5-15.5); WBC 22.8 k/uL (3.8-10.6)
[2019-02-20] MEDS ORDERED: ACETAMINOPHEN TAB 325 MG TAB PO PRN (12:28)
[2019-02-20] MEDS ORDERED: NALOXONE 0.4 MG/ML 1 ML VIAL IV PRN (12:28)
[2019-02-20 12:32] LABS: Albumin 3.6 g/dL (3.5-5.0); Calcium 9.8 mg/dL (8.4-10.2); Total Bilirubin 0.3 mg/dL (0.2-1.3)
[2019-02-20] MEDS: SODIUM CHLORIDE 0.9% 1,000 ML IV SCH (12:58)
[2019-02-20] MEDS: IPRATROPIUM-ALBUTEROL 3 ML NEB INHALATION SCH ×2 (13:09→19:37)
[2019-02-20] MEDS ORDERED: SODIUM CHLORIDE 0.9% 500 ML 500 ML IV STA (13:39)
--- NOTE | 2019-02-20 13:39 | ED ---
Medical Decision Making - Medical Decision Making Patient was noted have an elevated troponin. He admits will be changed to telemetry. CAT scan is pending at this time. Also is a marked leukocytosis likely a stress reaction - Lab Data Result diagrams: 02/20/19 11:41 02/20/19 11:41 Lab Results 02/20/19 02/20/19 02/20/19 Range/Units 11:41 11:41 11:41 WBC 22.8 H (3.8-10.6) k/uL RBC 4.05 (3.80-5.40) m/uL Hgb 12.0 (11.4-16.0) gm/dL Hct 38.4 (34.0-46.0) % MCV 94.9 (80.0-100.0) fL MCH 29.5 (25.0-35.0) pg MCHC 31.1 (31.0-37.0) g/dL RDW 15.9 H (11.5-15.5) % Plt Count 472 H (150-450) k/uL Neutrophils % 88 % Lymphocytes % 7 % Monocytes % 4 % Eosinophils % 0 % Basophils % 1 % Neutrophils # 20.0 H (1.3-7.7) k/uL Lymphocytes # 1.5 (1.0-4.8) k/uL Monocytes # 0.9 (0-1.0) k/uL Eosinophils # 0.0 (0-0.7) k/uL Basophils # 0.3 H (0-0.2) k/uL PT (9.0-12.0) sec INR (<1.2) APTT (22.0-30.0) sec Sodium 143 (137-145) mmol/L Potassium 4.0 (3.5-5.1) mmol/L Chloride 99 (98-107) mmol/L Carbon Dioxide 37 H (22-30) mmol/L Anion Gap 7 mmol/L BUN 20 H (7-17) mg/dL Creatinine 0.76 (0.52-1.04) mg/dL Est GFR (CKD-EPI)AfAm 88 (>60 ml/min/1.73 sqM) Est GFR (CKD-EPI)NonAf 76 (>60 ml/min/1.73 sqM) Glucose 124 H (74-99) mg/dL Calcium 9.8 (8.4-10.2) mg/dL Magnesium 2.0 (1.6-2.3) mg/dL Total Bilirubin 0.3 (0.2-1.3) mg/dL AST 33 (14-36) U/L ALT 41 (9-52) U/L Alkaline Phosphatase 53 (38-126) U/L Creatine Kinase 31 (30-135) U/L Troponin I (0.000-0.034) ng/mL Total Protein 6.0 L (6.3-8.2) g/dL Albumin 3.6 (3.5-5.0) g/dL Stool Occult Blood Positive H (Negative) 02/20/19 02/20/19 Range/Units 11:41 11:41 WBC (3.8-10.6) k/uL RBC (3.80-5.40) m/uL Hgb (11.4-16.0) gm/dL Hct (34.0-46.0) % MCV (80.0-100.0) fL MCH (25.0-35.0) pg MCHC (31.0-37.0) g/dL RDW (11.5-15.5) % Plt Count (150-450) k/uL Neutrophils % % Lymphocytes % % Monocytes % % Eosinophils % % Basophils % % Neutrophils # (1.3-7.7) k/uL Lymphocytes # (1.0-4.8) k/uL Monocytes # (0-1.0) k/uL Eosinophils # (0-0.7) k/uL Basophils # (0-0.2) k/uL PT 9.9 (9.0-12.0) sec INR 0.9 (<1.2) APTT 21.0 L (22.0-30.0) sec Sodium (137-145) mmol/L Potassium (3.5-5.1) mmol/L Chloride (98-107) mmol/L Carbon Dioxide (22-30) mmol/L Anion Gap mmol/L BUN (7-17) mg/dL Creatinine (0.52-1.04) mg/dL Est GFR (CKD-EPI)AfAm (>60 ml/min/1.73 sqM) Est GFR (CKD-EPI)NonAf (>60 ml/min/1.73 sqM) Glucose (74-99) mg/dL Calcium (8.4-10.2) mg/dL Magnesium (1.6-2.3) mg/dL Total Bilirubin (0.2-1.3) mg/dL AST (14-36) U/L ALT (9-52) U/L Alkaline Phosphatase (38-126) U/L Creatine Kinase (30-135) U/L Troponin I 0.052 H* (0.000-0.034) ng/mL Total Protein (6.3-8.2) g/dL Albumin (3.5-5.0) g/dL Stool Occult Blood (Negative) Disposition Clinical Impression: Hematochezia, Gastrointestinal bleeding, Abdominal pain in female, History of COPD Disposition: ADMITTED IP TO THIS HOSP Condition: Fair
--- NOTE | 2019-02-20 14:14 | CT ---
EXAMINATION TYPE: CT abdomen pelvis w con DATE OF EXAM: 02/20/2019 COMPARISON: 02/13/2019 INDICATION: abdominal pain with GI bleed DLP: 381.8 mGycm, Automated exposure control for dose reduction was used. CONTRAST: 80 mL of Isovue 300. Study performed without Oral Contrast TECHNIQUE: Axial images were obtained from above the diaphragm to the pubic rami in the axial plane a t 5 mm thick sections. Reconstructed images are reviewed on the computer in the coronal plane. FINDINGS: Limited CT sections are obtained the lung bases. Small bilateral pleural effusions are present. Emph ysematous changes are present.. CT ABDOMEN: Liver: Normal Spleen: Normal Pancreas: Normal Adrenal glands: The adrenal glands are normal. Gallbladder: Normal Kidneys: No masses are evident. No hydronephrosis is present. Cortical renal cysts are present bila terally. Delayed images were obtained through the kidneys, which remain unremarkable. Aorta: Vascular calcification is within the aorta. Inferior vena cava: Normal. CT PELVIS: There is mild thickening of the mchugh of the cecum. Distal colon is distended with fluid. No wall thi ckening distal colon is evident. Studies performed bilateral contrast limiting bowel evaluation. Appendix: Not visualized. No suspicious tubular structures or inflammatory changes are evident. Urinary bladder: Normal. Genitourinary structures: There is some fullness and irregular borders of the vaginal canal. Uterus a nd ovaries are not identified. Osseous structures: No suspicious lytic or sclerotic lesions. IMPRESSIONS: 1. Fullness of the distal vaginal region with irregular outer mchugh. Consider additional evaluation. 2. Thickened mchugh of the cecum. Correlate for colitis at the cecum. Remaining portions of the colon are normal. 3. Exam appears stable from 02/13/2019.
--- NOTE | 2019-02-20 14:24 | ED ---
Medical Decision Making - Lab Data Result diagrams: 02/20/19 11:41 02/20/19 11:41 Lab Results 02/20/19 02/20/19 02/20/19 Range/Units 11:41 11:41 11:41 WBC 22.8 H (3.8-10.6) k/uL RBC 4.05 (3.80-5.40) m/uL Hgb 12.0 (11.4-16.0) gm/dL Hct 38.4 (34.0-46.0) % MCV 94.9 (80.0-100.0) fL MCH 29.5 (25.0-35.0) pg MCHC 31.1 (31.0-37.0) g/dL RDW 15.9 H (11.5-15.5) % Plt Count 472 H (150-450) k/uL Neutrophils % 88 % Lymphocytes % 7 % Monocytes % 4 % Eosinophils % 0 % Basophils % 1 % Neutrophils # 20.0 H (1.3-7.7) k/uL Lymphocytes # 1.5 (1.0-4.8) k/uL Monocytes # 0.9 (0-1.0) k/uL Eosinophils # 0.0 (0-0.7) k/uL Basophils # 0.3 H (0-0.2) k/uL PT (9.0-12.0) sec INR (<1.2) APTT (22.0-30.0) sec Sodium 143 (137-145) mmol/L Potassium 4.0 (3.5-5.1) mmol/L Chloride 99 (98-107) mmol/L Carbon Dioxide 37 H (22-30) mmol/L Anion Gap 7 mmol/L BUN 20 H (7-17) mg/dL Creatinine 0.76 (0.52-1.04) mg/dL Est GFR (CKD-EPI)AfAm 88 (>60 ml/min/1.73 sqM) Est GFR (CKD-EPI)NonAf 76 (>60 ml/min/1.73 sqM) Glucose 124 H (74-99) mg/dL Calcium 9.8 (8.4-10.2) mg/dL Magnesium 2.0 (1.6-2.3) mg/dL Total Bilirubin 0.3 (0.2-1.3) mg/dL AST 33 (14-36) U/L ALT 41 (9-52) U/L Alkaline Phosphatase 53 (38-126) U/L Creatine Kinase 31 (30-135) U/L Troponin I (0.000-0.034) ng/mL Total Protein 6.0 L (6.3-8.2) g/dL Albumin 3.6 (3.5-5.0) g/dL Stool Occult Blood Positive H (Negative) 02/20/19 02/20/19 Range/Units 11:41 11:41 WBC (3.8-10.6) k/uL RBC (3.80-5.40) m/uL Hgb (11.4-16.0) gm/dL Hct (34.0-46.0) % MCV (80.0-100.0) fL MCH (25.0-35.0) pg MCHC (31.0-37.0) g/dL RDW (11.5-15.5) % Plt Count (150-450) k/uL Neutrophils % % Lymphocytes % % Monocytes % % Eosinophils % % Basophils % % Neutrophils # (1.3-7.7) k/uL Lymphocytes # (1.0-4.8) k/uL Monocytes # (0-1.0) k/uL Eosinophils # (0-0.7) k/uL Basophils # (0-0.2) k/uL PT 9.9 (9.0-12.0) sec INR 0.9 (<1.2) APTT 21.0 L (22.0-30.0) sec Sodium (137-145) mmol/L Potassium (3.5-5.1) mmol/L Chloride (98-107) mmol/L Carbon Dioxide (22-30) mmol/L Anion Gap mmol/L BUN (7-17) mg/dL Creatinine (0.52-1.04) mg/dL Est GFR (CKD-EPI)AfAm (>60 ml/min/1.73 sqM) Est GFR (CKD-EPI)NonAf (>60 ml/min/1.73 sqM) Glucose (74-99) mg/dL Calcium (8.4-10.2) mg/dL Magnesium (1.6-2.3) mg/dL Total Bilirubin (0.2-1.3) mg/dL AST (14-36) U/L ALT (9-52) U/L Alkaline Phosphatase (38-126) U/L Creatine Kinase (30-135) U/L Troponin I 0.052 H* (0.000-0.034) ng/mL Total Protein (6.3-8.2) g/dL Albumin (3.5-5.0) g/dL Stool Occult Blood (Negative) Disposition Clinical Impression: Hematochezia, Gastrointestinal bleeding, Abdominal pain in female, History of COPD, Colitis Disposition: ADMITTED IP TO THIS HOSP Condition: Fair
[2019-02-20] MEDS: metroNIDAZOLE 500 MG TAB PO SCH ×2 (16:11→21:07)
[2019-02-20 19:03] LABS: Basophils # (A) 0.1 k/uL (0-0.2); Basophils % (A) 1 %; Eosinophils # (A) 0.1 k/uL (0-0.7); Eosinophils % (A) 0 %; HCT 35.7 % (34.0-46.0); HGB 11.6 gm/dL (11.4-16.0); Hypochromasia Slight; Lymphocytes # (A) 1.4 k/uL (1.0-4.8); Lymphocytes % (A) 7 %; MCH 31.1 pg (25.0-35.0); MCHC 32.4 g/dL (31.0-37.0); Mean Platelet Volume 6.4; Monocytes # (A) 0.9 k/uL (0-1.0); Monocytes % (A) 4 %; Neutrophils # (A) 18.3 k/uL (1.3-7.7); Neutrophils % (A) 87 %; Platelet Count 394 k/uL (150-450); RBC 3.72 m/uL (3.80-5.40); RDW 15.7 % (11.5-15.5)
[2019-02-20] MEDS: BUDESONIDE 0.5 MG/2 ML NEBU INHALATION SCH (19:37)
[2019-02-20] MEDS: FORMOTEROL FUMARATE 20 MCG/2 ML NEBU INHALATION SCH (19:37)
[2019-02-20] MEDS: PARoxetine 20 MG TAB PO SCH (20:59)
[2019-02-20] MEDS: PANTOPRAZOLE 40 MG/10 ML VIAL IV SCH (21:07)
[2019-02-21] MEDS: IPRATROPIUM-ALBUTEROL 3 ML NEB INHALATION SCH ×4 (02:20→19:42)
[2019-02-21] MEDS: SODIUM CHLORIDE 0.9% 1,000 ML IV SCH ×2 (03:42→16:31)
[2019-02-21 07:04] LABS: Basophils # (A) 0.1 k/uL (0-0.2); Basophils % (A) 0 %; Eosinophils # (A) 0.2 k/uL (0-0.7); Eosinophils % (A) 1 %; HCT 30.8 % (34.0-46.0); Lymphocytes # (A) 1.7 k/uL (1.0-4.8); Lymphocytes % (A) 10 %; MCH 30.5 pg (25.0-35.0); MCHC 32.4 g/dL (31.0-37.0); Mean Platelet Volume 6.3; Monocytes # (A) 0.5 k/uL (0-1.0); Monocytes % (A) 3 %; Neutrophils # (A) 13.7 k/uL (1.3-7.7); Neutrophils % (A) 84 %; Platelet Count 393 k/uL (150-450); RBC 3.28 m/uL (3.80-5.40); RDW 15.7 % (11.5-15.5); WBC 16.2 k/uL (3.8-10.6)
[2019-02-21 07:17] LABS: Calcium 8.8 mg/dL (8.4-10.2); Potassium 3.3 mmol/L (3.5-5.1)
[2019-02-21] MEDS: FORMOTEROL FUMARATE 20 MCG/2 ML NEBU INHALATION SCH ×2 (08:34→19:42)
[2019-02-21] MEDS: BUDESONIDE 0.5 MG/2 ML NEBU INHALATION SCH ×2 (08:34→19:42)
[2019-02-21] MEDS ORDERED: POTASSIUM CHLORIDE ER 20 MEQ TAB.ER PO STA (09:45)
[2019-02-21] MEDS: PANTOPRAZOLE 40 MG/10 ML VIAL IV SCH ×2 (10:03→21:36)
[2019-02-21] MEDS: metroNIDAZOLE 500 MG TAB PO SCH ×3 (10:04→21:35)
[2019-02-21] MEDS: LISINOPRIL 2.5 MG TAB PO SCH (10:04)
[2019-02-21] MEDS: predniSONE 10 MG TAB PO SCH (10:04)
[2019-02-21] MEDS: CHOLECALCIFEROL 1,000 UNIT TAB PO SCH (10:04)
[2019-02-21] MEDS: DILTIAZEM CD 180 MG CAP.ER.24H PO SCH (10:04)
[2019-02-21] MEDS: FOLIC ACID 1 MG TAB PO SCH (12:27)
[2019-02-21] MEDS: THIAMINE 100 MG TAB PO SCH (12:27)
[2019-02-21] MEDS: MULTIVITAMINS, THERA 1 EACH TAB PO SCH (12:27)
--- NOTE | 2019-02-21 18:30 | P.HPIM ---
History of Present Illness H&P Date: 02/21/19 Chief Complaint: Bright red blood per rectum History of presenting complaint: This is a 78-year-old patient, of Dr. Dunn. Chronic stable medical conditions include COPD with chronic hypoxic respiratory failure, essential hypertension, kyphoscoliosis, cachexia, moderate protein calorie malnutrition, osteoporosis, chronic vertebral fractures, irritable bowel syndrome. Patient was discharged from the hospital recently with COPD exacerbation. Also had lower GI bleed and Showed sigmoid diverticulosis. Patient is having brown stools before discharge. Colitis was felt to be unlikely by Dr. Pepe Dalal. Patient is resident of [facility]. Patient now presents with bright red blood per rectum. Slight lower abdominal discomfort. Appetite has been fair. Some nausea present. Early this morning did have a dark stool. GI was consulted. Admitted for the same. Had a baseline uses a wheelchair. Review of systems: GEN.: Tired EYES: None HEENT: None NECK: None RESPIRATORY: Baseline some shortness of breath] CARDIOVASCULAR: None GASTROINTESTINAL: As above GENITOURINARY: None MUSCULOSKELETAL: Joint pains LYMPHATICS: None HEMATOLOGICAL: None PSYCHIATRY: Forgetful NEUROLOGICAL: None Past medical history to include: COPD, chronic hypoxic respiratory failure, essential hypertension, kyphoscoliosis, cachexia, moderate protein calorie malnutrition, osteoporosis, chronic vertebral fracture, irritable bowel syndrome, dementia, chronic urinary incontinence Social history: He recently went into [facility] reported on. Uses a wheelchair. Patient smoked for over 50 years stopped in 2013. For the most part drank 2 or more glasses of wine a day now down to classes of wine occasionally. Physical examination: VITAL SIGNS: 98.5, 118, 20, 159/100, 100% on 2 L GENERAL: BMI 13.9, sitting up awake. EYES: Pupils equal. Conjunctiva normal. HEENT: External appearance of nose and ears normal, oral cavity grossly normal. NECK: JVD not raised; masses not palpable. HEART: First and second heart sounds are normal; no edema. LUNGS: Respiratory rate increased, diminished breath sounds. ABDOMEN: Soft, mild right lower quadrant tenderness no guarding or rigidity liver spleen not palpable, no masses palpable. PSYCH: Alert and oriented x3; mood and affect normal. NEUROLOGICAL: Cranial nerves grossly intact; no facial asymmetry, power and sensation grossly intact. LYMPHATICS: No lymph nodes palpable in the axilla and neck MUSCULOSKELETAL: Diffuse wasting of muscles with bony prominences and loss of subcutaneous tissue INVESTIGATIONS, reviewed in the clinical context: White count 21 hemoglobin 11.6 potassium 3.3 creatinine 0.82 Hemoglobin was 12.4 on February 17 Computed tomography scan of the abdomen-from February 13-numerous diverticula of the sigmoid colon compression deformities of the lumbar vertebra, some wall thickening of the ascending colon Assessment: -Recurrent bright red blood per rectum in a patient with known sigmoid diverticulosis with recent bleed. Mild lower abdominal tenderness and also question of colitis of loss admission appears to be less likely. Patient's GI bleed on the last admission was self-limiting. -Acute blood loss anemia from GI bleed -COPD in an ex-smoker -Chronic hypoxic respiratory failure from COPD -Essential hypertension -Chronic kyphoscoliosis -Severe protein calorie malnutrition -Chronic osteoporosis -Chronic lumbar and thoracic vertebral fracture -[id number] cognitive impairment from underlying Alzheimer's late onset dementia -Chronic urinary incontinence -Chronic medical debility patient uses a wheelchair Plan: Care was discussed with the patient. GI was consulted. Home medications resumed. Follow H&H. Expect the bleeding to stop spontaneously. Doubt distended colitis. Patient's elevated white count is more likely from the steroids. Past Medical History Past Medical History: Asthma, Heart Failure, COPD, Dementia, Hypertension, Respiratory Disorder, Thyroid Disorder Additional Past Medical History / Comment(s): Severe COPD, chronic hypoxic respiratory failure, home oxygen at 2L/NC ATC, tachycardia r/t COPD, cachexia, idiopathic scoliosis/kyphoscoliosis, osteoporosis, vertebral fractures, L shoulder rotator cuff problem, chronic anemia, insomnia, lower extremity edema, chronic diarrhea, IBS, previous history of hyperparathyroidism with surgery, urinary incontinence, stool incontinence, UTI. History of Any Multi-Drug Resistant Organisms: None Reported Past Surgical History: Appendectomy, Cholecystectomy, Heart Catheterization, Hysterectomy, Orthopedic Surgery Additional Past Surgical History / Comment(s): parathyroidectomy, colonoscopy with benign polypectomy, R shoulder birthmark removal, 2012 cardiac cath-normal Past Anesthesia/Blood Transfusion Reactions: Postoperative Nausea & Vomiting (PONV) Additional Past Anesthesia/Blood Transfusion Reaction / Comment(s): Pt believes she received blood years ago. Smoking Status: Former smoker - Past Family History Father Family Medical History: COPD Mother Family Medical History: Cancer Additional Family Medical History / Comment(s): Mother had leukemia. Sister(s) Family Medical History: Cancer Additional Family Medical History / Comment(s): Sister had breast cancer with mets to her brain. Medications and Allergies Home Medications Medication Instructions Recorded Confirmed Type Aspirin EC [Ecotrin Low Dose] 81 mg PO DAILY 09/07/16 02/20/19 History Lisinopril [Zestril] 2.5 mg PO DAILY 09/07/16 02/20/19 History Cholecalciferol (Vitamin D3) 2,000 unit PO DAILY 08/31/18 02/20/19 History [Vitamin D3] Diltiazem HCl [Cartia Xt] 180 mg PO DAILY 08/31/18 02/20/19 History Budesonide [Pulmicort] 0.5 mg INHALATION RT-BID 11/19/18 02/20/19 History Formoterol Fumarate [Perforomist] 20 mcg INHALATION RT-BID 11/19/18 02/20/19 History Ipratropium-Albuterol Nebulize 3 ml INHALATION RT-QID PRN 11/19/18 02/20/19 History [Duoneb 0.5 mg-3 mg/3 ml Soln] Ipratropium/Albuterol Sulfate 1 puff INHALATION RT-QID PRN 11/19/18 02/20/19 History [Combivent Respimat Inhaler] PARoxetine [Paxil] 60 mg PO HS 11/19/18 02/20/19 History predniSONE 10 mg PO DAILY 11/19/18 02/20/19 History Acetaminophen Tab [Tylenol] 650 mg PO Q6HR PRN tab 02/18/19 02/20/19 Rx Folic Acid 1 mg PO DAILY@1200 tab 02/18/19 02/20/19 Rx Thiamine [Vitamin B-1] 100 mg PO DAILY@1200 tab 02/18/19 02/20/19 Rx Multivitamins, Thera [Multivitamin 1 tab PO DAILY@1200 02/20/19 02/20/19 History (formulary)] Omeprazole 20 mg PO DAILY 02/20/19 02/20/19 History Pantoprazole [Protonix] 40 mg PO DAILY@0600 02/20/19 02/20/19 History metroNIDAZOLE [Flagyl] 500 mg PO TID 02/20/19 02/20/19 History Allergies Allergy/AdvReac Type Severity Reaction Status Date / Time levofloxacin [From Levaquin] Allergy Swelling Verified 02/20/19 11:11 codeine AdvReac Nausea & Verified 02/20/19 11:11 Vomiting meperidine [From Demerol] AdvReac "HYPER" Verified 02/20/19 11:11 Physical Exam Vitals: Vital Signs Temp Pulse Pulse Resp BP BP Pulse Ox 02/21/19 09:05 84 02/21/19 09:00 97.7 F 86 16 144/88 100 02/21/19 08:48 80 02/21/19 08:47 80 02/21/19 08:35 84 02/21/19 04:00 98.5 F 83 20 126/77 97 02/21/19 02:33 84 02/21/19 02:20 83 98 02/21/19 00:00 98.3 F 80 20 122/75 97 02/20/19 20:04 100 02/20/19 20:00 98.7 F 100 20 128/93 95 02/20/19 19:51 102 H 02/20/19 19:38 102 H 97 02/20/19 16:04 109 H 18 02/20/19 16:00 98.0 F 109 H 18 163/91 100 02/20/19 15:00 114 H 14 170/87 02/20/19 14:00 133 H 19 147/97 99 02/20/19 13:18 110 H 16 02/20/19 13:15 115 H 20 147/97 100 02/20/19 13:09 116 H 18 02/20/19 13:00 125 H 17 156/107 100 02/20/19 12:00 124 H 24 138/90 02/20/19 11:12 100 02/20/19 11:10 98.5 F 118 H 20 159/100 100 Intake and Output 02/20/19 02/21/19 02/21/19 22:59 06:59 14:59 Intake Total 1620 Balance 1620 Intake: Amount of Fluid Infused ( 500 ml) Intake, IV Titration 740 Amount Sodium Chloride 0.9% 1, 240 000 ml @ 80 mls/hr IV . [id number] LIZETT Rx#:[id number] Sodium Chloride 0.9% 500 500 ml 500 ml @ 999 mls/hr IV .Q31M STA Rx#:[id number] Oral 380 Other: Voiding Method Bedside Commode Bedside Commode Diaper Diaper Incontinent Incontinent # Voids 1 2 # Bowel Movements 1 Weight 38 kg Results CBC & Chem 7: 02/21/19 06:07 02/21/19 06:07 Labs: Abnormal Lab Results - Last 24 Hours (Table) 02/20/19 02/20/19 02/20/19 Range/Units 11:41 11:41 11:41 WBC 22.8 H (3.8-10.6) k/uL RBC (3.80-5.40) m/uL Hgb (11.4-16.0) gm/dL Hct (34.0-46.0) % RDW 15.9 H (11.5-15.5) % Plt Count 472 H (150-450) k/uL Neutrophils # 20.0 H (1.3-7.7) k/uL Basophils # 0.3 H (0-0.2) k/uL APTT (22.0-30.0) sec Potassium (3.5-5.1) mmol/L Carbon Dioxide 37 H (22-30) mmol/L BUN 20 H (7-17) mg/dL Glucose 124 H (74-99) mg/dL Troponin I (0.000-0.034) ng/mL Total Protein 6.0 L (6.3-8.2) g/dL Stool Occult Blood Positive H (Negative) 02/20/19 02/20/19 02/20/19 Range/Units 11:41 11:41 18:16 WBC 21.0 H (3.8-10.6) k/uL RBC 3.72 L (3.80-5.40) m/uL Hgb (11.4-16.0) gm/dL Hct (34.0-46.0) % RDW 15.7 H (11.5-15.5) % Plt Count (150-450) k/uL Neutrophils # 18.3 H (1.3-7.7) k/uL Basophils # (0-0.2) k/uL APTT 21.0 L (22.0-30.0) sec Potassium (3.5-5.1) mmol/L Carbon Dioxide (22-30) mmol/L BUN (7-17) mg/dL Glucose (74-99) mg/dL Troponin I 0.052 H* (0.000-0.034) ng/mL Total Protein (6.3-8.2) g/dL Stool Occult Blood (Negative) 02/21/19 02/21/19 Range/Units 06:07 06:07 WBC 16.2 H (3.8-10.6) k/uL RBC 3.28 L (3.80-5.40) m/uL Hgb 10.0 L D (11.4-16.0) gm/dL Hct 30.8 L (34.0-46.0) % RDW 15.7 H (11.5-15.5) % Plt Count (150-450) k/uL Neutrophils # 13.7 H (1.3-7.7) k/uL Basophils # (0-0.2) k/uL APTT (22.0-30.0) sec Potassium 3.3 L (3.5-5.1) mmol/L Carbon Dioxide 36 H (22-30) mmol/L BUN (7-17) mg/dL Glucose (74-99) mg/dL Troponin I (0.000-0.034) ng/mL Total Protein (6.3-8.2) g/dL Stool Occult Blood (Negative) Thrombosis Risk Factor Assmnt - Choose All That Apply Any of the Below Risk Factors Present?: Yes Each Factor Represents 1 point: Abnormal pulmonary function (COPD) Other Risk Factors: Yes Each Risk Factor Represents 3 Points: Age 75 years or older Other congenital or acquired thrombophilia - If yes, enter type in comment: No Thrombosis Risk Factor Assessment Total Risk Factor Score: 4 Thrombosis Risk Factor Assessment Level: Moderate Risk
[2019-02-21] MEDS: PARoxetine 20 MG TAB PO SCH (21:35)
[2019-02-22] MEDS: IPRATROPIUM-ALBUTEROL 3 ML NEB INHALATION SCH ×4 (00:30→19:43)
[2019-02-22] MEDS: SODIUM CHLORIDE 0.9% 1,000 ML IV SCH ×2 (01:58→16:11)
[2019-02-22] MEDS: LISINOPRIL 2.5 MG TAB PO SCH (08:16)
[2019-02-22] MEDS: metroNIDAZOLE 500 MG TAB PO SCH ×4 (08:16→20:50)
[2019-02-22] MEDS: BUDESONIDE 0.5 MG/2 ML NEBU INHALATION SCH ×2 (08:16→19:43)
[2019-02-22] MEDS: DILTIAZEM CD 180 MG CAP.ER.24H PO SCH (08:16)
[2019-02-22] MEDS: FORMOTEROL FUMARATE 20 MCG/2 ML NEBU INHALATION SCH ×2 (08:16→20:02)
[2019-02-22] MEDS: THIAMINE 100 MG TAB PO SCH (08:19)
[2019-02-22] MEDS: CHOLECALCIFEROL 1,000 UNIT TAB PO SCH (08:19)
[2019-02-22] MEDS: MULTIVITAMINS, THERA 1 EACH TAB PO SCH (08:19)
[2019-02-22] MEDS: predniSONE 10 MG TAB PO SCH (08:19)
[2019-02-22] MEDS: FOLIC ACID 1 MG TAB PO SCH (08:19)
[2019-02-22] MEDS: PANTOPRAZOLE 40 MG/10 ML VIAL IV SCH ×3 (08:19→20:50)
--- NOTE | 2019-02-22 09:04 | P.CONS ---
History of Present Illness - Reason for Consult Consult date: 02/21/19 GI bleed Requesting physician: Rohan Vidal - Chief Complaint Blood per rectum - History of Present Illness 78-year-old female with medical comorbidities including COPD, hypertension, osteoporosis, chronic vertebral fractures and irritable bowel syndrome who presented for [facility] [place] after being noted to have bright red blood per rectum. Patient was recently hospitalized at which time she was treated for an exacerbation of her COPD. During that admission and there is concern over GI bleeding and gastroenterology was consulted, however patient was having normal brown bowel movements and was able to be discharged after breathing was adequately improved. She is sent back to the hospital at this time due to concerns over blood per rectum. She is reporting some general abdominal pain mainly in the right lower abdomen and worse with palpation. No nausea or vomiting reported. She was noted to have 2 black bowel movements this morning. Hemoglobin currently 10 with WBC 16.2, platelet count 393,000, total bilirubin 0.3, alkaline phosphatase 53, AST 33 and MALT 41. Computed tomography scan of the abdomen was performed and showed irregularity of the distal vagina as well as thickening of the cecum. Stool testing was positive for blood. Review of Systems REVIEW OF SYSTEMS: CONSTITUTIONAL: Denies any fevers, chills, weight change or fatigue. CARDIOVASCULAR: Denies any chest pain, palpitations high or low blood pressures RESPIRATORY: Denies any cough or vomit status post does suffer from shortness of breath secondary to COPD. GENITOURINARY: No dysuria or hematuria. MUSCULOSKELETAL: No weakness reported. SKIN: Denies any new rashes or lesions, jaundice or pallor. PSYCHIATRIC: Denies any depression or anxiety. NEUROLOGY: Denies headache, denies any new focal deficits. EARS/NOSE/THROAT: No recent hearing change, congestion, nasal discharge or sore throat. EYES: No pain in eyes, discharge or change in vision. GASTROINTESTINAL: As per HPI. Past Medical History Past Medical History: Asthma, Heart Failure, COPD, Dementia, Hypertension, Respiratory Disorder, Thyroid Disorder Additional Past Medical History / Comment(s): Severe COPD, chronic hypoxic respiratory failure, home oxygen at 2L/NC ATC, tachycardia r/t COPD, cachexia, idiopathic scoliosis/kyphoscoliosis, osteoporosis, vertebral fractures, L shoulder rotator cuff problem, chronic anemia, insomnia, lower extremity edema, chronic diarrhea, IBS, previous history of hyperparathyroidism with surgery, urinary incontinence, stool incontinence, UTI. History of Any Multi-Drug Resistant Organisms: None Reported Past Surgical History: Appendectomy, Cholecystectomy, Heart Catheterization, Hy sterectomy, Orthopedic Surgery Additional Past Surgical History / Comment(s): parathyroidectomy, colonoscopy with benign polypectomy, R shoulder birthmark removal, 2013 cardiac cath-normal Past Anesthesia/Blood Transfusion Reactions: Postoperative Nausea & Vomiting (PONV) Additional Past Anesthesia/Blood Transfusion Reaction / Comm: Pt believes she received blood years ago. Smoking Status: Former smoker - Past Family History Father Family Medical History: COPD Mother Family Medical History: Cancer Additional Family Medical History / Comment(s): Mother had leukemia. Sister(s) Family Medical History: Cancer Additional Family Medical History / Comment(s): Sister had breast cancer with mets to her brain. Medications and Allergies Home Medications Medication Instructions Recorded Confirmed Type Aspirin EC [Ecotrin Low Dose] 81 mg PO DAILY 09/07/16 02/20/19 History Lisinopril [Zestril] 2.5 mg PO DAILY 09/07/16 02/20/19 History Cholecalciferol (Vitamin D3) 2,000 unit PO DAILY 08/31/18 02/20/19 History [Vitamin D3] Diltiazem HCl [Cartia Xt] 180 mg PO DAILY 08/31/18 02/20/19 History Budesonide [Pulmicort] 0.5 mg INHALATION RT-BID 11/19/18 02/20/19 History Formoterol Fumarate [Perforomist] 20 mcg INHALATION RT-BID 11/19/18 02/20/19 History Ipratropium-Albuterol Nebulize 3 ml INHALATION RT-QID PRN 11/19/18 02/20/19 History [Duoneb 0.5 mg-3 mg/3 ml Soln] Ipratropium/Albuterol Sulfate 1 puff INHALATION RT-QID PRN 11/19/18 02/20/19 History [Combivent Respimat Inhaler] PARoxetine [Paxil] 60 mg PO HS 11/19/18 02/20/19 History predniSONE 10 mg PO DAILY 11/19/18 02/20/19 History Acetaminophen Tab [Tylenol] 650 mg PO Q6HR PRN tab 02/18/19 02/20/19 Rx Folic Acid 1 mg PO DAILY@1200 tab 02/18/19 02/20/19 Rx Thiamine [Vitamin B-1] 100 mg PO DAILY@1200 tab 02/18/19 02/20/19 Rx Multivitamins, Thera [Multivitamin 1 tab PO DAILY@1200 02/20/19 02/20/19 History (formulary)] Omeprazole 20 mg PO DAILY 02/20/19 02/20/19 History Pantoprazole [Protonix] 40 mg PO DAILY@0600 02/20/19 02/20/19 History metroNIDAZOLE [Flagyl] 500 mg PO TID 02/20/19 02/20/19 History Allergies Allergy/AdvReac Type Severity Reaction Status Date / Time levofloxacin [From Levaquin] Allergy Swelling Verified 02/20/19 11:11 codeine AdvReac Nausea & Verified 02/20/19 11:11 Vomiting meperidine [From Demerol] AdvReac "HYPER" Verified 02/20/19 11:11 Physical Exam Vitals: Vital Signs Temp Pulse Pulse Resp BP Pulse Ox 02/21/19 15:30 98.8 F 88 16 118/71 98 02/21/19 13:26 88 02/21/19 13:14 88 02/21/19 11:20 90 16 130/80 100 02/21/19 09:05 84 02/21/19 09:00 97.7 F 86 16 144/88 100 02/21/19 08:48 80 02/21/19 08:47 80 02/21/19 08:35 84 02/21/19 04:00 98.5 F 83 20 126/77 97 02/21/19 02:33 84 02/21/19 02:20 83 98 02/21/19 00:00 98.3 F 80 20 122/75 97 02/20/19 20:04 100 02/20/19 20:00 98.7 F 100 20 128/93 95 02/20/19 19:51 102 H 02/20/19 19:38 102 H 97 02/20/19 16:04 109 H 18 02/20/19 16:00 98.0 F 109 H 18 163/91 100 Intake and Output 02/21/19 02/21/19 02/21/19 06:59 14:59 22:59 Intake Total 180 Balance 180 Intake: Oral 180 Other: Voiding Method Bedside Commode Bedside Commode Diaper Diaper Incontinent Incontinent # Voids 2 # Bowel Movements 1 Weight 38 kg 38 kg On physical examination, patient appears comfortable in no apparent distress. HEAD: Normocephalic, atraumatic. EYES: No scleral icterus. No conjunctival injection. MOUTH: No lesions, tongue midline. NECK: Trachea midline, no gross abnormalities. CHEST: Decreased air entry in all lung [place]. HEART: S1-S2 appreciated. ABDOMEN: Soft, thin. Bowel sounds are positive. No organomegaly. No guarding or rigidity. EXTREMITIES: No pedal edema. SKIN: No rashes, no jaundice. NEUROLOGIC: Alert and oriented x2. No focal deficits. Results CBC & Chem 7: 02/21/19 06:07 02/21/19 06:07 Labs: Abnormal Lab Results - Last 24 Hours (Table) 02/20/19 02/21/19 02/21/19 Range/Units 18:16 06:07 06:07 WBC 21.0 H 16.2 H (3.8-10.6) k/uL RBC 3.72 L 3.28 L (3.80-5.40) m/uL Hgb 10.0 L D (11.4-16.0) gm/dL Hct 30.8 L (34.0-46.0) % RDW 15.7 H 15.7 H (11.5-15.5) % Neutrophils # 18.3 H 13.7 H (1.3-7.7) k/uL Potassium 3.3 L (3.5-5.1) mmol/L Carbon Dioxide 36 H (22-30) mmol/L CT scan - abdomen: report reviewed (Computed tomography scan of the abdomen was performed and showed irregularity of the distal vagina as well as thickening of the cecum.) Assessment and Plan (1) Gastrointestinal bleeding Narrative/Plan: 78-year-old female with multiple medical comorbidities who presents to the hospital with concerns over blood per rectum. Subsequently she had 2 dark bowel movements since presentation. Computed tomography scan of the abdomen did show irregularity of the distal vagina as well as thickening of the cecum. Patient reports some right hip pain as well as associated pain in the area around her right hip. Unclear etiology of symptoms, may be related to perirectal disease such as hemorrhoids, with other etiologies such as diverticular bleed, AVM or mass or other etiology not entirely excluded. Current Visit: Yes Status: Acute Code(s): K92.2 - GASTROINTESTINAL HEMORRHAGE, UNSPECIFIED SNOMED Code(s): 38932766 Plan: Supportive care Continue clear liquid diet Continue to monitor hemoglobin and hematocrit and transfuse as needed Continue to monitor stool output Computed tomography scan reviewed At this time we'll continue to monitor, with decision about endoscopic e valuation to be based on hemoglobin and symptoms, with the patient's willingness to perform the procedure as well as tolerate the prep and also a bryant determining factor, as at this time she has stated she is not interested in endoscopic evaluation Thank you for allowing us to participate in the care of the patient we will continue to follow
--- NOTE | 2019-02-22 17:37 | P.PN ---
Progress Note - Text Progress Note Date: 02/22/19 Chief Complaint: Bright red blood per rectum History of presenting complaint: This is a 78-year-old patient, of Dr. Dunn. Chronic stable medical conditions include COPD with chronic hypoxic respiratory failure, essential hypertension, kyphoscoliosis, cachexia, moderate protein calorie malnutrition, osteoporosis, chronic vertebral fractures, irritable bowel syndrome. Patient was discharged from the hospital recently with COPD exacerbation. Also had lower GI bleed and Showed sigmoid diverticulosis. Patient is having brown stools before discharge. Colitis was felt to be unlikely by Dr. Pepe Dalal. Patient is resident of [facility]. Patient now presents with bright red blood per rectum. Slight lower abdominal discomfort. Appetite has been fair. Some nausea present. Early this morning did have a dark stool. GI was consulted. Admitted for the same. Had a baseline uses a wheelchair. Today-laying in bed. No further GI bleed. Unable to take the chair per patient. Doesn't want to do it. Tired. Laying in bed. Review of systems: Was done for constitutional, cardiovascular, GI, pulmonary. relevant finding as above Active Medications Acetaminophen (Tylenol Tab) 650 mg PO Q6HR PRN PRN Reason: Mild Pain or Fever > 100.5 Albuterol/Ipratropium (Duoneb 0.5 Mg-3 Mg/3 Ml Soln) 3 ml INHALATION RT-Q6H [facility] Last Admin: 02/22/19 13:56 Dose: 3 ml Documented by: Budesonide (Pulmicort) 0.5 mg INHALATION RT-BID [facility] Last Admin: 02/22/19 08:16 Dose: 0.5 mg Documented by: Cholecalciferol (Vitamin D3 (25 Mcg = 1000 Iu)) 2,000 unit PO DAILY [facility] Last Admin: 02/22/19 08:19 Dose: 2,000 unit Documented by: Diltiazem HCl (Cardizem Cd) 180 mg PO DAILY [facility] Last Admin: 02/22/19 08:16 Dose: 180 mg Documented by: Folic Acid (Folic Acid) 1 mg PO DAILY@1200 [facility] Last Admin: 02/22/19 08:19 Dose: 1 mg Documented by: Formoterol Fumarate (Perforomist) 20 mcg INHALATION RT-BID [facility] Last Admin: 02/22/19 08:16 Dose: 20 mcg Documented by: Sodium Chloride (Saline 0.9%) 1,000 mls @ 80 mls/hr IV .[id number] [facility] Last Admin: 02/22/19 16:11 Dose: 80 mls/hr Documented by: Lisinopril (Zestril) 2.5 mg PO DAILY [facility] Last Admin: 02/22/19 08:16 Dose: 2.5 mg Documented by: Metronidazole (Flagyl) 500 mg PO TID [facility] Stop: 02/23/19 23:00 Last Admin: 02/22/19 16:11 Dose: 500 mg Documented by: Multivitamins (Theragran) 1 each PO DAILY@1200 [facility] Last Admin: 02/22/19 08:19 Dose: 1 each Documented by: Naloxone HCl (Narcan) 0.2 mg IV Q2M PRN PRN Reason: Opioid Reversal Pantoprazole Sodium (Protonix) 40 mg IV BID [facility] Last Admin: 02/22/19 08:19 Dose: 40 mg Documented by: Paroxetine HCl (Paxil) 60 mg PO HS [facility] Last Admin: 02/21/19 21:35 Dose: 60 mg Documented by: Prednisone () 10 mg PO DAILY [facility] Last Admin: 02/22/19 08:19 Dose: 10 mg Documented by: Thiamine HCl (Vitamin B-1) 100 mg PO DAILY@1200 [facility] Last Admin: 02/22/19 08:19 Dose: 100 mg Documented by: Physical examination: VITAL SIGNS: 97.8, 90 stent, 19, 150/80, 95% on 2 L GENERAL: Sitting up in bed awake, EYES: Pupils equal. Conjunctiva normal. HEENT: External appearance of nose and ears normal, oral cavity grossly normal. NECK: JVD not raised; masses not palpable. HEART: First and second heart sounds are normal; no edema. LUNGS: Respiratory rate increased, diminished breath sounds. ABDOMEN: Soft, mild right lower quadrant tenderness no guarding or rigidity liver spleen not palpable, no masses palpable. PSYCH: Alert and oriented x3; mood and affect normal. NEUROLOGICAL: Cranial nerves grossly intact; no facial asymmetry, power and sensation grossly intact. LYMPHATICS: No lymph nodes palpable in the axilla and neck MUSCULOSKELETAL: Diffuse wasting of muscles with bony prominences and loss of subcutaneous tissue INVESTIGATIONS, reviewed in the clinical context: Hemoglobin 10 white count 6.2 potassium 3.3 Previous testing: White count 21 hemoglobin 11.6 potassium 3.3 creatinine 0.82 Hemoglobin was 12.4 on February 17 Computed tomography scan of the abdomen-from February 13-numerous diverticula of the sigmoid colon compression deformities of the lumbar vertebra, some wall thickening of the ascending colon Assessment: -Recurrent bright red blood per rectum in a patient with known sigmoid diverticulosis with recent bleed. Mild lower abdominal tenderness and also question of colitis of loss admission appears to be less likely. Patient's GI bleed on the last admission was self-limiting. Given that this right red blood most likely this is left-sided diverticular bleed. Patient does not want to the or progression. Since this is diverticular bleed that is just keep a close eye on the patient.. -Acute blood loss anemia from GI bleed -COPD in an ex-smoker -Chronic hypoxic respiratory failure from COPD -Essential hypertension -Chronic kyphoscoliosis -Severe protein calorie malnutrition -Chronic osteoporosis -Chronic lumbar and thoracic vertebral fracture -[id number] cognitive impairment from underlying Alzheimer's late onset dementia -Chronic urinary incontinence -Chronic medical debility patient uses a wheelchair Plan: Care was discussed at length with Dr. Blancas from GI. Given the clinical picture and patient is refusing to the bowel preparation, is to keep a close eye on the hemoglobin. She also discussed at length with the patient. She understands the same. She would like to return to the ECF. She most occurred different ECF. That'll happen Sunday. Replace potassium.
[2019-02-22] MEDS: PARoxetine 20 MG TAB PO SCH (20:40)
[2019-02-23] MEDS: SODIUM CHLORIDE 0.9% 1,000 ML IV SCH ×2 (05:07→15:02)
[2019-02-23] MEDS: IPRATROPIUM-ALBUTEROL 3 ML NEB INHALATION SCH ×6 (07:52→23:09)
[2019-02-23] MEDS: BUDESONIDE 0.5 MG/2 ML NEBU INHALATION SCH ×2 (07:57→20:09)
[2019-02-23] MEDS: FORMOTEROL FUMARATE 20 MCG/2 ML NEBU INHALATION SCH ×2 (07:57→20:09)
[2019-02-23] MEDS: predniSONE 10 MG TAB PO SCH (08:05)
[2019-02-23] MEDS: CHOLECALCIFEROL 1,000 UNIT TAB PO SCH (08:05)
[2019-02-23] MEDS: PANTOPRAZOLE 40 MG/10 ML VIAL IV SCH ×2 (08:05→20:52)
[2019-02-23] MEDS: metroNIDAZOLE 500 MG TAB PO SCH ×3 (08:05→20:56)
[2019-02-23] MEDS: LISINOPRIL 2.5 MG TAB PO SCH (08:05)
[2019-02-23] MEDS ORDERED: methylPREDNISolone SOD SUCCI 125 MG/2 ML VIAL IV STA (08:46)
[2019-02-23] MEDS: DILTIAZEM CD 180 MG CAP.ER.24H PO SCH (09:05)
--- NOTE | 2019-02-23 09:20 | XR ---
EXAMINATION TYPE: XR chest 1V portable DATE OF EXAM: 02/23/2019 HISTORY: SOB. REFERENCE: Previous study dated 11/19/2018. FINDINGS: Lungs are overinflated. There are bilateral effusions with bibasilar airspace disease likel y representing atelectasis. The heart is not enlarged. IMPRESSION: 1. COPD. 2. BIBASILAR AIRSPACE DISEASE. 3. BILATERAL EFFUSIONS.
[2019-02-23 09:29] LABS: HCT 33.9 % (34.0-46.0); HGB 11.3 gm/dL (11.4-16.0); MCH 31.3 pg (25.0-35.0); MCHC 33.2 g/dL (31.0-37.0); MCV 94.1 fL (80.0-100.0); Platelet Count 454 k/uL (150-450); RDW 15.8 % (11.5-15.5); WBC 25.7 k/uL (3.8-10.6)
[2019-02-23 09:42] LABS: Calcium 8.4 mg/dL (8.4-10.2); Potassium 2.8 mmol/L (3.5-5.1)
[2019-02-23] MEDS ORDERED: FUROSEMIDE 10 MG/ML 4 ML VIAL IV STA (10:34)
[2019-02-23] MEDS ORDERED: ALPRAZolam 0.25 MG TAB PO STA (10:37)
[2019-02-23] MEDS: POTASSIUM CHLORIDE ER 20 MEQ TAB.ER PO SCH ×2 (10:55→13:00)
[2019-02-23] MEDS: CEFEPIME 2 GM in SODIUM CHLORIDE 0.9% 100 ML IVPB SCH ×2 (11:04→20:56)
[2019-02-23] MEDS: THIAMINE 100 MG TAB PO SCH (11:09)
[2019-02-23] MEDS: MULTIVITAMINS, THERA 1 EACH TAB PO SCH (11:09)
[2019-02-23] MEDS: FOLIC ACID 1 MG TAB PO SCH (11:09)
[2019-02-23] MEDS: methylPREDNISolone SOD SUCCI 40 MG/ML 1 ML VIAL IV SCH ×2 (15:07→23:59)
--- NOTE | 2019-02-23 20:07 | P.PN ---
Subjective Progress Note Date: 02/23/19 Principal diagnosis: Blood per rectum Patient seen lying in bed, with no further blood per rectum noted. Continues to report some pain around the right hip. Objective - Vital Signs Vital signs: Vital Signs Temp 98.3 F 02/23/19 06:00 Pulse 112 H 02/23/19 16:22 Resp 20 02/23/19 15:05 BP 102/55 02/23/19 15:05 Pulse Ox 98 02/23/19 15:05 Intake & Output 02/22/19 02/23/19 02/23/19 18:59 06:59 18:59 Intake Total 1180 100 240 Balance 1180 100 240 Intake: Intake, IV Titration 700 Amount Sodium Chloride 0.9% 1, 700 000 ml @ 80 mls/hr IV . [id number] [facility] Rx#:[id number] Oral 480 100 240 Other: Voiding Method Diaper Diaper Diaper # Voids 1 0 0 # Bowel Movements 1 0 1 - Exam On physical examination, patient appears comfortable in no apparent distress. HEAD: Normocephalic, atraumatic. EYES: No scleral icterus. No conjunctival injection. MOUTH: No lesions, tongue midline. NECK: Trachea midline, no gross abnormalities. CHEST: Decreased air entry in all lung oconnor. HEART: S1-S2 appreciated. ABDOMEN: Soft, thin. Bowel sounds are positive. No organomegaly. No guarding or rigidity. EXTREMITIES: No pedal edema. SKIN: No rashes, no jaundice. NEUROLOGIC: Alert and oriented. - Labs CBC & Chem 7: 02/23/19 09:03 02/23/19 09:03 Labs: Abnormal Lab Results - Last 24 Hours (Table) 02/23/19 02/23/19 Range/Units 09:03 09:03 WBC 25.7 H (3.8-10.6) k/uL RBC 3.60 L (3.80-5.40) m/uL Hgb 11.3 L (11.4-16.0) gm/dL Hct 33.9 L (34.0-46.0) % RDW 15.8 H (11.5-15.5) % Plt Count 454 H (150-450) k/uL Potassium 2.8 L (3.5-5.1) mmol/L Carbon Dioxide 33 H (22-30) mmol/L BUN 5 L (7-17) mg/dL Glucose 125 H (74-99) mg/dL Assessment and Plan (1) Gastrointestinal bleeding Narrative/Plan: 78-year-old female with multiple medical comorbidities who presents to the hospital with concerns over blood per rectum. Subsequently she had 2 dark bowel movements since presentation. Computed tomography scan of the abdomen did show irregularity of the distal vagina as well as thickening of the cecum. Patient reports some right hip pain as well as associated pain in the area around her right hip. Unclear etiology of symptoms, may be related to perirectal disease such as hemorrhoids, with other etiologies such as diverticular bleed, AVM or mass or other etiology not entirely excluded. Current Visit: Yes Status: Acute Code(s): K92.2 - GASTROINTESTINAL HEMORRHAGE, UNSPECIFIED SNOMED Code(s): 56629128 Plan: Supportive care Diet advance to a heart healthy, low fiber Continue to monitor hemoglobin and hematocrit and transfuse as needed will today at 11.3 Continue to monitor stool output Computed tomography scan reviewed At this time we'll continue to monitor, with decision about endoscopic evaluation to be based on hemoglobin and symptoms, with the patient's will ingness to perform the procedure as well as tolerate the prep and also a bryant determining factor, as at this time she continues to state that she is not interested in endoscopic evaluation Thank you for allowing us to participate in the care of the patient we will continue to follow
[2019-02-23] MEDS: PARoxetine 20 MG TAB PO SCH (20:52)
[2019-02-23] MEDS: ALPRAZolam 0.5 MG TAB PO PRN (20:52)
--- NOTE | 2019-02-23 23:31 | P.PN ---
Progress Note - Text Progress Note Date: 02/23/19 Chief Complaint: Short of breath Interval history: This is a 78-year-old patient, of Dr. Dunn. Chronic stable medical conditions include COPD with chronic hypoxic respiratory failure, essential hypertension, kyphoscoliosis, cachexia, moderate protein calorie malnutrition, osteoporosis, chronic vertebral fractures, irritable bowel syndrome. Patient was discharged from the hospital recently with COPD exacerbation. Also had lower GI bleed and Showed sigmoid diverticulosis. Patient is having brown stools before discharge. Colitis was felt to be unlikely by Dr. Pepe Dalal. Patient is resident of [facility]. Patient now presents with bright red blood per rectum. Slight lower abdominal discomfort. Appetite has been fair. Some nausea present. Early this morning did have a dark stool. GI was consulted. Admitted for the same. Had a baseline uses a wheelchair. Patient not able to tolerate the preparation for colonoscopy. Because the blood was bright has failed the swallow for diverticular bleed. After discussed with the patient and Dr. Blancas it was decided not to do coloscopy. Also does feel that patient will not tolerate coloscopy because of her respiratory status. Today-this morning patient became very short of breath with pursed breathing. I did order a bronchodilators and IV steroids. Also ordered BiPAP. Pulmonary consultation. As the patient was in respiratory distress to remove the patient to cardiology floor. Checks x-ray stat was also ordered. Did give 1 dose of IV Lasix... Review of systems: Was done for constitutional, cardiovascular, GI, pulmonary. relevant finding as above Active Medications Acetaminophen (Tylenol Tab) 650 mg PO Q6HR PRN PRN Reason: Mild Pain or Fever > 100.5 Last Admin: 02/22/19 23:08 Dose: 650 mg Documented by: Albuterol/Ipratropium (Duoneb 0.5 Mg-3 Mg/3 Ml Soln) 3 ml INHALATION RT-Q4H [facility] Last Admin: 02/23/19 23:09 Dose: Not Given Documented by: Alprazolam (Xanax) 0.5 mg PO QID PRN PRN Reason: Anxiety Last Admin: 02/23/19 20:52 Dose: 0.5 mg Documented by: Budesonide (Pulmicort) 0.5 mg INHALATION RT-BID [facility] Last Admin: 02/23/19 20:09 Dose: 0.5 mg Documented by: Cholecalciferol (Vitamin D3 (25 Mcg = 1000 Iu)) 2,000 unit PO DAILY [facility] Last Admin: 02/23/19 08:05 Dose: 2,000 unit Documented by: Diltiazem HCl (Cardizem Cd) 180 mg PO DAILY [facility] Last Admin: 02/23/19 09:05 Dose: 180 mg Documented by: Folic Acid (Folic Acid) 1 mg PO DAILY@1200 [facility] Last Admin: 02/23/19 11:09 Dose: Not Given Documented by: Formoterol Fumarate (Perforomist) 20 mcg INHALATION RT-BID [facility] Last Admin: 02/23/19 20:09 Dose: 20 mcg Documented by: Sodium Chloride (Saline 0.9%) 1,000 mls @ 80 mls/hr IV .[id number] [facility] Last Admin: 02/23/19 15:02 Dose: Not Given Documented by: Cefepime HCl 2 gm/ Sodium (Chloride) 100 mls @ 200 mls/hr IVPB Q12HR [facility] Last Admin: 02/23/19 20:56 Dose: Not Given Documented by: Lisinopril (Zestril) 2.5 mg PO DAILY [facility] Last Admin: 02/23/19 08:05 Dose: 2.5 mg Documented by: Methylprednisolone Sodium Succinate (Solu-Medrol) 40 mg IV Q8HR [facility] Last Admin: 02/23/19 15:07 Dose: 40 mg Documented by: Multivitamins (Theragran) 1 each PO DAILY@1200 [facility] Last Admin: 02/23/19 11:09 Dose: Not Given Documented by: Naloxone HCl (Narcan) 0.2 mg IV Q2M PRN PRN Reason: Opioid Reversal Pantoprazole Sodium (Protonix) 40 mg IV BID [facility] Last Admin: 02/23/19 20:52 Dose: 40 mg Documented by: Paroxetine HCl (Paxil) 60 mg PO HS [facility] Last Admin: 02/23/19 20:52 Dose: 60 mg Documented by: Thiamine HCl (Vitamin B-1) 100 mg PO DAILY@1200 [facility] Last Admin: 02/23/19 11:09 Dose: Not Given Documented by: Physical examination: VITAL SIGNS: 98.3, 102, 25, 137/66, 92% on 3 L GENERAL: Sitting up in bed short of breath, very anxious, EYES: Pupils equal. Conjunctiva normal. HEENT: External appearance of nose and ears normal, oral cavity grossly normal. NECK: JVD not raised; masses not palpable. HEART: First and second heart sounds are normal; no edema. LUNGS: Respiratory rate increased, poor air entry. Excessive muscles are working, but it was speaking full sentences ABDOMEN: Soft, mild right lower quadrant tenderness no guarding or rigidity liver spleen not palpable, no masses palpable. PSYCH: Alert and oriented x3; mood and affect anxious MUSCULOSKELETAL: Diffuse wasting of muscles with bony prominences and loss of subcutaneous tissue INVESTIGATIONS, reviewed in the clinical context: White count 25.7 hemoglobin 11.3 potassium 2.8 crit 0.80 Previous testing: White count 21 hemoglobin 11.6 potassium 3.3 creatinine 0.82 Hemoglobin was 12.4 on February 17 Computed tomography scan of the abdomen-from February 13-numerous diverticula of the sigmoid colon compression deformities of the lumbar vertebra, some wall thickening of the ascending colon Assessment: -Acute severe COPD exacerbation, with acute hypoxic and hypercapnic respiratory failure, today -Acute GI bleed felt to be left-sided chronic diverticular nature. -Acute blood loss anemia from GI bleed -COPD in an ex-smoker -Chronic hypoxic respiratory failure from COPD -Essential hypertension -Chronic kyphoscoliosis -Severe protein calorie malnutrition -Chronic osteoporosis -Chronic lumbar and thoracic vertebral fracture -[id number] cognitive impairment from underlying Alzheimer's late onset dementia -Chronic urinary incontinence -Chronic medical debility patient uses a wheelchair Plan: Patient: Frequent nebulized bronchodilators every 4 hours, IV steroids, BiPAP was ordered at / creatinine was consulted. Given dose of IV Lasix. Moved to the patient to the cardiology floor. Potassium being replaced Advanced care planning: Had a very lengthy talk with the patient of the bedside. Did discuss patient's overall poor and end-stage COPD. Did discuss that intubation and CPR would not be very fruitful in her condition.. Patient will also short time to think about the same... Also discussed discussed this with Dr. Greenwood. Did ask her to consider strongly about DO NOT RESUSCITATE. Later patient did agree to become DO NOT INTUBATE after she discussed with Dr. Greenwood Total time spent this was about 20 minutes
[2019-02-24] MEDS: IPRATROPIUM-ALBUTEROL 3 ML NEB INHALATION SCH ×6 (03:19→23:56)
[2019-02-24] MEDS: SODIUM CHLORIDE 0.9% 1,000 ML IV SCH ×2 (05:01→18:59)
[2019-02-24] MEDS: BUDESONIDE 0.5 MG/2 ML NEBU INHALATION SCH ×2 (07:13→20:28)
[2019-02-24] MEDS: FORMOTEROL FUMARATE 20 MCG/2 ML NEBU INHALATION SCH ×2 (07:13→20:28)
--- NOTE | 2019-02-24 09:27 | P.CRDCN ---
History of Present Illness Consult date: 02/24/19 Requesting physician: Rohan Vidal Consult reason: shortness of breath Chief complaint: GI bleed History of present illness: This is a 78-year-old female with history of COPD, asthma, h ypertension, hypothyroidism, scoliosis, chronic anemia, IBS, who was noted at the [facility] facility to have some bright red blood per rectum and was admitted to the hospital for this reason. She was just recently discharged from the hospital with an exacerbation of COPD, it was also felt on admission that patient may have had a GI bleed and GI services were consulted. She resides at [facility] aware that staff noticed her to have some bright red blood per rectum and for this reason she was admitted to the hospital. Most of the history was obtained from the medical record as the patient does have some dementia. EKG on presentation here showed a sinus tachycardia with right atrial enlargement. CAT scan of the abdomen and pelvis was also performed which revealed thickened mchugh of the cecum, possible colitis, stable overall. Chest x-ray showed COPD with bibasilar air space disease and bilateral effusions. Blood pressure 122/70 with a heart rate of 108, 100% on 2 L of oxygen. White blood cell count 25.7, on review of old records, it appears that the patient has a chronically elevated white blood cell count, hemoglobin 11.3, platelet count 454. Sodium 138, potassium 2.8, BUN 5 and creatinine 0.8. Troponin 0.05 to. Stool for occult blood was positive. There was no BNP level obtained. At the time of my examination this morning, the patient is sitting up comfortably in bed, does not appear overtly short of breath, does have an occasional cough. Past Medical History Past Medical History: Asthma, Heart Failure, COPD, Dementia, Hypertension, Respiratory Disorder, Thyroid Disorder Additional Past Medical History / Comment(s): Severe COPD, chronic hypoxic respiratory failure, home oxygen at 2L/NC ATC, tachycardia r/t COPD, cachexia, idiopathic scoliosis/kyphoscoliosis, osteoporosis, vertebral fractures, L shoulder rotator cuff problem, chronic anemia, insomnia, lower extremity edema, chronic diarrhea, IBS, previous history of hyperparathyroidism with surgery, urinary incontinence, stool incontinence, UTI. History of Any Multi-Drug Resistant Organisms: None Reported Past Surgical History: Appendectomy, Cholecystectomy, Heart Catheterization, Hysterectomy, Orthopedic Surgery Additional Past Surgical History / Comment(s): parathyroidectomy, colonoscopy with benign polypectomy, R shoulder birthmark removal, 2012 cardiac cath-normal Past Anesthesia/Blood Transfusion Reactions: Postoperative Nausea & Vomiting (PONV) Additional Past Anesthesia/Blood Transfusion Reaction / Comment(s): Pt believes she received blood years ago. Smoking Status: Former smoker - Past Family History Father Family Medical History: COPD Mother Family Medical History: Cancer Additional Family Medical History / Comment(s): Mother had leukemia. Sister(s) Family Medical History: Cancer Additional Family Medical History / Comment(s): Sister had breast cancer with mets to her brain. Medications and Allergies Home Medications Medication Instructions Recorded Confirmed Type Aspirin EC [Ecotrin Low Dose] 81 mg PO DAILY 09/07/16 02/20/19 History Lisinopril [Zestril] 2.5 mg PO DAILY 09/07/16 02/20/19 History Cholecalciferol (Vitamin D3) 2,000 unit PO DAILY 08/31/18 02/20/19 History [Vitamin D3] Diltiazem HCl [Cartia Xt] 180 mg PO DAILY 08/31/18 02/20/19 History Budesonide [Pulmicort] 0.5 mg INHALATION RT-BID 11/19/18 02/20/19 History Formoterol Fumarate [Perforomist] 20 mcg INHALATION RT-BID 11/19/18 02/20/19 History Ipratropium-Albuterol Nebulize 3 ml INHALATION RT-QID PRN 11/19/18 02/20/19 History [Duoneb 0.5 mg-3 mg/3 ml Soln] Ipratropium/Albuterol Sulfate 1 puff INHALATION RT-QID PRN 11/19/18 02/20/19 History [Combivent Respimat Inhaler] PARoxetine [Paxil] 60 mg PO HS 11/19/18 02/20/19 History predniSONE 10 mg PO DAILY 11/19/18 02/20/19 History Acetaminophen Tab [Tylenol] 650 mg PO Q6HR PRN tab 02/18/19 02/20/19 Rx Folic Acid 1 mg PO DAILY@1200 tab 02/18/19 02/20/19 Rx Thiamine [Vitamin B-1] 100 mg PO DAILY@1200 tab 02/18/19 02/20/19 Rx Multivitamins, Thera [Multivitamin 1 tab PO DAILY@1200 02/20/19 02/20/19 History (formulary)] Omeprazole 20 mg PO DAILY 02/20/19 02/20/19 History Pantoprazole [Protonix] 40 mg PO DAILY@0600 02/20/19 02/20/19 History metroNIDAZOLE [Flagyl] 500 mg PO TID 02/20/19 02/20/19 History Allergies Allergy/AdvReac Type Severity Reaction Status Date / Time levofloxacin [From Levaquin] Allergy Swelling Verified 02/20/19 11:11 codeine AdvReac Nausea & Verified 02/20/19 11:11 Vomiting meperidine [From Demerol] AdvReac "HYPER" Verified 02/20/19 11:11 Physical Exam Vitals: Vital Signs Temp Pulse Pulse Resp BP BP Pulse Ox 02/24/19 08:00 103 H 20 102/74 100 02/24/19 07:35 112 H 02/24/19 07:24 108 H 02/24/19 07:13 110 H 95 02/24/19 04:00 96.7 F L 111 H 18 123/80 95 02/24/19 00:00 97.4 F L 110 H 18 108/69 96 02/23/19 20:27 118 H 02/23/19 20:17 118 H 02/23/19 20:16 116 H 02/23/19 20:09 120 H 02/23/19 20:00 97.7 F 122 H 18 124/71 100 02/23/19 16:22 112 H 02/23/19 16:11 110 H 02/23/19 15:34 121 H 02/23/19 15:05 121 H 20 102/55 98 02/23/19 11:16 109 H 31 H 147/75 97 02/23/19 11:10 80 02/23/19 10:56 84 02/23/19 10:53 102 H 25 H 137/66 98 02/23/19 10:34 22 Intake and Output 02/23/19 02/24/19 02/24/19 22:59 06:59 14:59 Intake Total 240 Output Total 400 500 Balance -160 -500 Intake: Oral 240 Output: Urine 400 500 Other: Voiding Method Diaper Diaper Incontinent # Bowel Movements 1 Weight 42 kg 78-year-old female in no acute distress at the time of my examination PHYSICAL EXAMINATION: GENERAL: HEENT: Head is atraumatic, normocephalic. Pupils equal, round. Sclera anicteric. Conjunctiva are clear. Mucous membranes of the mouth are moist. Neck is supple. There is no elevated jugular venous pressure. No carotid bruit is heard. HEART EXAMINATION: Heart S1 and S2 1 systolic murmur is heard CHEST EXAMINATION: Lungs reveal diminished air entry to bilateral bases with some fine wheezing heard. ABDOMEN: Soft, mild generalized tenderness . Bowel sounds are heard. No organomegaly noted. EXTREMITIES: 2+ peripheral pulses with no evidence of peripheral edema and no calf tenderness noted. NEUROLOGIC patient is awake, alert and oriented 1 . . Results 02/23/19 09:03 02/23/19 09:03 CBC 02/23/19 Range/Units 09:03 WBC 25.7 H (3.8-10.6) k/uL RBC 3.60 L (3.80-5.40) m/uL Hgb 11.3 L (11.4-16.0) gm/dL Hct 33.9 L (34.0-46.0) % Plt Count 454 H (150-450) k/uL Comprehensive Metabolic Panel 02/23/19 Range/Units 09:03 Sodium 138 (137-145) mmol/L Potassium 2.8 L (3.5-5.1) mmol/L Chloride 99 (98-107) mmol/L Carbon Dioxide 33 H (22-30) mmol/L BUN 5 L (7-17) mg/dL Creatinine 0.80 (0.52-1.04) mg/dL Glucose 125 H (74-99) mg/dL Calcium 8.4 (8.4-10.2) mg/dL Current Medications Generic Name Dose Route Start Last Admin Trade Name Freq PRN Reason Stop Dose Admin Acetaminophen 650 mg 02/20/19 12:28 02/22/19 23:08 Tylenol Tab PO 650 mg Q6HR PRN Administration Mild Pain or Fever > 100.5 Albuterol/Ipratropium 3 ml 02/23/19 12:00 02/24/19 07:13 Duoneb 0.5 Mg-3 Mg/3 Ml Soln INHALATION 3 ml RT-Q4H LIZETT Administration Alprazolam 0.5 mg 02/23/19 16:54 02/23/19 20:52 Xanax PO 0.5 mg QID PRN Administration Anxiety Budesonide 0.5 mg 02/20/19 20:00 02/24/19 07:13 Pulmicort INHALATION 0.5 mg RT-BID LIZETT Administration Cholecalciferol 2,000 unit 02/21/19 09:00 02/23/19 08:05 Vitamin D3 (25 Mcg = 1000 Iu) PO 2,000 unit DAILY LIZETT Administration Diltiazem HCl 180 mg 02/21/19 09:00 02/23/19 09:05 Cardizem Cd PO 180 mg DAILY LIZETT Administration Folic Acid 1 mg 02/21/19 12:00 02/23/19 11:09 Folic Acid PO Not Given DAILY@1200 [facility] Formoterol Fumarate 20 mcg 02/20/19 20:00 02/24/19 07:13 Perforomist INHALATION 20 mcg RT-BID LIZETT Administration Sodium Chloride 1,000 mls @ 80 mls/hr 02/20/19 12:30 02/24/19 05:01 Saline 0.9% IV Not Given .[id number] LIZETT Cefepime HCl 2 gm/ Sodium 100 mls @ 200 mls/hr 02/23/19 10:45 02/23/19 20:56 Chloride IVPB Not Given Q12HR LIZETT Lisinopril 2.5 mg 02/21/19 09:00 02/23/19 08:05 Zestril PO 2.5 mg DAILY LIZETT Administration Methylprednisolone Sodium Succinate 40 mg 02/23/19 16:00 02/23/19 23:59 Solu-Medrol IV 40 mg Q8HR LIZETT Administration Multivitamins 1 each 02/21/19 12:00 02/23/19 11:09 Theragran PO Not Given DAILY@1200 [facility] Naloxone HCl 0.2 mg 02/20/19 12:28 Narcan IV Q2M PRN Opioid Reversal Pantoprazole Sodium 40 mg 02/20/19 21:00 02/23/19 20:52 Protonix IV 40 mg BID LIZETT Administration Paroxetine HCl 60 mg 02/20/19 21:00 02/23/19 20:52 Paxil PO 60 mg HS LIZETT Administration Thiamine HCl 100 mg 02/21/19 12:00 02/23/19 11:09 Vitamin B-1 PO Not Given DAILY@1200 [facility] Intake and Output 02/23/19 02/24/19 02/24/19 22:59 06:59 14:59 Intake Total 240 Output Total 400 500 Balance -160 -500 Intake: Oral 240 Output: Urine 400 500 Other: Voiding Method Diaper Diaper Incontinent # Bowel Movements 1 Weight 42 kg 02/23/19 09:03 02/23/19 09:03 EKG Interpretations (text) EKG shows a sinus tachycardia with left axis deviation, nonspecific ST-T wave changes. Assessment and Plan Plan: Assessment and plan #1 GI bleed #2 COPD #3 hypertension #4 scoliosis #5 mild shortness of breath, could be secondary to COPD, rule out mild heart failure. Chest x-ray shows small bilateral pleural effusions. #6 dementia #7 sinus tachycardia Plan We will obtain an echocardiogram with Doppler study as well as a BNP level. Continue Cardizem CD 180 mg daily, patient was given a one-time dose of IV Lasix in the emergency room. She is currently receiving antibiotics and steroids. Further recommendations to follow. DNP note has been reviewed, I agree with a documented findings and plan of care. Patient was seen and examined.
[2019-02-24] MEDS ORDERED: Potassium Replacement Protocol 1 EACH MISC MISCELLANE PRN (09:42)
[2019-02-24] MEDS: CEFEPIME 2 GM in SODIUM CHLORIDE 0.9% 100 ML IVPB SCH ×2 (10:24→20:17)
[2019-02-24] MEDS: methylPREDNISolone SOD SUCCI 40 MG/ML 1 ML VIAL IV SCH ×2 (10:24→17:17)
[2019-02-24] MEDS: PANTOPRAZOLE 40 MG/10 ML VIAL IV SCH ×2 (10:25→20:17)
[2019-02-24] MEDS: LISINOPRIL 2.5 MG TAB PO SCH (10:25)
[2019-02-24] MEDS: CHOLECALCIFEROL 1,000 UNIT TAB PO SCH (10:25)
[2019-02-24] MEDS: DILTIAZEM CD 180 MG CAP.ER.24H PO SCH (10:25)
--- NOTE | 2019-02-24 11:01 | ECHOF ---
Referral Reason:sob MEASUREMENTS -------- HEIGHT: 165.1 cm WEIGHT: 41.7 kg BP: 102/74 RVIDd: 3.5 cm (< 3.3) IVSd: 1.5 cm (0.6 - 1.1) LVIDd: 2.6 cm (3.9 - 5.3) LVPWd: 1.4 cm (0.6 - 1.1) IVSs: 1.4 cm LVIDs: 1.6 cm LVPWs: 1.5 cm LAESV Index (A-L): 23.03 ml/m Ao Diam: 3.0 cm (2.0 - 3.7) AV Cusp: 1.9 cm (1.5 - 2.6) MV EXCURSION: 11.892 mm (> 18.000) MV EF SLOPE: 121 mm/s (70 - 150) EPSS: 1.1 cm MV E Reggie: 0.62 m/s MV DecT: 179 ms MV A Reggie: 0.60 m/s MV E/A Ratio: 1.04 AR PHT: 385 ms RAP: 5.00 mmHg RVSP: 19.46 mmHg FINDINGS -------- Resting tachycardia (HR>100bpm). This was a technically adequate study. The left ventricular size is normal. There is moderate concentric left ventricular hypertrophy. O verall left ventricular systolic function is low-normal with, an EF between 50 - 55 %. The diastoli c filling pattern is normal for the age of the patient 11.32. The right ventricle is mildly enlarged. Normal LA size by volume 22+/-6 ml/m2. The right atrial size is normal. Interatrial and interventricular septum intact. The aortic valve was not well visualized. There is [id number] aortic regurgitation. There i s no evidence of aortic stenosis. Mild mitral annular calcification present. Mild mitral regurgitation is present. Mild tricuspid regurgitation present. There is no evidence of pulmonary hypertension. The right v entricular systolic pressure, as measured by Doppler, is 19.46mmHg. The pulmonic valve was not well visualized. The aortic root size is normal. IVC Not well visulized. There is no pericardial effusion. CONCLUSIONS -------- 1. Resting tachycardia (HR>100bpm). 2. This was a technically adequate study. 3. The left ventricular size is normal. 4. There is moderate concentric left ventricular hypertrophy. 5. Overall left ventricular systolic function is low-normal with, an EF between 50 - 55 %. 6. The diastolic filling pattern is normal for the age of the patient 11.32 7. The right ventricle is mildly enlarged. 8. Normal LA size by volume 22+/-6 ml/m2. 9. The right atrial size is normal. 10. Interatrial and interventricular septum intact. 11. The aortic valve was not well visualized. 12. There is [id number] aortic regurgitation. 13. There is no evidence of aortic stenosis. 14. Mild mitral annular calcification present. 15. Mild mitral regurgitation is present. 16. Mild tricuspid regurgitation present. 17. There is no evidence of pulmonary hypertension. 18. The right ventricular systolic pressure, as measured by Doppler, is 19.46mmHg. 19. The pulmonic valve was not well visualized. 20. The aortic root size is normal. 21. IVC Not well visulized. 22. There is no pericardial effusion. [employer] APPRENTICE: Johnna Lakhani RDCS
[2019-02-24] MEDS: MULTIVITAMINS, THERA 1 EACH TAB PO SCH (12:31)
[2019-02-24] MEDS: FOLIC ACID 1 MG TAB PO SCH (12:31)
[2019-02-24] MEDS: THIAMINE 100 MG TAB PO SCH (12:31)
[2019-02-24] MEDS ORDERED: DILTIAZEM CD 180 MG CAP.ER.24H PO STA (13:51)
--- NOTE | 2019-02-24 14:10 | P.PN ---
Subjective Progress Note Date: 02/24/19 Principal diagnosis: GI bleeding, likely diverticular in nature, history of COPD This is a 78-year-old female patient with end-stage COPD with chronic hypoxic and hypercapnic respiratory failure. She is very well-known to me. She is very much cachectic and emaciated. She is short of breath with them amount of activity and even at rest. In fact she has gotten to the point where she has been able to do any much activity. She has kyphoscoliosis of the chest. She has protein calorie malnutrition and osteoporosis and compression fractures of the vertebral spine. She was discharged home after being treated for COPD exacerbation. She came back with lower GI bleed which is most likely a diverticular bleed. It was decided not to scope this patient because of her advanced lung disease as it was not further the patient will be able to handle a endoscopy. She was getting ready to get discharged and this morning she became more short of breath. She got transferred to the telemetry unit where she was placed on BiPAP at a pressure with 10/5 cm of water. Currently she is off the BiPAP. She is still short of breath even at rest. He is on a combination of DuoNeb nebulized treatments around the clock, Pulmicort neb last treatment and Perforomist nebulized treatments twice a day. She is milligrams 0.3. She has not bled for the past 48 hours. Serum bicarb is at 33 consistent with chronic hypercapnic respiratory failure. Potassium level is at 2.[address] Chest x-ray shows PD which is advanced with bibasilar airspace disease and bilateral effusions. The patient was started on IV cefepime. The patient was also started on IV Solu-Medrol 40 mg every 8 hours. On 02/24/2017 patient seen in follow-up on selective care unit, as she is leth argic, she does arouse easily, she denies any acute respiratory distress, room air pulse ox is 98%, complains of chest pain, afebrile. No further blood per rectum, today's hemoglobin is 11.3, patient has not required blood transfusion, hemodynamically she remains stable, the rest of the labs have been reviewed, showing potassium of 2.8, and CO2 of 33 BUN of 5 and creatinine is 0.80. Lactic acid 1.1, proBNP was within normal limits at 831, pro calcitonin was low at 0.12. Stool, urine and blood cultures have been negative thus far. Remains on cefepime, and IV steroids, and was given a dose of IV Lasix today. Echocardiogram has been completed showing EF of 50-55%, mild to moderate aortic regurg, mild mitral regurgitation, mild tricuspid regurgitation, no pulmonary hypertension Objective - Vital Signs Vital signs: Vital Signs Temp 98.1 F 02/24/19 12:00 Pulse 118 H 02/24/19 12:00 Resp 24 02/24/19 12:00 BP 112/64 02/24/19 12:00 Pulse Ox 98 02/24/19 12:00 Intake & Output 02/23/19 02/24/19 02/24/19 18:59 06:59 18:59 Intake Total 300 180 Output Total 900 Balance 300 -720 Weight 42 kg 42 kg Intake: Oral 300 180 Output: Urine 900 Other: Voiding Method Diaper Diaper Diaper Incontinent Incontinent # Voids 0 # Bowel Movements 1 1 - Exam GENERAL EXAM: Lethargic but easily arousable 78-year-old white female on room air, with a pulse ox of 98% comfortable in no apparent distress. HEAD: Normocephalic/atraumatic. EYES: Normal reaction of pupils, equal size. Conjunctiva pink, sclera white. NOSE: Clear with pink turbinates. THROAT: No erythema or exudates. NECK: No masses, no JVD, no thyroid enlargement, no adenopathy. CHEST: No chest wall deformity. Symmetrical expansion. LUNGS: Equal air entry with no crackles, a few expiratory wheeze, rhonchi or dullness. CVS: Regular rate and rhythm, normal S1 and S2, no gallops, no murmurs, no rubs ABDOMEN: Soft, nontender. No hepatosplenomegaly, normal bowel sounds, no guarding or rigidity. EXTREMITIES: No clubbing, no edema, no cyanosis, 2+ pulses and upper and lower extremities. MUSCULOSKELETAL: Muscle strength and tone normal. SPINE: No scoliosis or deformity SKIN: No rashes CENTRAL NERVOUS SYSTEM: Alert and oriented -3. No focal deficits, tone is normal in all 4 extremities. PSYCHIATRIC: Alert and oriented -3. Appropriate affect. Intact judgment and insight. - Labs CBC & Chem 7: 02/23/19 09:03 02/23/19 09:03 Labs: Abnormal Lab Results - Last 24 Hours (Table) 02/23/19 Range/Units 09:03 Procalcitonin 0.12 H (0.02-0.09) ng/mL Assessment and Plan Plan: Assessment: 1. Severe chronic obstructive pulmonary disease -she has advanced end-stage COPD and she is inactive metabolic state with extremely poor baseline performance and functional status. She has chronic hypoxic and hypercapnic respiratory failure. She is not able to do any endoscopy due to increased risk of respiratory failure. I'm going to address her CODE STATUS and advanced directives.T he patient is a combination of Perforomist and Pulmicort nebulized treatments twice a day and Spiriva one relation day. Continue same treatment. Continue oxygen 2 L/m nasal cannula. Long-term prognosis poor. Overall performance status is poor. 2. GI bleed likely diverticular in nature. This will be treated conservatively. No active bleeding for now. 3. Chronic diarrhea/Cachexia - 4. Idiopathic scoliosis AND/OR kyphoscoliosis - old healed fractures M41.20: Other idiopathic scoliosis, site unspecified 5. Essential hypertension I10: Essential (primary) hypertension 6. 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 Allergy to peanuts - acute reaction for ALLERGY to peanut has recovered and the patient will avoid taken peanuts in the future. 9. Edema of lower extremity, improved plan: Continue current medical treatment, we can probably stop the antibiotics, and Protonix at home and came back low at 0.12, patient is afebrile, leucocytosis seen on the blood work could be related to IV steroids, no evidence of COPD exacerbation, no significant wheezing, cough or congestion. Cultures remain negative, there has been no further GI bleeding, hemoglobin is stable, hemodynamically stable, no plans for endoscopic studies at this time, long-term prognosis is quite guarded. I performed a history & physical examination of the patient and discussed their management with my nurse practitioner, Rose Marie Davis. I reviewed the nurse practitioner's note and agree with the documented findings and plan of care. Lung sounds are positive for a few scattered wheezes. The findings and the impression was discussed with the patient. I attest to the documentation by the nurse practitioner. Time with Patient: Less than 30
[2019-02-24 14:41] LABS: Calcium 9.1 mg/dL (8.4-10.2); Potassium 3.9 mmol/L (3.5-5.1)
[2019-02-24 16:24] LABS: Anisocytosis Slight; Basophils % (A) 0 %; Eosinophils % (A) 0 %; HCT 32.5 % (34.0-46.0); HGB 10.4 gm/dL (11.4-16.0); Hypochromasia Slight; Lymphocytes # (A) 0.3 k/uL (1.0-4.8); Lymphocytes % (A) 1 %; MCH 30.9 pg (25.0-35.0); MCHC 31.8 g/dL (31.0-37.0); MCV 97.2 fL (80.0-100.0); Mean Platelet Volume 6.3; Monocytes # (A) 0.5 k/uL (0-1.0); Monocytes % (A) 2 %; Neutrophils # (A) 25.9 k/uL (1.3-7.7); Neutrophils % (A) 97 %; Platelet Count 368 k/uL (150-450); RBC 3.35 m/uL (3.80-5.40); RDW 16.1 % (11.5-15.5); WBC 26.9 k/uL (3.8-10.6)
[2019-02-24] MEDS: ALPRAZolam 0.5 MG TAB PO PRN (17:17)
--- NOTE | 2019-02-24 20:02 | P.PN ---
Subjective Progress Note Date: 02/24/19 Principal diagnosis: Blood per rectum Patient seen lying in bed, with no further blood per rectum noted. She is tolerating her diet and continuing to report pain in the right hip. Objective - Vital Signs Vital signs: Vital Signs Temp 98.1 F 02/24/19 12:00 Pulse 118 H 02/24/19 12:00 Resp 24 02/24/19 12:00 BP 112/64 02/24/19 12:00 Pulse Ox 98 02/24/19 12:00 Intake & Output 02/23/19 02/24/19 02/24/19 18:59 06:59 18:59 Intake Total 300 180 Output Total 900 Balance 300 -720 Weight 42 kg 42 kg Intake: Oral 300 180 Output: Urine 900 Other: Voiding Method Diaper Diaper Diaper Incontinent Incontinent # Voids 0 # Bowel Movements 1 1 - Exam On physical examination, patient appears comfortable in no apparent distress. HEAD: Normocephalic, atraumatic. EYES: No scleral icterus. No conjunctival injection. MOUTH: No lesions, tongue midline. NECK: Trachea midline, no gross abnormalities. CHEST: Decreased air entry in all lung oconnor. HEART: S1-S2 appreciated. ABDOMEN: Soft, thin. Bowel sounds are positive. No organomegaly. No guarding or rigidity. EXTREMITIES: No pedal edema. SKIN: No rashes, no jaundice. NEUROLOGIC: Alert and oriented. - Labs CBC & Chem 7: 02/24/19 15:40 02/24/19 14:09 Labs: Abnormal Lab Results - Last 24 Hours (Table) 02/23/19 02/24/19 Range/Units 09:03 14:09 Carbon Dioxide 31 H (22-30) mmol/L Glucose 251 H (74-99) mg/dL Procalcitonin 0.12 H (0.02-0.09) ng/mL Assessment and Plan (1) Gastrointestinal bleeding Narrative/Plan: 78-year-old female with multiple medical comorbidities who presents to the hospital with concerns over blood per rectum. Subsequently she had 2 dark bowel movements since presentation. Computed tomography scan of the abdomen did show irregularity of the distal vagina as well as thickening of the cecum. Patient reports some right hip pain as well as associated pain in the area around her right hip. Unclear etiology of symptoms, may be related to perirectal disease such as hemorrhoids, with other etiologies such as diverticular bleed, AVM or mass or other etiology not entirely excluded. Current Visit: Yes Status: Acute Code(s): K92.2 - GASTROINTESTINAL HEMORRHAGE, UNSPECIFIED SNOMED Code(s): 05255832 Plan: Supportive care Diet advance to a heart healthy, low fiber Continue to monitor hemoglobin and hematocrit and transfuse as needed will today at 10.4 Continue to monitor stool output Computed tomography scan reviewed No plans for endoscopic evaluation at this time, patient also colonoscopy would like to continue with conservative management Thank you for allowing us to participate in the care of the patient we will co shikha to follow
[2019-02-24] MEDS: PARoxetine 20 MG TAB PO SCH (20:17)
--- NOTE | 2019-02-24 23:15 | P.PN ---
Progress Note - Text Progress Note Date: 02/24/19 Chief Complaint: Short of breath Interval history: This is a 78-year-old patient, of Dr. Dunn. Chronic stable medical conditions include COPD with chronic hypoxic respiratory failure, essential hypertension, kyphoscoliosis, cachexia, moderate protein calorie malnutrition, osteoporosis, chronic vertebral fractures, irritable bowel syndrome. Patient was discharged from the hospital recently with COPD exacerbation. Also had lower GI bleed and Showed sigmoid diverticulosis. Patient is having brown stools before discharge. Colitis was felt to be unlikely by Dr. Pepe Dalal. Patient is resident of [facility]. Patient now presents with bright red blood per rectum. Slight lower abdominal discomfort. Appetite has been fair. Some nausea present. Early this morning did have a dark stool. GI was consulted. Admitted for the same. Had a baseline uses a wheelchair. Patient not able to tolerate the preparation for colonoscopy. Because the blood was bright has failed the swallow for diverticular bleed. After discussed with the patient and Dr. Blancas it was decided not to do coloscopy. Also does feel that patient will not tolerate coloscopy because of her respiratory status. On February 23 patient went into respiratory distress. Moved to the cardiology telemetry floor. BiPAP was used. Cor status was addressed with the patient. Agree to become DO NOT INTUBATE. Today-propped up in bed. A bit more restful. Still short of breath at rest. Did tolerate some diet. Bit anxious. Review of systems: Was done for constitutional, cardiovascular, GI, pulmonary. relevant finding as above Active Medications Acetaminophen (Tylenol Tab) 650 mg PO Q6HR PRN PRN Reason: Mild Pain or Fever > 100.5 Last Admin: 02/22/19 23:08 Dose: 650 mg Documented by: Albuterol/Ipratropium (Duoneb 0.5 Mg-3 Mg/3 Ml Soln) 3 ml INHALATION RT-Q4H LIZETT Last Admin: 02/24/19 20:28 Dose: 3 ml Documented by: Alprazolam (Xanax) 0.5 mg PO QID PRN PRN Reason: Anxiety Last Admin: 02/24/19 17:17 Dose: 0.5 mg Documented by: Budesonide (Pulmicort) 0.5 mg INHALATION RT-BID [facility] Last Admin: 02/24/19 20:28 Dose: 0.5 mg Documented by: Cholecalciferol (Vitamin D3 (25 Mcg = 1000 Iu)) 2,000 unit PO DAILY [facility] Last Admin: 02/24/19 10:25 Dose: 2,000 unit Documented by: Diltiazem HCl (Cardizem Cd) 360 mg PO DAILY [facility] Folic Acid (Folic Acid) 1 mg PO DAILY@1200 [facility] Last Admin: 02/24/19 12:31 Dose: 1 mg Documented by: Formoterol Fumarate (Perforomist) 20 mcg INHALATION RT-BID [facility] Last Admin: 02/24/19 20:28 Dose: 20 mcg Documented by: Sodium Chloride (Saline 0.9%) 1,000 mls @ 80 mls/hr IV .[id number] [facility] Last Admin: 02/24/19 18:59 Dose: Not Given Documented by: Cefepime HCl 2 gm/ Sodium (Chloride) 100 mls @ 200 mls/hr IVPB Q12HR [facility] Last Admin: 02/24/19 20:17 Dose: 200 mls/hr Documented by: Lisinopril (Zestril) 2.5 mg PO DAILY [facility] Last Admin: 02/24/19 10:25 Dose: 2.5 mg Documented by: Methylprednisolone Sodium Succinate (Solu-Medrol) 40 mg IV Q8HR [facility] Last Admin: 02/24/19 17:17 Dose: 40 mg Documented by: Miscellaneous Information (Potassium Per Protocol) 1 each MISCELLANE DAILY PRN; Protocol PRN Reason: Per Protocol Multivitamins (Theragran) 1 each PO DAILY@1200 [facility] Last Admin: 02/24/19 12:31 Dose: 1 each Documented by: Naloxone HCl (Narcan) 0.2 mg IV Q2M PRN PRN Reason: Opioid Reversal Pantoprazole Sodium (Protonix) 40 mg IV BID [facility] Last Admin: 02/24/19 20:17 Dose: 40 mg Documented by: Paroxetine HCl (Paxil) 60 mg PO HS [facility] Last Admin: 02/24/19 20:17 Dose: 60 mg Documented by: Thiamine HCl (Vitamin B-1) 100 mg PO DAILY@1200 [facility] Last Admin: 02/24/19 12:31 Dose: 100 mg Documented by: Physical examination: VITAL SIGNS: 98.1, 118, 24, 11 2/64, 98% on room air GENERAL: Propped up in bed, a bit less short of breath but less anxious, EYES: Pupils equal. Conjunctiva normal. HEENT: External appearance of nose and ears normal, oral cavity grossly normal. NECK: JVD not raised; masses not palpable. HEART: First and second heart sounds are normal; no edema. LUNGS: Respiratory rate increased, poor air entry. Prolonged expiration ABDOMEN: Soft, mild right lower quadrant tenderness no guarding or rigidity liver spleen not palpable, no masses palpable. PSYCH: Alert and oriented x3; mood and affect a bit less anxious MUSCULOSKELETAL: Diffuse wasting of muscles with bony prominences and loss of subcutaneous tissue INVESTIGATIONS, reviewed in the clinical context: White count 26.9 hemoglobin 10.4 potassium 3.9 Previous testing: White count 21 hemoglobin 11.6 potassium 3.3 creatinine 0.82 Hemoglobin was 12.4 on February 17 Computed tomography scan of the abdomen-from February 13-numerous diverticula of the sigmoid colon compression deformities of the lumbar vertebra, some wall thickening of the ascending colon 2-D echo-EF 50-55% Assessment: -Acute severe COPD exacerbation, with acute hypoxic and hypercapnic respiratory failure,, with end-stage COPD with some improvement -Acute GI bleed felt to be left-sided chronic diverticular nature. Not felt to be candidate for colonoscopy. 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 Continue with bronchodilators steroids. Other medications to continue. Care was discussed with the patient. Follow with pulmonary. We will discuss with pulmonary.
[2019-02-25] MEDS: methylPREDNISolone SOD SUCCI 40 MG/ML 1 ML VIAL IV SCH ×2 (00:03→09:11)
[2019-02-25] MEDS: IPRATROPIUM-ALBUTEROL 3 ML NEB INHALATION SCH ×5 (02:48→21:24)
[2019-02-25] MEDS: SODIUM CHLORIDE 0.9% 1,000 ML IV SCH ×2 (05:47→17:17)
[2019-02-25 08:45] LABS: Anisocytosis Slight; HCT 33.3 % (34.0-46.0); HGB 10.6 gm/dL (11.4-16.0); Hypochromasia Slight; MCH 30.7 pg (25.0-35.0); MCHC 31.9 g/dL (31.0-37.0); MCV 96.3 fL (80.0-100.0); Mean Platelet Volume 6.6; Platelet Count 433 k/uL (150-450); RBC 3.46 m/uL (3.80-5.40); RDW 16.3 % (11.5-15.5); WBC 33.6 k/uL (3.8-10.6)
[2019-02-25] MEDS: FORMOTEROL FUMARATE 20 MCG/2 ML NEBU INHALATION SCH ×2 (08:56→21:24)
[2019-02-25] MEDS: BUDESONIDE 0.5 MG/2 ML NEBU INHALATION SCH ×2 (08:56→21:24)
[2019-02-25 09:09] LABS: Calcium 9.1 mg/dL (8.4-10.2); Potassium 3.5 mmol/L (3.5-5.1)
[2019-02-25] MEDS: PANTOPRAZOLE 40 MG/10 ML VIAL IV SCH ×2 (09:11→21:43)
[2019-02-25] MEDS: ALPRAZolam 0.5 MG TAB PO PRN ×2 (09:11→21:45)
[2019-02-25] MEDS: CEFEPIME 2 GM in SODIUM CHLORIDE 0.9% 100 ML IVPB SCH (09:11)
[2019-02-25] MEDS: LISINOPRIL 2.5 MG TAB PO SCH (09:11)
[2019-02-25] MEDS: DILTIAZEM CD 180 MG CAP.ER.24H PO SCH (09:12)
[2019-02-25] MEDS: CHOLECALCIFEROL 1,000 UNIT TAB PO SCH (09:12)
[2019-02-25 09:26] LABS: Lymphocytes # (M) 0.34 k/uL (1.0-4.8); Monocytes # (M) 0.34 k/uL (0-1.0); Myelocytes # (M) 0.34 k/uL (0); Myelocytes % 1 %; Neutrophils % (M) 98 %; Nucleated Red Blood Cells 0 /100 WBC (0-0); Total Cells Counted 200
[2019-02-25 09:27] LABS: Toxic Granulation Present
--- NOTE | 2019-02-25 13:37 | P.PN ---
Subjective Progress Note Date: 02/25/19 Principal diagnosis: GI bleeding, likely diverticular in nature, history of COPD This is a 78-year-old female patient with end-stage COPD with chronic hypoxic and hypercapnic respiratory failure. She is very well-known to me. She is very much cachectic and emaciated. She is short of breath with them amount of activity and even at rest. In fact she has gotten to the point where she has been able to do any much activity. She has kyphoscoliosis of the chest. She has protein calorie malnutrition and osteoporosis and compression fractures of the vertebral spine. She was discharged home after being treated for COPD exacerbation. She came back with lower GI bleed which is most likely a diverticular bleed. It was decided not to scope this patient because of her advanced lung disease as it was not further the patient will be able to handle a endoscopy. She was getting ready to get discharged and this morning she became more short of breath. She got transferred to the telemetry unit where she was placed on BiPAP at a pressure with 10/5 cm of water. Currently she is off the BiPAP. She is still short of breath even at rest. He is on a combination of DuoNeb nebulized treatments around the clock, Pulmicort neb last treatment and Perforomist nebulized treatments twice a day. She is milligrams 0.3. She has not bled for the past 48 hours. Serum bicarb is at 33 consistent with chronic hypercapnic respiratory failure. Potassium level is at 2.[address] Chest x-ray shows PD which is advanced with bibasilar airspace disease and bilateral effusions. The patient was started on IV cefepime. The patient was also started on IV Solu-Medrol 40 mg every 8 hours. On 02/24/2019 patient seen in follow-up on selective care unit, as she is leth argic, she does arouse easily, she denies any acute respiratory distress, room air pulse ox is 98%, complains of chest pain, afebrile. No further blood per rectum, today's hemoglobin is 11.3, patient has not required blood transfusion, hemodynamically she remains stable, the rest of the labs have been reviewed, showing potassium of 2.8, and CO2 of 33 BUN of 5 and creatinine is 0.80. Lactic acid 1.1, proBNP was within normal limits at 831, pro calcitonin was low at 0.12. Stool, urine and blood cultures have been negative thus far. Remains on cefepime, and IV steroids, and was given a dose of IV Lasix today. Echocardiogram has been completed showing EF of 50-55%, mild to moderate aortic regurg, mild mitral regurgitation, mild tricuspid regurgitation, no pulmonary hypertension On 02/25/2019 patient seen in follow-up on selective care unit, no acute distress, her breathing is stable, no fever or chills, hemodynamically stable, she is awake, oriented 3, denies any acute or specific complaints, no abdominal pain, no recurrent episodes of GI bleeding, today's blood work showed hemoglobin of 10.6, however there has been a significant elevation in her white blood cell count up to 33.6, patient is afebrile, remains pulse ox is 95%, her lung sounds are diminished, without any significant rhonchi or wheezing. Culture has shown no growth. She remains on cefepime for antibiotic coverage. No cough or phlegm production, blood culture has been drawn last night and has shown no growth so far, clinically she is asymptomatic. Objective - Vital Signs Vital signs: Vital Signs Temp 97.9 F 02/25/19 08:00 Pulse 96 02/25/19 12:33 Resp 22 02/25/19 12:00 BP 116/71 02/25/19 12:00 Pulse Ox 95 02/25/19 12:00 Intake & Output 02/24/19 02/25/19 02/25/19 18:59 06:59 18:59 Intake Total 340 480 Output Total 150 300 Balance 340 -150 180 Weight 42 kg 42 kg Intake: Oral 340 480 Output: Urine 150 300 Other: Voiding Method Diaper Diaper Diaper Incontinent Incontinent Incontinent # Bowel Movements 0 - Exam GENERAL EXAM: Lethargic but easily arousable 78-year-old white female on room air, with a pulse ox of 98% comfortable in no apparent distress. HEAD: Normocephalic/atraumatic. EYES: Normal reaction of pupils, equal size. Conjunctiva pink, sclera white. NOSE: Clear with pink turbinates. THROAT: No erythema or exudates. NECK: No masses, no JVD, no thyroid enlargement, no adenopathy. CHEST: No chest wall deformity. Symmetrical expansion. LUNGS: Equal air entry with no crackles, a few expiratory wheeze, rhonchi or dullness. CVS: Regular rate and rhythm, normal S1 and S2, no gallops, no murmurs, no rubs ABDOMEN: Soft, nontender. No hepatosplenomegaly, normal bowel sounds, no guarding or rigidity. EXTREMITIES: No clubbing, no edema, no cyanosis, 2+ pulses and upper and lower extremities. MUSCULOSKELETAL: Muscle strength and tone normal. SPINE: No scoliosis or deformity SKIN: No rashes CENTRAL NERVOUS SYSTEM: Alert and oriented -3. No focal deficits, tone is normal in all 4 extremities. PSYCHIATRIC: Alert and oriented -3. Appropriate affect. Intact judgment and insight. - Labs CBC & Chem 7: 02/25/19 07:56 02/25/19 07:56 Labs: Abnormal Lab Results - Last 24 Hours (Table) 02/24/19 02/24/19 02/25/19 Range/Units 14:09 15:40 07:56 WBC 26.9 H 33.6 H (3.8-10.6) k/uL RBC 3.35 L 3.46 L (3.80-5.40) m/uL Hgb 10.4 L 10.6 L (11.4-16.0) gm/dL Hct 32.5 L 33.3 L (34.0-46.0) % RDW 16.1 H 16.3 H (11.5-15.5) % Neutrophils # 25.9 H (1.3-7.7) k/uL Neutrophils # (Manual) 32.93 H (1.3-7.7) k/uL Lymphocytes # 0.3 L (1.0-4.8) k/uL Lymphocytes # (Manual) 0.34 L (1.0-4.8) k/uL Myelocytes # (Manual) 0.34 H (0) k/uL Carbon Dioxide 31 H (22-30) mmol/L Glucose 251 H (74-99) mg/dL 02/25/19 Range/Units 07:56 WBC (3.8-10.6) k/uL RBC (3.80-5.40) m/uL Hgb (11.4-16.0) gm/dL Hct (34.0-46.0) % RDW (11.5-15.5) % Neutrophils # (1.3-7.7) k/uL Neutrophils # (Manual) (1.3-7.7) k/uL Lymphocytes # (1.0-4.8) k/uL Lymphocytes # (Manual) (1.0-4.8) k/uL Myelocytes # (Manual) (0) k/uL Carbon Dioxide (22-30) mmol/L Glucose 219 H (74-99) mg/dL Microbiology - Last 24 Hours (Table) 02/24/19 06:28 Blood Culture - Preliminary Blood No Growth after 24 hours Assessment and Plan Plan: Assessment: 1. Severe chronic obstructive pulmonary disease -she has advanced end-stage COPD and she is inactive metabolic state with extremely poor baseline performance and functional status. She has chronic hypoxic and hypercapnic respiratory failure. She is not able to do any endoscopy due to increased risk of respiratory failure. I'm going to address her CODE STATUS and advanced directives.T he patient is a combination of Perforomist and Pulmicort nebulized treatments twice a day and Spiriva one relation day. Continue same treatment. Continue oxygen 2 L/m nasal cannula. Long-term prognosis poor. Overall performance status is poor. 2. GI bleed likely diverticular in nature. This will be treated conservative ly. No active bleeding for now. 3. Chronic diarrhea/Cachexia 4. Idiopathic scoliosis AND/OR kyphoscoliosis - old healed fractures M41.20: Other idiopathic scoliosis, site unspecified 5. Essential hypertension I10: Essential (primary) hypertension 6. 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 Allergy to peanuts - acute reaction for ALLERGY to peanut has recovered and the patient will avoid taken peanuts in the future. 9. Edema of lower extremity, improved 10. Leukocytosis of unclear etiology, blood culture is negative thus far, no fever or chills, plan: Patient denies any difficulty breathing, denies any cough or congestion, her breathing appears to be stable, she is on room air, maintaining stable oxyge [place], she continues on nebulized bronchodilators, there has been no further bleeding, however white blood cell count on today's labs is significantly elevated but clinically patient is asymptomatic. Blood culture showed no growth, no fever or chills, she will need follow-up blood work tomorrow, p ulmonary perspective she stable, she is on cefepime. She is tolerating oral diet, she denies any abdominal pain. I performed a history & physical examination of the patient and discussed their management with my nurse practitioner, Rose Marie Davis. I reviewed the nurse practitioner's note and agree with the documented findings and plan of care. Lung sounds are diminished. The findings and the impression was discussed with the patient. I attest to the documentation by the nurse practitioner. Time with Patient: Less than 30
--- NOTE | 2019-02-25 15:09 | P.PN ---
Subjective Progress Note Date: 02/25/19 This is a 78-year-old female with history of COPD, asthma, hypertension, hypothyroidism, scoliosis, chronic anemia, IBS, who was noted at the extended care facility to have some bright red blood per rectum and was admitted to the hospital for this reason. She was just recently discharged from the hospital with an exacerbation of COPD, it was also felt on admission that patient may have had a GI bleed and GI services were consulted. [facility] that staff noticed her to have some bright red blood per rectum and for this reason she was admitted to the hospital. Most of the history was obtained from the medical record as the patient does have some dementia. EKG on presentation here showed a sinus tachycardia with right atrial enlargement. CAT scan of the abdomen and pelvis was also performed which revealed thickened mchugh of the cecum, possible colitis, stable overall. Chest x-ray showed COPD with bibasilar air space disease and bilateral effusions. Blood pressure 122/70 with a heart rate of 108, 100% on 2 L of oxygen. White blood cell count 25.7, on review of old records, it appears that the patient has a chronically elevated white blood cell count, hemoglobin 11.3, platelet count 454. Sodium 138, potassium 2.8, BUN 5 and creatinine 0.8. Troponin 0.05 to. Stool for occult blood was positive. There was no BNP level obtained. At the time of my e xamination this morning, the patient is sitting up comfortably in bed, does not appear overtly short of breath, does have an occasional cough. On 02/25/2019 patient seen in follow-up on selective care unit, no acute distress, her breathing is stable, no fever or chills, hemodynamically stable, s he is awake, oriented 3, denies any acute or specific complaints, no abdominal pain, no recurrent episodes of GI bleeding, today's blood work showed hemoglobin of 10.6, however there has been a significant elevation in her white blood cell count up to 33.6, patient is afebrile, remains pulse ox is 95%, her lung sounds are diminished, without any significant rhonchi or wheezing. Culture has shown no growth. She remains on cefepime for antibiotic coverage. No cough or phlegm production, blood culture has been drawn last night and has shown no growth so far, clinically she is asymptomatic. Objective - Vital Signs Vital signs: Vital Signs Temp 97.9 F 02/25/19 08:00 Pulse 96 02/25/19 12:33 Resp 22 02/25/19 12:00 BP 116/71 02/25/19 12:00 Pulse Ox 95 02/25/19 12:00 Intake & Output 02/24/19 02/25/19 02/25/19 18:59 06:59 18:59 Intake Total 340 480 Output Total 150 300 Balance 340 -150 180 Weight 42 kg 42 kg Intake: Oral 340 480 Output: Urine 150 300 Other: Voiding Method Diaper Diaper Diaper Incontinent Incontinent Incontinent # Bowel Movements 0 - Exam GENERAL EXAM: Lethargic but easily arousable 78-year-old white female on room air, with a pulse ox of 98% comfortable in no apparent distress. HEAD: Normocephalic/atraumatic. EYES: Normal reaction of pupils, equal size. Conjunctiva pink, sclera white. NOSE: Clear with pink turbinates. THROAT: No erythema or exudates. NECK: No masses, no JVD, no thyroid enlargement, no adenopathy. CHEST: No chest wall deformity. Symmetrical expansion. LUNGS: Equal air entry with no crackles, a few expiratory wheeze, rhonchi or dullness. CVS: Regular rate and rhythm, normal S1 and S2, no gallops, no murmurs, no rubs ABDOMEN: Soft, nontender. No hepatosplenomegaly, normal bowel sounds, no guarding or rigidity. EXTREMITIES: No clubbing, no edema, no cyanosis, 2+ pulses and upper and lower extremities. MUSCULOSKELETAL: Muscle strength and tone normal. SPINE: No scoliosis or deformity SKIN: No rashes CENTRAL NERVOUS SYSTEM: Alert and oriented -3. No focal deficits, tone is normal in all 4 extremities. PSYCHIATRIC: Alert and oriented -3. Appropriate affect. Intact judgment and insight. - Labs CBC & Chem 7: 02/25/19 07:56 02/25/19 07:56 Labs: Abnormal Lab Results - Last 24 Hours (Table) 02/24/19 02/25/19 02/25/19 Range/Units 15:40 07:56 07:56 WBC 26.9 H 33.6 H (3.8-10.6) k/uL RBC 3.35 L 3.46 L (3.80-5.40) m/uL Hgb 10.4 L 10.6 L (11.4-16.0) gm/dL Hct 32.5 L 33.3 L (34.0-46.0) % RDW 16.1 H 16.3 H (11.5-15.5) % Neutrophils # 25.9 H (1.3-7.7) k/uL Neutrophils # (Manual) 32.93 H (1.3-7.7) k/uL Lymphocytes # 0.3 L (1.0-4.8) k/uL Lymphocytes # (Manual) 0.34 L (1.0-4.8) k/uL Myelocytes # (Manual) 0.34 H (0) k/uL Glucose 219 H (74-99) mg/dL Microbiology - Last 24 Hours (Table) 02/24/19 06:28 Blood Culture - Preliminary Blood No Growth after 24 hours Assessment and Plan Plan: Assessment and plan #1 GI bleed #2 COPD #3 hypertension #4 scoliosis #5 mild shortness of breath, could be secondary to COPD, rule out mild heart failure. Chest x-ray shows small bilateral pleural effusions. #6 dementia #7 sinus tachycardia Plan From cardiology's perspective, we will continue with current medications. The patient may be discharged from our perspective once cleared by pulmonary and primary. Echocardiogram with Doppler study revealed an ejection fraction of 50- 55%, moderate aortic regurg. DNP note has been reviewed, I agree with a documented findings and plan of care. Patient was seen and examined.
[2019-02-25] MEDS: predniSONE 10 MG TAB PO SCH (15:38)
[2019-02-25] MEDS: THIAMINE 100 MG TAB PO SCH (15:38)
[2019-02-25] MEDS: MULTIVITAMINS, THERA 1 EACH TAB PO SCH (15:38)
[2019-02-25] MEDS: FOLIC ACID 1 MG TAB PO SCH (15:38)
--- NOTE | 2019-02-25 15:40 | FL ---
EXAMINATION TYPE: FL barium swallow w video DATE OF EXAM: 02/25/2019 MODIFIED SWALLOW / DEGLUTITION STUDY CLINICAL HISTORY: Dysphagia. Concern for silent aspiration. TECHNIQUE: Deglutition study is performed utilizing Isovue 370 only. The patient refused any further consistencies. 39 seconds of fluoroscopy was utilized during the examination with 0 fluoroscopic jennifer ges saved as the examination was video recorded. COMPARISON: None. FINDINGS: The oral and pharyngeal phases show satisfactory initiation and propagation with Isovue. Th ere is no evidence of penetration or aspiration with Isovue mimicking thin barium. Trace vallecular a nd piriform residue was appreciated. IMPRESSION: No laryngeal penetration or aspiration with Isovue administered only. Please refer to sp eech therapist notes for further details if necessary.
--- NOTE | 2019-02-25 21:44 | P.PN ---
Subjective Progress Note Date: 02/25/19 Principal diagnosis: Blood per rectum The patient is seen lying in bed tolerating her diet. No nausea or vomiting. No signs or symptoms of GI bleeding, with no further blood per rectum. Objective - Vital Signs Vital signs: Vital Signs Temp 97.9 F 02/25/19 08:00 Pulse 115 H 02/25/19 16:00 Resp 17 02/25/19 16:00 BP 120/63 02/25/19 16:00 Pulse Ox 99 02/25/19 16:00 Intake & Output 02/25/19 02/25/19 02/26/19 06:59 18:59 06:59 Intake Total 480 Output Total 150 300 Balance -150 180 Weight 42 kg Intake: Oral 480 Output: Urine 150 300 Other: Voiding Method Diaper Diaper Incontinent Incontinent # Bowel Movements 0 - Exam On physical examination, patient appears comfortable in no apparent distress. HEAD: Normocephalic, atraumatic. EYES: No scleral icterus. No conjunctival injection. MOUTH: No lesions, tongue midline. NECK: Trachea midline, no gross abnormalities. CHEST: Decreased air entry in all lung oconnor. HEART: S1-S2 appreciated. ABDOMEN: Soft, thin. Bowel sounds are positive. No organomegaly. No guarding or rigidity. EXTREMITIES: No pedal edema. SKIN: No rashes, no jaundice. NEUROLOGIC: Alert and oriented. - Labs CBC & Chem 7: 02/25/19 07:56 02/25/19 07:56 Labs: Abnormal Lab Results - Last 24 Hours (Table) 02/25/19 02/25/19 Range/Units 07:56 07:56 WBC 33.6 H (3.8-10.6) k/uL RBC 3.46 L (3.80-5.40) m/uL Hgb 10.6 L (11.4-16.0) gm/dL Hct 33.3 L (34.0-46.0) % RDW 16.3 H (11.5-15.5) % Neutrophils # (Manual) 32.93 H (1.3-7.7) k/uL Lymphocytes # (Manual) 0.34 L (1.0-4.8) k/uL Myelocytes # (Manual) 0.34 H (0) k/uL Glucose 219 H (74-99) mg/dL Microbiology - Last 24 Hours (Table) 02/24/19 06:28 Blood Culture - Preliminary Blood No Growth after 24 hours Assessment and Plan (1) Gastrointestinal bleeding Narrative/Plan: 78-year-old female with multiple medical comorbidities who presents to the hospital with concerns over blood per rectum. Subsequently she had 2 dark bowel movements since presentation. Computed tomography scan of the abdomen did show irregularity of the distal vagina as well as thickening of the cecum. Patient reports some right hip pain as well as associated pain in the area around her right hip. Unclear etiology of symptoms, may be related to perirectal disease such as hemorrhoids, with other etiologies such as diverticular bleed, AVM or mass or other etiology not entirely excluded. Current Visit: Yes Status: Acute Code(s): K92.2 - GASTROINTESTINAL HEMORRHAGE, UNSPECIFIED SNOMED Code(s): 45089520 Plan: Supportive care Heart healthy, low fiber diet Continue to monitor hemoglobin and hematocrit and transfuse as needed, continues to remain stable at 10.6 today from 10.4 Continue to monitor stool output Computed tomography scan reviewed No plans for endoscopic evaluation at this time, patient has been offered colonoscopic evaluation, with risks, benefits, and side effects of both pursuing conservative management as well as endoscopic evaluation explained to the pat ient in great detail and she would like to continue with conservative management at this time Thank you for allowing us to participate in the care of the patient, the gastroenterology service will stand by, please call us back with any questions or concerns
[2019-02-25] MEDS: PARoxetine 20 MG TAB PO SCH (21:52)
--- NOTE | 2019-02-25 22:29 | P.PN ---
Progress Note - Text Progress Note Date: 02/25/19 Chief Complaint: Short of breath Interval history: This is a 78-year-old patient, of Dr. Dunn. Chronic stable medical conditions include COPD with chronic hypoxic respiratory failure, essential hypertension, kyphoscoliosis, cachexia, moderate protein calorie malnutrition, osteoporosis, chronic vertebral fractures, irritable bowel syndrome. Patient was discharged from the hospital recently with COPD exacerbation. Also had lower GI bleed and Showed sigmoid diverticulosis. Patient is having brown stools before discharge. Colitis was felt to be unlikely by Dr. Pepe Dalal. Patient is resident of [facility]. Patient now presents with bright red blood per rectum. Slight lower abdominal discomfort. Appetite has been fair. Some nausea present. Early this morning did have a dark stool. GI was consulted. Admitted for the same. Had a baseline uses a wheelchair. Patient not able to tolerate the preparation for colonoscopy. Because the blood was bright has failed the swallow for diverticular bleed. After discussed with the patient and Dr. Blancas it was decided not to do coloscopy. Also does feel that patient will not tolerate coloscopy because of her respiratory status. On February 23 patient went into respiratory distress. Moved to the cardiology telemetry floor. BiPAP was used. Cor status was addressed with the patient. Agree to become DO NOT INTUBATE. Today-laying in bed. Rather tired and rundown. Plan was for patient to go down to the [facility] for rehab. Patient short of breath at rest.. Review of systems: Was done for constitutional, cardiovascular, GI, pulmonary. relevant finding as above Active Medications Acetaminophen (Tylenol Tab) 650 mg PO Q6HR PRN PRN Reason: Mild Pain or Fever > 100.5 Last Admin: 02/22/19 23:08 Dose: 650 mg Documented by: Albuterol/Ipratropium (Duoneb 0.5 Mg-3 Mg/3 Ml Soln) 3 ml INHALATION RT-Q4H [facility] Last Admin: 02/25/19 21:24 Dose: 3 ml Documented by: Alprazolam (Xanax) 0.5 mg PO QID PRN PRN Reason: Anxiety Last Admin: 02/25/19 21:45 Dose: 0.5 mg Documented by: Budesonide (Pulmicort) 0.5 mg INHALATION RT-BID [facility] Last Admin: 02/25/19 21:24 Dose: 0.5 mg Documented by: Cholecalciferol (Vitamin D3 (25 Mcg = 1000 Iu)) 2,000 unit PO DAILY [facility] Last Admin: 02/25/19 09:12 Dose: 2,000 unit Documented by: Diltiazem HCl (Cardizem Cd) 360 mg PO DAILY [facility] Last Admin: 02/25/19 09:12 Dose: 360 mg Documented by: Folic Acid (Folic Acid) 1 mg PO DAILY@1200 [facility] Last Admin: 02/25/19 15:38 Dose: 1 mg Documented by: Formoterol Fumarate (Perforomist) 20 mcg INHALATION RT-BID [facility] Last Admin: 02/25/19 21:24 Dose: 20 mcg Documented by: Sodium Chloride (Saline 0.9%) 1,000 mls @ 80 mls/hr IV .[id number] [facility] Last Admin: 02/25/19 17:17 Dose: Not Given Documented by: Cefepime HCl 2 gm/ Sodium (Chloride) 100 mls @ 200 mls/hr IVPB Q24HR [facility] Lisinopril (Zestril) 2.5 mg PO DAILY [facility] Last Admin: 02/25/19 09:11 Dose: 2.5 mg Documented by: Miscellaneous Information (Potassium Per Protocol) 1 each MISCELLANE DAILY PRN; Protocol PRN Reason: Per Protocol Multivitamins (Theragran) 1 each PO DAILY@1200 [facility] Last Admin: 02/25/19 15:38 Dose: 1 each Documented by: Naloxone HCl (Narcan) 0.2 mg IV Q2M PRN PRN Reason: Opioid Reversal Pantoprazole Sodium (Protonix) 40 mg IV BID [facility] Last Admin: 02/25/19 21:43 Dose: 40 mg Documented by: Paroxetine HCl (Paxil) 60 mg PO HS [facility] Last Admin: 02/25/19 21:52 Dose: 60 mg Documented by: Prednisone () 10 mg PO DAILY [facility] Last Admin: 02/25/19 15:38 Dose: 10 mg Documented by: Thiamine HCl (Vitamin B-1) 100 mg PO DAILY@1200 [facility] Last Admin: 02/25/19 15:38 Dose: 100 mg Documented by: Physical examination: VITAL SIGNS: 104, 22, 11 6/71, 95 % room air GENERAL: Propped up in bed, short of breath at rest, EYES: Pupils equal. Conjunctiva normal. HEENT: External appearance of nose and ears normal, oral cavity grossly normal. NECK: JVD not raised; masses not palpable. HEART: First and second heart sounds are normal; no edema. LUNGS: Respiratory rate increased, poor air entry. Prolonged expiration, accessories muscles are working, not able to speak in full sentences ABDOMEN: Soft, mild right lower quadrant tenderness no guarding or rigidity liver spleen not palpable, no masses palpable. PSYCH: Alert and oriented x3; mood and affect a bit less anxious MUSCULOSKELETAL: Diffuse wasting of muscles with bony prominences and loss of subcutaneous tissue INVESTIGATIONS, reviewed in the clinical context: White count 26.9 hemoglobin 10.4 potassium 3.9 Previous testing: White count 21 hemoglobin 11.6 potassium 3.3 creatinine 0.82 Hemoglobin was 12.4 on February 17 Computed tomography scan of the abdomen-from February 13-numerous diverticula of the sigmoid colon compression deformities of the lumbar vertebra, some wall thic kening of the ascending colon 2-D echo-EF 50-55% Assessment: -Acute severe COPD exacerbation, with acute hypoxic and hypercapnic respiratory failure,, with end-stage COPD in a slow to respond -Acute GI bleed felt to be left-sided chronic diverticular nature. Not felt to be candidate for colonoscopy. -Acute blood loss anemia from GI bleed -COPD in an ex-smoker -Chronic hypoxic respiratory failure from COPD -Essential hypertension -Chronic kyphoscoliosis -Severe protein calorie malnutrition -Chronic osteoporosis -Chronic lumbar and thoracic vertebral fracture -[id number] cognitive impairment from underlying Alzheimer's late onset dementia -Chronic urinary incontinence -Chronic medical debility patient uses a wheelchair Plan: Continue current medication treatment plan. Patient currently does not be stable for any kind of rehab. Given her poor function status. Advanced care planning: Had a very lengthy discussion with the patient. He does understand that she is doing poorly. Should not really be able to participate in any rehab. She just was to be comfortable.. She would like to at home. She understands that her lung condition is end-stage. She would like to peacefully. She has a granddaughter, who can help her out. She was to go home with hospice. She will a choice [facility]. To start for any heroic measures. Wants to be DO NOT RESUSCITATE. Did talk about different elements of hospice to her. She would like to go home today. Time spent for advanced care planning was 25 minutes. Informed community case manager. Making arrangements for her to go home with hospice.
[2019-02-26] MEDS: IPRATROPIUM-ALBUTEROL 3 ML NEB INHALATION SCH ×5 (01:08→16:53)
[2019-02-26] MEDS: SODIUM CHLORIDE 0.9% 1,000 ML IV SCH (06:08)
[2019-02-26 07:44] LABS: Anisocytosis Slight; HCT 30.9 % (34.0-46.0); HGB 9.6 gm/dL (11.4-16.0); Hypochromasia Slight; MCV 96.8 fL (80.0-100.0); Mean Platelet Volume 7.2; Platelet Count 386 k/uL (150-450); RBC 3.19 m/uL (3.80-5.40); RDW 16.5 % (11.5-15.5); WBC 35.8 k/uL (3.8-10.6)
[2019-02-26] MEDS: BUDESONIDE 0.5 MG/2 ML NEBU INHALATION SCH (07:52)
[2019-02-26] MEDS: FORMOTEROL FUMARATE 20 MCG/2 ML NEBU INHALATION SCH (07:52)
[2019-02-26 08:00] LABS: Calcium 9.5 mg/dL (8.4-10.2); Potassium 3.5 mmol/L (3.5-5.1)
[2019-02-26] MEDS ORDERED: CEFEPIME 2 GM in SODIUM CHLORIDE 0.9% 100 ML IVPB SCH (09:00)
[2019-02-26] MEDS: LISINOPRIL 2.5 MG TAB PO SCH (09:29)
[2019-02-26] MEDS: DILTIAZEM CD 180 MG CAP.ER.24H PO SCH (09:29)
[2019-02-26] MEDS: predniSONE 10 MG TAB PO SCH (09:29)
[2019-02-26] MEDS: CHOLECALCIFEROL 1,000 UNIT TAB PO SCH (09:29)
[2019-02-26] MEDS: FOLIC ACID 1 MG TAB PO SCH (09:30)
[2019-02-26] MEDS: PANTOPRAZOLE 40 MG/10 ML VIAL IV SCH (09:30)
[2019-02-26] MEDS: THIAMINE 100 MG TAB PO SCH (09:38)
[2019-02-26] MEDS: MULTIVITAMINS, THERA 1 EACH TAB PO SCH (09:38)
[2019-02-26] MEDS: ALPRAZolam 0.5 MG TAB PO PRN (09:38)
[2019-02-26 14:05] VITALS: BMI 15.9
[2019-02-26 16:19] VITALS: BP 135/81; RESP 15; TEMP 98.4
[2019-02-26 16:56] VITALS: PULSE 100
--- NOTE | 2019-02-26 23:43 | P.DS ---
Providers Date of admission: 02/20/19 12:28 Expected date of discharge: 02/26/19 Attending physician: Rohan Vidal Consults: 02/23/19 10:38 Consult Physician Urgent Consulting Provider: Sweta Greenwood Consult Reason/Comments: COPD, bilateral effusions, SOB Do you want consulting provider notified?: Yes 02/23/19 10:39 Consult Physician Urgent Consulting Provider: Ronald Cloud Consult Reason/Comments: CHF history Do you want consulting provider notified?: Yes Primary care physician: Abraham Dunn [facility] Hospital Course: Chief Complaint: Short of breath Hospital course: This is a 78-year-old patient, of Dr. Dunn. Chronic stable medical conditions include COPD with chronic hypoxic respiratory failure, essential hype rtension, kyphoscoliosis, cachexia, moderate protein calorie malnutrition, osteoporosis, chronic vertebral fractures, irritable bowel syndrome. Patient was discharged from the hospital recently with COPD exacerbation. Also had lower GI bleed and Showed sigmoid diverticulosis. Patient is having brown stools before discharge. Colitis was felt to be unlikely by Dr. Pepe Dalal. Patient is resident of [facility]. Patient now presents with bright red blood per rectum. Slight lower abdominal discomfort. Appetite has been fair. Some nausea present. Early this morning did have a dark stool. GI was consulted. Admitted for the same. Had a baseline uses a wheelchair. Patient not able to tolerate the preparation for colonoscopy. Because the blood was bright has failed the swallow for diverticular bleed. After discussed with the patient and Dr. Blancas it was decided not to do coloscopy. Also does feel that patient will not tolerate coloscopy because of her respiratory status. On February 23 patient went into respiratory distress. Moved to the cardiology telemetry floor. BiPAP was used. Cor status was addressed with the patient. Agree to become DO NOT INTUBATE. patient continued to do poorly with a poorly status. After further discussion rightly so patient decided to go into hospice. Patient is not felt to be a candidate for any rehab. Discussed with hospitalist team and the social worker palliative care to make arrangements for patient to go home. Discussed with the patient. help is also being arranged at home including equipment. Discussion and discharge planning more than 35 minutes Consultation: Dr. Blancas from GI Dr. Morales at all from pulmonary Physical examination: VITAL SIGNS: 98.4, 104, 15, 135/81, 96% on 2 L GENERAL: Propped up in bed, short of breath at rest, EYES: Pupils equal. Conjunctiva normal. HEENT: External appearance of nose and ears normal, oral cavity grossly normal. NECK: JVD not raised; masses not palpable. HEART: First and second heart sounds are normal; no edema. LUNGS: Respiratory rate increased, poor air entry. Prolonged expiration, accessories muscles are working, not able to speak in full sentences ABDOMEN: Soft, mild right lower quadrant tenderness no guarding or rigidity liver spleen not palpable, no masses palpable. PSYCH: Alert and oriented x3; mood and affect , anxious MUSCULOSKELETAL: Diffuse wasting of muscles with bony prominences and loss of subcutaneous tissue INVESTIGATIONS, reviewed in the clinical context: White count 26.9 hemoglobin 10.4 potassium 3.9 Previous testing: White count 21 hemoglobin 11.6 potassium 3.3 creatinine 0.82 Hemoglobin was 12.4 on February 17 Computed tomography scan of the abdomen-from February 13-numerous diverticula of the sigmoid colon compression deformities of the lumbar vertebra, some wall thickening of the ascending colon 2-D echo-EF 50-55% discharge diagnosis: -Acute severe COPD exacerbation, with acute hypoxic and hypercapnic respiratory failure,, with end-stage COPD in a slow to respond -Acute GI bleed felt to be left-sided chronic diverticular nature. Not felt to be candidate for colonoscopy. -Acute blood loss anemia from GI bleed -COPD in an ex-smoker -Chronic hypoxic respiratory failure from COPD -Essential hypertension -Chronic kyphoscoliosis -Severe protein calorie malnutrition -Chronic osteoporosis -Chronic lumbar and thoracic vertebral fracture -[id number] cognitive impairment from underlying Alzheimer's late onset dementia -Chronic urinary incontinence -Chronic medical debility patient uses a wheelchair disposition: Home with hospice Patient Condition at Discharge: Poor Plan - Discharge Summary Discharge Rx Participant: No New Discharge Prescriptions: New Diltiazem Cd [Cardizem CD] 360 mg PO DAILY #30 cap.er.24h LORazepam [Ativan] 1 mg PO Q4H PRN #30 tablet PRN Reason: Anxiety MORPHINE ORAL KIAH CONC 20mg/mL [Roxanol Oral Soln Conc 20Mg/ml] 5 mg PO Q4H PRN #30 ml PRN Reason: Pain Control Scopolamine 1.5MG/72Hr Patch [TransDerm Scop] 1 patch TRANSDERM Q72H #5 patch Continue Formoterol Fumarate [Perforomist] 20 mcg INHALATION RT-BID predniSONE 10 mg PO DAILY PARoxetine [Paxil] 60 mg PO HS Ipratropium-Albuterol Nebulize [Duoneb 0.5 mg-3 mg/3 ml Soln] 3 ml INHALATION RT-QID PRN PRN Reason: COPD Budesonide [Pulmicort] 0.5 mg INHALATION RT-BID Acetaminophen Tab [Tylenol] 650 mg PO Q6HR PRN tab PRN Reason: Fever And/ Or Pain Pantoprazole [Protonix] 40 mg PO DAILY@0600 Discontinued Lisinopril [Zestril] 2.5 mg PO DAILY Aspirin EC [Ecotrin Low Dose] 81 mg PO DAILY Cholecalciferol (Vitamin D3) [Vitamin D3] 2,000 unit PO DAILY Diltiazem HCl [Cartia Xt] 180 mg PO DAILY Ipratropium/Albuterol Sulfate [Combivent Respimat Inhaler] 1 puff INHALATION RT-QID PRN PRN Reason: Shortness Of Breath Folic Acid 1 mg PO DAILY@1200 tab Thiamine [Vitamin B-1] 100 mg PO DAILY@1200 tab metroNIDAZOLE [Flagyl] 500 mg PO TID Omeprazole 20 mg PO DAILY Multivitamins, Thera [Multivitamin (formulary)] 1 tab PO DAILY@1200 Discharge Medication List Budesonide [Pulmicort] 0.5 mg INHALATION RT-BID 11/19/18 [History] Formoterol Fumarate [Perforomist] 20 mcg INHALATION RT-BID 11/19/18 [History] Ipratropium-Albuterol Nebulize [Duoneb 0.5 mg-3 mg/3 ml Soln] 3 ml INHALATION RT-QID PRN 11/19/18 [History] PARoxetine [Paxil] 60 mg PO HS 11/19/18 [History] predniSONE 10 mg PO DAILY 11/19/18 [History] Acetaminophen Tab [Tylenol] 650 mg PO Q6HR PRN tab 02/18/19 [Rx] Pantoprazole [Protonix] 40 mg PO DAILY@0600 02/20/19 [History] Diltiazem Cd [Cardizem CD] 360 mg PO DAILY #30 cap.er.24h 02/26/19 [Rx] LORazepam [Ativan] 1 mg PO Q4H PRN #30 tablet 02/26/19 [Rx] MORPHINE ORAL KAIH CONC 20mg/mL [Roxanol Oral Soln Conc 20Mg/ml] 5 mg PO Q4H PRN #30 ml 02/26/19 [Rx] Scopolamine 1.5MG/72Hr Patch [TransDerm Scop] 1 patch TRANSDERM Q72H #5 patch 02/26/19 [Rx] Follow up Appointment(s)/Referral(s): Abraham Dunn DO [Primary Care Provider] - As Needed Activity/Diet/Wound Care/Special Instructions: home with hospice Discharge Disposition: HOME WITH HOSPICE
--- NOTE | 2019-02-28 12:33 | CDI ---
Documentation Clarification Form Date: 02/28/19 From: Ann Marie Levin Phone: If you have a question about this query, please contact Janice Scanlon, Audio Recording Engineer at [phone] between 8am and 5pm. Admit Date: 02/20/19 Discharge Date: 02/26/19 Patient Name: Alyx Nguyen Visit Number: [id number] ATTENTION: The Clinical Documentation Specialists (CDI) and [facility] Coding Staff appreciate your assistance in clarifying documentation. Please respond to the clarification below the line at the bottom and electronically sign. The CDI & [facility] Coding staff will review the response and follow-up if needed. Please note: Queries are made part of the Legal Health Record. If you have any questions, please contact the author of this message via ITS. Dear Dr Rohan Vidal, Heart failure/CHF is documented in the ED note, H&P, both consults and 02/25 PN. History/Risk Factors: rectal bleeding from diverticulosis, ABLA, acute on chronic hypoxic/hypercapnia respiratory failure, severe PCM Clinical Indicators: Hx of heart failure/CHF on 02/23- developed SOB, very anxious rec'd IV Lasix VS/Pulse OX: 02/23-P-112, R-25, O2 sat 92 BNP: 741/831 Echocardiogram Results: Left ventricular systolic function is low-normal, EF between 50-55% 02/23 Chest X Ray: Lungs are overinflated. There are bilateral effusion w bibasilar airspace disease likely representing atelectasis. The heart is not enlarged. Treatment: IV Lasix once on 02/23, home meds - Lisinopril, In your professional opinion, can you please clarify the acuity and type of CHF if known? TYPE Systolic Heart Failure Diastolic Heart Failure Systolic & Diastolic Heart Failure: ACUITY Acute Chronic Acute on Chronic Heart Failure Unable to Determine Other, please specify Unable to determine MTDD
== END 2019-02-26 17:52 | disposition hospice, home (50) | DRG 377 ==
LOC: EC 11:06 → EEVIPCON 12:28 → 4SSUR 12:28 → 3SCARD 13:24 → 4MS4W 02-22 21:04 → 3SCARD 02-23 12:35
PROVIDERS: ADMIT Hospitalist; ATTEND Hospitalist
DX: K57.31 Diverticulosis of large intestine without perforation or abscess with bleeding (principal); E43 Unspecified severe protein-calorie malnutrition; J96.21 Acute and chronic respiratory failure with hypoxia; J96.22 Acute and chronic respiratory failure with hypercapnia; R64 Cachexia; J44.1 Chronic obstructive pulmonary disease with (acute) exacerbation; D62 Acute posthemorrhagic anemia; Z66 Do not resuscitate; Z51.5 Encounter for palliative care; I11.0 Hypertensive heart disease with heart failure; I50.9 Heart failure, unspecified; I08.3 Combined rheumatic disorders of mitral, aortic and tricuspid valves; G30.1 Alzheimer's disease with late onset; F02.80 Dementia in other diseases classified elsewhere, unspecified severity, without behavioral disturbance, psychotic disturbance, mood disturbance, and anxiety; R15.9 Full incontinence of feces; M41.20 Other idiopathic scoliosis, site unspecified; K58.0 Irritable bowel syndrome with diarrhea; M81.0 Age-related osteoporosis without current pathological fracture; E89.2 Postprocedural hypoparathyroidism; E03.9 Hypothyroidism, unspecified; G47.00 Insomnia, unspecified; R32 Unspecified urinary incontinence; F41.9 Anxiety disorder, unspecified; F32.9 Major depressive disorder, single episode, unspecified; Z99.81 Dependence on supplemental oxygen; Z79.82 Long term (current) use of aspirin; Z79.51 Long term (current) use of inhaled steroids; Z79.52 Long term (current) use of systemic steroids; Z79.899 Other long term (current) drug therapy; Z87.891 Personal history of nicotine dependence; Z87.440 Personal history of urinary (tract) infections; Z90.49 Acquired absence of other specified parts of digestive tract; Z90.710 Acquired absence of both cervix and uterus; Z98.890 Other specified postprocedural states; Z88.1 Allergy status to other antibiotic agents; Z88.5 Allergy status to narcotic agent; Z91.010 Allergy to peanuts; Z87.310 Personal history of (healed) osteoporosis fracture; Z99.3 Dependence on wheelchair; Z82.5 Family history of asthma and other chronic lower respiratory diseases; Z80.6 Family history of leukemia; Z80.3 Family history of malignant neoplasm of breast; Z80.8 Family history of malignant neoplasm of other organs or systems
CPT/HCPCS: 36415; 71045; 74177; 74230; 80048; 80053; 82272; 82550; 83605; 83735; 83880; 84145; 84484; 85025; 85027; 85610; 85730; 86850; 86900; 86901; 87040; 93306; 94640; 94660; 94760; 96360; 96361; 99285